=== PATIENT | male | born 1945 | race Caucasian/White ===

== ENCOUNTER 2016-10-03 06:42 | Day surgery (SDC) | payer MEDICARE ==
[~2016-10-03] VITALS: Ht 180.3 cm; Wt 118.4 kg
[2016-10-03] MEDS ORDERED: LIDOCAINE 1% INJ 20 ML (XYLOCAINE) VIAL ONE (06:49)
[2016-10-03] MEDS ORDERED: HEParin (CATH LAB) 2,000 ML IV ONE (06:49)
[2016-10-03] MEDS ORDERED: NS IV 1000 ML 1,000 ML ONE (06:49)
[2016-10-03 07:18] VITALS: BP 160/69
[2016-10-03 07:27] LABS: MEAN PLATELET VOLUME 10.4 FL (7.4-10.4); RED BLOOD COUNT 3.66 10^6/uL (4.35-5.85); RED CELL DISTRIBUTION WIDTH 14.4 % (10.0-14.5); WHITE BLOOD COUNT 7.3 10^3/uL (4.3-11.0)
[2016-10-03] MEDS ORDERED: NS IV 1000 ML 1,000 ML IV SCH ×2 (07:30→13:30)
[2016-10-03 07:35] LABS: PROTHROMBIN TIME PATIENT 12.9 SEC (12.2-14.7)
[2016-10-03 07:43] LABS: ALBUMIN 3.8 G/DL (3.2-4.5); BILIRUBIN,TOTAL 0.7 MG/DL (0.1-1.0); CALCIUM 8.8 MG/DL (8.5-10.1); CREATININE SERUM 1.33 MG/DL (0.60-1.30); POTASSIUM 4.1 MMOL/L (3.6-5.0); TOTAL PROTEIN 6.2 G/DL (6.4-8.2)
--- NOTE | 2016-10-03 08:05 | Diagnostic Imaging Report ---
Portable upright radiograph of the chest. INDICATION: Shortness of breath, hypertension. FINDINGS: There is minimal left basilar atelectasis. There is an indeterminate nodule projecting over the left lung base with less prominent but symmetric location and size appearance on the right side probably related to the nipple shadow. The heart size is at the upper limits of normal. No effusion or pneumothorax. IMPRESSION: Minimal left basilar atelectasis. Dictated by: Dictated on workstation # [id number]
[2016-10-03] MEDS ORDERED: LOVA20TA2 PO (08:40)
[2016-10-03] MEDS ORDERED: LISI-552 PO (08:40)
[2016-10-03] MEDS ORDERED: ASPI325T32 PO (08:40)
[2016-10-03] MEDS ORDERED: HYDR-3812 PO (08:42)
[2016-10-03] MEDS ORDERED: NAPR500T3 PO (08:42)
[2016-10-03] MEDS ORDERED: GABA-488 PO (08:42)
[2016-10-03] MEDS ORDERED: ALPR0.5T7 PO (08:47)
[2016-10-03] MEDS ORDERED: ZOLP12.546 PO (08:47)
[2016-10-03] MEDS ORDERED: VERAPAMIL 5 MG/2 ML (CALAN) VIAL IV ONE (11:33)
[2016-10-03] MEDS ORDERED: NITROGLYCERIN DRIP 25 MG/D5W 250 ML IV ONE (11:33)
[2016-10-03] MEDS ORDERED: HEParin 1000 UNIT/ML (10ML VIAL) FOR BOLUS ONE (11:33)
[2016-10-03] MEDS ORDERED: MIDAZOLAM 5 MG/5 ML (VERSED) VIAL ONE (11:33)
[2016-10-03] MEDS ORDERED: fentaNYL INJECTION 100 MCG/2 ML AMP ONE (11:33)
--- NOTE | 2016-10-03 13:26 | Cardiac Procedure Note-CS/ASA ---
Pre-Procedure Note Pre-Op Procedure Note H&P Reviewed The H&P was reviewed, patient examined and no changes noted. Date H&P Reviewed: Oct 03, 2016 Time H&P Reviewed: 12:00 Conscious Sedation Pre-Proced Time Reviewed: 12:00 ASA Class: 2 Airway Mallampati Classification: ([place] appropriate class) I. II. III, IV Lungs Heart ASA score ASA 1: a normal healthy patient ASA 2: a patient with a mild systemic disease (mid diabetes, controlled hypertension, obesity ASA 3: a patient with a severe systemic disease that limits activity (angina , COPD, prior Myocardial infarction) ASA 4: a patient with an incapacitating disease that is a constant threat to life (CHF, renal failure) ASA 5: a moribund patient not expected to survive 24 hrs. (ruptured aneurysm) ASA 6: a declared brain patient whose organs are being harvested. For emergent operations, add the letter E after the classification Grade 1 Sedation Plan: Analgesia, Amnesia, Plan communicated to team members, Discussed options with patient/fam, Discussed risks with patient/fam Note The patient is an appropriate candidate to undergo the planned procedure, sedation, and anesthesia. The patient immediately re-assessed prior to indication. Feliciano HAY MD Oct 03, 2016 1:26 pm
[2016-10-03] MEDS ORDERED: PATIENT MAY USE OWN MEDS, ALL PO SCH (13:30)
--- NOTE | 2016-10-03 13:30 | Progress Note-Post Operative ---
Post-Operative Progess Note Pre-Operative Diagnosis Cardiomyopathy Post-Operative Diagnosis mild to moderate CAD Post-Op Procedure Note Date of Procedure: Oct 03, 2016 Name of Procedure: coronary angiography, LHC, aortography Procedure Note/Findings mild to moderate pRCA. mild pLAD patent LCX. LVEF 45-50%. Anesthesia Type local anesthesia, conscious sedation Estimated blood loss (mL): 30 ml Packing: none Specimen(s) collected none Feliciano HAY MD Oct 03, 2016 1:30 pm
--- NOTE | 2016-10-03 13:32 | Discharge Inst-Post CATH ---
Discharge Inst-CATH Post Cardiac Cath D/C Inst Follow Up/Plan follow up with dr evans in 2 weeks CARDIAC CATH DISCHARGE INSTRUCTIONS *Hold Metformin for 48 hours post heart cath. ACTIVITY * Go Home directly and rest. * Limit activity of the leg (or wrist if it was used) for 7 days including aerobics, swimming, jogging, bicycling, etc. * Restrict stair-climbing for 7 days if possible, if not, climb up with your non -cath leg, then bring together on the same step. * Avoid lifting, pushing, pulling or excessive movement of the affected extremity for 7 days. * Customary sexual activity may be resumed after 2 days-use caution not to use a position that strains or causes pain to the affected extremity. * No driving for 24 hours. * NO SMOKING. * Avoid straining for bowel movements for 7 days. * Gentle walking on level ground is allowed. * Returning to work will depend on the type of procedure and the results. Your doctor will discuss this with you. CALL YOUR DOCTOR FOR ANY OF THE FOLLOWING: *If bleeding from the puncture site occurs- Apply gentle pressure to site with clean cloth and call your doctor or EMS. * If a knot or lump forms under the skin, increases in size, or causes pain. * If bruising appears to be worsening or moving further down your leg instead of disappearing. * Temperature above 101 F. CARE OF YOUR GROIN INCISION; * Bruising or purple discoloration of the skin near the puncture site is common. * You may shower only, no bathtub bathing for 5 days. Be careful to avoid slipping as your leg may feel stiff. * If a closure device was used on your femoral artery, please see the attached guide regarding care of the device and your leg. * REMOVE the dressing from your groin the next day after your procedure in the shower. CARE OF YOUR WRIST INCISION; * Bruising or purple discoloration of the skin near the puncture site is common. * You may shower. * DO NOT submerge wrist. * Remove dressing in 24 hours. eFliciano EVANS MD Oct 03, 2016 1:32 pm
[2016-10-03 13:58] VITALS: BP 152/70
[2016-10-03 14:45] VITALS: BP 159/82
--- NOTE | 2016-10-03 15:09 | Cardiology Discharge Summary ---
Diagnosis/Chief Complaint Date of Admission 10/03/2016 Date of Discharge 10/03/2016 Admission Diagnosis cardiomyopathy Final/Discharge Diagnosis mild to moderate coronary artery disease, mild cardiomyopathy Chief Complaint/HPI Chief Complaint/HPI 71-year-old gentleman with cardiomyopathy with moderate reduction of ejection fraction. He was started on medical therapy for cardiomyopathy and planned for coronary angiography to rule out coronary artery disease. Discharge Summary Procedures coronary angiography, left heart catheterization Discharge Physical Examination stable Hospital Course coronary angiography revealed mild to moderate coronary artery disease. Significant improvement in ejection fraction. Nonischemic cardiomyopathy Pending Labs Laboratory Tests 10/03/16 07:18: Activated Partial Thromboplast Time 26, Alanine Aminotransferase (ALT/SGPT) 18, Albumin 3.8, Alkaline Phosphatase 58, Anion Gap 10, Aspartate Amino Transf (AST/ SGOT) 20, BUN/Creatinine Ratio 11, Blood Urea Nitrogen 15, Calcium Level 8.8, Carbon Dioxide Level 20, Chloride Level 113, Cholesterol Level 123, Creatinine 1.33, Estimat Glomerular Filtration Rate 53, Glucose Level 102, HDL Cholesterol 31, Hematocrit 35, Hemoglobin 11.7, INR Comment 1.0, LDL Cholesterol Direct 44, Mean Corpuscular Hemoglobin 32, Mean Corpuscular Hemoglobin Concent 33, Mean Corpuscular Volume 96, Mean Platelet Volume 10.4, Platelet Count 265, Potassium Level 4.1, Prothrombin Time 12.9, Red Blood Count 3.66, Red Cell Distribution Width 14.4, Sodium Level 143, Total Bilirubin 0.7, Total Protein 6.2, Triglycerides Level 114, VLDL Cholesterol 23, White Blood Count 7.3 Discussion & Recommendations Discussion nonischemic cardiomyopathy, mild to moderate coronary artery disease Follow up appt.: Dr. Evans in 3-4 weeks Dicharge Diet: Cardiac Diet Activity as Tolerated: Yes Home Medications Reviewed patient Home Medication Reconciliation Form Discharge Home Medications: Reviewed and agree with Discharge Medication list on patient's Discharge Instruction sheet Condition at discharge stable Instructions to patient/family follow up with dr evans in 3-4 weeks Feliciano EVANS MD Oct 03, 2016 3:09 pm
[2016-10-03 16:00] VITALS: BP 131/82
[2016-10-03 16:52] VITALS: BP 131/68
[2016-10-04] MEDS ORDERED: ASPIRIN E.C. 81 MG (ECOTRIN) TAB PO SCH (09:00)
--- NOTE | 2016-10-04 10:15 | CARDIAC CATHETERIZATION ---
PROCEDURE PHYSICIAN: TALIB HAY DATE OF PROCEDURE: 10/03/2016 INDICATION: Cardiomyopathy. PREOPERATIVE DIAGNOSIS: Cardiomyopathy with ejection fraction 30 to 35% on echo. POSTOPERATIVE DIAGNOSES: Significant improvement in LV EF, mild to moderate coronary artery disease. HISTORY: Mr. Metz is a 71-year-old gentleman who has been diagnosed with new onset cardiomyopathy. Echocardiogram showed an EF of 30 to 35%. He was started on medical therapy for cardiomyopathy previously. Coronary angiography was performed to rule out coronary disease as an etiology for the cardiomyopathy. PROCEDURE PERFORMED: 1. Aortic arch angiography. 2. Right femoral angiography. 3. Coronary angiography. 4. Left heart catheterization. COMPLICATIONS: None. SPECIMENS: None. ESTIMATED BLOOD LOSS: 20 mL. FINAL RESULTS: Excellent. ANTICOAGULATION: Heparin. CONTRAST: 135 mL of Omnipaque FLUOROSCOPY TIME: 10.31 minutes. FLUOROSCOPY DOSE: 1364 mGy PROCEDURE DETAILS: The patient was brought to the [facility] after informed consent was taken. All the risks and complications were explained. The patient was draped and prepped in the usual sterile fashion. We gained access in the right radial artery with a 6-[place] sheath. We had a difficulty in advancing the wire in the subclavian artery. Therefore operations logistics analyst images were taken which showed significant tortuosity in the brachiocephalic artery. An aortic arch and thoracic aortic angiography was performed. However due to significant tortuosity and difficulty in engaging the ostium of the coronary arteries, we had to switch to right femoral artery with a 6-[place] sheath. Left heart catheterization was performed with Valentin catheter. RCA was engaged with a JR4 catheter. Left coronary system was engaged with a JR4 catheter. FINDINGS: 1. Aortic arch angiography: Significant tortuosity is noted in the right brachiocephalic artery with a very acute angled with the arch. There is no significant aneurysm or dissection noted in the image which includes the descending thoracic aorta. The ostium of the left carotid artery is free of significant disease. The ostium of the left subclavian artery is also free of significant disease. 2. Left heart catheterization: Aortic pressure 135/63 mmHg, LV pressure 131/11 mmHg, LVEDP 18 mmHg. LVEF 45 to 50% with no significant wall motion abnormalities. Low gradient across the aortic valve. 3. RCA: Mild to moderate disease in the proximal segment of the RCA which is 30-40% stenosis. There is mild disease in the proximal segment of the PLV branch. 4. Left main: Patent. 5. LAD is a transapical vessel. There is mild proximal disease. 6. The left circumflex artery gives a large obtuse marginal artery which has mild proximal disease. CONCLUSION: 1. Mild to moderate coronary artery disease. 2. LV EF around 50%. 3. Significant improvement in LV ejection fraction on medical therapy. 4. Nonischemic cardiomyopathy. Job ID: [id number] Dictated Date: 10/04/2016 08:35:03 Responder Date: 10/04/2016 09:57:34 / cinda RING
== END 2016-10-03 16:54 | disposition home or self-care (01) ==
LOC: CATH 06:42
PROVIDERS: ATTEND Internal Medicine Interventional Cardiology
DX: I42.9 Cardiomyopathy, unspecified (principal); I25.10 Atherosclerotic heart disease of native coronary artery without angina pectoris; I10 Essential (primary) hypertension; I49.3 Ventricular premature depolarization; Z79.899 Other long term (current) drug therapy
CPT/HCPCS: 36221; 36415; 71010; 80053; 80061; 85027; 85610; 85730; 87081; 93005; 93458

== ENCOUNTER → 2016-10-30 | Outpatient (CLI) | payer MEDICARE ==
[~2016-10-30] MED LIST: ALPR0.5T7 PO; ASPI325T32 PO; GABA-488 PO; HYDR-3812 PO; LISI-552 PO; LOVA20TA2 PO; NAPR500T3 PO; ZOLP12.546 PO
== END ==
LOC: CARD 11:17
PROVIDERS: ATTEND Internal Medicine Interventional Cardiology
DX: I49.3 Ventricular premature depolarization (principal)
CPT/HCPCS: 93225; 93226

== ENCOUNTER → 2017-01-09 | Outpatient (CLI) | payer MEDICARE ==
--- NOTE | 2017-01-10 08:17 | ECHOCARDIOGRAPHY REPORT ---
PROCEDURE PHYSICIAN: TALIB GARG DATE OF PROCEDURE: 01/09/2017 TWO DIMENSIONAL ECHOCARDIOGRAM REPORT PRIMARY PHYSICIAN: Dr. Green OTHER PHYSICIAN: REFERRING PHYSICIAN: ORDERING PHYSICIAN: ATTENDING PHYSICIAN: Dr. Gavino Garg FAMILY PHYSICIAN: READING PHYSICIAN: INDICATION FOR THE PROCEDURE: Cardiomyopathy. MEASUREMENTS DERIVED VALUES LV DIAMETER (LAX) NORMALS NORMALS Diastolic (3.6-5.2) Eject. Fract. (60%+/-6%) Systolic (2.3-3.9) Diastolic Vol. % Shortening (0.22-0.42) Systolic Vol. Aortic Root IVS THICKNESS Diastolic (0.6-1.1) LVPW THICKNESS Diastolic (0.6-1.1) LA DIAMETER Systolic (2.1-3.7) FINDINGS: 1. Sinus rhythm. 2. Left atrial dimension is normal. 3. Aortic root dimension is normal. 4. Left ventricular systolic function is preserved. Left ventricular ejection fraction is 50 to 55%. No LVH is present. 5. Wall motion is normal. 6. Right heart size and function is normal. 7. There is no pericardial effusion. 8. There is mild diastolic dysfunction. 9. IVC is normal. Diameter is 1.5 cm. VALVULAR STRUCTURE OF THE HEART: There is trace pulmonic regurgitation. There is trace tricuspid regurgitation with RVSP of 15 mmHg. There is no significant mitral valve pathology. There is mild aortic valve sclerosis with no stenosis or regurgitation. CONCLUSION: 1. LV and RV size and function is normal. 2. LV EF is 50 to 55%. 3. There is no significant valvular heart disease. 4. There is mild diastolic dysfunction present. Job ID: [id number] Dictated Date: 01/09/2017 16:09:52 Chemical Engineer Date: 01/10/2017 08:14:04 / zoran
== END ==
LOC: CARD 09:33
PROVIDERS: ATTEND Internal Medicine Interventional Cardiology
DX: I42.9 Cardiomyopathy, unspecified (principal); R53.83 Other fatigue; E78.5 Hyperlipidemia, unspecified; I10 Essential (primary) hypertension; I49.3 Ventricular premature depolarization
CPT/HCPCS: 93306

== ENCOUNTER → 2017-06-28 | Outpatient (CLI) | payer MEDICARE | LOC: CARD 12:01 | PROVIDERS: ATTEND Internal Medicine Interventional Cardiology | DX: I50.20 Unspecified systolic (congestive) heart failure (principal) | CPT/HCPCS: 93306 ==

== ENCOUNTER 2017-07-08 14:29 | Emergency (ER) | payer MEDICARE ==
[~2017-07-08] VITALS: Ht 180.3 cm; Wt 108.9 kg
--- OUTSIDE RECORDS SUMMARY | 2017-07-08 14:34 | XMS REPORT ---
Author Author ELIZABETH WITT Organization [facility] Address [address] [place] [address] Care Team Providers Care Beauty Culturist Name Role Phone ELIZABETH WITT Unavailable PROBLEMS Type Condition ICD9-CM Code QCY19-KP Code Onset Dates Condition Status SNOMED Code Problem GERD without esophagitis K21.9 Active 077844049 Problem Primary insomnia F51.01 Active 7930059 Problem Other cardiac arrhythmia I49.8 Active 83312046 Problem Anxiety F41.9 Active 62680841 Problem Chronic fatigue R53.82 Active 38214588 ALLERGIES Substance Reaction Event Type Date Status Sulfa (sulfonamide Antibiotics) Unknown Non Drug Allergy Oct, Active SOCIAL HISTORY No smoking Hx information available PLAN OF CARE Activity Details Follow Up prn Reason: VITAL SIGNS Height 71.5 in 2016-10-15 Weight 240 lbs 2016-10-15 Temperature 97.7 degrees Fahrenheit 2016-10-15 Heart Rate 78 bpm 2016-10-15 Respiratory Rate 18 2016-10-15 BMI 33.00 kg/m2 2016-10-15 Blood pressure systolic 140 mmHg 2016-10-15 Blood pressure diastolic 56 mmHg 2016-10-15 MEDICATIONS Medication Instructions Dosage Frequency Start Date End Date Duration Status Aspirin 325 MG Orally Once a day 1 tablet 24h Active Promethazine HCl 25 MG Orally 4 times a day 1 tablet as needed 6h Oct, Nov, 30 day(s) Active Xanax 0.5 MG Orally Twice a day 1 tablet 12h 24 Jul, 2016 Active Azithromycin 250 MG Orally Once a day 2 tablets on the first day, then 1 tablet daily for 4 days 24h Oct, Oct, 5 day(s) Active Cetirizine HCl 10 mg Orally Once a day 1 tablet 24h Jun, Active Fluticasone Propionate 50 MCG/ACT Nasally Once a day 1 spray in each nostril 24h Jun, 30 day(s) Active Zolpidem Tartrate ER 12.5 MG Orally Once a day 1 tablet at bedtime as needed 24h 08 Jun, 2016 Active Gabapentin 300 mg take 2 capsules (600 mg) by oral route 3 times per day Aug, Active Lipitor 10 MG Orally Once a day 1 tablet 24h Active Lisinopril-Hydrochlorothiazide 20-25 MG Orally Once a day 1 tablet 24h Active RESULTS No Results PROCEDURES Procedure Date Ordered Related Diagnosis Body Site [facility] VISIT ESTABLISHED PATIENT Oct 15, 2016 Office Visit, Est Pt., Level 3 Oct 15, 2016 IMMUNIZATIONS No Known Immunizations
--- OUTSIDE RECORDS SUMMARY | 2017-07-08 14:34 | XMS REPORT ---
Author SARTHAK Macias [facility] eClinicalWorks Address Unknown Phone Unavailable Care Team Providers Care Financial Analysis Consultant Name Role Phone SARTHAK HARRIS CP Unavailable Allergies, Adverse Reactions, Alerts Substance Reaction Event Type Sulfa (sulfonamide Antibiotics) Info Not Available Non Drug Allergy Problems Problem Type Condition Code Onset Dates Condition Status Assessment Other cardiac arrhythmia I49.8 Active Problem Acute sinusitis, unspecified 461.9 Active Problem Nausea alone 787.02 Active Problem Other cardiac arrhythmia I49.8 Active Assessment Localized edema R60.0 Active Assessment Murmur, cardiac R01.1 Active Problem Acute pharyngitis 462 Active Problem Cough 786.2 Active Medications Medication Code System Code Instructions Start Date End Date Status Dosage Gabapentin [facility] [address]-53 300 mg Sep 26, 2014 take 2 capsules ( 600 mg) by oral route 3 times per day Fluticasone Propionate [facility] [address]-19 50 MCG/ACT Nasally Once a day Jun 26, 2016 1 spray in each nostril Cetirizine HCl [facility] [address]-78 10 mg Orally Once a day Jun 26, 2016 1 tablet Xanax [facility] [address]-69 0.5 MG Orally Twice a day Jul 24, 2016 1 tablet Hydrochlorothiazide [facility] [address]-82 25 mg Sep 26, 2014 take 1 tablet (25 mg) by oral route once daily Xarelto [facility] [address]-39 20 MG Orally Once a day not defined Zolpidem Tartrate ER [facility] [address]-93 12.5 MG Orally Once a day Jun 08, 2016 1 tablet at bedtime as needed Hydrocodone-Acetaminophen [facility] [address]-64 5-325 MG Orally every 6 hrs Sep 26, 2014 Aug 20, 2016 1 tablet as needed Procedures Procedure Coding System Code Date Office Visit, Est Pt., Level 3 CPT-4 43437 Jul 24, 2016 [facility] VISIT ESTABLISHED PATIENT CPT-4 G0467 Jul 24, 2016 Vital Signs Date/Time: Jul 24, 2016 Cardiac Monitoring Heart Rate 48 bpm Weight 237 lbs Height 71.5 in BMI 32.59 Index Blood Pressure Diastolic 82 mmHg Blood Pressure Systolic 154 mmHg Results No Known Results Summary Purpose eClinicalWorks Submission
--- OUTSIDE RECORDS SUMMARY | 2017-07-08 14:34 | XMS REPORT ---
Author Author SARTHAK HARRIS Organization e[employer] Address Unknown Phone Unavailable Care Team Providers Care Trauma Director Name Role Phone SARTHAK HARRIS CP Unavailable Allergies, Adverse Reactions, Alerts Substance Reaction Event Type Sulfa (sulfonamide Antibiotics) Info Not Available Non Drug Allergy Problems Problem Type Condition Code Onset Dates Condition Status Problem Nausea alone 787.02 Active Problem Acute pharyngitis 462 Active Problem Acute sinusitis, unspecified 461.9 Active Problem Cough 786.2 Active Assessment Upper respiratory tract infection, unspecified type J06.9 Active Medications Medication Code System Code Instructions Start Date End Date Status Dosage Cefdinir [facility] [address]-81 300 MG Orally every 12 hrs May 25, 2016Jun 1 capsule Xarelto [facility] [address]-32 20 MG Orally Once a day not defined Omnicef NDC 0 300 MG Orally every 12 hrs 1 capsule Hydrochlorothiazide [facility] [address]-57 25 mg Sep 26, 2014 take 1 tablet (25 mg) by oral route once daily PredniSONE [facility] [address]-84 20 mg Orally Once a day May 31, 2016Jun 2 tablets Ambien [facility] [address]-40 10 MG Orally Once a day May 25, 2016 1 tablet at bedtime as needed Gabapentin [facility] [address]-12 300 mg Sep 26, 2014 take 2 capsules ( 600 mg) by oral route 3 times per day Procedures Procedure Coding System Code Date Office Visit, Est Pt., Level 3 CPT-4 58280 May 31, 2016 [facility] VISIT ESTABLISHED PATIENT CPT-4 G0467 May 31, 2016 Vital Signs Date/Time: May 31, 2016 Cardiac Monitoring Heart Rate 76 bpm Weight 232.2 lbs Height 71.5 in BMI 31.93 Index Blood Pressure Diastolic 62 mmHg Blood Pressure Systolic 148 mmHg Results No Known Results Summary Purpose eClinicalWorks Submission
--- OUTSIDE RECORDS SUMMARY | 2017-07-08 14:34 | XMS REPORT ---
Author Author SARTHAK HARRIS Organization [facility] Address [address] [place] [address] Care Team Providers Care Power Lineman Name Role Phone SARTHAK HARRIS Unavailable PROBLEMS Type Condition ICD9-CM Code MNU28-IC Code Onset Dates Condition Status SNOMED Code Problem Other cardiac arrhythmia I49.8 Active 00140316 Problem Acute sinusitis, unspecified 461.9 Active 44753518 Problem Cough 786.2 Active 82878171 Assessment Polyuria R35.8 Aug, Active 31231660 Problem Nausea alone 787.02 Active 539683730 Problem Acute pharyngitis 462 Active 459056820 ALLERGIES Unknown Allergies SOCIAL HISTORY No smoking Hx information available PLAN OF CARE VITAL SIGNS MEDICATIONS Medication Instructions Dosage Frequency Start Date End Date Duration Status Zolpidem Tartrate ER 12.5 MG Orally Once a day 1 tablet at bedtime as needed 24h Jun, Active RESULTS No Results PROCEDURES No Known procedures IMMUNIZATIONS No Known Immunizations
--- OUTSIDE RECORDS SUMMARY | 2017-07-08 14:34 | XMS REPORT ---
Author Author THU GRANADOS Organization e[employer] Address Unknown Phone Unavailable Care Team Providers Care Dye Range Feeder Name Role Phone THU GRANADOS CP Unavailable Allergies, Adverse Reactions, Alerts Substance Reaction Event Type Sulfa (sulfonamide Antibiotics) Info Not Available Non Drug Allergy Problems Problem Type Condition Code Onset Dates Condition Status Problem Nausea alone 787.02 Active Problem Acute pharyngitis 462 Active Problem Acute sinusitis, unspecified 461.9 Active Problem Cough 786.2 Active Assessment Acute maxillary sinusitis, recurrence not specified J01.00 Active Medications Medication Code System Code Instructions Start Date End Date Status Dosage Hydrocodone-Acetaminophen [facility] [address]-48 5-300 mg Sep 26, 2014 take 2 tablets by oral route every 4-6 hours as needed for pain Xarelto [facility] [address]-03 20 MG Orally Once a day not defined Gabapentin [facility] [address]-67 300 mg Sep 26, 2014 take 2 capsules ( 600 mg) by oral route 3 times per day Hydrochlorothiazide [facility] [address]-10 25 mg Sep 26, 2014 take 1 tablet (25 mg) by oral route once daily Imodium A-D [facility] [address]-50 2 mg Oct 24, 2014 take 2 tablets by Oral route 1 time per day after 1st loose stool and 1 tab after each subsequent bowel movement; do not exceed 16 mg in 24hrs for diarrhea Amoxicillin [facility] [address]-35 500 MG Orally every 8 hrs April 15, 2016 April 25, 2016 1 capsule Procedures Procedure Coding System Code Date Office Visit, Est Pt., Level 3 CPT-4 65931 April 15, 2016 [facility] VISIT ESTABLISHED PATIENT CPT-4 G0467 April 15, 2016 Vital Signs Date/Time: April 15, 2016 Cardiac Monitoring Heart Rate 66 bpm Weight 231.0 lbs Height 71.5 in Blood Pressure Diastolic 72 mmHg Blood Pressure Systolic 124 mmHg Results No Known Results Summary Purpose eClinicalWorks Submission
--- OUTSIDE RECORDS SUMMARY | 2017-07-08 14:34 | XMS REPORT ---
Author Author SARTHAK HARRIS Organization [facility] Address [address] [place] [address] Care Team Providers Care Casting Chipper Name Role Phone STEVEN SARTHAK Unavailable PROBLEMS Type Condition ICD9-CM Code OVL76-VU Code Onset Dates Condition Status SNOMED Code Assessment Anxiety F41.9 Jun, Active 57723887 Assessment Chronic deep vein thrombosis (DVT) of popliteal vein of both lower extremities I82.533 Jun, Active 022849931929369 Assessment Primary insomnia F51.01 Jun, Active 5391626 Problem Acute sinusitis, unspecified 461.9 Active 21599089 Problem Nausea alone 787.02 Active 572797682 Assessment Polyuria R35.8 Jun, Active 01601182 Assessment Chronic fatigue R53.82 Jun, Active 74044719 Problem Acute pharyngitis 462 Active 157417330 Problem Cough 786.2 Active 99102925 ALLERGIES Substance Reaction Event Type Date Status Sulfa (sulfonamide Antibiotics) Unknown Non Drug Allergy Jun, Active SOCIAL HISTORY No smoking Hx information available PLAN OF CARE VITAL SIGNS Height 71.5 in 2016-06-08 Weight 234 lbs 2016-06-08 Heart Rate irregular:60 bpm 2016-06-08 Respiratory Rate 18 2016-06-08 BMI 32.18 kg/m2 2016-06-08 Blood pressure systolic 142 mmHg 2016-06-08 Blood pressure diastolic 60 mmHg 2016-06-08 MEDICATIONS Medication Instructions Dosage Frequency Start Date End Date Duration Status Hydrochlorothiazide 25 mg take 1 tablet (25 mg) by oral route once daily Aug, Active Xarelto 20 MG Orally Once a day 24h Active Paroxetine HCl 20 mg Orally Once a day, voucher 1st fill 1 tablet in the morning Jun, 30 day(s) Active Gabapentin 300 mg take 2 capsules (600 mg) by oral route 3 times per day Aug, Active Hydrocodone-Acetaminophen 5-325 MG take 2 tablets by oral route every 4-6 hours as needed for pain Aug, Active Amoxicillin 500 MG Orally every 12 hrs 1 tablet 12h Jun, Jun, 07 days Active Zolpidem Tartrate ER 12.5 MG Orally Once a day 1 tablet at bedtime as needed 24h Jun, Active RESULTS No Results PROCEDURES Procedure Date Ordered Related Diagnosis Body Site [facility] VISIT ESTABLISHED PATIENT Jun 08, 2016 Office Visit, Est Pt., Level 3 Jun 08, 2016 IMMUNIZATIONS No Known Immunizations
--- OUTSIDE RECORDS SUMMARY | 2017-07-08 14:34 | XMS REPORT ---
Author Author SARTHAK HARRIS Organization [facility] Address [address] [place] [address] Care Team Providers Care Fruit Farmworker Name Role Phone SARTHAK HARRIS Unavailable PROBLEMS Type Condition ICD9-CM Code [id number] Code Onset Dates Condition Status SNOMED Code Problem GERD without esophagitis K21.9 Active 073831403 Problem Primary insomnia F51.01 Active 6627358 Problem Other cardiac arrhythmia I49.8 Active 69066808 Problem Anxiety F41.9 Active 24290580 Problem Chronic fatigue R53.82 Active 15702956 ALLERGIES No Information SOCIAL HISTORY Never Assessed PLAN OF CARE VITAL SIGNS MEDICATIONS Medication Instructions Dosage Frequency Start Date End Date Duration Status Xanax 1 MG Orally Twice a day 1 tablet 12h 24 Jul, 2016 Active RESULTS No Results PROCEDURES No Known procedures IMMUNIZATIONS No Known Immunizations MEDICAL (GENERAL) HISTORY Type Description Date Medical History Blood clot right leg Medical History irregular heartbeat Surgical History Rt Knee 2008 Surgical History heart cath 10/2016 Hospitalization History surgery Hospitalization History tonsillectomy as a child
--- OUTSIDE RECORDS SUMMARY | 2017-07-08 14:35 | XMS REPORT ---
Author Author RAJIV RINCON [facility] Address Unknown Phone Unavailable Care Team Providers Care Shark Biologist Name Role Phone RAJIV RINCON Unavailable Allergies, Adverse Reactions, Alerts Substance Reaction Event Type Sulfa (sulfonamide Antibiotics) Info Not Available Non Drug Allergy Problems Problem Type Condition Code Onset Dates Condition Status Problem Nausea alone 787.02 Active Problem Acute pharyngitis 462 Active Problem Acute sinusitis, unspecified 461.9 Active Assessment Acute diarrhea R19.7 Active Problem Cough 786.2 Active Assessment Acute vomiting R11.10 Active Medications Medication Code System Code Instructions Start Date End Date Status Dosage Hydrochlorothiazide [facility] [address]-27 25 mg Sep 26, 2014 take 1 tablet (25 mg) by oral route once daily Hydrocodone-Acetaminophen [facility] [address]-09 5-300 mg Sep 26, 2014 take 2 tablets by oral route every 4-6 hours as needed for pain Acidophilus [facility] [address]84-[address]34 100 MG Orally 2 times a day January 22, 2016 January 29, 2016 1 capsule Imodium A-D [facility] [address]-51 2 mg Oct 24, 2014 take 2 tablets by Oral route 1 time per day after 1st loose stool and 1 tab after each subsequent bowel movement; do not exceed 16 mg in 24hrs for diarrhea Gabapentin [facility] [address]-29 300 mg Sep 26, 2014 take 2 capsules ( 600 mg) by oral route 3 times per day Promethazine HCl [facility] [address]-05 25 MG Orally every 12 hrs January 22, 2016 January 27, 2016 1 tablet as needed Procedures Procedure Coding System Code Date Office Visit, Est Pt., Level 3 CPT-4 10270 January 22, 2016 [facility] VISIT ESTABLISHED PATIENT CPT-4 G0467 January 22, 2016 Vital Signs Date/Time: January 22, 2016 Temperature 99.0 F Weight 242.6 lbs Height 71.5 in BMI 33.36 Index Blood Pressure Diastolic 74 mmHg Blood Pressure Systolic 142 mmHg Cardiac Monitoring Heart Rate 100 bpm Results No Known Results Summary Purpose eClinicalWorks Submission
--- OUTSIDE RECORDS SUMMARY | 2017-07-08 14:35 | XMS REPORT ---
Author Author SARTHAK HARRIS [facility] Address [address] [place] [address] Care Team Providers Care Mushroom Cutter Name Role Phone SARTHAK HARRIS Unavailable PROBLEMS Type Condition ICD9-CM Code [id number] Code Onset Dates Condition Status SNOMED Code Problem Acute sinusitis, unspecified 461.9 Active 07200455 Problem Nausea alone 787.02 Active 050619568 Assessment Low testosterone level in male E29.1 Jun, Active 843803480 Problem Acute pharyngitis 462 Active 517054417 Problem Cough 786.2 Active 05800739 ALLERGIES Unknown Allergies SOCIAL HISTORY No smoking Hx information available PLAN OF CARE VITAL SIGNS MEDICATIONS Unknown Medications RESULTS No Results PROCEDURES No Known procedures IMMUNIZATIONS No Known Immunizations
--- OUTSIDE RECORDS SUMMARY | 2017-07-08 14:35 | XMS REPORT ---
Author Author ELIZABETH WITT Organization [employer] Address Unknown Phone Unavailable Care Team Providers Care Web Marketing Specialist Name Role Phone ELIZABETH WITT CP Unavailable Allergies, Adverse Reactions, Alerts Substance Reaction Event Type Sulfa (sulfonamide Antibiotics) Info Not Available Non Drug Allergy Problems Problem Type Condition Code Onset Dates Condition Status Problem Nausea alone 787.02 Active Problem Acute pharyngitis 462 Active Problem Acute sinusitis, unspecified 461.9 Active Problem Cough 786.2 Active Assessment Left otitis media, unspecified chronicity, unspecified otitis media type H66.92 Active Medications Medication Code System Code Instructions Start Date End Date Status Dosage Imodium A-D [facility] [address]-30 2 mg Oct 24, 2014 take 2 tablets by Oral route 1 time per day after 1st loose stool and 1 tab after each subsequent bowel movement; do not exceed 16 mg in 24hrs for diarrhea Hydrochlorothiazide [facility] [address]-46 25 mg Sep 26, 2014 take 1 tablet (25 mg) by oral route once daily Xarelto [facility] [address]-61 20 MG Orally Once a day not defined Gabapentin [facility] [address]-31 300 mg Sep 26, 2014 take 2 capsules ( 600 mg) by oral route 3 times per day Hydrocodone-Acetaminophen [facility] [address]-10 5-300 mg Sep 26, 2014 take 2 tablets by oral route every 4-6 hours as needed for pain Amoxicillin [facility] [address]-83 875 MG Orally every 12 hrs May 19, 2016 May 29, 2016 1 tablet Procedures Procedure Coding System Code Date Office Visit, Est Pt., Level 3 CPT-4 55913 May 19, 2016 [facility] VISIT ESTABLISHED PATIENT CPT-4 G0467 May 19, 2016 Vital Signs Date/Time: May 19, 2016 Cardiac Monitoring Heart Rate 78 bpm Weight 234 lbs Height 71.5 in BMI 32.18 Index Blood Pressure Diastolic 50 mmHg Blood Pressure Systolic 124 mmHg Results No Known Results Summary Purpose eClinicalWorks Submission
--- OUTSIDE RECORDS SUMMARY | 2017-07-08 14:35 | XMS REPORT ---
Author Author SARTHAK HARRIS [facility] Address [address] [place] [address] Care Team Providers Care Department Specialist Name Role Phone STEVEN SARTHAK Unavailable PROBLEMS Type Condition ICD9-CM Code [id number] Code Onset Dates Condition Status SNOMED Code Problem GERD without esophagitis K21.9 Active 626472198 Problem Primary insomnia F51.01 Active 1010549 Problem Other cardiac arrhythmia I49.8 Active 72549177 Problem Anxiety F41.9 Active 58511840 Problem Chronic fatigue R53.82 Active 65754329 ALLERGIES Substance Reaction Event Type Date Status Sulfa (sulfonamide Antibiotics) Unknown Non Drug Allergy Nov, Active SOCIAL HISTORY Never Assessed PLAN OF CARE VITAL SIGNS Height 71.5 in 2016-12-11 Weight 227.8 lbs 2016-12-11 Temperature 98.1 degrees Fahrenheit 2016-12-11 Heart Rate 78 bpm 2016-12-11 Respiratory Rate 20 2016-12-11 BMI 31.33 kg/m2 2016-12-11 Blood pressure systolic 132 mmHg 2016-12-11 Blood pressure diastolic 70 mmHg 2016-12-11 MEDICATIONS Medication Instructions Dosage Frequency Start Date End Date Duration Status Aspirin 325 MG Orally Once a day 1 tablet 24h Active Lisinopril-Hydrochlorothiazide 20-25 MG Orally Once a day 1 tablet 24h Active Gabapentin 300 mg take 2 capsules (600 mg) by oral route 3 times per day Aug, Active Fluticasone Propionate 50 MCG/ACT Nasally Once a day 1 spray in each nostril 24h Jun, 30 day(s) Active Cetirizine HCl 10 mg Orally Once a day 1 tablet 24h Jun, Active Zolpidem Tartrate ER 12.5 MG Orally Once a day 1 tablet at bedtime as needed 24h Jun, 28 days Active Xanax 1 MG Orally Twice a day 1 tablet 12h Jul, Active RESULTS No Results PROCEDURES Procedure Date Ordered Result Body Site [facility] VISIT ESTABLISHED PATIENT December 11, 2016 IMMUNIZATIONS No Known Immunizations MEDICAL (GENERAL) HISTORY Type Description Date Medical History Blood clot right leg Medical History irregular heartbeat Surgical History Rt Knee 2008 Surgical History heart cath 10/2016 Hospitalization History surgery Hospitalization History tonsillectomy as a child
--- OUTSIDE RECORDS SUMMARY | 2017-07-08 14:35 | XMS REPORT ---
Author Author SARTHAK HARRIS [facility] Address [address] [place] [address] Care Team Providers Care House Rn Name Role Phone SARTHAK HARRIS Unavailable PROBLEMS Type Condition ICD9-CM Code [id number] Code Onset Dates Condition Status SNOMED Code Problem Acute sinusitis, unspecified 461.9 Active 84732530 Problem Nausea alone 787.02 Active 213163751 Problem Acute pharyngitis 462 Active 038572692 Problem Cough 786.2 Active 09026893 ALLERGIES Unknown Allergies SOCIAL HISTORY No smoking Hx information available PLAN OF CARE VITAL SIGNS MEDICATIONS Medication Instructions Dosage Frequency Start Date End Date Duration Status Hydrocodone-Acetaminophen 5-325 MG Orally every 6 hrs 1 tablet as needed 6h Aug, Active RESULTS No Results PROCEDURES No Known procedures IMMUNIZATIONS No Known Immunizations
--- OUTSIDE RECORDS SUMMARY | 2017-07-08 14:35 | XMS REPORT ---
Author Author SARTHAK HARRIS Organization [employer] Address Unknown Phone Unavailable Care Team Providers Care Manager Of Data Name Role Phone SARTHAK HARRIS CP Unavailable Allergies No Known Allergies Problems Problem Type Condition Code Onset Dates Condition Status Problem Acute sinusitis, unspecified 461.9 Active Problem Nausea alone 787.02 Active Problem Other cardiac arrhythmia I49.8 Active Problem Acute pharyngitis 462 Active Problem Cough 786.2 Active Medications Medication Code System Code Instructions Start Date End Date Status Dosage Xanax [facility] [address]-73 0.5 MG Orally Twice a day Jul 24, 2016 1 tablet Results No Known Results Summary Purpose eClinicalWorks Submission
--- OUTSIDE RECORDS SUMMARY | 2017-07-08 14:35 | XMS REPORT ---
Author Author SARTHAK HARRIS Organization [employer] Address Unknown Phone Unavailable Care Team Providers Care Blood Typer Name Role Phone SARTHAK HARRIS CP Unavailable Allergies No Known Allergies Problems Problem Type Condition Code Onset Dates Condition Status Problem Acute sinusitis, unspecified 461.9 Active Problem Nausea alone 787.02 Active Problem Other cardiac arrhythmia I49.8 Active Problem Acute pharyngitis 462 Active Problem Cough 786.2 Active Medications Medication Code System Code Instructions Start Date End Date Status Dosage Hydrocodone-Acetaminophen [facility] [address]-33 5-325 MG Orally every 6 hrs Sep 26, 2014 Aug 20, 2016 1 tablet as needed Results No Known Results Summary Purpose eClinicalWorks Submission
--- OUTSIDE RECORDS SUMMARY | 2017-07-08 14:35 | XMS REPORT ---
Author Author ELIZABETH WITT Organization [facility] Address [address] [place] [address] Care Team Providers Care Data Entry Coordinator Name Role Phone ELIZABETH WITT Unavailable PROBLEMS Type Condition ICD9-CM Code INA89-VB Code Onset Dates Condition Status SNOMED Code Problem Acute sinusitis, unspecified 461.9 Active 16856927 Problem Nausea alone 787.02 Active 809345534 Assessment Acute non-recurrent frontal sinusitis J01.10 Jun, Active 09278263 Problem Acute pharyngitis 462 Active 642347892 Problem Cough 786.2 Active 48846507 ALLERGIES Substance Reaction Event Type Date Status Sulfa (sulfonamide Antibiotics) Unknown Non Drug Allergy Jun, Active SOCIAL HISTORY No smoking Hx information available PLAN OF CARE VITAL SIGNS Height 71.5 in 2016-06-17 Weight 230.4 lbs 2016-06-17 Heart Rate 68 bpm 2016-06-17 Respiratory Rate 16 2016-06-17 BMI 31.68 kg/m2 2016-06-17 Blood pressure systolic 132 mmHg 2016-06-17 Blood pressure diastolic 82 mmHg 2016-06-17 MEDICATIONS Medication Instructions Dosage Frequency Start Date End Date Duration Status Hydrochlorothiazide 25 mg take 1 tablet (25 mg) by oral route once daily Aug, Active Xarelto 20 MG Orally Once a day 24h Active Hydrocodone-Acetaminophen 5-325 MG Orally every 6 hrs 1 tablet as needed 6h Aug, Active Zolpidem Tartrate ER 12.5 MG Orally Once a day 1 tablet at bedtime as needed 24h Jun, Active Paroxetine HCl 20 mg Orally Once a day, voucher 1st fill 1 tablet in the morning Jun, 30 day(s) Active Omnicef 300 MG Orally every 12 hrs 1 capsule 12h Jun, 10 days Active Gabapentin 300 mg take 2 capsules (600 mg) by oral route 3 times per day Aug, Active RESULTS No Results PROCEDURES Procedure Date Ordered Related Diagnosis Body Site [facility] VISIT ESTABLISHED PATIENT Jun 17, 2016 Office Visit, Est Pt., Level 3 Jun 17, 2016 THER/PROPH/DIAG INJ, SC/IM Jun 17, 2016 SOLUMEDROL (UP TO 125 MG) Jun 17, 2016 ROCEPHIN 1 GM (IM) Jun 17, 2016 IMMUNIZATIONS Vaccine Route Administration Date Status SOLUMEDROL (UP TO 125 MG) IM Intramuscular Jun 17, 2016 Administered ROCEPHIN 1 GM (IM) IM Intramuscular Jun 17, 2016 Administered
--- OUTSIDE RECORDS SUMMARY | 2017-07-08 14:35 | XMS REPORT ---
Author Author SARTHAK HARRIS [facility] Address [address] [place] [address] Care Team Providers Care Receiving Manager Name Role Phone SARTHAK HARRIS Unavailable PROBLEMS Type Condition ICD9-CM Code WXP57-GH Code Onset Dates Condition Status SNOMED Code Problem Acute sinusitis, unspecified 461.9 Active 82931010 Problem Nausea alone 787.02 Active 630468105 Problem Acute pharyngitis 462 Active 693013849 Problem Cough 786.2 Active 02313989 ALLERGIES Unknown Allergies SOCIAL HISTORY No smoking Hx information available PLAN OF CARE VITAL SIGNS MEDICATIONS Unknown Medications RESULTS No Results PROCEDURES No Known procedures IMMUNIZATIONS No Known Immunizations
--- OUTSIDE RECORDS SUMMARY | 2017-07-08 14:35 | XMS REPORT ---
Author Author SARTHAK HARRIS Organization [facility] Address [address] [place] [address] Care Team Providers Care Network Applications Specialist Name Role Phone SARTHAK HARRIS Unavailable PROBLEMS Type Condition ICD9-CM Code [id number] Code Onset Dates Condition Status SNOMED Code Problem GERD without esophagitis K21.9 Active 154641006 Problem Primary insomnia F51.01 Active 4285961 Problem Other cardiac arrhythmia I49.8 Active 60282005 Problem Anxiety F41.9 Active 50876511 Problem Chronic fatigue R53.82 Active 77503436 ALLERGIES No Information SOCIAL HISTORY Never Assessed PLAN OF CARE VITAL SIGNS MEDICATIONS Medication Instructions Dosage Frequency Start Date End Date Duration Status Zolpidem Tartrate ER 12.5 MG Orally Once a day 1 tablet at bedtime as needed 24h Jun, 28 days Active RESULTS No Results PROCEDURES No Known procedures IMMUNIZATIONS No Known Immunizations MEDICAL (GENERAL) HISTORY Type Description Date Medical History Blood clot right leg Medical History irregular heartbeat Surgical History Rt Knee 2008 Surgical History heart cath 10/2016 Hospitalization History surgery Hospitalization History tonsillectomy as a child
--- OUTSIDE RECORDS SUMMARY | 2017-07-08 14:35 | XMS REPORT ---
Author Author SARTHAK HARRIS Organization [employer] Address Unknown Phone Unavailable Care Team Providers Care Hardwood Sawyer Name Role Phone SARTHAK HARRIS CP Unavailable Allergies No Known Allergies Problems Problem Type Condition Code Onset Dates Condition Status Problem Acute sinusitis, unspecified 461.9 Active Problem Nausea alone 787.02 Active Problem Other cardiac arrhythmia I49.8 Active Problem Acute pharyngitis 462 Active Problem Cough 786.2 Active Medications No Known Medications Results No Known Results Summary Purpose eClinicalWorks Submission
--- OUTSIDE RECORDS SUMMARY | 2017-07-08 14:35 | XMS REPORT ---
Author Author SARTHAK HARRIS [facility] Address [address] [place] [address] Care Team Providers Care Lead Refiner Name Role Phone SARTHAK HARRIS Unavailable PROBLEMS Type Condition ICD9-CM Code UJZ79-CG Code Onset Dates Condition Status SNOMED Code Problem Acute sinusitis, unspecified 461.9 Active 10253806 Problem Nausea alone 787.02 Active 611611779 Problem Acute pharyngitis 462 Active 404793382 Problem Cough 786.2 Active 84345735 ALLERGIES Unknown Allergies SOCIAL HISTORY No smoking Hx information available PLAN OF CARE VITAL SIGNS MEDICATIONS Medication Instructions Dosage Frequency Start Date End Date Duration Status Omnicef 300 MG Orally every 12 hrs 1 capsule 12h Jun, 10 days Active RESULTS No Results PROCEDURES No Known procedures IMMUNIZATIONS No Known Immunizations
--- OUTSIDE RECORDS SUMMARY | 2017-07-08 14:35 | XMS REPORT ---
Author Author SARTHAK HARRIS Organization [facility] Address [address] [place] [address] Care Team Providers Care [facility] Assistant Name Role Phone SARTHAK HARRIS Unavailable PROBLEMS Type Condition ICD9-CM Code [id number] Code Onset Dates Condition Status SNOMED Code Assessment Chronic deep vein thrombosis (DVT) of popliteal vein of both lower extremities I82.533 13 Jun, 2016 Active Problem Acute sinusitis, unspecified 461.9 Active 39161577 Problem Nausea alone 787.02 Active 932837008 Assessment Polyuria R35.8 13 Jun, 2016 Active 70477761 Assessment Chronic fatigue R53.82 Jun, Active 86462280 Problem Acute pharyngitis 462 Active 331811247 Problem Cough 786.2 Active 12410178 ALLERGIES Unknown Allergies SOCIAL HISTORY No smoking Hx information available PLAN OF CARE VITAL SIGNS MEDICATIONS Unknown Medications RESULTS Name Result Date Reference Range TESTOSTERONE, TOTAL 2016-06-13 Testosterone, Serum [id number] Comment: CBC 2016-06-13 WBC 9.8 3.4-10.8 RBC 5.02 4.14-5.80 Hemoglobin 16.1 12.6-17.7 Hematocrit 45.9 37.5-51.0 MCV 91 79-97 MCH 32.1 26.6-33.0 MCHC 35.1 31.5-35.7 RDW 14.7 12.3-15.4 Platelets 348 150-379 Neutrophils 59 Lymphs 32 Monocytes 8 Eos 1 Basos 0 Neutrophils (Absolute) 5.8 1.4-7.0 Lymphs (Absolute) 3.1 0.7-3.1 Monocytes(Absolute) 0.8 0.1-0.9 Eos (Absolute) 0.1 0.0-0.4 Baso (Absolute) 0.0 0.0-0.2 Immature Granulocytes 0 Immature Grans (Abs) 0.0 0.0-0.1 LIPID PANEL 2016-06-13 Cholesterol, Total 178 100-199 Triglycerides 169 0-149 HDL Cholesterol 39 >39 VLDL Cholesterol Pankaj 34 5-40 LDL Cholesterol Calc 105 0-99 CMP 2016-06-13 Glucose, Serum 116 65-99 BUN 25 8-27 Creatinine, Serum 1.54 0.76-1.27 eGFR If NonAfricn Am 45 >59 eGFR If Africn Am 52 >59 BUN/Creatinine Ratio 16 10-22 Sodium, Serum 140 134-144 Potassium, Serum 4.4 3.5-5.2 Chloride, Serum 100 97-108 Carbon Dioxide, Total 21 18-29 Calcium, Serum 9.5 8.6-10.2 Protein, Total, Serum 6.9 6.0-8.5 Albumin, Serum 3.9 3.5-4.8 Globulin, Total 3.0 1.5-4.5 A/G Ratio 1.3 1.1-2.5 Bilirubin, Total 0.7 0.0-1.2 Alkaline Phosphatase, S 76 39-117 AST (SGOT) 27 0-40 ALT (SGPT) 40 0-44 TSH 2016-06-13 TSH 3.060 0.450-4.500 PROCEDURES Procedure Date Ordered Related Diagnosis Body Site [facility] Jun 13, 2016 VENIPUNCT, ROUTINE* Jun 13, 2016 IMMUNIZATIONS No Known Immunizations
--- OUTSIDE RECORDS SUMMARY | 2017-07-08 14:35 | XMS REPORT ---
Author Author SARTHAK HARRIS Organization [employer] Address Unknown Phone Unavailable Care Team Providers Care Insurance Loss Adjuster Name Role Phone SARTHAK HARRIS CP Unavailable Allergies No Known Allergies Problems Problem Type Condition Code Onset Dates Condition Status Problem Nausea alone 787.02 Active Problem Acute pharyngitis 462 Active Problem Acute sinusitis, unspecified 461.9 Active Problem Cough 786.2 Active Medications Medication Code System Code Instructions Start Date End Date Status Dosage Hydrocodone-Acetaminophen [facility] [address]-25 5-325 MG Orally every 6 hrs Sep 26, 2014 Aug 20, 2016 1 tablet as needed Results No Known Results Summary Purpose eClinicalWorks Submission
--- OUTSIDE RECORDS SUMMARY | 2017-07-08 14:35 | XMS REPORT ---
Author Author TARIQ CASTELLANOS Organization [employer] Address Unknown Phone Unavailable Care Team Providers Care Food Adviser Name Role Phone TARIQ CASTELLANOS CP Unavailable Allergies, Adverse Reactions, Alerts Substance Reaction Event Type Sulfa (sulfonamide Antibiotics) Info Not Available Non Drug Allergy Problems Problem Type Condition Code Onset Dates Condition Status Problem Nausea alone 787.02 Active Problem Acute pharyngitis 462 Active Problem Acute sinusitis, unspecified 461.9 Active Assessment Irregular heart beat I49.9 Active Assessment Strep pharyngitis J02.0 Active Problem Cough 786.2 Active Assessment Sore throat J02.9 Active Medications Medication Code System Code Instructions Start Date End Date Status Dosage Hydrochlorothiazide [facility] [address]-53 25 mg Sep 26, 2014 take 1 tablet (25 mg) by oral route once daily Omnicef NDC 0 300 MG Orally every 12 hrs 1 capsule PredniSONE [facility] [address]-29 20 mg Orally Once a day May 31, 2016Jun 2 tablets Amoxicillin [facility] [address]-38 500 MG Orally every 12 hrs Jun 03, 2016 Jun 10, 2016 1 tablet Cefdinir [facility] [address]-65 300 MG Orally every 12 hrs May 25, 2016Jun 1 capsule Gabapentin [facility] [address]-48 300 mg Sep 26, 2014 take 2 capsules ( 600 mg) by oral route 3 times per day Ambien [facility] [address]-25 10 MG Orally Once a day May 25, 2016 1 tablet at bedtime as needed Xarelto [facility] [address]-69 20 MG Orally Once a day not defined Procedures Procedure Coding System Code Date ELECTROCARDIOGRAM, TRACING CPT-4 59815 Jun 03, 2016 [facility] VISIT ESTABLISHED PATIENT CPT-4 G0467 Jun 03, 2016 STREP A ASSAY W/OPTIC CPT-4 30771 Jun 03, 2016 Office Visit, Est Pt., Level 3 CPT-4 15176 Jun 03, 2016 Vital Signs Date/Time: Jun 03, 2016 Cardiac Monitoring Heart Rate 82 bpm Weight 234.8 lbs Height 71.5 in BMI 32.29 Index Blood Pressure Diastolic 64 mmHg Blood Pressure Systolic 128 mmHg Results No Known Results Summary Purpose eClinicalWorks Submission
--- OUTSIDE RECORDS SUMMARY | 2017-07-08 14:36 | XMS REPORT ---
Author Author JASMIN TARIQ Organization [facility] Address [address] [place] [address] Care Team Providers Care Sign Painter Helper Name Role Phone TARIQ CASTELLANOS Unavailable PROBLEMS Type Condition ICD9-CM Code GYV92-PP Code Onset Dates Condition Status SNOMED Code Problem Acute sinusitis, unspecified 461.9 Active 48552342 Problem Nausea alone 787.02 Active 930693414 Assessment Seasonal allergic rhinitis due to pollen J30.1 Jun, Active 69522437 Problem Acute pharyngitis 462 Active 850976500 Problem Cough 786.2 Active 80131016 ALLERGIES Substance Reaction Event Type Date Status Sulfa (sulfonamide Antibiotics) Unknown Non Drug Allergy Jun, Active SOCIAL HISTORY No smoking Hx information available PLAN OF CARE VITAL SIGNS Height 71.5 in 2016-06-26 Weight 234.2 lbs 2016-06-26 Heart Rate 72 bpm 2016-06-26 Respiratory Rate 18 2016-06-26 BMI 32.21 kg/m2 2016-06-26 Blood pressure systolic 142 mmHg 2016-06-26 Blood pressure diastolic 72 mmHg 2016-06-26 MEDICATIONS Medication Instructions Dosage Frequency Start Date End Date Duration Status Fluticasone Propionate 50 MCG/ACT Nasally Once a day 1 spray in each nostril 24h Jun, 30 day(s) Active Gabapentin 300 mg take 2 capsules (600 mg) by oral route 3 times per day Aug, Active Omnicef 300 MG Orally every 12 hrs 1 capsule 12h Jun, 10 days Active Xarelto 20 MG Orally Once a day 24h Active Hydrocodone-Acetaminophen 5-325 MG Orally every 6 hrs 1 tablet as needed 6h Aug, Active Cetirizine HCl 10 mg Orally Once a day 1 tablet 24h Jun, Active Hydrochlorothiazide 25 mg take 1 tablet (25 mg) by oral route once daily Aug, Active Zolpidem Tartrate ER 12.5 MG Orally Once a day 1 tablet at bedtime as needed 24h Jun, Active Paroxetine HCl 20 mg Orally Once a day, voucher 1st fill 1 tablet in the morning Jun, 30 day(s) Active RESULTS No Results PROCEDURES Procedure Date Ordered Related Diagnosis Body Site [facility] VISIT ESTABLISHED PATIENT Jun 26, 2016 Office Visit, Est Pt., Level 3 Jun 26, 2016 IMMUNIZATIONS No Known Immunizations
--- OUTSIDE RECORDS SUMMARY | 2017-07-08 14:36 | XMS REPORT ---
Author Author SARTHAK HARRIS [facility] Address [address] [place] [address] Care Team Providers Care Demurrage Worker Name Role Phone SARTHAK HARRIS Unavailable PROBLEMS Type Condition ICD9-CM Code SGN87-AR Code Onset Dates Condition Status SNOMED Code Problem GERD without esophagitis K21.9 Active 496021329 Problem Primary insomnia F51.01 Active 6229027 Problem Other cardiac arrhythmia I49.8 Active 99515410 Problem Anxiety F41.9 Active 86101554 Problem Chronic fatigue R53.82 Active 25034571 ALLERGIES Unknown Allergies SOCIAL HISTORY No smoking [...]
--- OUTSIDE RECORDS SUMMARY | 2017-07-08 14:36 | XMS REPORT ---
Author Author SARTHAK HARRIS Organization [facility] [place] Address [address] [place] [address] Care Team Providers Care Pit Slagman Name Role Phone STEVEN SARTHAK Unavailable PROBLEMS Type Condition ICD9-CM Code QHM06-WN Code Onset Dates Condition Status SNOMED Code Problem GERD without esophagitis K21.9 Active 121765593 Problem Primary insomnia F51.01 Active 6415926 Problem Other cardiac arrhythmia I49.8 Active 66216697 Problem Anxiety F41.9 Active 08300085 Problem Chronic fatigue R53.82 Active 90947991 ALLERGIES Substance Reaction Event Type Date Status Sulfa (sulfonamide Antibiotics) Unknown Non Drug Allergy Oct, Active SOCIAL HISTORY No smoking Hx information available PLAN OF CARE VITAL SIGNS Height 71.5 in 2016-10-07 Weight 240.69 lbs 2016-10-07 Temperature 98.6 degrees Fahrenheit 2016-10-07 Heart Rate 76 bpm 2016-10-07 Respiratory Rate 16 2016-10-07 BMI 33.10 kg/m2 2016-10-07 Blood pressure systolic 130 mmHg 2016-10-07 Blood pressure diastolic 76 mmHg 2016-10-07 MEDICATIONS Medication Instructions Dosage Frequency Start Date End Date Duration Status Zolpidem Tartrate ER 12.5 MG Orally Once a day 1 tablet at bedtime as needed 24h 08 Jun, 2016 Active Hydrochlorothiazide 25 mg take 1 tablet (25 mg) by oral route once daily Aug, Active Xanax 0.5 MG Orally Twice a day 1 tablet 12h Jul, Active Cetirizine HCl 10 mg Orally Once a day 1 tablet 24h Jun, Active Gabapentin 300 mg take 2 capsules (600 mg) by oral route 3 times per day Aug, Active Aspirin 325 MG Orally Once a day 1 tablet 24h Active Fluticasone Propionate 50 MCG/ACT Nasally Once a day 1 spray in each nostril 24h Jun, 30 day(s) Active Promethazine HCl 25 MG Orally 4 times a day 1 tablet as needed 6h Oct, Nov, 30 day(s) Active RESULTS No Results PROCEDURES Procedure Date Ordered Related Diagnosis Body Site [facility] VISIT ESTABLISHED PATIENT Oct 07, 2016 Office Visit, Est Pt., Level 3 Oct 07, 2016 IMMUNIZATIONS No Known Immunizations
--- OUTSIDE RECORDS SUMMARY | 2017-07-08 14:36 | XMS REPORT ---
Author Author ELIZABETH WITT Organization [employer] Address Unknown Phone Unavailable Care Team Providers Care Sound System Installer Name Role Phone ELIZABETH WITT CP Unavailable Allergies, Adverse Reactions, Alerts Substance Reaction Event Type Sulfa (sulfonamide Antibiotics) Info Not Available Non Drug Allergy Problems Problem Type Condition Code Onset Dates Condition Status Problem Nausea alone 787.02 Active Problem Acute pharyngitis 462 Active Problem Acute sinusitis, unspecified 461.9 Active Assessment Insomnia, unspecified type G47.00 Active Problem Cough 786.2 Active Assessment Left otitis media, unspecified chronicity, unspecified otitis media type H66.92 Active Medications Medication Code System Code Instructions Start Date End Date Status Dosage Hydrochlorothiazide [facility] [address]-49 25 mg Sep 26, 2014 take 1 tablet (25 mg) by oral route once daily Xarelto [facility] [address]-10 20 MG Orally Once a day not defined Ambien [facility] [address]-46 10 MG Orally Once a day May 25, 2016 1 tablet at bedtime as needed Cefdinir [facility] [address]-53 300 MG Orally every 12 hrs May 25, 2016Jun 1 capsule Gabapentin [facility] [address]-44 300 mg Sep 26, 2014 take 2 capsules ( 600 mg) by oral route 3 times per day Amoxicillin [facility] [address]-37 875 MG Orally every 12 hrs May 19, 2016 May 29, 2016 1 tablet Procedures Procedure Coding System Code Date Office Visit, Est Pt., Level 3 CPT-4 32491 May 25, 2016 [facility] VISIT ESTABLISHED PATIENT CPT-4 G0467 May 25, 2016 Vital Signs Date/Time: May 25, 2016 Cardiac Monitoring Heart Rate 62 bpm Weight 235 lbs Height 71.5 in BMI 32.32 Index Blood Pressure Diastolic 90 mmHg Blood Pressure Systolic 140 mmHg Results No Known Results Summary Purpose [employer] Submission
--- NOTE | 2017-07-08 16:09 | ED Lower Extremity ---
General Chief Complaint: Laceration Stated Complaint: R FOOT LAC Nursing Triage Note: PT REPORTS LAC TO BOTTOM OF R FOOT FROM NAIL. Nursing Sepsis Screen: No Definite Risk Source: patient Exam Limitations: no limitations History of Present Illness Time seen by provider: 16:03 Initial Comments The patient is a 71-year-old white male known to me for many years. 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 He reports that he stepped on a nail this afternoon and his insisted that he come here. Onset: this afternoon Pain/Injury Location: right 1st toe (MP joint plantar) Method of Injury: other (nail) Allergies and Home Medications Allergies Coded Allergies: No Known Drug Allergies (Verified Allergy, Unknown, 08/24/08) Home Medications Alprazolam 0.5 Mg Tablet, 0.5 MG PO BID PRN for ANXIETY, (Reported) Aspirin 325 Mg Tablet.dr, 325 MG PO DAILY, (Reported) Gabapentin 300 Mg Capsule, 300 MG PO TID PRN for PAIN, (Reported) Hydrocodone/Acetaminophen 1 Each Tablet, 1 TAB PO Q6H PRN for PAIN, (Reported) Lisinopril 20 Mg Tablet, 20 MG PO DAILY, (Reported) Lovastatin 20 Mg Tablet, 20 MG PO DAILY, (Reported) Naproxen 500 Mg Tablet, 500 MG PO BID PRN for SWELLING, (Reported) Zolpidem Tartrate 12.5 Mg Tab.mphase, 12.5 MG PO HS PRN for SLEEP, (Reported) Constitutional: see HPI EENTM: no symptoms reported Respiratory: no symptoms reported Cardiovascular: no symptoms reported Gastrointestinal: no symptoms reported Genitourinary: no symptoms reported Musculoskeletal: no symptoms reported Skin: see HPI Psychiatric/Neurological: No Symptoms Reported Past Zqetifn-Fvkueq-Csalcx Hx Patient Social History Alcohol Use: Past History Recreational Drug Use: No Smoking Status: Former Smoker Type Used: Cigarettes Former Smoker, Quit: Oct 03, 1985 2nd Hand Smoke Exposure: No Recent Foreign Travel: No Contact w/Someone Who Travel: No Recent Infectious Disease Expo: No Recent Hopitalizations: No Physical Abuse: No Sexual Abuse: No Immunizations Up To Date Date of Pneumonia Vaccine: Jul 04, 2016 Date of Influenza Vaccine: Jul 10, 2016 Surgeries History of Surgeries: Yes (KNEE SCOPE, HERNIA) Respiratory History of Respiratory Disorde: No Respiratory Disorders: Sleep Apnea Cardiovascular History of Cardiac Disorders: No Neurological History of Neurological Disord: No Reproductive System Hx Reproductive Disorders: No Sexually Transmitted Disease: No Gastrointestinal History of Gastrointestinal Di: No Musculoskeletal History of Musculoskeletal Dis: Yes (ARTHRITIS ) Endocrine History of Endocrine Disorders: No Psychosocial Suicide Risk Score: 0 Blood Transfusions History of Blood Disorders: No Physical Exam Vital Signs Vital Sign - Last 12Hours 07/08/17 14:45 Temp 98.3 Pulse 68 Resp 16 B/P (MAP) 133/79 Pulse Ox 98 O2 Delivery Room Air Capillary Refill : Less Than 3 Seconds General Appearance: no apparent distress Cardiovascular: normal peripheral pulses Respiratory: chest non-tender, lungs clear, normal breath sounds, no respiratory distress, no accessory muscle use Comments There was a puncture/avulsion of about 0.5 centimeters on the medial aspect of the right first plantar MP joint. This was clean. There were no streaks up the leg. There was 1+ edema of the right lower extremity consistent with venous stasis edema Progress/Results/Core Measures Results/Orders My Orders Orders - HEYDI ALMODOVAR MD Tetanus/Diphtheria Inj (Adult) (Tenivac (07/08/17 16:15) Vital Signs/I&O Vital Sign - Last 12Hours 07/08/17 14:45 Temp 98.3 Pulse 68 Resp 16 B/P (MAP) 133/79 Pulse Ox 98 O2 Delivery Room Air Blood Pressure Mean: 97 Departure Impression Impression: Primary Impression: nail puncture right foot/great toe Disposition: 01 HOME, SELF-CARE Condition: Stable/Unchanged Departure-Patient Inst. Decision time for Depature: 16:08 Referrals: DEEPA NAJERA MD (PCP/Family) Primary Care Physician Add. Discharge Instructions: All discharge instructions reviewed with patient and/or family. Voiced understanding. Keep foot clean and dry. Tomorrow you may remove the dressing and clean with peroxide and wash but not immerse. If redness and discomfort climbing the leg return to the ER HEYDI ALMODOVAR MD Jul 08, 2017 16:09
[2017-07-08] MEDS ORDERED: TETANUS & DIPHTHERIA TOX,ADULT 0.5 ML (TENIVAC) IM ONE (16:15)
[2017-07-08] MEDS ORDERED: TETANUS,DIPTH,PERTUSS P/F (BOOSTRIX) 0.5 ML VIAL IM ONE (16:15)
[2017-07-08 16:25] VITALS: BP 133/79
== END 2017-07-08 16:25 | disposition home or self-care (01) ==
LOC: EDUNIT# 14:29 → ER 14:30
DX: S91.131A Puncture wound without foreign body of right great toe without damage to nail, initial encounter (principal); Z79.82 Long term (current) use of aspirin; Z87.891 Personal history of nicotine dependence; Z23 Encounter for immunization; W22.8XXA Striking against or struck by other objects, initial encounter
CPT/HCPCS: 90715; 99284

== ENCOUNTER 2017-07-23 12:04 | Emergency (ER) | payer MEDICARE ==
[~2017-07-23] VITALS: Ht 180.3 cm; Wt 113.4 kg
--- NOTE | 2017-07-23 13:04 | ED Upper Extremity ---
General Chief Complaint: Upper Extremity Stated Complaint: LT BICEP PAIN Nursing Triage Note: Pt tripped on a cat, grabbed a doorstop and felt a "pop" with pain to left bicep. Swelling noted to affected area. Incident happened around noon. Nursing Sepsis Screen: No Definite Risk Source: patient Exam Limitations: no limitations History of Present Illness Time seen by provider: 13:00 Initial Comments To ER with left biceps pain after he attempted to catch himself from falling by grabbing hold of nearby support with left arm. In doing so he felt a popping sensation in the left arm. SInce then, has a bulge to the left biceps region larger than on the right when he does any flexion. Onset: just prior to arrival Severity: moderate Pain/Injury Location: left arm Method of Injury: fell Modifying Factors: Worse With Movement Allergies and Home Medications Allergies Coded Allergies: No Known Drug Allergies (Verified , 08/24/08) Home Medications Alprazolam 0.5 Mg Tablet, 0.5 MG PO BID PRN for ANXIETY, (Reported) Aspirin 325 Mg Tablet.dr, 325 MG PO DAILY, (Reported) Gabapentin 300 Mg Capsule, 300 MG PO TID PRN for PAIN, (Reported) Hydrocodone/Acetaminophen 1 Each Tablet, 1 TAB PO Q6H PRN for PAIN, (Reported) Lisinopril 20 Mg Tablet, 20 MG PO DAILY, (Reported) Lovastatin 20 Mg Tablet, 20 MG PO DAILY, (Reported) Naproxen 500 Mg Tablet, 500 MG PO BID PRN for SWELLING, (Reported) Zolpidem Tartrate 12.5 Mg Tab.mphase, 12.5 MG PO HS PRN for SLEEP, (Reported) Constitutional: no symptoms reported EENTM: see HPI Respiratory: no symptoms reported Cardiovascular: no symptoms reported Genitourinary: no symptoms reported Musculoskeletal: see HPI Skin: no symptoms reported Psychiatric/Neurological: No Symptoms Reported Past Zrxhcto-Idohos-Elgpaq Hx Patient Social History Type Used: Cigarettes Former Smoker, Quit: Oct 03, 1985 2nd Hand Smoke Exposure: No Recent Foreign Travel: No Contact w/Someone Who Travel: No Recent Infectious Disease Expo: No Recent Hopitalizations: No Immunizations Up To Date Date of Pneumonia Vaccine: Jul 04, 2016 Date of Influenza Vaccine: Jul 10, 2016 Surgeries History of Surgeries: Yes (KNEE SCOPE, HERNIA) Respiratory History of Respiratory Disorde: No Respiratory Disorders: Sleep Apnea Cardiovascular History of Cardiac Disorders: No Neurological History of Neurological Disord: No Reproductive System Hx Reproductive Disorders: No Sexually Transmitted Disease: No Gastrointestinal History of Gastrointestinal Di: No Musculoskeletal History of Musculoskeletal Dis: Yes (ARTHRITIS ) Endocrine History of Endocrine Disorders: No Blood Transfusions History of Blood Disorders: No Physical Exam Vital Signs Vital Sign - Last 12Hours 07/23/17 12:18 Temp 97.2 Pulse 70 Resp 16 B/P (MAP) 172/100 Pulse Ox 98 O2 Delivery Room Air Capillary Refill : Less Than 3 Seconds General Appearance: WD/WN, no apparent distress HEENT: PERRL/EOMI, normal ENT inspection Neck: non-tender, full range of motion Respiratory: no respiratory distress, no accessory muscle use Gastrointestinal: normal bowel sounds, non tender, soft Shoulder: normal inspection Elbow/Forearm: normal inspection, non-tender Hand: normal inspection, non-tender Neurologic/Psychiatric: alert, normal mood/affect, oriented x 3 Skin: normal color, warm/dry Comments he is able to fully flex and extend the arm. there is a bulge noted on the left biceps when he flexes that is not present on the right arm and is new since the fall. no bony tenderness to palpation. No bruising or swelling currently. Progress/Results/Core Measures Results/Orders Vital Signs/I&O Vital Sign - Last 12Hours 07/23/17 12:18 Temp 97.2 Pulse 70 Resp 16 B/P (MAP) 172/100 Pulse Ox 98 O2 Delivery Room Air Blood Pressure Mean: 124 Departure Impression Impression: Primary Impression: Biceps tendon tear Disposition: 01 HOME, SELF-CARE Condition: Stable Departure-Patient Inst. Decision time for Depature: 13:03 Referrals: DEEPA NAJERA MD (PCP/Family) Primary Care Physician CLEOPATRA LLAMAS DO Patient Instructions: Biceps Tendinopathy Add. Discharge Instructions: 1. Call Dr Llamas today to make an appointemt to be seen 2. Ice pack at 30 minute intervals for the next 48 hours 3. Return to ER for any concerns All discharge instructions reviewed with patient and/or family. Voiced understanding. Copy Copies To 1: CLEOPATRA LLAMAS PETER J APRN Jul 23, 2017 13:04
[2017-07-23 13:30] VITALS: BP 165/92
== END 2017-07-23 13:30 | disposition home or self-care (01) ==
LOC: EDUNIT# 12:04 → ER 12:06
DX: S46.211A Strain of muscle, fascia and tendon of other parts of biceps, right arm, initial encounter (principal); G47.30 Sleep apnea, unspecified; Z79.82 Long term (current) use of aspirin; Z87.891 Personal history of nicotine dependence; X50.0XXA Overexertion from strenuous movement or load, initial encounter
CPT/HCPCS: 99282

== ENCOUNTER 2017-11-12 13:03 | Emergency (ER) | payer MEDICARE ==
[~2017-11-12] VITALS: Ht 180.3 cm; Wt 106.6 kg
[~2017-11-12 13:03] MED LIST changes: +ACHD5005 PO; -HYDR-3812 PO; -NAPR500T3 PO; +NAPR500T4 PO
--- NOTE | 2017-11-12 14:21 | Diagnostic Imaging Report ---
INDICATION: Left foot pain. TIME OF EXAMINATION: 02:11 p.m. FINDINGS: Three views of the left foot were obtained. The metatarsals are intact. The phalanges appear intact. There are significant degenerative changes of the midfoot. There is joint space narrowing and marginal osteophyte formation. This appears greatest involving the cuboids and navicular. No fractures are identified. There is a large plantar calcaneal spur. IMPRESSION: Midfoot degenerative changes. No other significant abnormality is seen. Dictated by: Dictated on workstation # [id number]
--- NOTE | 2017-11-12 15:01 | ED Lower Extremity ---
General Chief Complaint: Lower Extremity Stated Complaint: LEFT ANKLE PAIN Nursing Triage Note: Pt c/o L foot pain since Sunday (11/09). Pt denies any injury and states pain continues to get worse. Nursing Sepsis Screen: No Definite Risk Source: patient Exam Limitations: no limitations History of Present Illness Date Seen by Provider: Nov 12, 2017 Time Seen by Provider: 15:00 Allergies and Home Medications Allergies Coded Allergies: No Known Drug Allergies (Verified , 08/24/08) Home Medications Alprazolam 0.5 Mg Tablet, 0.5 MG PO BID PRN for ANXIETY, (Reported) Aspirin 325 Mg Tablet.dr, 325 MG PO DAILY, (Reported) Clindamycin HCl 300 Mg Capsule, 300 MG PO QID, #28 Ref 0 Prescribed by: SUGAR VASQUEZ on 11/12/17 1524 Colchicine 0.6 Mg Capsule, 0.6 MG PO UD, #3 Ref 0 1.2 mg po once, then take 0.6 mg po 1 hour later. Prescribed by: SUGAR VASQUEZ on 11/12/17 1524 Gabapentin 300 Mg Capsule, 300 MG PO TID PRN for PAIN, (Reported) Hydrocodone Bit/Acetaminophen 1 Each Tablet, 1 TAB PO Q6H PRN for PAIN, ( Reported) Hydrocodone Bit/Acetaminophen 1 Tab Tab, 1 TAB PO Q4H PRN for PAIN-MODERATE TO SEVERE, #14 Ref 0 Prescribed by: SUGAR VASQUEZ on 11/12/17 1524 Lisinopril 20 Mg Tablet, 20 MG PO DAILY, (Reported) Lovastatin 20 Mg Tablet, 20 MG PO DAILY, (Reported) Naproxen 500 Mg Tablet, 500 MG PO BID PRN for SWELLING, (Reported) Zolpidem Tartrate 12.5 Mg Tab.mphase, 12.5 MG PO HS PRN for SLEEP, (Reported) Past Sfgkoqc-Hdhqsd-Gshfhm Hx Patient Social History Type Used: Cigarettes Former Smoker, Quit: Oct 03, 1985 2nd Hand Smoke Exposure: No Recent Foreign Travel: No Contact w/Someone Who Travel: No Recent Infectious Disease Expo: No Recent Hopitalizations: No Immunizations Up To Date Date of Pneumonia Vaccine: Jul 04, 2016 Date of Influenza Vaccine: Jul 10, 2016 Surgeries History of Surgeries: Yes (KNEE SCOPE, HERNIA) Respiratory History of Respiratory Disorde: No Respiratory Disorders: Sleep Apnea Cardiovascular History of Cardiac Disorders: No Neurological History of Neurological Disord: No Reproductive System Hx Reproductive Disorders: No Sexually Transmitted Disease: No Genitourinary History of Genitourinary Disor: No Gastrointestinal History of Gastrointestinal Di: No Musculoskeletal History of Musculoskeletal Dis: Yes (ARTHRITIS ) Endocrine History of Endocrine Disorders: No HEENT History of HEENT Disorders: No Cancer History of Cancer: No Psychosocial History of Psychiatric Problem: No Integumentary History of Skin or Integumenta: No Blood Transfusions History of Blood Disorders: No Physical Exam Vital Signs Vital Signs - First Documented 11/12/17 13:28 Temp 98.6 Pulse 84 Resp 18 B/P (MAP) 100/54 (69) Pulse Ox 96 O2 Delivery Room Air Capillary Refill : Less Than 3 Seconds Progress/Results/Core Measures Results/Orders My Orders Orders - SUGAR VASQUEZ Foot, Left, 3 Views (11/12/17 13:33) Hydrocodone/Apap 7.5/325 Tab (Lortab 7. (11/12/17 15:18) Vital Signs/I&O Vital Sign - Last 12Hours 11/12/17 13:28 Temp 98.6 Pulse 84 Resp 18 B/P (MAP) 100/54 (69) Pulse Ox 96 O2 Delivery Room Air Blood Pressure Mean: 69 Diagnostic Imaging Diagonstic Imaging: Xray Plain Films/CT/US/NM/MRI: other (foot) Comments FOOT, LEFT, 3 VIEWS INDICATION: Left foot pain. TIME OF EXAMINATION: 02:11 p.m. FINDINGS: Three views of the left foot were obtained. The metatarsals are intact. The phalanges appear intact. There are significant degenerative changes of the midfoot. There is joint space narrowing and marginal osteophyte formation. This appears greatest involving the cuboids and navicular. No fractures are identified. There is a large plantar calcaneal spur. IMPRESSION: Midfoot degenerative changes. No other significant abnormality is seen. Dictated on workstation # [id number] Reviewed: Reviewed by Me (radiology report reviewed by me) Departure Impression Impression: Primary Impression: Left foot pain Disposition: 01 HOME, SELF-CARE Condition: Improved Departure-Patient Inst. Decision time for Depature: 15:01 Referrals: DEEPA GREEN MD (PCP/Family) Primary Care Physician Patient Instructions: Cellulitis (Skin Infection), Adult (DC), Gout (DC) Add. Discharge Instructions: All discharge instructions reviewed with patient and/or family. Voiced understanding. Medications as instructed. Elevate the left foot on pillows above the level of the heart. Follow-up with Dr. Green's office this week for recheck, call for appointment time today. Return to the emergency department for worsened pain, redness, fever, or any other concerns. Scripts Meloxicam (Mobic) 15 Mg Tablet 15 MG PO DAILY, #30 TAB 0 Refills Prov: SUGAR VASQUEZ 11/12/17 Clindamycin HCl (Cleocin HCl) 300 Mg Capsule 300 MG PO QID, #28 CAP 0 Refills Prov: SUGAR VASQUEZ 11/12/17 Colchicine (Colchicine) 0.6 Mg Capsule 0.6 MG PO UD, #3 CAP 0 Refills 1.2 mg po once, then take 0.6 mg po 1 hour later. Prov: SUGAR VASQUEZ 11/12/17 Hydrocodone Bit/Acetaminophen (Hydrocodone/Acetaminophen 5/325mg Tablet) 1 Tab Tab 1 TAB PO Q4H Y for PAIN-MODERATE TO SEVERE, #14 TAB 0 Refills Prov: SUGAR VASQUEZ 11/12/17 SUGAR VASQUEZ Nov 12, 2017 15:01
[2017-11-12] MEDS ORDERED: HYDROcodone/APAP 7.5 MG/325 MG (LORTAB, LORCET PLUS) TABLET PO STA (15:18)
[2017-11-12] MEDS ORDERED: CLIN300C3 PO ×2 (15:24→15:35)
[2017-11-12] MEDS ORDERED: COLC0.6C3 PO ×2 (15:24→15:35)
[2017-11-12] MEDS ORDERED: ACHD5005 PO (15:24)
[2017-11-12] MEDS ORDERED: MELO15TA14 PO (15:35)
[2017-11-12 15:44] VITALS: BP 100/54
== END 2017-11-12 15:44 | disposition home or self-care (01) ==
LOC: EDUNIT# 13:03 → ER 13:05
DX: M79.672 Pain in left foot (principal); G47.30 Sleep apnea, unspecified; Z87.19 Personal history of other diseases of the digestive system; Z79.82 Long term (current) use of aspirin; Z87.891 Personal history of nicotine dependence
CPT/HCPCS: 73630; 99283

== ENCOUNTER 2018-03-03 14:53 | Emergency (ER) | payer MEDICARE ==
[~2018-03-03] VITALS: Ht 180.3 cm; Wt 108.9 kg
[~2018-03-03 14:53] MED LIST changes: +CLIN300C3 PO; +COLC0.6C3 PO; +MELO15TA14 PO; +NAPR-915 PO; -NAPR500T4 PO
--- OUTSIDE RECORDS SUMMARY | 2018-03-03 14:59 | XMS REPORT ---
Author Author SARTHAK HARRIS Organization [facility] Address [address] [place] [address] Care Team Providers Care Cleat Layer Name Role Phone SARTHAK HARRIS Unavailable PROBLEMS Type Condition ICD9-CM Code HEF41-QH Code Onset Dates Condition Status SNOMED Code Problem GERD without esophagitis K21.9 Active 469772202 Problem Primary insomnia F51.01 Active 3143640 Problem Other cardiac arrhythmia I49.8 Active 26274140 Problem Anxiety F41.9 Active 72885101 Problem Chronic fatigue R53.82 Active 95742507 ALLERGIES No Information ENCOUNTERS Encounter Location Date Diagnosis [address] [address] 20 Dec, 2017 [place] [address] [address]83[address]143 04 Dec, 2017 [facility] [address] [address] 24 Nov, 2017 Cellulitis of foot, left L03.[address] 87587- 8037 14 Nov, 2017 Medicare annual wellness visit, initial Z00.00 [facility] [address] [address] 04 Nov, 2017 Nasal congestion R09.81 and Bilateral impacted cerumen H61.23 [place] [address] 82166- 9696 28 Nov, 2017 [facility] [address] 53725- 1185 13 Nov, 2017 Medicare annual wellness visit, initial Z00.00 [place] [address] 15598- 4014 Oct, Medicare annual wellness visit, initial Z00.00 [facility] [address] [place] [id number] [place] [address] 17503- 4232 15 Aug, 2017 Pain in right knee M25.561 [place] [address] [place] [id number] [place] [address] 89793- 9319 13 Aug, 2017 Primary insomnia F51.01 and Other fatigue R53.83 [place] [address] 62626- 8582 Aug, Primary insomnia F51.01 and Other fatigue R53.[address] [facility] [place] [address] [address]98 [address]7012 Jul, Acute recurrent maxillary sinusitis J01.01 [place] [address] [place] [id number] [place] [address] 07268- 6039 Jul, Primary insomnia F51.01 and Other fatigue R53.[address] [facility] [place] [address] [place] [id number] [place] [address] 90877 -5516 Jun, Acute recurrent maxillary sinusitis J01.01 [place] [address] 07624- 1266 Jun, Primary insomnia F51.01 and Other fatigue R53.83 [place] [address] [place] [id number] [place] [address] 25913- 1613 May, Pain in right knee M25.561 [place] [address] [place] [id number] [place] [address] 74266- 6595 May, Primary insomnia F51.01 and Other fatigue R53.[address] [facility] [place] [address] 02907 [address]0166 May, Acute non-recurrent maxillary sinusitis J01.00 [facility] [place] [address] [place] [id number] [place] [address] 99531 -3087 Mar, GERD without esophagitis K21.9 [facility] [address] [place] [id number] [place] [address] 66542 -6213 Mar, Pain in right knee M25.561 [facility] [address] 58424- 7439 Mar, Other fatigue R53.83 [facility] [address] [place] [id number] [place] [address] 25955- 0442 Mar, Primary insomnia F51.01 [facility] [address] 77553- 8121 January, Other fatigue R53.83 [place] [address] 23069- 0298 January, Other fatigue R53.83 [facility] [address] [place] [id number] [place] [address] 01636- 8075 January, Other fatigue R53.[address] [facility] [address] [place] [id number] [place] [address] 92216 -2290 Dec, Acute non-recurrent pansinusitis J01.40 [facility] [address] 39996- 8148 Dec, Other fatigue R53.83 [facility] [address] [place] [id number] [place] [address] 76164- 5798 Nov, [facility] [address] [place] [id number] [place] [address] 38419- 3007 Nov, Other fatigue R53.83 [facility] [address] [place] [id number] [place] [address] 44213- 9973 Nov, Other fatigue R53.83 ; Other malaise R53.81 and Anxiety F41.9 [facility] [address] [place] [id number] [place] [address] 61319- 5754 Nov, Nausea R11.0 [place] [address] [place] [id number] [place] [address] 17071- 5666 Nov, Nausea R11.0 [facility] [address] [place] [id number] [place] [address] 26305- 6162 02 Nov, 2016 Nausea R11.0 [facility] [address] [place] [id number] [place] [address] 15360 -9872 15 Oct, 2016 Acute upper respiratory infection, unspecified J06.9 and Other viral agents as the cause of diseases classified elsewhere B97.89 [facility] [address] 64169 -4401 07 Oct, 2016 Nausea R11.0 [facility] [address] 26874- 3708 13 Aug, 2016 Polyuria R35.8 [facility] [place] [address] 83905 -9230 Aug, Acute frontal sinusitis, recurrence not specified J01.10 [facility] [address] 53752- 8390 Aug, [facility] [address] 58972- 1495 Aug, [facility] [place] [address] 87045 -6353 Aug, Acute non-recurrent frontal sinusitis J01.10 [place] [address] 02045- 4608 Aug, [facility] [address] 38612- 8334 Jul, Localized edema R60.0 ; Murmur, cardiac R01.1 and Other cardiac arrhythmia I49.8 [place] [address] 27241- 1835 Jul, [facility] [address] 70673 -7613 Jun, Seasonal allergic rhinitis due to pollen J30.1 [place] [address], [place] [address] 22 Jun, 2016 [place] [address] [place] [id number] [place] [address] 41794- 1870 19 Jun, 2016 Low testosterone level in male E29.1 [facility] [place] [address] [place] [id number] [place] [address] 91210 -3722 17 Jun, 2016 Acute non-recurrent frontal sinusitis J01.10 [place] [address] [place] [id number] [place] [address] 17689- 8458 16 Jun, 2016 [place] [address] [place] [id number] [place] [address] 42361- 7231 14 Jun, 2016 [place] [address] [place] [id number] [place] [address] 45213- 4410 13 Jun, 2016 Polyuria R35.8 ; Chronic fatigue R53.82 and Chronic deep vein thrombosis (DVT) of popliteal vein of both lower extremities I82.533 [place] [address] [place] [id number] [place] [address] 82420- 6713 08 Jun, 2016 Polyuria R35.8 ; Chronic fatigue R53.82 ; Chronic deep vein thrombosis (DVT) of popliteal vein of both lower extremities I82.533 ; Primary insomnia F51.01 and Anxiety F41.9 [facility] [place] [id number] [place] [address] 16479 -0426 03 Jun, 2016 Sore throat J02.9 ; Irregular heart beat I49.9 and Strep pharyngitis J02.0 [facility] [place] [facility] [place] [address] [place] [address] 79124 -7701 May, Upper respiratory tract infection, unspecified type J06.[address] [facility] [facility] [place] [address] [place] [id number] [place] [address] 77714 -1185 May, Left otitis media, unspecified chronicity, unspecified otitis media type H66.92 and Insomnia, unspecified type G47.[address] [facility] [place] [address] [place] [id number] [place] [address] 65760 -0368 May, Left otitis media, unspecified chronicity, unspecified otitis media type H66.92 [facility] [address] [place] [id number] [place] [address] 00062 -6604 Mar, Acute maxillary sinusitis, recurrence not specified J01.00 [facility] [address] [place] [id number] [address] Dec, Acute vomiting R11.10 and Acute diarrhea R19.7 [facility] [address] [place] [id number] [place] [address] 93268- 6543 14 Dec, 2014 [facility] [address] [place] [id number] [place] [address] 73150- 7615 Dec, [facility] [address] [place] [id number] [place] [address] 92109- 3927 Oct, [facility] [address] [place] [id number] [place] [address] 65174- 1194 Oct, [facility] [address] [place] [id number] [place] [address] 72516- 6310 Aug, [facility] [address] [place] [id number] [place] [address] 90564- 1231 Aug, [facility] [address] [place] [address] 19640- 0784 Aug, [facility] [address], [place] [address] 1180 Aug, IMMUNIZATIONS No Known Immunizations SOCIAL HISTORY Never Assessed REASON FOR VISIT Controlled Refill Request PLAN OF CARE VITAL SIGNS MEDICATIONS Medication Instructions Dosage Frequency Start Date End Date Duration Status Ambien 10 MG Orally Once a day 1 tablet at bedtime as needed 24h Mar, 28 days Active Xanax 1 MG Orally Twice a day 1 tablet 12h 24 Jul, 2016 28 days Active RESULTS No Results PROCEDURES No Known procedures INSTRUCTIONS MEDICATIONS ADMINISTERED No Known Medications MEDICAL (GENERAL) HISTORY Type Description Date Medical History Blood clot right leg Medical History irregular heartbeat Medical History Gout Surgical History Rt Knee 2009 Surgical History heart cath 10/2016 Hospitalization History surgery Hospitalization History tonsillectomy as a child
--- OUTSIDE RECORDS SUMMARY | 2018-03-03 15:00 | XMS REPORT ---
Author Author ELIZABETH WITT [facility] Address [address] [place] [address] Care Team Providers Care Preload Supervisor Name Role Phone MIRYAM ELIZABETH Unavailable PROBLEMS Type Condition ICD9-CM Code ZWS04-AX Code Onset Dates Condition Status SNOMED Code Problem GERD without esophagitis K21.9 Active 936746538 Problem Primary insomnia F51.01 Active 7997319 Problem Other cardiac arrhythmia I49.8 Active 22456236 Problem Anxiety F41.9 Active 67597187 Problem Chronic fatigue R53.82 Active 73131694 ALLERGIES Substance Reaction Event Type Date Status Sulfa (sulfonamide Antibiotics) Unknown Non Drug Allergy Mar, Active ENCOUNTERS Encounter Location Date Diagnosis [facility] [address] 26336- [address]26 Dec, [facility] IN [facility] [address] 22957 -1642 24 Nov, 2017 Cellulitis of foot, left L03.116 [place] [address] 97115- 4457 14 Nov, 2017 Medicare annual wellness visit, initial Z00.00 [facility] [address] [place] [id number] [place] [address] 59774 -7723 04 Nov, 2017 Nasal congestion R09.81 and Bilateral impacted cerumen H61.23 [facility] [address] 69533- 4618 28 Nov, 2017 [place] [address] 41724- 7330 13 Nov, 2017 Medicare annual wellness visit, initial Z00.00 [place] [address] 30026- 9746 Oct, Medicare annual wellness visit, initial Z00.00 [facility] [address] [place] [id number] [place] [address] 06134- 9395 15 Aug, 2017 Pain in right knee M25.561 [facility] [address] [place] [id number] [place] [address] 81496- 5853 13 Aug, 2017 Primary insomnia F51.01 and Other fatigue R53.83 [facility] [address] [place] [id number] [place] [address] 55739- 3104 Aug, Primary insomnia F51.01 and Other fatigue R53.83 [facility] [address] [place] [id number] [place] [address] 87294 -4727 Jul, Acute recurrent maxillary sinusitis J01.01 [place] [address] [place] [id number] [place] [address] 81566- 6096 Jul, Primary insomnia F51.01 and Other fatigue R53.83 [facility] [address] [place] [id number] [place] [address] 05434 -0073 Jun, Acute recurrent maxillary sinusitis J01.01 [place] [address] [place] [id number] [place] [address] 98133- 1680 Jun, Primary insomnia F51.01 and Other fatigue R53.83 [place] [address] [place] [id number] [place] [address] 38565- 5163 May, Pain in right knee M25.561 [facility] [address] [place] [id number] [place] [address] 81796- 7809 May, Primary insomnia F51.01 and Other fatigue R53.83 [facility] [address] [place] [id number] [place] [address] 17623 -5858 May, Acute non-recurrent maxillary sinusitis J01.00 [facility] [address] [place] [id number] [place] [address] 27144 -4578 Mar, GERD without esophagitis K21.9 [facility] [address] [place] [address] Mar, Pain in right knee M25.561 [facility] [address] [place] [id number] [place] [address] 841623- 0363 Mar, Other fatigue R53.83 [facility] [address] [place] [id number] [place] [address] 79502- 3736 Mar, Primary insomnia F51.01 [facility] [address] 621216- 8239 January, Other fatigue R53.83 [facility] [address] [place] [id number] [place] [address] 96127- 4366 January, Other fatigue R53.83 [facility] [address] [place] [id number] [place] [address] 13267- 8930 January, Other fatigue R53.83 [facility] [address] 06532 -0963 Dec, Acute non-recurrent pansinusitis J01.40 [facility] [address] [place] [id number] [place] [address] 89409- 5301 Dec, Other fatigue R53.83 [facility] [address] [place] [id number] [place] [address] 32332- 9813 Nov, [facility] [address] [place] [id number] [place] [address] 24120- 4510 Nov, Other fatigue R53.83 [facility] [address] [place] [id number] [place] [address] 39386- 3914 Nov, Other fatigue R53.83 ; Other malaise R53.81 and Anxiety F41.9 [facility] [address] [place] [id number] [place] [address] 19727- 1596 Nov, Nausea R11.0 [facility] [address] [place] [id number] [place] [address] 72270- 1426 Nov, Nausea R11.0 [facility] [address] [place] [id number] [place] [address] 54499- 4576 02 Nov, 2016 Nausea R11.0 [facility] [address] [place] [id number] [place] [address] 38654 -0966 15 Oct, 2016 Acute upper respiratory infection, unspecified J06.9 and Other viral agents as the cause of diseases classified elsewhere B97.89 [facility] [address] 57522 -9222 07 Oct, 2016 Nausea R11.0 [place] [address] 05891- 9761 13 Aug, 2016 Polyuria R35.8 [facility] [place] [address] 65053 -4377 Aug, Acute frontal sinusitis, recurrence not specified J01.10 [place] [address] 13062- 4118 Aug, [place] [address] 38669- 2938 Aug, [facility] [place] [address] 34774 -3246 Aug, Acute non-recurrent frontal sinusitis J01.10 [place] [address] 16684- 8503 Aug, [place] [address] 76069- 2577 Jul, Localized edema R60.0 ; Murmur, cardiac R01.1 and Other cardiac arrhythmia I49.8 [place] [address] 32561- 3876 Jul, [facility] [address] 64713 -7215 Jun, Seasonal allergic rhinitis due to pollen J30.1 [place] [address] [place] [address]- 5056 22 Jun, 2016 [place] [address] [place] [id number] [place] [address] 57433- 3404 19 Jun, 2016 Low testosterone level in male E29.1 [facility] [place] [address] [place] [id number] [place] [address] 25712 -0063 17 Jun, 2016 Acute non-recurrent frontal sinusitis J01.10 [place] [address] [place] [id number] [place] [address] 54191- 3697 16 Jun, 2016 [place] [address] [place] [id number] [place] [address] 08380- 0868 14 Jun, 2016 [place] [address] [place] [id number] [place] [address] 99529- 6512 13 Jun, 2016 Polyuria R35.8 ; Chronic fatigue R53.82 and Chronic deep vein thrombosis (DVT) of popliteal vein of both lower extremities I82.533 [place] [address] [place] [id number] [place] [address] 49079- 8820 08 Jun, 2016 Polyuria R35.8 ; Chronic fatigue R53.82 ; Chronic deep vein thrombosis (DVT) of popliteal vein of both lower extremities I82.533 ; Primary insomnia F51.01 and Anxiety F41.9 [facility] [place] [id number] [place] [address] 51515 -2995 03 Jun, 2016 Sore throat J02.9 ; Irregular heart beat I49.9 and Strep pharyngitis J02.0 [facility] [place] [address] [place] [id number] [place] [address] 78730 -0791 May, Upper respiratory tract infection, unspecified type J06.9 [facility] [place] [address] [place] [id number] [place] [address] 56661 -3791 May, Left otitis media, unspecified chronicity, unspecified otitis media type H66.92 and Insomnia, unspecified type G47.00 [facility] [place] [address] [place] [id number] [place] [address] 63403 -6575 May, Left otitis media, unspecified chronicity, unspecified otitis media type H66.92 [facility] [address] [place] [id number] [place] [address] 316477 -7760 Mar, Acute maxillary sinusitis, recurrence not specified J01.00 [facility] IN [facility] [address] [address] Dec, Acute vomiting R11.10 and Acute diarrhea R19.7 [facility] [address] [place] [id number] [place] [address] 09701- 1427 14 Dec, 2014 [facility] [address] [place] [id number] [place] [address] 690081- 2595 Dec, [facility] [address] [place] [id number] [place] [address] 11034- 8933 Oct, [facility] [address] [place] [id number] [place] [address] 46036- 9576 Oct, [facility] [address] [place] [id number] [place] [address] 62749- 0595 Aug, [facility] [address] [place] [id number] [place] [address] 93689- 1439 Aug, [facility] [address] [place] [id number] [place] [address] 08767- 1910 Aug, [facility] [address] [place] [id number] [place] [address] 106445- 7617 Aug, IMMUNIZATIONS No Known Immunizations SOCIAL HISTORY Never Assessed REASON FOR VISIT Knee pain, states he went to get his Hydrocodone refilled on Sunday through his PCP and their office had already closed. Wants refill on Hydrocodone to get him through the weekend. DAVID Knowles. PLAN OF CARE Activity Details Follow Up prn Reason: VITAL SIGNS Height 71.5 in 2017-03-31 Weight 248.6 lbs 2017-03-31 Temperature 98.6 degrees Fahrenheit 2017-03-31 Heart Rate 82 bpm 2017-03-31 Respiratory Rate 18 2017-03-31 BMI 34.19 kg/m2 2017-03-31 Blood pressure systolic 140 mmHg 2017-03-31 Blood pressure diastolic 86 mmHg 2017-03-31 MEDICATIONS Medication Instructions Dosage Frequency Start Date End Date Duration Status Gabapentin 300 mg take 2 capsules (600 mg) by oral route 3 times per day Aug, Active Hydrocodone-Acetaminophen 5-325 MG Orally every 6 hrs 1 tablet as needed 6h Mar, Mar, 5 days Active Cetirizine HCl 10 mg Orally Once a day 1 tablet 24h Jun, Active Xanax 1 MG Orally Twice a day 1 tablet 12h Jul, 28 days Active Aspirin 325 MG Orally Once a day 1 tablet 24h Active Fluticasone Propionate 50 MCG/ACT Nasally Once a day 1 spray in each nostril 24h Jun, 30 day(s) Active Ambien 10 MG Orally Once a day 1 tablet at bedtime as needed 24h Mar, 28 days Active Lisinopril-Hydrochlorothiazide 20-25 MG Orally Once a day 1 tablet 24h Active RESULTS No Results PROCEDURES Procedure Date Ordered Result Body Site [facility] VISIT ESTABLISHED PATIENT March 31, 2017 INSTRUCTIONS MEDICATIONS ADMINISTERED No Known Medications MEDICAL (GENERAL) HISTORY Type Description Date Medical History Blood clot right leg Medical History irregular heartbeat Medical History Gout Surgical History Rt Knee 2008 Surgical History heart cath 10/2016 Hospitalization History surgery Hospitalization History tonsillectomy as a child
--- OUTSIDE RECORDS SUMMARY | 2018-03-03 15:01 | XMS REPORT ---
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 Active 366632629 Problem Chronic fatigue R53.82 Active 38278075 Problem Anxiety F41.9 Active 51281983 Problem GERD without esophagitis K21.9 Active 502551489 Problem Primary insomnia F51.01 Active 7675058 ALLERGIES No Information ENCOUNTERS Encounter Location Date Diagnosis [place] [id number] [address] Dec, 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 and Chronic atrial fibrillation I48.[address] [address] Dec, [facility]ALK IN [facility] [address] [place] [id number] [place] [address] 21293 -4744 24 Nov, 2017 Cellulitis of foot, left L03.116 [facility] [address] [address]- [address] 14 Nov, 2017 Medicare annual wellness visit, initial Z00.00 [facility] [address] [address] 04 Nov, 2017 Nasal congestion R09.81 and Bilateral impacted cerumen H61.23 [place] [address] [address] 28 Nov, 2017 [place] [address] [place] [address] 13 Nov, 2017 Medicare annual wellness visit, initial Z00.00 [place] [address] [place] [id number] [place] [address] 19077- 3290 11 Oct, 2017 Medicare annual wellness visit, initial Z00.00 [facility] [address] [place] [id number] [place] [address] 20263- 6291 15 Aug, 2017 Pain in right knee M25.561 [place] [address] [place] [id number] [place] [address] 80751- 5099 13 Aug, 2017 Primary insomnia F51.01 and Other fatigue R53.83 [place] [address] [address]85- 7310 Aug, Primary insomnia F51.01 and Other fatigue R53.83 [facility] [place] [address] [place] [id number] [place] [address] 06573 -7418 Jul, Acute recurrent maxillary sinusitis J01.01 [place] [address] [place] [id number] [place] [address] 79379- 1212 Jul, Primary insomnia F51.01 and Other fatigue R53.83 [facility] [place] [address] [place] [id number] [place] [address] 50563 -1336 Jun, Acute recurrent maxillary sinusitis J01.01 [place] [address] [place] [id number] [place] [address] 01052- 2787 Jun, Primary insomnia F51.01 and Other fatigue R53.83 [place] [address] [place] [id number] [place] [address] 47167- 5015 May, Pain in right knee M25.561 [facility] [address] [place] [id number] [place] [address] 39877- 9957 May, Primary insomnia F51.01 and Other fatigue R53.83 [facility] [address] [place] [id number] [place] [address] 24824 -0121 May, Acute non-recurrent maxillary sinusitis J01.00 [facility] [address] [place] [id number] [place] [address] 23370 -7394 Mar, GERD without esophagitis K21.9 [facility] [address] [place] [id number] [place] [address] 90165 -0826 Mar, Pain in right knee M25.561 [facility] [address] [place] [id number] [place] [address] 687487- 1236 Mar, Other fatigue R53.83 [facility] [address] [place] [id number] [place] [address] 41165- 1731 Mar, Primary insomnia F51.01 [place] [address] [place] [id number] [place] [address] 95857- 5486 January, Other fatigue R53.83 [place] [address] [place] [id number] [place] [address] 84379- 7093 January, Other fatigue R53.83 [facility] [address] [place] [id number] [place] [address] 80964- 7732 January, Other fatigue R53.83 [facility] [address] [place] [id number] [place] [address] 60891 -5562 Dec, Acute non-recurrent pansinusitis J01.40 [facility] [address] [place] [id number] [place] [address] 17081- 1697 Dec, Other fatigue R53.83 [facility] [address] [place] [id number] [place] [address] 02224- 7888 Nov, [facility] [address] [place] [id number] [place] [address] 60806- 9168 Nov, Other fatigue R53.83 [facility] [address] [place] [id number] [place] [address] 82766- 8771 Nov, Other fatigue R53.83 ; Other malaise R53.81 and Anxiety F41.9 [place] [address] [place] [id number] [place] [address] 22192- 9327 Nov, Nausea R11.0 [facility] [address] 58118- 9215 Nov, Nausea R11.0 [facility] [address] 38530- 0042 02 Nov, 2016 Nausea R11.0 [facility] [address] 88384 -2458 15 Oct, 2016 Acute upper respiratory infection, unspecified J06.9 and Other viral agents as the cause of diseases classified elsewhere B97.89 [facility] [address] 14[address]2072 Oct, Nausea R11.0 [facility] [address] 26037- 7604 Aug, Polyuria R35.8 [facility] [place] [address] 17961 -5164 Aug, Acute frontal sinusitis, recurrence not specified J01.10 [facility] [address] 92429- 6707 Aug, [facility] [address] 09969- 2637 Aug, [facility] [address] [place] [id number] [place] [address] 36892 -2109 Aug, Acute non-recurrent frontal sinusitis J01.10 [facility] [address] 84097- 7989 Aug, [place] [address] 24804- 2069 Jul, Localized edema R60.0 ; Murmur, cardiac R01.1 and Other cardiac arrhythmia I49.8 [place] [address] 27298- 0400 Jul, [facility] [place] [address] [place] [id number] [place] [address] 28468 -9162 26 Jun, 2016 Seasonal allergic rhinitis due to pollen J30.1 [place] [address] [place] [id number] [place] [address] 86864- 2949 22 Jun, 2016 [place] [address] 54946- 2720 19 Jun, 2016 Low testosterone level in male E29.1 [facility] [place] [address] [place] [id number] [place] [address] 34547 -8384 17 Jun, 2016 Acute non-recurrent frontal sinusitis J01.10 [place] [address] 84657- 0602 16 Jun, 2016 [place] [address] 79359- 4975 14 Jun, 2016 [place] [address] 09675- 1651 13 Jun, 2016 Polyuria R35.8 ; Chronic fatigue R53.82 and Chronic deep vein thrombosis (DVT) of popliteal vein of both lower extremities I82.533 [place] [address] [place] [id number] [place] [address] 28694- 7693 08 Jun, 2016 Polyuria R35.8 ; Chronic fatigue R53.82 ; Chronic deep vein thrombosis (DVT) of popliteal vein of both lower extremities I82.533 ; Primary insomnia F51.01 and Anxiety F41.9 [facility] [place] [id number] [place] [address] 27413 -3659 03 Jun, 2016 Sore throat J02.9 ; Irregular heart beat I49.9 and Strep pharyngitis J02.0 [facility] [place] [address] [place] [id number] [place] [address] 84412 -3996 May, Upper respiratory tract infection, unspecified type J06.9 [facility] WALK [place] [address] 73430 -7819 May, Left otitis media, unspecified chronicity, unspecified otitis media type H66.92 and Insomnia, unspecified type G47.00 [facility] [address] [place] [address] 58155 -6119 May, Left otitis media, unspecified chronicity, unspecified otitis media type H66.92 [facility] [address] [place] [id number] [place] [address] 81371 -9538 Mar, Acute maxillary sinusitis, recurrence not specified J01.00 [facility] [address] [place] [id number] [place] [address] 66537 -9102 Dec, Acute vomiting R11.10 and Acute diarrhea R19.7 [place] [address] [place] [id number] [place] [address] 43704- 9129 14 Dec, 2014 [place] [address] [place] [id number] [place] [address] 38447- 6700 Dec, [place] [address] [place] [id number] [place] [address] 22731- 8604 Oct, [place] [address] [place] [id number] [place] [address] 88147- 5493 Oct, [place] [address] [place] [id number] [place] [address] 36578- 4046 Aug, [place] [address] [place] [id number] [place] [address] 17061- 4405 Aug, [place] [address] [place] [id number] [place] [address] 78553- 4049 Aug, [place] [address] [place] [id number] [place] [address] 29921- 4641 Aug, IMMUNIZATIONS No Known Immunizations SOCIAL HISTORY Never Assessed REASON FOR VISIT Controlled Med Refill PLAN OF CARE VITAL SIGNS MEDICATIONS Medication Instructions Dosage Frequency Start Date End Date Duration Status Ambien 10 MG Orally Once a day 1 tablet at bedtime as needed 24h 23 Mar, 2017 28 days Active Xanax 1 MG Orally [...]
--- OUTSIDE RECORDS SUMMARY | 2018-03-03 15:01 | XMS REPORT ---
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 Active 675442735 Problem Chronic fatigue R53.82 Active 96388616 Problem Anxiety F41.9 Active 50413393 Problem GERD without esophagitis K21.9 Active 504117523 Problem Primary insomnia F51.01 Active 9668592 ALLERGIES Substance Reaction Event Type Date Status Sulfa (sulfonamide Antibiotics) Unknown Non Drug Allergy Jun, Active ENCOUNTERS Encounter Location Date Diagnosis [facility] [address] [address]- [address]40 Dec, 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 and Chronic atrial fibrillation I48.2 [place] [id number] [place] [address] 19693- 6450 Dec, [facility] WALK IN [facility] [address] [place] [id number] [place] [address] 21063 -2052 Nov, Cellulitis of foot, left L03.116 [facility] [address] [place] [place] [id number] [place] [address] 33317- 5823 14 Nov, 2017 Medicare annual wellness visit, initial Z00.00 [facility]ALK IN [facility] [address] [place] [id number] [place] [address] 63671 -1188 04 Nov, 2017 Nasal congestion R09.81 and Bilateral impacted cerumen H61.23 [facility] [address] [place] [address] 88289- 3865 28 Nov, 2017 [facility] [address] [place] [address] 49338- 6749 13 Nov, 2017 Medicare annual wellness visit, initial Z00.00 [facility] [address] [place] [id number] [place] [address] 72681- 4067 11 Oct, 2017 Medicare annual wellness visit, initial Z00.00 [facility] [address] [place] [id number] [place] [address] 60656- 0817 15 Aug, 2017 Pain in right knee M25.561 [facility] [address] [place] [id number] [place] [address] 25465- 7981 13 Aug, 2017 Primary insomnia F51.01 and Other fatigue R53.83 [facility] [address] [place] [id number] [place] [address] 73783- 1652 Aug, Primary insomnia F51.01 and Other fatigue R53.83 [facility] [address] [place] [id number] [place] [address] 04915 -2085 Jul, Acute recurrent maxillary sinusitis J01.01 [facility] [address] [place] [id number] [place] [address] 37567- 2362 Jul, Primary insomnia F51.01 and Other fatigue R53.83 [facility] IN [facility] [address] [place] [id number] [place] [address] 80906 -7932 Jun, Acute recurrent maxillary sinusitis J01.01 [facility] [address] [place] [id number] [place] [address] 94383- 8112 Jun, Primary insomnia F51.01 and Other fatigue R53.83 [facility] [address] [place] [id number] [place] [address] 02238- 6735 May, Pain in right knee M25.561 [facility] [address] [place] [id number] [place] [address] 37652- 9531 May, Primary insomnia F51.01 and Other fatigue R53.83 [facility] [address] [place] [id number] [place] [address] 03146 -4179 May, Acute non-recurrent maxillary sinusitis J01.00 [facility] [address] [place] [id number] [place] [address] 77640 -5999 Mar, GERD without esophagitis K21.9 [facility]ALK IN [facility] [address] [place] [id number] [place] [address] 48416 -8702 Mar, Pain in right knee M25.561 [place] [address] [place] [id number] [place] [address] 52521- 9827 Mar, Other fatigue R53.83 [place] [address] [place] [id number] [place] [address] 16430- 1115 Mar, Primary insomnia F51.01 [place] [address] [place] [id number] [place] [address] 22123- 2998 January, Other fatigue R53.83 [place] [address] [place] [id number] [place] [address] 06751- 7792 January, Other fatigue R53.83 [place] [address] [place] [id number] [place] [address] 79169- 2329 January, Other fatigue R53.83 [facility] WALK IN [facility] [address] [place] [id number] [place] [address] 05820 -2908 Dec, Acute non-recurrent pansinusitis J01.40 [place] [address] [place] [id number] [place] [address] 38222- 2911 Dec, Other fatigue R53.83 [place] [address] [place] [id number] [place] [address] 02530- 2659 Nov, [place] [address] [place] [id number] [place] [address] 09252- 7102 Nov, Other fatigue R53.83 [place] [address] [place] [id number] [place] [address] 98418- 8873 Nov, Other fatigue R53.83 ; Other malaise R53.81 and Anxiety F41.9 [facility] [address] [place] [id number] [place] [address] 33463- 0074 Nov, Nausea R11.0 [facility] [address] 70432- 5161 Nov, Nausea R11.0 [facility] [address] 72646- 1479 Nov, Nausea R11.0 [facility] [address] 28996 -2585 15 Oct, 2016 Acute upper respiratory infection, unspecified J06.9 and Other viral agents as the cause of diseases classified elsewhere B97.89 [facility]ALK IN [facility] [address] 86605 -5266 Oct, Nausea R11.0 [place] [address] 18428- 5124 Aug, Polyuria R35.8 [facility] IN [facility] [address] 15354 -7785 Aug, Acute frontal sinusitis, recurrence not specified J01.10 [facility] [address] [place] [id number] [place] [address] 55069- 1748 Aug, [place] [address] 69819- 7076 Aug, [facility] [address] 98245 -3012 Aug, Acute non-recurrent frontal sinusitis J01.10 [place] [address] 78251- 8085 Aug, [facility] [address] 10950- 8364 Jul, Localized edema R60.0 ; Murmur, cardiac R01.1 and Other cardiac arrhythmia I49.8 [place] [address] [place] [address] 07426- 4158 Jul, [facility]ALK [facility] [place] [address] [place] [id number] [place] [address] 48413 -1158 26 Jun, 2016 Seasonal allergic rhinitis due to pollen J30.1 [place] [address] [place] [id number] [place] [address] 20261- 3996 22 Jun, 2016 [place] [address] [place] [id number] [place] [address] 95372- 2674 19 Jun, 2016 Low testosterone level in male E29.1 [facility]ALK [place] [address] [place] [id number] [place] [address] 76571 -9591 17 Jun, 2016 Acute non-recurrent frontal sinusitis J01.10 [place] [address] [place] [id number] [place] [address] 20520- 9502 16 Jun, 2016 [place] [address] [place] [id number] [place] [address] 90640- 8292 14 Jun, 2016 [place] [address] [place] [id number] [place] [address] 30481- 4423 13 Jun, 2016 Polyuria R35.8 ; Chronic fatigue R53.82 and Chronic deep vein thrombosis (DVT) of popliteal vein of both lower extremities I82.533 [place] [address] [place] [id number] [place] [address] 11615- 3444 08 Jun, 2016 Polyuria R35.8 ; Chronic fatigue R53.82 ; Chronic deep vein thrombosis (DVT) of popliteal vein of both lower extremities I82.533 ; Primary insomnia F51.01 and Anxiety F41.9 [facility] [place] [address] [place] [id number] [place] [address] 79062 -7583 03 Jun, 2016 Sore throat J02.9 ; Irregular heart beat I49.9 and Strep pharyngitis J02.0 [facility] [place] [address] [place] [address] 64944 -8000 May, Upper respiratory tract infection, unspecified type J06.9 [facility] [address] [address]7258 May, Left otitis media, unspecified chronicity, unspecified otitis media type H66.92 and Insomnia, unspecified type G47.00 [facility] [address] [address]1 May, Left otitis media, unspecified chronicity, unspecified otitis media type H66.92 [facility] [address] [place] [id number] [place] [address] 64389 -5664 Mar, Acute maxillary sinusitis, recurrence not specified J01.00 [facility] [place] [address] [place] [id number] [place] [address] 40397 -7459 Dec, Acute vomiting R11.10 and Acute diarrhea R19.7 [place] [address] [place] [id number] [place] [address] 77043- 5992 Dec, [place] [address] [place] [id number] [place] [address] 17628- 4959 Dec, [place] [address] [place] [id number] [place] [address] 17109- 7734 Oct, [place] [address] [place] [id number] [place] [address] 72653- 7603 Oct, [place] [address] [place] [address] 01058- 6295 Aug, [place] [address] [place] [address] 13023- 8288 Aug, [place] [address] [place] [id number] [place] [address] 47540- 0003 Aug, [place] [address] [place] [id number] [place] [address] 49359- 7247 Aug, IMMUNIZATIONS No Known Immunizations SOCIAL HISTORY Never Assessed REASON FOR VISIT sinus infection- drainage, cough, right ear dralfonso Oconnell PLAN OF CARE VITAL SIGNS Height 71.5 in 2017-06-20 Weight 242 lbs 2017-06-20 Temperature 97.9 degrees Fahrenheit 2017-06-20 Heart Rate 66 bpm 2017-06-20 Respiratory Rate 22 2017-06-20 BMI 33.28 kg/m2 2017-06-20 Blood pressure systolic 150 mmHg 2017-06-20 Blood pressure diastolic 82 mmHg 2017-06-20 MEDICATIONS Medication Instructions Dosage Frequency Start Date End Date Duration Status Amoxicillin 500 mg Orally 3 times a day 1 capsule 8h Jun, Jul, 14 days Active Ambien 10 MG Orally Once a [...] a day 1 tablet 24h Jun, Active PredniSONE 20 mg Orally Once a day 2 tablets 24h Jun, Jun, 05 days Active Pantoprazole Sodium 40 MG Orally Once a day 1 tablet 24h Mar, 30 day(s) Active Lisinopril-Hydrochlorothiazide 20-25 MG Orally Once a day 1 tablet 24h Active RESULTS No Results PROCEDURES Procedure Date Ordered Result Body Site [facility] VISIT ESTABLISHED PATIENT Jun 20, 2017 INSTRUCTIONS MEDICATIONS ADMINISTERED No Known Medications MEDICAL (GENERAL) HISTORY Type Description Date Medical History Blood clot right leg Medical History irregular heartbeat Medical History Gout Surgical History Rt Knee 2008 Surgical History heart cath 10/2016 Hospitalization History surgery Hospitalization History tonsillectomy as a child
--- OUTSIDE RECORDS SUMMARY | 2018-03-03 15:01 | XMS REPORT ---
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 Active 790137068 Problem Chronic fatigue R53.82 Active 15122406 Problem Anxiety F41.9 Active 57008048 Problem GERD without esophagitis K21.9 Active 470569350 Problem Primary insomnia F51.01 Active 8862454 ALLERGIES No Information ENCOUNTERS Encounter Location Date Diagnosis [place] [id number] [address] Dec, 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 and Chronic atrial fibrillation I48.2 [place] [address] [address]- [address]52 Dec, [facility] [address] [place] [id number] [place] [address] 08389 -7474 24 Nov, 2017 Cellulitis of foot, left L03.116 [facility] [address] 18370- 8671 14 Nov, 2017 Medicare annual wellness visit, initial Z00.00 [facility] [address] 23942 -6617 04 Nov, 2017 Nasal congestion R09.81 and Bilateral impacted cerumen H61.23 [facility] [address] 03143- 1699 28 Nov, 2017 [facility] [address] [place], [place] [address] [place] [address] 0[address] 13 Nov, 2017 Medicare annual wellness visit, initial Z00.00 [place] [address] [place] [id number] [place] [address] 49344- 1762 11 Oct, 2017 Medicare annual wellness visit, initial Z00.00 [facility] [address] [place] [id number] [place] [address] 68945- 2592 15 Aug, 2017 Pain in right knee M25.561 [place] [address] [place] [id number] [place] [address] 89588- 8622 13 Aug, 2017 Primary insomnia F51.01 and Other fatigue R53.83 [place] [address] 12812- 6303 Aug, Primary insomnia F51.01 and Other fatigue R53.83 [facility] [place] [address] [place] [id number] [place] [address] 40694 -9818 Jul, Acute recurrent maxillary sinusitis J01.01 [place] [address] [place] [id number] [place] [address] 73596- 4431 Jul, Primary insomnia F51.01 and Other fatigue R53.83 [facility] [place] [address] [place] [id number] [place] [address] 30989 -6518 Jun, Acute recurrent maxillary sinusitis J01.01 [place] [address] [place] [id number] [place] [address] 01523- 6838 Jun, Primary insomnia F51.01 and Other fatigue R53.83 [place] [address] [place] [id number] [place] [address] 48104- 8210 May, Pain in right knee M25.561 [facility] [address] [place] [id number] [place] [address] 65842- 9255 May, Primary insomnia F51.01 and Other fatigue R53.83 [facility] [address] [place] [id number] [place] [address] 53636 -4680 May, Acute non-recurrent maxillary sinusitis J01.00 [facility] [address] [place] [id number] [place] [address] 15544 -1268 Mar, GERD without esophagitis K21.9 [facility] [address] [place] [id number] [place] [address] 43631 -8836 Mar, Pain in right knee M25.561 [facility] [address] [place] [id number] [place] [address] 548509- 1376 Mar, Other fatigue R53.83 [facility] [address] [place] [id number] [place] [address] 88133- 0678 Mar, Primary insomnia F51.01 [place] [address] [place] [id number] [place] [address] 55588- 5426 January, Other fatigue R53.83 [place] [address] [place] [id number] [place] [address] 13268- 6778 January, Other fatigue R53.83 [facility] [address] [place] [id number] [place] [address] 71922- 3612 January, Other fatigue R53.83 [facility] [address] [place] [id number] [place] [address] 69354 -3291 Dec, Acute non-recurrent pansinusitis J01.40 [facility] [address] [place] [id number] [place] [address] 19822- 3375 Dec, Other fatigue R53.83 [facility] [address] [place] [id number] [place] [address] 14279- 6063 Nov, [facility] [address] [place] [id number] [place] [address] 56856- 5493 Nov, Other fatigue R53.83 [facility] [address] [place] [id number] [place] [address] 52031- 9855 Nov, Other fatigue R53.83 ; Other malaise R53.81 and Anxiety F41.9 [place] [address] [place] [id number] [place] [address] 95667- 6930 Nov, Nausea R11.0 [facility] [address] 59657- 7955 Nov, Nausea R11.0 [facility] [address] 98825- 6140 02 Nov, 2016 Nausea R11.0 [facility] [address] 62631 -1227 15 Oct, 2016 Acute upper respiratory infection, unspecified J06.9 and Other viral agents as the cause of diseases classified elsewhere B97.89 [facility] [address] 80591 -4187 Oct, Nausea R11.0 [facility] [address] 18234- 3512 Aug, Polyuria R35.8 [facility] [place] [address] 75827 -0615 Aug, Acute frontal sinusitis, recurrence not specified J01.10 [facility] [address] 10542- 0179 Aug, [facility] [address] 98446- 3395 Aug, [facility] [address] [place] [id number] [place] [address] 41811 -8812 Aug, Acute non-recurrent frontal sinusitis J01.10 [facility] [address] 15283- 0058 Aug, [place] [address] 43986- 7614 Jul, Localized edema R60.0 ; Murmur, cardiac R01.1 and Other cardiac arrhythmia I49.8 [place] [address] 88449- 9533 Jul, [facility] [place] [address] [place] [id number] [place] [address] 02003 -8904 26 Jun, 2016 Seasonal allergic rhinitis due to pollen J30.1 [place] [address] [place] [id number] [place] [address] 26475- 0038 22 Jun, 2016 [place] [address] 17275- 4639 19 Jun, 2016 Low testosterone level in male E29.1 [facility] [place] [address] [place] [id number] [place] [address] 53683 -2673 17 Jun, 2016 Acute non-recurrent frontal sinusitis J01.10 [place] [address] 30761- 3948 16 Jun, 2016 [place] [address] 74352- 8661 14 Jun, 2016 [place] [address] 45131- 5056 13 Jun, 2016 Polyuria R35.8 ; Chronic fatigue R53.82 and Chronic deep vein thrombosis (DVT) of popliteal vein of both lower extremities I82.533 [place] [address] [place] [id number] [place] [address] 23589- 9666 08 Jun, 2016 Polyuria R35.8 ; Chronic fatigue R53.82 ; Chronic deep vein thrombosis (DVT) of popliteal vein of both lower extremities I82.533 ; Primary insomnia F51.01 and Anxiety F41.9 [facility] [place] [id number] [place] [address] 31712 -3437 03 Jun, 2016 Sore throat J02.9 ; Irregular heart beat I49.9 and Strep pharyngitis J02.0 [facility] [place] [address] [place] [id number] [place] [address] 67290 -8305 May, Upper respiratory tract infection, unspecified type J06.9 [facility] [place] [address] 97753 -9642 May, Left otitis media, unspecified chronicity, unspecified otitis media type H66.92 and Insomnia, unspecified type G47.00 [facility] [address] [place] [address] 30109 -3981 May, Left otitis media, unspecified chronicity, unspecified otitis media type H66.92 [facility] [address] [place] [id number] [place] [address] 93495 -3877 Mar, Acute maxillary sinusitis, recurrence not specified J01.00 [facility] [address] [place] [id number] [place] [address] 05858 -8991 Dec, Acute vomiting R11.10 and Acute diarrhea R19.7 [place] [address] [place] [id number] [place] [address] 75425- 5797 14 Dec, 2014 [place] [address] [place] [id number] [place] [address] 80581- 9316 Dec, [place] [address] [place] [id number] [place] [address] 01007- 6675 Oct, [place] [address] [place] [id number] [place] [address] 10890- 8981 Oct, [place] [address] [place] [id number] [place] [address] 09149- 2496 Aug, [place] [address] [place] [id number] [place] [address] 14453- 4919 Aug, [place] [address] [place] [id number] [place] [address] 11011- 4858 Aug, [place] [address] [place] [id number] [place] [address] 09290- 7090 Aug, IMMUNIZATIONS No Known Immunizations SOCIAL HISTORY [...]
--- OUTSIDE RECORDS SUMMARY | 2018-03-03 15:02 | XMS REPORT ---
Author Author SARTHAK HARRIS Organization [facility] Address [address] [place] [address] Care Team Providers Care Electrician Underground Name Role Phone SARTHAK HARRIS Unavailable PROBLEMS Type Condition ICD9-CM Code ARP62-FT Code Onset Dates Condition Status SNOMED Code Problem GERD without esophagitis K21.9 Active 248398126 Problem Primary insomnia F51.01 Active 3202581 Problem Other cardiac arrhythmia I49.8 Active 43143820 Problem Anxiety F41.9 Active 70768331 Problem Chronic fatigue R53.82 Active 64521019 ALLERGIES No Information ENCOUNTERS Encounter Location Date Diagnosis [place] [id number] [address]- [address] Dec, [facility] [address] 43065- 0905 14 Nov, 2017 Medicare annual wellness visit, initial Z00.00 [facility] [address] 75824 -9655 04 Nov, 2017 Nasal congestion R09.81 and Bilateral impacted cerumen H61.23 [facility] [address] [place] [id number] [place] [address] 98900- 8091 28 Nov, 2017 [facility] [address] 00866- 3685 13 Nov, 2017 Medicare annual wellness visit, initial Z00.00 [facility] [address] 20164- 7045 11 Oct, 2017 Medicare annual wellness visit, initial Z00.00 [facility] [address] [place] [id number] [place] [address] 25565- 4432 15 Aug, 2017 Pain in right knee M25.561 [facility] [address] 56143- 7851 Aug, Primary insomnia F51.01 and Other fatigue R53.83 [place] [address] [place] [id number] [place] [address] 43538- 3326 Aug, Primary insomnia F51.01 and Other fatigue R53.83 [facility] [address] [place] [id number] [place] [address] 27434 -7518 Jul, Acute recurrent maxillary sinusitis J01.01 [facility] [address] [place] [id number] [place] [address] 43034- 4687 Jul, Primary insomnia F51.01 and Other fatigue R53.83 [facility] [address] [place] [id number] [place] [address] 67287 -6560 Jun, Acute recurrent maxillary sinusitis J01.01 [place] [address] [place] [id number] [place] [address] 74601- 3781 Jun, Primary insomnia F51.01 and Other fatigue R53.83 [place] [address] [place] [id number] [place] [address] 19010- 9571 May, Pain in right knee M25.561 [place] [address] [place] [id number] [place] [address] 50479- 7835 May, Primary insomnia F51.01 and Other fatigue R53.83 [facility] [place] [address] [place] [id number] [place] [address] 55843 -4736 May, Acute non-recurrent maxillary sinusitis J01.00 [facility] [address] [place] [id number] [place] [address] 25412 -7333 Mar, GERD without esophagitis K21.9 [facility] [address] [place] [id number] [place] [address] 98340 -6316 Mar, Pain in right knee M25.561 [facility] [address] [place] [id number] [place] [address] 65778- 8502 Mar, Other fatigue R53.83 [place] [address] [place] [id number] [place] [address] 96166- 4035 Mar, Primary insomnia F51.01 [facility] [address] 72867- 7174 January, Other fatigue R53.83 [facility] [address] 87081- 7989 January, Other fatigue R53.83 [facility] [address] 01582- 6087 January, Other fatigue R53.83 [facility] [address] 66898 -1742 Dec, Acute non-recurrent pansinusitis J01.40 [place] [address] 14075- 3690 Dec, Other fatigue R53.83 [place] [address] [place] [id number] [place] [address] 48404- 5509 Nov, [facility] [address] 66948- 0743 Nov, Other fatigue R53.83 [place] [address] [place] [id number] [place] [address] 12433- 2631 Nov, Other fatigue R53.83 ; Other malaise R53.81 and Anxiety F41.9 [place] [address] [place] [id number] [place] [address] 38069- 6257 Nov, Nausea R11.0 [place] [address] [place] [id number] [place] [address] 24098- 9972 Nov, Nausea R11.0 [place] [address] [place] [id number] [place] [address] 59060- 4965 Nov, Nausea R11.0 [facility] [address] [place] [id number] [place] [address] 47002 -8613 Oct, Acute upper respiratory infection, unspecified J06.9 and Other viral agents as the cause of diseases classified elsewhere B97.89 [facility] [address] [place] [id number] [place] [address] 71627 -5422 07 Oct, 2016 Nausea R11.0 [facility] [address] [place] [id number] [place] [address] 97889- 5579 Aug, Polyuria R35.8 [facility] [address] 51756 -1958 Aug, Acute frontal sinusitis, recurrence not specified J01.10 [place] [address] 17611- 9571 Aug, [facility] [address] [place] [id number] [place] [address] 53068- 9556 Aug, [facility] [place] [address] 97616 -8862 Aug, Acute non-recurrent frontal sinusitis J01.10 [facility] [address] [place] [id number] [place] [address] 46820- 5092 Aug, [place] [address] [place] [id number] [place] [address] 43586- 7767 Jul, Localized edema R60.0 ; Murmur, cardiac R01.1 and Other cardiac arrhythmia I49.8 [place] [address] [place] [id number] [place] [address] 43797- 1900 Jul, [facility] [address] [place] [id number] [place] [address] 05528 -7650 Jun, Seasonal allergic rhinitis due to pollen J30.1 [place] [address] [place] [id number] [place] [address] 45284- 6075 Jun, [place] [address] [place] [id number] [place] [address] 43486- 8980 Jun, Low testosterone level in male E29.1 [facility] [address] [place] [address] 83519 -2903 17 Jun, 2016 Acute non-recurrent frontal sinusitis J01.10 [place] [address] [place] [id number] [place] [address] 35295- 1292 16 Jun, 2016 [place] [address] [place] [id number] [place] [address] 72620- 5400 14 Jun, 2016 [place] [address] [place] [id number] [place] [address] 10968- 5103 13 Jun, 2016 Polyuria R35.8 ; Chronic fatigue R53.82 and Chronic deep vein thrombosis (DVT) of popliteal vein of both lower extremities I82.533 [place] [address] [place] [id number] [place] [address] 71817- 4134 08 Jun, 2016 Polyuria R35.8 ; Chronic fatigue R53.82 ; Chronic deep vein thrombosis (DVT) of popliteal vein of both lower extremities I82.533 ; Primary insomnia F51.01 and Anxiety F41.9 [facility] [place] [id number] [place] [address] 78875 -5039 03 Jun, 2016 Sore throat J02.9 ; Irregular heart beat I49.9 and Strep pharyngitis J02.0 [facility] [place] [id number] [place] [address] 66480 -6973 May, Upper respiratory tract infection, unspecified type J06.9 [facility] [place] [id number] [place] [address] 57678 -7703 May, Left otitis media, unspecified chronicity, unspecified otitis media type H66.92 and Insomnia, unspecified type G47.00 [facility] [place] [id number] [place] [address] 30530 -9976 May, Left otitis media, unspecified chronicity, unspecified otitis media type H66.92 [facility] [place] [id number] [place] [address] 36699 -2295 Mar, Acute maxillary sinusitis, recurrence not specified J01.00 [facility] [address] [place] [address] [address] -[address]995 23 Dec, 2015 Acute vomiting R11.10 and Acute diarrhea R19.7 [facility] [address] [place] [address] [address]- 5353 14 Dec, 2014 [facility] [address] [place] [address]- 1805 Dec, [facility] [address] [place] [address]- 7762 Oct, [facility] [address] [place] [address]- 3225 Oct, [facility] [address] [place] [address]- 2289 Aug, [facility] [address] [place] [address]- 3486 Aug, [facility] [address] [place] [address]- 3940 Aug, [facility] [address] [place] [address]- 3520 Aug, IMMUNIZATIONS No Known Immunizations SOCIAL HISTORY Never Assessed REASON FOR VISIT Refill request PLAN OF CARE VITAL SIGNS MEDICATIONS Medication Instructions Dosage Frequency Start Date End Date Duration Status Ambien 10 MG Orally Once a day 1 tablet at bedtime as needed 24h Mar, 28 days Active RESULTS No Results PROCEDURES No Known procedures INSTRUCTIONS MEDICATIONS ADMINISTERED No Known Medications MEDICAL (GENERAL) HISTORY Type Description Date Medical History Blood clot right leg Medical History irregular heartbeat Medical History Gout Surgical History Rt Knee 2009 Surgical History heart cath 10/2016 Hospitalization History surgery Hospitalization History tonsillectomy as a child
--- OUTSIDE RECORDS SUMMARY | 2018-03-03 15:02 | XMS REPORT ---
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 747543817 Problem Chronic fatigue R53.82 Active 31419984 Problem Anxiety F41.9 Active 26736915 Problem GERD without esophagitis K21.9 Active 348255830 Problem Primary insomnia F51.01 Active 6183707 ALLERGIES No Information ENCOUNTERS Encounter Location Date Diagnosis [address] [address] Dec, 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 and Chronic atrial fibrillation I48.[address] [address] 04 Dec, 2017 [facility] [address] [place] [id number] [place] [address] 37421 -2676 24 Nov, 2017 Cellulitis of foot, left L03.116 [facility] [address] [place] [id number] [place] [address] 41605- 4209 14 Nov, 2017 Medicare annual wellness visit, initial Z00.00 [facility] [address] [place] [address] 77082 -3728 04 Nov, 2017 Nasal congestion R09.81 and Bilateral impacted cerumen H61.[address] [address]- [address]22 28 Nov, 2017 [id number] [address] 13 Nov, 2017 Medicare annual wellness visit, initial Z00.00 [place] [address] [place] [id number] [place] [address] 95533- 2632 11 Oct, 2017 Medicare annual wellness visit, initial Z00.00 [place] [address] [place] [id number] [place] [address] 85218- 9578 15 Aug, 2017 Pain in right knee M25.561 [place] [address] [place] [id number] [place] [address] 35288- 1685 13 Aug, 2017 Primary insomnia F51.01 and Other fatigue R53.83 [place] [address] [place] [id number] [place] [address] 11733- 3879 Aug, Primary insomnia F51.01 and Other fatigue R53.83 [facility] [address] [place] [id number] [place] [address] 25364 -0535 Jul, Acute recurrent maxillary sinusitis J01.01 [place] [address] [place] [id number] [place] [address] 80601- 8374 Jul, Primary insomnia F51.01 and Other fatigue R53.83 [facility] [place] [address] [id number] [place] [address] 21700 -6334 Jun, Acute recurrent maxillary sinusitis J01.01 [place] [address] [place] [id number] [place] [address] 93876- 5682 Jun, Primary insomnia F51.01 and Other fatigue R53.83 [place] [address] [place] [id number] [place] [address] 56350- 0666 May, Pain in right knee M25.561 [place] [address] [place] [id number] [place] [address] 16191- 9382 May, Primary insomnia F51.01 and Other fatigue R53.83 [facility] [id number] [place] [address] 16586 -5765 May, Acute non-recurrent maxillary sinusitis J01.00 [facility] [address] [id number] [address] Mar, GERD without esophagitis K21.9 [facility] [address] [place] [id number] [place] [address] 27964 -9926 Mar, Pain in right knee M25.561 [facility] [address] [place] [id number] [place] [address] 67777- 5866 Mar, Other fatigue R53.83 [facility] [address] [place] [id number] [place] [address] 80166- 1411 Mar, Primary insomnia F51.01 [facility] [address] [place] [id number] [place] [address] 07993- 1742 January, Other fatigue R53.83 [place] [address] [place] [id number] [place] [address] 10003- 0505 January, Other fatigue R53.83 [facility] [address] [place] [id number] [place] [address] 95094- 7305 January, Other fatigue R53.83 [facility] [address] [place] [id number] [place] [address] 43150 -5515 Dec, Acute non-recurrent pansinusitis J01.40 [facility] [address] [place] [id number] [place] [address] 97155- 3863 Dec, Other fatigue R53.83 [facility] [id number] [place] [address] 27560- 7823 Nov, [facility] [address] [place] [address] [id number] [place] [address] 76663- 2357 Nov, Other fatigue R53.83 [facility] [address] [place] [id number] [place] [address] 20905- 5758 Nov, Other fatigue R53.83 ; Other malaise R53.81 and Anxiety F41.9 [place] [address] 84742- 8970 Nov, Nausea R11.0 [facility] [address] 40565- 2977 Nov, Nausea R11.0 [facility] [address] 21660- 1677 Nov, Nausea R11.0 [facility] [address] 0[address]2440 15 Oct, 2016 Acute upper respiratory infection, unspecified J06.9 and Other viral agents as the cause of diseases classified elsewhere B97.89 [facility] IN [facility] [address] 19[address] -2365 Oct, Nausea R11.0 [facility] [address] 68819- 6993 Aug, Polyuria R35.8 [facility] IN [facility] [address] 0[address] -3411 Aug, Acute frontal sinusitis, recurrence not specified J01.10 [facility] [address] 22314- 8917 Aug, [facility] [address] 70511- 6752 Aug, [facility] [address] 02300 -0234 Aug, Acute non-recurrent frontal sinusitis J01.10 [facility] [address] 76522- 9064 Aug, [place] [address] 22860- 2828 Jul, Localized edema R60.0 ; Murmur, cardiac R01.1 and Other cardiac arrhythmia I49.8 [facility] [address] 03884- 8581 Jul, [facility] [place] [id number] [place] [address] 19530 -6768 26 Jun, 2016 Seasonal allergic rhinitis due to pollen J30.1 [place] [address] [id number] [place] [address] 67331- 8422 22 Jun, 2016 [place] [address] [place] [id number] [place] [address] 27619- 4805 19 Jun, 2016 Low testosterone level in male E29.1 [facility] [place] [id number] [place] [address] 74404 -6248 17 Jun, 2016 Acute non-recurrent frontal sinusitis J01.10 [place] [address] [place] [id number] [place] [address] 06843- 5658 16 Jun, 2016 [place] [address] [place] [id number] [place] [address] 24745- 0571 14 Jun, 2016 [place] [address] [place] [id number] [place] [address] 93064- 8744 13 Jun, 2016 Polyuria R35.8 ; Chronic fatigue R53.82 and Chronic deep vein thrombosis (DVT) of popliteal vein of both lower extremities 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 [place] [address] [place] [address] 69350- 7659 08 Jun, 2016 Polyuria R35.8 ; Chronic fatigue R53.82 ; Chronic deep vein thrombosis (DVT) of popliteal vein of both lower extremities 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 ; Primary insomnia F51.01 and Anxiety F41.9 [facility] [place] [id number] [place] [address] 20284 -3078 03 Jun, 2016 Sore throat J02.9 ; Irregular heart beat I49.9 and Strep pharyngitis J02.0 [facility] [place] [id number] [place] [address] 61395 -5652 May, Upper respiratory tract infection, unspecified type J06.9 [facility] [place] [address] [id number] [place] [address] 28773 -1077 May, Left otitis media, unspecified chronicity, unspecified otitis media type H66.92 and Insomnia, unspecified type G47.00 [facility] IN [facility] [address] [address] May, Left otitis media, unspecified chronicity, unspecified otitis media type H66.92 [facility] IN [facility] [address] [id number] [place] [address] 70273 -9226 Mar, Acute maxillary sinusitis, recurrence not specified J01.00 [facility] IN [facility] [id number] [place] [address] 21760 -6391 Dec, Acute vomiting R11.10 and Acute diarrhea R19.7 [place] [id number] [place] [address] 40200- 3726 14 Dec, 2014 [place] [address] [place] [id number] [place] [address] 37966- 0458 Dec, [place] [address] [place] [id number] [place] [address] 52996- 6033 Oct, [place] [address] [place] [id number] [place] [address] 23012- 7795 Oct, [place] [address] [place] [id number] [place] [address] 27535- 2145 Aug, [place] [address] [place] [id number] [place] [address] 38680- 7510 Aug, [place] [id number] [place] [address] 54345- 8177 Aug, [place] [address] [place] [id number] [place] [address] 150276- 3828 Aug, IMMUNIZATIONS No Known Immunizations SOCIAL HISTORY Never Assessed REASON FOR VISIT Refill request PLAN OF CARE VITAL SIGNS MEDICATIONS Medication Instructions Dosage Frequency Start Date End Date Duration Status Xanax 1 MG Orally Twice a day 1 tablet 12h 24 Jul, 2016 28 days Active Ambien 10 MG Orally Once [...]
--- OUTSIDE RECORDS SUMMARY | 2018-03-03 15:02 | XMS REPORT ---
Author Author SARTHAK HARRIS Organization [facility] Address [address] [place] [address] Care Team Providers Care Recruitment Officer Name Role Phone SARTHAK HARRIS Unavailable PROBLEMS Type Condition ICD9-CM Code NSN25-GD Code Onset Dates Condition Status SNOMED Code Problem GERD without esophagitis K21.9 Active 457659455 Problem Primary insomnia F51.01 Active 5991285 Problem Other cardiac arrhythmia I49.8 Active 11501072 Problem Anxiety F41.9 Active 52331115 Problem Chronic fatigue R53.82 Active 88035068 ALLERGIES No Information ENCOUNTERS Encounter Location Date Diagnosis [address] [address] Dec, [facility] [address] [address] 24 Nov, 2017 Cellulitis of foot, left L03.116 [place] [address] 17822- 2175 14 Nov, 2017 Medicare annual wellness visit, initial Z00.00 [facility] [address] [address] 04 Nov, 2017 Nasal congestion R09.81 and Bilateral impacted cerumen H61.23 [facility] [address] [place] [id number] [place] [address] 36775- 9471 28 Nov, 2017 [facility] [address] 13559- 4831 13 Nov, 2017 Medicare annual wellness visit, initial Z00.00 [place] [id number] 84012- 5768 11 Oct, 2017 Medicare annual wellness visit, initial Z00.00 [place] [address] [place] [address]- 9579 15 Aug, 2017 Pain in right knee M25.561 [facility] [address] [place] [id number] [place] [address] 17065- 4811 Aug, Primary insomnia F51.01 and Other fatigue R53.83 [facility] [address] [place] [id number] [place] [address] 43891- 0159 Aug, Primary insomnia F51.01 and Other fatigue R53.83 [facility] [place] [address] [place] [id number] [place] [address] 64313 -8718 Jul, Acute recurrent maxillary sinusitis J01.01 [place] [address] 75304- 6918 Jul, Primary insomnia F51.01 and Other fatigue R53.83 [facility] [place] [address] [place] [id number] [place] [address] 09131 -4290 Jun, Acute recurrent maxillary sinusitis J01.01 [place] [address] [place] [id number] [place] [address] 64865- 6313 Jun, Primary insomnia F51.01 and Other fatigue R53.83 [place] [address] [place] [id number] [place] [address] 06674- 9139 May, Pain in right knee M25.561 [place] [address] [place] [id number] [place] [address] 02965- 2437 May, Primary insomnia F51.01 and Other fatigue R53.83 [facility] [address] [place] [id number] [place] [address] 85958 -9604 May, Acute non-recurrent maxillary sinusitis J01.00 [facility] [address] [place] [id number] [place] [address] 13686 -2079 Mar, GERD without esophagitis K21.9 [facility] [address] [place] [id number] [place] [address] 74297 -1692 Mar, Pain in right knee M25.561 [facility] [address] [place] [id number] [place] [address] 82786- 0472 Mar, Other fatigue R53.83 [facility] [address] [place] [id number] [place] [address] 05037- 6256 Mar, Primary insomnia F51.01 [facility] [address] [place] [id number] [place] [address] 05393- 5486 January, Other fatigue R53.83 [facility] [address] [place] [id number] [place] [address] 28049- 2886 January, Other fatigue R53.83 [facility] [address] [place] [id number] [place] [address] 959807- 2836 January, Other fatigue R53.83 [facility] [address] [place] [id number] [place] [address] 94118 -6223 Dec, Acute non-recurrent pansinusitis J01.40 [facility] [address] [place] [id number] [place] [address] 23209- 6353 Dec, Other fatigue R53.83 [facility] [address] [place] [id number] [place] [address] 42176- 6826 Nov, [facility] [address] [place] [id number] [place] [address] 84073- 1948 Nov, Other fatigue R53.83 [facility] [address] [place] [id number] [place] [address] 82610 2541 Nov, Other fatigue R53.83 ; Other malaise R53.81 and Anxiety F41.9 [facility] [address] [place] [id number] [place] [address] 91919- 3636 Nov, Nausea R11.0 [facility] [address] [place] [id number] [place] [address] 37497- 2576 Nov, Nausea R11.0 [facility] [address] [place] [id number] [place] [address] 03844- 3216 Nov, Nausea R11.0 [facility] [address] [place] [id number] [place] [address] 30415 -1227 15 Oct, 2016 Acute upper respiratory infection, unspecified J06.9 and Other viral agents as the cause of diseases classified elsewhere B97.89 [facility] [address] [place] [id number] [place] [address] 58742 -4422 07 Oct, 2016 Nausea R11.0 [facility] [address] 79440- 2186 13 Aug, 2016 Polyuria R35.8 [facility] [place] [address] 50192 -1624 Aug, Acute frontal sinusitis, recurrence not specified J01.10 [place] [address] 81647- 3981 Aug, [place] [address] 72061- 9636 Aug, [facility] [address] [place] [id number] [place] [address] 69216 -5697 Aug, Acute non-recurrent frontal sinusitis J01.10 [place] [address] [place] [id number] [place] [address] 26382- 8201 Aug, [place] [address] [place] [id number] [place] [address] 08914- 8946 Jul, Localized edema R60.0 ; Murmur, cardiac R01.1 and Other cardiac arrhythmia I49.8 [facility] [address] [place] [id number] [place] [address] 59730- 3217 Jul, [facility] [address] [place] [id number] [place] [address] 30283 -9940 Jun, Seasonal allergic rhinitis due to pollen J30.1 [place] [address] [place] [id number] [place] [address] 77121- 2772 Jun, [place] [address] [place] [address] 48457- 5103 19 Jun, 2016 Low testosterone level in male E29.1 [facility] [place] [address] [place] [id number] [place] [address] 57409 -2269 17 Jun, 2016 Acute non-recurrent frontal sinusitis J01.10 [place] [address] [place] [id number] [place] [address] 55701- 1049 16 Jun, 2016 [place] [address] 13333- 3646 14 Jun, 2016 [place] [address] [place] [id number] [place] [address] 14125- 7096 13 Jun, 2016 Polyuria R35.8 ; Chronic fatigue R53.82 and Chronic deep vein thrombosis (DVT) of popliteal vein of both lower extremities 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 [place] [address] [place] [id number] [place] [address] 50205- 1245 08 Jun, 2016 Polyuria R35.8 ; Chronic fatigue R53.82 ; Chronic deep vein thrombosis (DVT) of popliteal vein of both lower extremities 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 ; Primary insomnia F51.01 and Anxiety F41.9 [facility] [place] [id number] [place] [address] 43796 -2211 03 Jun, 2016 Sore throat J02.9 ; Irregular heart beat I49.9 and Strep pharyngitis J02.0 [facility] [place] [id number] [place] [address] 96153 -5665 May, Upper respiratory tract infection, unspecified type J06.9 [facility] [place] [id number] [place] [address] 03667 -0374 May, Left otitis media, unspecified chronicity, unspecified otitis media type H66.92 and Insomnia, unspecified type G47.00 [facility] [address] [place] [address] 51006 -7181 May, Left otitis media, unspecified chronicity, unspecified otitis media type H66.92 [facility] [address] [address] 16 Mar, 2016 Acute maxillary sinusitis, recurrence not specified J01.00 [facility] IN [facility] [address] [address] 23 Dec, 2015 Acute vomiting R11.10 and Acute diarrhea R19.7 [facility] [address] [place] [address] 29856- 4095 14 Dec, 2014 [facility] [id number] [place] [address] 06683- 0625 Dec, [facility] [address] [place] [id number] [place] [address] 80424- 1080 Oct, [facility] [address] [place] [id number] [place] [address] 80720- 0543 Oct, [facility] [address] [place] [id number] [place] [address] 04198- 2961 Aug, [facility] [id number] [place] [address] 91780- 5142 Aug, [facility] [id number] [place] [address] 05731- 6323 Aug, [facility] [address] [address]- 9390 Aug, IMMUNIZATIONS No Known Immunizations SOCIAL HISTORY [...]
--- OUTSIDE RECORDS SUMMARY | 2018-03-03 15:07 | XMS REPORT | CCD ---
Author Author [facility]a [facility] Organization [facility] Address [address] [place] [address] Phone Care Team Providers Care Business Administration Professor Name Role Phone PP Unavailable CCM Unavailable Summary Purpose Interface Exchange Insurance Providers Payer name Policy type / Coverage type Covered libertarian ID Effective Begin Date Effective End Date WPS Medicare Part B Medicare Part B [id number] Unknown Unknown Family history Father Diagnosis Age At Onset Hypertension Unknown Mother Diagnosis Age At Onset Depression Unknown Hypertension Unknown Social History Social History Element Codes Description Effective Dates Marital status Unknown Maryjo 06/03/2014 Number of children Unknown 1 06/03/2014 Employment Unknown Retired subs at [employer] 06/03/[address]: 2277689 Former smoker 06/03/2014 Number of years using tobacco Unknown 15 06/03/[address]: 874216935 Never drinks alcohol quit 23 years ago 06/03/2014 Allergies, Adverse Reactions, Alerts Substance Reaction Codes Entered Date Inactivated Date Status SULFA (SULFONAMIDE ANTIBIOTICS) anaphylaxis Unknown 06/03/2014 No Inactive Date Active Past Medical History Illness Codes Condition Status Onset Date Resolved Date Chronic gout due to renal impairment, left ankle and foot, without tophus (tophi) ICD-9: 274.02 ICD-10: M1A.3720 Active 11/14/2017 Unknown Encounter for follow-up examination after completed treatment for conditions other than malignant neoplasm ICD-9: V67.59 ICD-10: Z09 Active 11/14/2017 Unknown Gout, unspecified ICD- 9: 274.9 ICD-10: M10.9 Active 11/14/2017 Unknown Deficiency of other specified B group vitamins ICD-9: 266.2 ICD-10: E53.8 Active 11/01/2017 Unknown Other fatigue ICD-9: 780.79 ICD-10: R53.83 Active 12/08/2016 Unknown Encounter for general adult medical examination with abnormal findings ICD-9: V70.0 ICD-10: Z00.01 Active 09/07/2016 Unknown Pain in left knee ICD- 9: 719.46 ICD-10: M25.562 Active 09/20/2016 Unknown Pain in right knee ICD -9: 719.46 ICD-10: M25.561 Active 09/20/2016 Unknown Obstructive sleep apnea (adult) (pediatric) ICD-9: 327.23 ICD-10: G47.33 Active 07/24/2017 Unknown Other malaise ICD-9: 780.79 ICD-10: R53.81 Active 07/24/2017 Unknown Pain in left arm ICD-9 : 729.5 ICD-10: M79.602 Active 07/24/2017 Unknown Bilateral primary osteoarthritis of knee ICD-9: 715.16 ICD-10: M17.0 Active 08/10/2016 Unknown Chronic pain syndrome ICD-9: 338.4 ICD-10: G89.4 Active 07/12/2017 Unknown Encounter for immunization ICD-9: V03.9 ICD-10: Z23 Active 07/03/2017 Unknown Essential (primary) hypertension ICD-9: 401.9 ICD-10: I10 Active 07/27/2014 Unknown Frequency of micturition ICD-9: 788.41 ICD-10: R35.0 Active 06/15/2017 Unknown Encounter for screening for malignant neoplasm of prostate ICD-9: V76.44 ICD-10: Z12.5 Active 01/16/2017 Unknown Mixed hyperlipidemia ICD-9: 272.4 ICD-10: E78.2 Active 12/20/2016 Unknown Bilateral primary osteoarthritis of knee ICD-9: 715.96 ICD-10: M17.0 Active 10/23/2016 Unknown Phlebitis and thrombophlebitis of superficial vessels of right lower extremity ICD-9: 451.0 ICD-10: I80.01 Active 09/20/2016 Unknown Acute laryngopharyngitis ICD-9: 465.0 ICD-10: J06.0 Active 09/06/2016 Unknown Other allergic rhinitis ICD-9: 477.8 ICD-10: J30.89 Active 09/06/2016 Unknown Ventricular premature depolarization ICD-9: 427.69 ICD-10: I49.3 Active 06/06/2016 Unknown Other insomnia ICD-9: 327.09 ICD-10: G47.09 Active 05/24/2016 Unknown Allergic rhinitis due to pollen ICD-9: 477.0 ICD-10: J30.1 Active 05/04/2016 Unknown Cellulitis of right lower limb ICD-9: 682.6 ICD-10: L03.115 Active 03/15/2016 Unknown Nausea ICD-9: 787.02 ICD-10: R11.0 Active 03/05/2016 Unknown Acute laryngopharyngitis ICD-9: 465.9 ICD-10: J06.0 Active 02/28/2016 Unknown Cough ICD-9: 786.2 ICD-10: R05 Active 02/28/2016 Unknown Fever, unspecified ICD -9: 780.60 ICD-10: R50.9 Active 02/28/2016 Unknown Other acute sinusitis ICD-9: 461.8 ICD-10: J01.80 Active 02/28/2016 Unknown Other obesity due to excess calories ICD-9: 278.00 ICD-10: E66.09 Active 01/31/2016 Unknown Other allergic rhinitis ICD-9: 477.9 ICD-10: J30.89 Active 01/18/2016 Unknown Testicular hypofunction ICD-9: 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 ICD-10: E29.1 Active 01/06/2015 Unknown Low back pain ICD-9: 724.5 ICD-10: M54.5 Active 09/12/2015 Unknown Hypopituitarism ICD-9 : 257.2 ICD-10: E23.0 Active 01/06/2015 Unknown ACUTE URI ICD-9: 465.9 Active 04/22/2015 Unknown ALLERGIC RHINITIS ICD- 9: 477.9 Active 04/22/2015 Unknown Hypogonadism in male ICD-9: 257.2 Active 01/06/2015 Unknown ACUTE MAXILLARY SINUSITIS ICD-9: 461.0 Active 10/28/2014 Unknown Cough ICD-9: 786.2 Active 10/28/2014 Unknown BPH LOC W/O UR OBS/LUTS ICD-9: 600.20 Active 10/12/2014 Unknown Seborrheic keratoses ICD-9: 702.19 Active 10/12/2014 Unknown Hypertension Unknown Active 07/27/2014 Unknown Hypertension ICD-9: 401.9 Active 07/27/2014 Unknown Urinary urgency ICD-9 : 788.63 Active 07/27/2014 Unknown Hyperlipidemia Unknown Active 06/03/2014 Unknown Osteoarthritis Unknown Active 06/03/2014 Unknown Chronic back pain ICD- 9: 724.5 Active 06/03/2014 Unknown HYPERLIPIDEMIA ICD-9: 272.4 Active 06/03/2014 Unknown Impotence sexual ICD-9 : 607.84 Active 06/03/2014 Unknown Muscle weakness ICD-9 : 728.87 Active 06/03/2014 Unknown Osteoarthritis ICD-9: 715.90 Active 06/03/2014 Unknown Sleep apnea ICD-9: 780.57 Active 06/03/2014 Unknown Umbilical hernia ICD-9 : 553.1 Active 06/03/2014 Unknown Problems Condition Codes Effective Dates Condition Status Chronic gout due to renal impairment, left ankle and foot, without tophus (tophi) ICD-9: 274.02 ICD-10: M1A.3720 11/14/2017 Active Encounter for follow-up examination after completed treatment for conditions other than malignant neoplasm ICD-9: V67.59 ICD-10: Z09 11/14/2017 Active Gout, unspecified ICD- 9: 274.9 ICD-10: M10.9 11/14/2017 Active Deficiency of other specified B group vitamins ICD-9: 266.2 ICD-10: E53.8 11/01/2017 Active Other fatigue ICD-9: 780.79 ICD-10: R53.83 12/08/2016 Active Encounter for general adult medical examination with abnormal findings ICD-9: V70.0 ICD-10: Z00.01 09/07/2016 Active Pain in left knee ICD- 9: 719.46 ICD-10: M25.562 09/20/2016 Active Pain in right knee ICD -9: 719.46 ICD-10: M25.561 09/20/2016 Active Obstructive sleep apnea (adult) (pediatric) ICD-9: 327.23 ICD-10: G47.33 07/24/2017 Active Other malaise ICD-9: 780.79 ICD-10: R53.81 07/24/2017 Active Pain in left arm ICD-9 : 729.5 ICD-10: M79.602 07/24/2017 Active Bilateral primary osteoarthritis of knee ICD-9: 715.16 ICD-10: M17.0 08/10/2016 Active Chronic pain syndrome ICD-9: 338.4 ICD-10: G89.4 07/12/2017 Active Encounter for immunization ICD-9: V03.9 ICD-10: Z23 07/03/2017 Active Essential (primary) hypertension ICD-9: 401.9 ICD-10: I10 07/27/2014 Active Frequency of micturition ICD-9: 788.41 ICD-10: R35.0 06/15/2017 Active Encounter for screening for malignant neoplasm of prostate ICD-9: V76.44 ICD-10: Z12.5 01/16/2017 Active Mixed hyperlipidemia ICD-9: 272.4 ICD-10: E78.2 12/20/2016 Active Bilateral primary osteoarthritis of knee ICD-9: 715.96 ICD-10: M17.0 10/23/2016 Active Phlebitis and thrombophlebitis of superficial vessels of right lower extremity ICD-9: 451.0 ICD-10: I80.01 09/20/2016 Active Acute laryngopharyngitis ICD-9: 465.0 ICD-10: J06.0 09/06/2016 Active Other allergic rhinitis ICD-9: 477.8 ICD-10: J30.89 09/06/2016 Active Ventricular premature depolarization ICD-9: 427.69 ICD-10: I49.3 06/06/2016 Active Other insomnia ICD-9: 327.09 ICD-10: G47.09 05/24/2016 Active Allergic rhinitis due to pollen ICD-9: 477.0 ICD-10: J30.1 05/04/2016 Active Cellulitis of right lower limb ICD-9: 682.6 ICD-10: L03.115 03/15/2016 Active Nausea ICD-9: 787.02 ICD-10: R11.0 03/05/2016 Active Acute laryngopharyngitis ICD-9: 465.9 ICD-10: J06.0 02/28/2016 Active Cough ICD-9: 786.2 ICD-10: R05 02/28/2016 Active Fever, unspecified ICD -9: 780.60 ICD-10: R50.9 02/28/2016 Active Other acute sinusitis ICD-9: 461.8 ICD-10: J01.80 02/28/2016 Active Other obesity due to excess calories ICD-9: 278.00 ICD-10: E66.09 01/31/2016 Active Other allergic rhinitis ICD-9: 477.9 ICD-10: J30.89 01/18/2016 Active Testicular hypofunction ICD-9: 257.2 ICD-10: E29.1 01/06/2015 Active Low back pain ICD-9: 724.5 ICD-10: M54.5 09/12/2015 Active Hypopituitarism ICD-9 : 257.2 ICD-10: E23.0 01/06/2015 Active ACUTE URI ICD-9: 465.9 04/22/2015 Active ALLERGIC RHINITIS ICD- 9: 477.9 04/22/2015 Active Hypogonadism in male ICD-9: 257.2 01/06/2015 Active ACUTE MAXILLARY SINUSITIS ICD-9: 461.0 10/28/2014 Active Cough ICD-9: 786.2 10/28/2014 Active BPH LOC W/O UR OBS/LUTS ICD-9: 600.20 10/12/2014 Active Seborrheic keratoses ICD-9: 702.19 10/12/2014 Active Hypertension Unknown 07/27/2014 Active Hypertension ICD-9: 401.9 07/27/2014 Active Urinary urgency ICD-9 : 788.63 07/27/2014 Active Hyperlipidemia Unknown 06/03/2014 Active Osteoarthritis Unknown 06/03/2014 Active Chronic back pain ICD- 9: 724.5 06/03/2014 Active HYPERLIPIDEMIA ICD-9: 272.4 06/03/2014 Active Impotence sexual ICD-9 : 607.84 06/03/2014 Active Muscle weakness ICD-9 : 728.87 06/03/2014 Active Osteoarthritis ICD-9: 715.90 06/03/2014 Active Sleep apnea ICD-9: 780.57 06/03/2014 Active Umbilical hernia ICD-9 : 553.1 06/03/2014 Active Medications Medication Codes Instructions Start Date Stop Date Status Fill Instructions meloxicam 15 mg tablet RxNorm: 882160 1 Tablet(s) PO daily prescribed by ER 11/14/2017 12/13/2017 Active cyanocobalamin (vit B-12) 1,000 mcg/mL injection solution RxNorm: 954688 Milliliter(s) Inj 11/01/2017 11/01/2017 Inactive cyanocobalamin (vit B-12) 1,000 mcg/mL injection solution RxNorm: 282208 1 Milliliter(s) Inj monthly 10/31/201701/28 Active amoxicillin 500 mg capsule RxNorm: 141976 1 Capsule(s) PO TID 10/31/2017 11/06/2017 Inactive hydrocodone 10 mg-acetaminophen 325 mg tablet RxNorm: 940348 1 Tablet(s) PO Q6 PRN 10/02/2017 10/31/2017 Inactive prednisone 20 mg tablet RxNorm: 762583 2 Tablet(s) PO daily 09/16/2017 Inactive hydrocodone 10 mg-acetaminophen 325 mg tablet RxNorm: 734305 1 Tablet(s) PO Q6 PRN 08/22/2017 09/20/2017 Inactive Kenalog 40 mg/mL suspension for injection RxNorm: 2918224 2 Milliliter(s) Inj 07/12/2017 07/12/2017 Inactive hydrocodone 10 mg-acetaminophen 325 mg tablet RxNorm: 803067 1 Tablet(s) PO Q6 PRN 07/12/2017 08/10/2017 Inactive hydrocodone 10 mg-acetaminophen 325 mg tablet RxNorm: 375895 1 Tablet(s) PO TID 06/01/2017 05/31/2017 Inactive hydrocodone 10 mg-acetaminophen 325 mg tablet RxNorm: 686678 1 Tablet(s) PO TID 06/01/2017 06/30/2017 Inactive hydrocodone 5 mg-acetaminophen 325 mg tablet RxNorm: 981095 1 Tablet(s) PO TID as needed for pain 03/30/2017 05/31/2017 Inactive hydrocodone 5 mg-acetaminophen 325 mg tablet RxNorm: 761078 1 Tablet(s) PO BID 02/23/2017 02/22/2017 Inactive hydrocodone 5 mg-acetaminophen 325 mg tablet RxNorm: 020293 1 Tablet(s) PO TID as needed for pain 02/23/2017 03/24/2017 Inactive hydrocodone 5 mg-acetaminophen 325 mg tablet RxNorm: 336447 1 Tablet(s) PO BID 01/26/2017 02/22/2017 Inactive Percocet 10 mg-325 mg tablet RxNorm: 4948089 1 Tablet(s) PO Q6 PRN 01/16/2017 05/31/2017 Inactive amoxicillin 500 mg tablet RxNorm: 082442 1 Tablet(s) PO BID 12/23/2016 Inactive Percocet 10 mg-325 mg tablet RxNorm: 4655304 1 Tablet(s) PO Q6 PRN 11/21/2016 01/15/2017 Inactive Percocet 5 mg-325 mg tablet RxNorm: 4615888 1-2 Tablet(s) PO BID PRN 10/24/2016 11/20/2016 Inactive hydrocodone 5 mg-acetaminophen 325 mg tablet RxNorm: 551883 1 Tablet(s) PO BID as needed 10/05/2016 10/23/2016 Inactive Keflex 500 mg capsule RxNorm: 191330 1 Capsule(s) PO TID 201509/16/2016 Inactive promethazine 25 mg tablet RxNorm: 901629 1 Tablet(s) PO TID as needed N/V 08/25/2016 No Stop Date Active promethazine 25 mg tablet RxNorm: 459569 1 Tablet(s) PO TID as needed N/V 08/25/2016 08/24/2016 Inactive naproxen 500 mg tablet RxNorm: 865285 1 Tablet(s) PO BID as needed 08/17/2016 12/07/2016 Inactive naproxen 500 mg tablet RxNorm: 655785 1 Tablet(s) PO BID as needed 08/17/2016 08/16/2016 Inactive gentamicin 0.3 % eye drops RxNorm: 413940 1-2 Drop(s) OPH Q4H while awake 08/15/2016 08/19/2016 Inactive gentamicin 0.3 % eye drops RxNorm: 539589 1-2 Drop(s) OPH Q4H while awake 08/15/2016 08/14/2016 Inactive Kenalog 40 mg/mL suspension for injection RxNorm: 2189920 1 Milliliter(s) Inj 08/11/2016 08/11/2016 Inactive hydrocodone 5 mg-acetaminophen 325 mg tablet RxNorm: 411102 1 Tablet(s) PO BID as needed 07/28/2016 10/04/2016 Inactive [SAVINGS FOR UNINSURED PATIENTS -- BIN:387408 , PCN: ASPROD1, Group: [id number], ID# [id number], Process claim through [employer], for questions: . THIS IS NOT INSURANCE.] Xarelto 20 mg tablet RxNorm: 1862817 1 Tablet(s) PO daily 10/26 /2016 09/20/2016 Inactive Remeron 15 mg tablet RxNorm: 770329 1 Tablet(s) PO QHS as needed 05/25/2016 09/03/2017 Inactive hydrochlorothiazide 25 mg tablet RxNorm: 881835 Tablet(s) TAKE ONE TABLET BY MOUTH DAILY 05/09/2016 11/04/2016 Inactive hydrochlorothiazide 25 mg tablet RxNorm: 903109 TAKE ONE TABLET BY MOUTH DAILY 05/09/2016 05/08/2016 Inactive hydrocodone 5 mg-acetaminophen 325 mg tablet RxNorm: 364802 1 Tablet(s) PO BID as needed 05/05/2016 07/27/2016 Inactive [SAVINGS FOR UNINSURED PATIENTS -- BIN:197534 , PCN: ASPROD1, Group: [id number], ID# [id number], Process claim through [employer], for questions: . THIS IS NOT INSURANCE.] Kenalog 40 mg/mL suspension for injection RxNorm: 7000864 Milliliter(s) Inj 05/05/2016 05/05/2016 Inactive Kenalog 40 mg/mL suspension for injection RxNorm: 1775153 1 Milliliter(s) Inj 04/07/2016 04/07/2016 Inactive ceftriaxone 500 mg solution for injection RxNorm: 4667749 Inj 03/16/2016 03/16/2016 Inactive cetirizine 10 mg tablet RxNorm: 4897231 1 Tablet(s) PO daily 04/14/2016 Inactive prednisone 20 mg tablet RxNorm: 493001 2 Tablet(s) PO daily 03/04/2016 Inactive amoxicillin 500 mg tablet RxNorm: 829721 1 Tablet(s) PO TID 03/06/2016 Inactive cetirizine 10 mg chewable tablet RxNorm: 4900766 1 Tablet(s) PO daily 01/19/2016 02/17/2016 Inactive ceftriaxone 500 mg solution for injection RxNorm: 7894427 Inj 01/11/2016 01/11/2016 Inactive Kenalog 40 mg/mL suspension for injection RxNorm: 5396458 Milliliter(s) Inj 01/11/2016 01/11/2016 Inactive testosterone cypionate 200 mg/mL intramuscular oil RxNorm: 117394 Milliliter(s) IM 12/09/2015 12/09/2015 Inactive testosterone cypionate 200 mg/mL intramuscular oil RxNorm: 347586 Milliliter(s) IM 10/27/2015 10/27/2015 Inactive Flomax 0.4 mg capsule RxNorm: 309169 1 Capsule(s) PO daily 10/2711/25/2015 Inactive testosterone cypionate 200 mg/mL intramuscular oil RxNorm: 316319 1 Milliliter(s) IM 09/08/2015 09/08/2015 Inactive testosterone enanthate 200 mg/mL intramuscular oil RxNorm: 113189 Milliliter(s) IM 07/16/2015 07/16/2015 Inactive testosterone cypionate 200 mg/mL intramuscular oil RxNorm: 560038 100 Milliliter(s ) IM [id number] 07/09/2015 07/08/2015 Inactive testosterone cypionate 200 mg/mL intramuscular oil RxNorm: 320033 100 Milliliter(s ) IM [id number] 07/09/2015 07/08/2015 Inactive testosterone cypionate 200 mg/mL intramuscular oil RxNorm: 681128 100 Milliliter(s ) IM [id number] 07/09/2015 09/02/2017 Inactive promethazine 25 mg tablet RxNorm: 248162 1 Tablet(s) PO Q6 as needed N/V 04/30/2015 03/19/2016 Inactive Kenalog 40 mg/mL suspension for injection RxNorm: 1163595 Milliliter(s) Inj 04/23/2015 04/23/2015 Inactive amoxicillin 500 mg tablet RxNorm: 759284 1 Tablet(s) PO TID 05/02/2015 Inactive ceftriaxone 500 mg solution for injection RxNorm: 0672788 Inj 04/23/2015 04/23/2015 Inactive hydrocodone 5 mg-acetaminophen 325 mg tablet RxNorm: 435532 1 Tablet(s) PO BID as needed 03/01/2015 05/04/2016 Inactive [SAVINGS FOR UNINSURED PATIENTS -- BIN:611460 , PCN: ASPROD1, Group: [id number], ID# [id number], Process claim through [employer], for questions: . THIS IS NOT INSURANCE.] hydrochlorothiazide 25 mg tablet RxNorm: 132334 1 Tablet(s) PO daily 02/05/2015 09/02/2015 Inactive [SAVINGS FOR NON-COVERED DRUGS -- BIN:604336, PCN: ASPROD1, Group: XXXXX, ID# [id number], Questions: . THIS IS NOT INSURANCE.] amoxicillin 500 mg capsule RxNorm: 574167 1 Capsule(s) PO TID 01/13/2015 01/19/2015 Inactive [SAVINGS FOR NON-COVERED DRUGS -- BIN:959011, PCN: ASPROD1, Group: XXXXX, ID# [id number], Questions: . THIS IS NOT INSURANCE.] amoxicillin 500 mg capsule RxNorm: 762113 1 Capsule(s) PO TID 01/13/2015 01/12/2015 Inactive hydrocodone 5 mg-acetaminophen 325 mg tablet RxNorm: 004952 1 Tablet(s) PO BID as needed 11/10/2014 02/28/2015 Inactive [SAVINGS FOR UNINSURED PATIENTS -- BIN:817665 , PCN: ASPROD1, Group: [id number], ID# [id number], Process claim through [employer], for questions: . THIS IS NOT INSURANCE.] cefdinir 300 mg capsule RxNorm: 860509 1 Capsule(s) PO BID 11/06/2014 Inactive [SAVINGS FOR UNINSURED PATIENTS -- BIN:724147, PCN: ASPROD1, Group: [id number] , ID# [id number], Process claim through [employer], for questions: . THIS IS NOT INSURANCE.] Rocephin 1 gram solution for injection RxNorm: 600042 Inj 10/2810/28/2014 Inactive [SAVINGS FOR UNINSURED PATIENTS -- BIN:437831, PCN: ASPROD1, Group: [id number], ID# [id number], Process claim through [employer], for questions: . THIS IS NOT INSURANCE.] Kenalog 40 mg/mL suspension for injection RxNorm: 2212278 Milliliter(s) Inj 10/28/2014 10/28/2014 Inactive [SAVINGS FOR UNINSURED PATIENTS -- BIN:496406, PCN: ASPROD1, Group: [id number], ID# [id number], Process claim through [employer], for questions: . THIS IS NOT INSURANCE.] hydrocodone 5 mg-acetaminophen 325 mg tablet RxNorm: 270837 1 Tablet(s) PO BID as needed 10/12/2014 11/09/2014 Inactive [SAVINGS FOR UNINSURED PATIENTS -- BIN:021865 , PCN: ASPROD1, Group: [id number], ID# [id number], Process claim through [employer], for questions: . THIS IS NOT INSURANCE.] Phenergan 25 mg tablet RxNorm: 631311 1/2 to 1 Tablet(s) PO Q6 as needed for nausea/vomiting 09/04/2014 03/19/2016 Inactive [SAVINGS FOR UNINSURED PATIENTS -- BIN:777880, PCN: ASPROD1, Group: AME08, ID# [id number], Process claim through [employer], for questions: . THIS IS NOT INSURANCE.] hydrocodone 5 mg-acetaminophen 325 mg tablet RxNorm: 452388 1 Tablet(s) PO BID as needed 08/03/2014 10/11/2014 Inactive [SAVINGS FOR UNINSURED PATIENTS -- BIN:667647 , PCN: ASPROD1, Group: AME08, ID# [id number], Process claim through [employer], for questions: . THIS IS NOT INSURANCE.] lisinopril 10 mg tablet RxNorm: 119538 1 Tablet(s) PO daily 03/19/2016 Inactive [SAVINGS FOR UNINSURED PATIENTS -- BIN:748687, PCN: ASPROD1, Group: AME08 , ID# [id number], Process claim through [employer], for questions: . THIS IS NOT INSURANCE.] hydrocodone 5 mg-acetaminophen 325 mg tablet RxNorm: 123096 1 Tablet(s) PO BID as needed 06/23/2014 08/02/2014 Inactive [SAVINGS FOR UNINSURED PATIENTS -- BIN:202897 , PCN: ASPROD1, Group: [id number], ID# [id number], Process claim through [employer], for questions: . THIS IS NOT INSURANCE.] AndroGel 1.62 % (20.25 mg/1.25 gram) transdermal gel packet RxNorm: 2056163 4 pumps TD daily 06/16/2014 01/06/2015 Inactive [SAVINGS FOR UNINSURED PATIENTS -- BIN:996260, PCN: ASPROD1, Group: AME08, ID# [id number], Process claim through [employer], for questions: . THIS IS NOT INSURANCE.] AndroGel 1.62 % (20.25 mg/1.25 gram) transdermal gel packet RxNorm: 7792586 4 pumps TD daily 06/16/2014 06/15/2014 Inactive amoxicillin 500 mg tablet RxNorm: 488993 1 Tablet(s) PO BID 11/201306/12/2014 Inactive [SAVINGS FOR UNINSURED PATIENTS -- BIN:015739, PCN: ASPROD1, Group: [id number] , ID# [id number], Process claim through [employer], for questions: . THIS IS NOT INSURANCE.] gabapentin 300 mg capsule RxNorm: 875997 1 Capsule(s) PO TID No Start Date Active hydrocodone 5 mg-acetaminophen 325 mg tablet RxNorm: 389637 1 Tablet(s) PO Q4H prescribed by ER No Start Date Active aspirin 325 mg tablet RxNorm: 455231 1 Tablet(s) PO daily No Start Date Active lisinopril 20 mg tablet RxNorm: 360946 1 Tablet(s) PO QAM No Start Date Active lisinopril 20 mg tablet RxNorm: 340206 1 Tablet(s) PO daily No Start Date Active hydrochlorothiazide 25 mg tablet RxNorm: 217477 1 Tablet(s) PO daily No Start Date 02/04/2015 Inactive lovastatin 20 mg tablet RxNorm: 810306 1 Tablet(s) PO daily No Start Date 12/19/2016 Inactive lovastatin 20 mg tablet RxNorm: 267009 1 Tablet(s) PO QAM No Start Date 01/15/2017 Inactive ibuprofen 800 mg tablet RxNorm: 258793 1 Tablet(s) PO TID No Start Date 03/05/2016 Inactive Phenergan 25 mg tablet RxNorm: 586106 1/2 to 1 Tablet(s) PO Q6 as needed for nausea/vomiting No Start Date 09/03/2014 Inactive Xarelto 20 mg tablet RxNorm: 2964860 1 Tablet(s) PO daily No Start Date 07/25/2016 Inactive vitamin B12 200mcg [place], Suspension RxNorm: 1 [place] PO daily No Start Date 09/04/2017 Inactive hydrocodone 5 mg-acetaminophen 325 mg tablet RxNorm: 032659 1 Tablet(s) PO BID as needed No Start Date 06/22/2014 Inactive promethazine 25 mg tablet RxNorm: 397612 1 Tablet(s) PO Q6 as needed N/V No Start Date 04/29/2015 Inactive tramadol 50 mg tablet RxNorm: 844224 1 Tablet(s) PO BID as needed No Start Date 08/02/2014 Inactive Medication Administered Medication Codes Instructions Start Date Status cyanocobalamin (vit B-12) 1,000 mcg/mL injection solution RxNorm: 252876 Milliliter 11/01/2017 No longer Active Kenalog 40 mg/mL suspension for injection RxNorm: 3616020 2Milliliter 07/12/2017 No longer Active Kenalog 40 mg/mL suspension for injection RxNorm: 4064715 1Milliliter 08/11/2016 No longer Active Kenalog 40 mg/mL suspension for injection RxNorm: 5900852 Milliliter 05/05/2016 No longer Active Kenalog 40 mg/mL suspension for injection RxNorm: 5793569 1Milliliter 04/07/2016 No longer Active ceftriaxone 500 mg solution for injection RxNorm: 4053926 03/16/2016 No longer Active ceftriaxone 500 mg solution for injection RxNorm: 9616178 01/11/2016 No longer Active Kenalog 40 mg/mL suspension for injection RxNorm: 9757750 Milliliter 01/11/2016 No longer Active testosterone cypionate 200 mg/mL intramuscular oil RxNorm: 877126 Milliliter 12/09/2015 No longer Active testosterone cypionate 200 mg/mL intramuscular oil RxNorm: 241717 Milliliter 10/27/2015 No longer Active testosterone cypionate 200 mg/mL intramuscular oil RxNorm: 967316 1Milliliter 09/08/2015 No longer Active testosterone enanthate 200 mg/mL intramuscular oil RxNorm: 703054 Milliliter 07/16/2015 No longer Active Kenalog 40 mg/mL suspension for injection RxNorm: 8911981 Milliliter 04/23/2015 No longer Active ceftriaxone 500 mg solution for injection RxNorm: 4115098 04/23/2015 No longer Active Kenalog 40 mg/mL suspension for injection RxNorm: 6728526 Milliliter 10/28/2014 No longer Active Rocephin 1 gram solution for injection RxNorm: 647935 10/28/2014 No longer Active Immunizations Vaccine Codes Date Status Influenza CVX: 141 07/03/2017 completed Influenza CVX: 141 03/01/2014 completed Pneumococcal Unknown 03/31/2013 completed Tetanus, Diptheria, Pertussis CVX: 113 completed Tetanus/Diptheria CVX: 113 03/31/2009 completed Assessments Condition Codes Effective Dates Encounter for follow-up examination after completed treatment for conditions other than malignant neoplasm ICD-10: Z09 ICD-9: V67.59 11/14/2017 Chronic gout due to renal impairment, left ankle and foot, 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) ICD-10: M1A.3720 ICD-9: 274.02 11/14/2017 Deficiency of other specified B group vitamins ICD-10: E53.8 ICD-9: 266.2 11/01/2017 Pain in right knee ICD-10: M25.561 ICD-9: 719.46 09/12/2017 Pain in left knee ICD-10: M25.562 ICD-9: 719.46 09/12/2017 Encounter for general adult medical examination with abnormal findings ICD-10: Z00.01 ICD-9: V70.0 09/12/2017 Other malaise ICD-10: R53.81 ICD-9: 780.79 07/24/2017 Obstructive sleep apnea (adult) (pediatric) ICD-10: G47.33 ICD-9: 327.23 07/24/2017 Pain in left arm ICD-10: M79.602 ICD-9: 729.5 07/24/2017 Other fatigue ICD-10: R53.83 ICD-9: 780.79 07/24/2017 Bilateral primary osteoarthritis of knee ICD-10: M17.0 ICD-9: 715.16 07/12/2017 Chronic pain syndrome ICD-10: G89.4 ICD-9: 338.4 07/12/2017 Encounter for immunization ICD-10: Z23 ICD-9: V03.9 07/03/2017 Frequency of micturition ICD-10: R35.0 ICD-9: 788.41 06/15/2017 Essential (primary) hypertension ICD-10: I10 ICD-9: 401.9 06/15/2017 Encounter for screening for malignant neoplasm of prostate ICD-10: Z12.5 ICD-9: V76.44 01/16/2017 Mixed hyperlipidemia ICD-10: E78.2 ICD-9: 272.4 01/16/2017 Bilateral primary osteoarthritis of knee ICD-10: M17.0 ICD-9: 715.96 10/24/2016 Phlebitis and thrombophlebitis of superficial vessels of right lower extremity ICD-10: I80.01 ICD-9: 451.0 09/21/2016 Acute laryngopharyngitis ICD-10: J06.0 ICD-9: 465.0 09/07/2016 Other allergic rhinitis ICD-10: J30.89 ICD-9: 477.8 09/07/2016 Ventricular premature depolarization ICD-10: I49.3 ICD-9: 427.69 06/07/2016 Other insomnia ICD-10: G47.09 ICD-9: 327.09 05/25/2016 Allergic rhinitis due to pollen ICD-10: J30.1 ICD-9: 477.0 05/05/2016 Cellulitis of right lower limb ICD-10: L03.115 ICD-9: 682.6 03/16/2016 Nausea ICD-10: R11.0 ICD-9: 787.02 03/06/2016 Fever, unspecified ICD-10: R50.9 ICD-9: 780.60 02/29/2016 Cough ICD-10: R05 ICD-9: 786.2 02/29/2016 Other acute sinusitis ICD-10: J01.80 ICD-9: 461.8 02/29/2016 Acute laryngopharyngitis ICD-10: J06.0 ICD-9: 465.9 02/29/2016 Other obesity due to excess calories ICD-10: E66.09 ICD-9: 278.00 02/01/2016 Other allergic rhinitis ICD-10: J30.89 ICD-9: 477.9 01/19/2016 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 ICD-9: 257.2 12/09/2015 Low back pain ICD-10: M54.5 ICD-9: 724.5 09/13/2015 Hypopituitarism ICD-10: E23.0 ICD-9: 257.2 09/08/2015 Hypogonadism in male ICD-9: 257.2 2014 ACUTE URI ICD-9: 465.9 04/23/2015 ALLERGIC RHINITIS ICD-9: 477.9 2014 ESSENTIAL HYPERTENSION ICD-9: 401.9 01/06 Sleep apnea ICD-9: 780.57 01/06/2015 Cough ICD-9: 786.2 10/28/2014 ACUTE MAXILLARY SINUSITIS ICD-9: 461.0 Seborrheic keratoses ICD-9: 702.19 2014 BPH LOC W/O UR OBS/LUTS ICD-9: 600.20 08/2015 Osteoarthritis ICD-9: 715.90 10/12/2014 Impotence sexual ICD-9: 607.84 2014 Urinary urgency ICD-9: 788.63 07/27/2014 Chronic back pain ICD-9: 724.5 2013 Muscle weakness ICD-9: 728.87 06/03/2014 Umbilical hernia ICD-9: 553.1 06/03/2014 HYPERLIPIDEMIA ICD-9: 272.4 06/03/2014 Reason For Visit Reason For Visit Effective Dates Notes Hospital Follow Up 11/14/2017 ER follow up - gout in L ankle Annual Medicare Wellness Exam 09/12/2017 malaise 07/24/2017 knee pain 07/12/2017 vaccination against influenza 07/03/2017 urinary incontinence 06/15/2017 knee pain 01/16/2017 fatigue 12/20/2016 fatigue 12/08/2016 knee pain 11/21/2016 knee pain 10/24/2016 edema 09/21/2016 Annual Medicare Wellness Exam 09/08/2016 cough 09/07/2016 edema 08/22/2016 knee pain 08/11/2016 edema 07/18/2016 sore throat 06/07/2016 insomnia 05/25/2016 earache 05/05/2016 lower leg pain 04/07/2016 lower leg pain 03/24/2016 pre-op/surgery consult 03/20/2016 fatigue 03/16/2016 fatigue 03/06/2016 cough 02/29/2016 cough 02/01/2016 cough 01/19/2016 cough 01/11/2016 knee pain 12/09/2015 knee pain 10/27/2015 knee pain 09/13/2015 sinus congestion 04/23/2015 fatigue 01/06/2015 nasal lesion 10/28/2014 pt reports pain in nose and reports a smell noticed that he can't describe after blowing his nose. paresthesia 10/12/2014 toes/feet paresthesia 07/27/2014 toes/feet paresthesia 06/03/2014 toes/feet Results Observation Observation Code Item Item Code Result Date Uric Acid Ord77 Uric A 9.2 mg/dL 11/14/2017 B12 Fok881 B12 231.00 pg/ml 07/25/2017 Tsh Ord6 hTSH II 1.00 uIU/mL 07/25/2017 Iron Ord72 Iron 109 ug/dl 07/25/2017 Folate Ord36 Folate 16.29 ng/mL 07/25/2017 Free T4 Dao212 FREE T4 0.86 ng/dL 07/25/2017 Comp Metabolic Ysc819 NA 140 mEq/L 06/15/2017 Comp Metabolic Sap664 K 4.3 mEq/L 06/15/2017 Comp Metabolic Mew521 CL 107 mEq/L 06/15/2017 Comp Metabolic Ipe711 CO2 25.0 mEq/L 06/15/2017 Comp Metabolic Und495 ANION GAP 12 06/15/2017 Comp Metabolic Rpx067 GLUCOSE 108 mg/dL 06/15/2017 Comp Metabolic Sce295 Creat 1.5 mg/dL 06/15/2017 Comp Metabolic Ibn031 eGFR 47 ml/min/1.73m2 06/15/2017 Comp Metabolic Jdt789 BUN 21 mg/dL 06/15/2017 Comp Metabolic Iju337 B/C Ratio 13.6 Ratio 06/15/2017 Comp Metabolic Dmz714 CALCIUM 9.3 mg/dL 06/15/2017 Comp Metabolic Poh351 ALK PHOS 63 U/L 06/15/2017 Comp Metabolic Jue789 AST(SGOT) 19 U/L 06/15/2017 Comp Metabolic Fby578 ALT(SGPT) 18 U/L 06/15/2017 Comp Metabolic Gzh708 BILI T 0.6 mg/dL 06/15/2017 Comp Metabolic Ktl816 ALBUMIN 3.9 g/dL 06/15/2017 Comp Metabolic Zls947 TPRO 6.4 g/dL 06/15/2017 Comp Metabolic Hra647 GLOB 2.6 g/dL 06/15/2017 Comp Metabolic Cue888 A/G Ratio 1.5 Ratio 06/15/2017 Comp Metabolic Zgc016 Osmo 283 mOsmo 06/15/2017 Cbc With Differential Ord2 WBC 7.62 K/ul 06/15/2017 Cbc With Differential Ord2 RBC 4.32 M/ul 06/15/2017 Cbc With Differential Ord2 HGB 13.5 g/dl 06/15/2017 Cbc With Differential Ord2 Neut% 54.9 % 06/15/2017 Cbc With Differential Ord2 HCT 41.6 % 06/15/2017 Cbc With Differential Ord2 MCV 96.3 fl 06/15/2017 Cbc With Differential Ord2 Lymph% 34.4 % 06/15/2017 Cbc With Differential Ord2 MCH 31.3 pg 06/15/2017 Cbc With Differential Ord2 Kane% 9.2 % 06/15/2017 Cbc With Differential Ord2 MCHC 32.5 pg 06/15/2017 Cbc With Differential Ord2 Eos% 1.4 % 06/15/2017 Cbc With Differential Ord2 PLT 279 K/ul 06/15/2017 Cbc With Differential Ord2 Baso% 0.1 % 06/15/2017 Cbc With Differential Ord2 RDW 14.9 % 06/15/2017 Cbc With Differential Ord2 Neut ABS# 4.18 K/ul 06/15/2017 Cbc With Differential Ord2 Lymph ABS# 2.62 K/ul 06/15/2017 Cbc With Differential Ord2 Kane ABS# 0.7 K/ul 06/15/2017 Cbc With Differential Ord2 Eos ABS# 0.1 K/ul 06/15/2017 Cbc With Differential Ord2 Baso ABS# 0.0 K/ul 06/15/2017 Total Psa Ord10 PSA 0.96 ng/mL 01/18/2017 Comp Metabolic Vmq999 NA 141 mEq/L 01/18/2017 Comp Metabolic Msk468 K 4.7 mEq/L 01/18/2017 Comp Metabolic Hmc595 CL 109 mEq/L 01/18/2017 Comp Metabolic Edt300 CO2 27.0 mEq/L 01/18/2017 Comp Metabolic Axm268 ANION GAP 10 01/18/2017 Comp Metabolic Otp252 GLUCOSE 98 mg/dL 01/18/2017 Comp Metabolic Oow040 Creat 1.4 mg/dL 01/18/2017 Comp Metabolic Iwn548 eGFR 53 ml/min/1.73m2 01/18/2017 Comp Metabolic Rmc499 BUN 26 mg/dL 01/18/2017 Comp Metabolic Xsh388 B/C Ratio 18.7 Ratio 01/18/2017 Comp Metabolic Gat971 CALCIUM 8.7 mg/dL 01/18/2017 Comp Metabolic Cxg795 ALK PHOS 59 U/L 01/18/2017 Comp Metabolic Jee763 AST(SGOT) 13 U/L 01/18/2017 Comp Metabolic Rjw521 ALT(SGPT) 12 U/L 01/18/2017 Comp Metabolic Chd858 BILI T 0.5 mg/dL 01/18/2017 Comp Metabolic Zsw987 ALBUMIN 3.4 g/dL 01/18/2017 Comp Metabolic Ifj521 TPRO 6.0 g/dL 01/18/2017 Comp Metabolic Gew470 GLOB 2.6 g/dL 01/18/2017 Comp Metabolic Tpi571 A/G Ratio 1.3 Ratio 01/18/2017 Comp Metabolic Dsx645 Osmo 286 mOsmo 01/18/2017 Lipid Ord30 CHOL 129 mg/dL 01/18/2017 Lipid Ord30 HDL 30.0 mg/dl 01/18/2017 Lipid Ord30 TRIG 137 mg/dL 01/18/2017 Lipid Ord30 LDL 72 mg/dL 01/18/2017 Lipid Ord30 C/HDL 4.3 Ratio 01/18/2017 Tsh Ord6 hTSH II 1.58 uIU/mL 12/19/2016 Cbc With Differential Ord2 WBC 7.50 K/ul 12/19/2016 Cbc With Differential Ord2 RBC 3.91 M/ul 12/19/2016 Cbc With Differential Ord2 HGB 12.2 g/dl 12/19/2016 Cbc With Differential Ord2 HCT 37.6 % 12/19/2016 Cbc With Differential Ord2 Neut% 53.7 % 12/19/2016 Cbc With Differential Ord2 MCV 96.2 fl 12/19/2016 Cbc With Differential Ord2 Lymph% 34.8 % 12/19/2016 Cbc With Differential Ord2 MCH 31.2 pg 12/19/2016 Cbc With Differential Ord2 Kane% 8.1 % 12/19/2016 Cbc With Differential Ord2 MCHC 32.4 pg 12/19/2016 Cbc With Differential Ord2 Eos% 3.3 % 12/19/2016 Cbc With Differential Ord2 Baso% 0.1 % 12/19/2016 Cbc With Differential Ord2 PLT 270 K/ul 12/19/2016 Cbc With Differential Ord2 Neut ABS# 4.02 K/ul 12/19/2016 Cbc With Differential Ord2 RDW 14.5 % 12/19/2016 Cbc With Differential Ord2 Lymph ABS# 2.61 K/ul 12/19/2016 Cbc With Differential Ord2 Kane ABS# 0.6 K/ul 12/19/2016 Cbc With Differential Ord2 Eos ABS# 0.3 K/ul 12/19/2016 Cbc With Differential Ord2 Baso ABS# 0.0 K/ul 12/19/2016 Comp Metabolic Klk448 NA 140 mEq/L 12/19/2016 Comp Metabolic Cmy669 K 4.5 mEq/L 12/19/2016 Comp Metabolic Hxe688 CL 107 mEq/L 12/19/2016 Comp Metabolic Orc853 CO2 28.0 mEq/L 12/19/2016 Comp Metabolic Axr276 ANION GAP 10 12/19/2016 Comp Metabolic Iyy587 GLUCOSE 102 mg/dL 12/19/2016 Comp Metabolic Cmt655 Creat 1.5 mg/dL 12/19/2016 Comp Metabolic Olz477 eGFR 50 ml/min/1.73m2 12/19/2016 Comp Metabolic Rkj158 BUN 24 mg/dL 12/19/2016 Comp Metabolic Yfz866 B/C Ratio 16.4 Ratio 12/19/2016 Comp Metabolic Ufv563 CALCIUM 8.8 mg/dL 12/19/2016 Comp Metabolic Kfu378 ALK PHOS 57 U/L 12/19/2016 Comp Metabolic Ojc339 AST(SGOT) 14 U/L 12/19/2016 Comp Metabolic Njd118 ALT(SGPT) 14 U/L 12/19/2016 Comp Metabolic Mox256 BILI T 0.3 mg/dL 12/19/2016 Comp Metabolic Erc612 ALBUMIN 3.6 g/dL 12/19/2016 Comp Metabolic Ahs872 TPRO 5.9 g/dL 12/19/2016 Comp Metabolic Akk972 GLOB 2.3 g/dL 12/19/2016 Comp Metabolic Zag959 A/G Ratio 1.6 Ratio 12/19/2016 Comp Metabolic Qyd214 Osmo 284 mOsmo 12/19/2016 Comp Metabolic Glg389 NA 137 mEq/L 03/22/2016 Comp Metabolic Uoe347 K 4.5 mEq/L 03/22/2016 Comp Metabolic Hpp460 CL 107 mEq/L 03/22/2016 Comp Metabolic Gla865 CO2 24.0 mEq/L 03/22/2016 Comp Metabolic Fdn790 ANION GAP 11 03/22/2016 Comp Metabolic Iwi897 GLUCOSE 117 mg/dL 03/22/2016 Comp Metabolic Sbj806 Creat 1.6 mg/dL 03/22/2016 Comp Metabolic Xzy900 eGFR 44 ml/min/1.73m2 03/22/2016 Comp Metabolic Ycj043 BUN 27 mg/dL 03/22/2016 Comp Metabolic Mtv937 B/C Ratio 16.6 Ratio 03/22/2016 Comp Metabolic Dxj052 CALCIUM 9.0 mg/dL 03/22/2016 Comp Metabolic Nos540 ALK PHOS 54 U/L 03/22/2016 Comp Metabolic Jbn157 AST(SGOT) 27 U/L 03/22/2016 Comp Metabolic Pxb121 ALT(SGPT) 25 U/L 03/22/2016 Comp Metabolic Awu834 BILI T 0.8 mg/dL 03/22/2016 Comp Metabolic Wbz465 ALBUMIN 3.6 g/dL 03/22/2016 Comp Metabolic Qhs569 TPRO 6.8 g/dL 03/22/2016 Comp Metabolic Ygi434 GLOB 3.2 g/dL 03/22/2016 Comp Metabolic Qir052 A/G Ratio 1.1 Ratio 03/22/2016 Comp Metabolic Zps764 Osmo 280 mOsmo 03/22/2016 Cbc With Differential Ord2 WBC 8.10 K/ul 03/22/2016 Cbc With Differential Ord2 RBC 4.47 M/ul 03/22/2016 Cbc With Differential Ord2 HGB 13.9 g/dl 03/22/2016 Cbc With Differential Ord2 HCT 42.0 % 03/22/2016 Cbc With Differential Ord2 Neut% 43.5 % 03/22/2016 Cbc With Differential Ord2 Lymph% 46.4 % 03/22/2016 Cbc With Differential Ord2 MCV 94.0 fl 03/22/2016 Cbc With Differential Ord2 Kane% 8.8 % 03/22/2016 Cbc With Differential Ord2 MCH 31.1 pg 03/22/2016 Cbc With Differential Ord2 Eos% 1.2 % 03/22/2016 Cbc With Differential Ord2 MCHC 33.1 pg 03/22/2016 Cbc With Differential Ord2 Baso% 0.1 % 03/22/2016 Cbc With Differential Ord2 PLT 313 K/ul 03/22/2016 Cbc With Differential Ord2 RDW 15.6 % 03/22/2016 Cbc With Differential Ord2 Neut ABS# 3.52 K/ul 03/22/2016 Cbc With Differential Ord2 Lymph ABS# 3.76 K/ul 03/22/2016 Cbc With Differential Ord2 Kane ABS# 0.7 K/ul 03/22/2016 Cbc With Differential Ord2 Eos ABS# 0.1 K/ul 03/22/2016 Cbc With Differential Ord2 Baso ABS# 0.0 K/ul 03/22/2016 Cbc With Differential Ord2 WBC 13.92 K/ul 03/06/2016 Cbc With Differential Ord2 RBC 4.87 M/ul 03/06/2016 Cbc With Differential Ord2 HGB 15.0 g/dl 03/06/2016 Cbc With Differential Ord2 Neut% 29.1 % 03/06/2016 Cbc With Differential Ord2 HCT 45.7 % 03/06/2016 Cbc With Differential Ord2 Lymph% 55.7 % 03/06/2016 Cbc With Differential Ord2 MCV 93.8 fl 03/06/2016 Cbc With Differential Ord2 MCH 30.8 pg 03/06/2016 Cbc With Differential Ord2 Kane% 14.9 % 03/06/2016 Cbc With Differential Ord2 MCHC 32.8 pg 03/06/2016 Cbc With Differential Ord2 Eos% 0.1 % 03/06/2016 Cbc With Differential Ord2 PLT 238 K/ul 03/06/2016 Cbc With Differential Ord2 Baso% 0.2 % 03/06/2016 Cbc With Differential Ord2 Neut ABS# 4.04 K/ul 03/06/2016 Cbc With Differential Ord2 RDW 15.8 % 03/06/2016 Cbc With Differential Ord2 Lymph ABS# 7.76 K/ul 03/06/2016 Cbc With Differential Ord2 Kane ABS# 2.1 K/ul 03/06/2016 Cbc With Differential Ord2 Eos ABS# 0.0 K/ul 03/06/2016 Cbc With Differential Ord2 Baso ABS# 0.0 K/ul 03/06/2016 Tsh Ord6 hTSH II 2.96 uIU/mL 03/06/2016 Comp Metabolic Mtm148 NA 134 mEq/L 03/06/2016 Comp Metabolic Jhy068 K 4.1 mEq/L 03/06/2016 Comp Metabolic Mfq743 CL 102 mEq/L 03/06/2016 Comp Metabolic Nad347 CO2 25.0 mEq/L 03/06/2016 Comp Metabolic Fqq324 ANION GAP 11 03/06/2016 Comp Metabolic Qte635 GLUCOSE 96 mg/dL 03/06/2016 Comp Metabolic Auf735 Creat 1.6 mg/dL 03/06/2016 Comp Metabolic Yzs258 eGFR 45 ml/min/1.73m2 03/06/2016 Comp Metabolic Hcp162 BUN 22 mg/dL 03/06/2016 Comp Metabolic Cjn396 B/C Ratio 13.8 Ratio 03/06/2016 Comp Metabolic Juo254 CALCIUM 8.1 mg/dL 03/06/2016 Comp Metabolic Sjo981 ALK PHOS 46 U/L 03/06/2016 Comp Metabolic Sao958 AST(SGOT) 30 U/L 03/06/2016 Comp Metabolic Fbc458 ALT(SGPT) 43 U/L 03/06/2016 Comp Metabolic Vpv712 BILI T 0.8 mg/dL 03/06/2016 Comp Metabolic Uwp988 ALBUMIN 3.1 g/dL 03/06/2016 Comp Metabolic Knf917 TPRO 6.1 g/dL 03/06/2016 Comp Metabolic Tnq386 GLOB 3.0 g/dL 03/06/2016 Comp Metabolic Zzc886 A/G Ratio 1.1 Ratio 03/06/2016 Comp Metabolic Tsv572 Osmo 271 mOsmo 03/06/2016 Manual Differential Ord52 D-Neutr 35 % 03/06/2016 Manual Differential Ord52 D-Lymph 58 % 03/06/2016 Manual Differential Ord52 D-Kane 7 % 03/06/2016 Manual Differential Ord52 D-1 RBC, PLT NORMAL 03/06/2016 Manual Differential Ord52 D-2 INCREASED LYMPHOCYTE COUNT OBSERVED 03/06/2016 Manual Differential Ord52 D-3 MANY ATYPICAL LYMPHOCYTES OBSERVED 03/06/2016 Manual Differential Ord52 D-4 MANY BASKET CELLS OBSERVED 03/2016 C A/B FLU [id number] Influenza A Scr Negative 02/29/2016 C A/B FLU [id number] Influenza B Scr Negative 02/29/2016 Comp Metabolic Bjy641 NA 140 mEq/L 10/28/2015 Comp Metabolic Ufs376 K 4.2 mEq/L 10/28/2015 Comp Metabolic Sct402 CL 105 mEq/L 10/28/2015 Comp Metabolic Yys897 CO2 26.0 mEq/L 10/28/2015 Comp Metabolic Eps210 ANION GAP 13 10/28/2015 Comp Metabolic Zlk396 GLUCOSE 105 mg/dL 10/28/2015 Comp Metabolic Bbl961 Creat 1.7 mg/dL 10/28/2015 Comp Metabolic Fbi818 eGFR 43 ml/min/1.73m2 10/28/2015 Comp Metabolic Nbj412 BUN 32 mg/dL 10/28/2015 Comp Metabolic Jlq721 B/C Ratio 19.2 Ratio 10/28/2015 Comp Metabolic Vek862 CALCIUM 9.2 mg/dL 10/28/2015 Comp Metabolic Omb891 ALK PHOS 57 U/L 10/28/2015 Comp Metabolic Hdx783 AST(SGOT) 25 U/L 10/28/2015 Comp Metabolic Djb097 ALT(SGPT) 26 U/L 10/28/2015 Comp Metabolic Diu633 BILI T 0.6 mg/dL 10/28/2015 Comp Metabolic Wlf935 ALBUMIN 3.9 g/dL 10/28/2015 Comp Metabolic Rej360 TPRO 6.7 g/dL 10/28/2015 Comp Metabolic Jkl910 GLOB 2.8 g/dL 10/28/2015 Comp Metabolic Jcp623 A/G Ratio 1.4 Ratio 10/28/2015 Comp Metabolic Ysc255 Osmo 287 mOsmo 10/28/2015 Lipid Ord30 CHOL 109 mg/dL 10/28/2015 Lipid Ord30 HDL 36.0 mg/dl 10/28/2015 Lipid Ord30 TRIG 99 mg/dL 10/28/2015 Lipid Ord30 LDL 53 mg/dL 10/28/2015 Lipid Ord30 C/HDL 3.0 Ratio 10/28/2015 Cbc With Differential Ord2 WBC 7.28 K/ul 10/28/2015 Cbc With Differential Ord2 RBC 4.85 M/ul 10/28/2015 Cbc With Differential Ord2 HGB 15.3 g/dl 10/28/2015 Cbc With Differential Ord2 HCT 45.9 % 10/28/2015 Cbc With Differential Ord2 Neut% 69.2 % 10/28/2015 Cbc With Differential Ord2 MCV 94.6 fl 10/28/2015 Cbc With Differential Ord2 Lymph% 17.3 % 10/28/2015 Cbc With Differential Ord2 Kane% 11.1 % 10/28/2015 Cbc With Differential Ord2 MCH 31.5 pg 10/28/2015 Cbc With Differential Ord2 MCHC 33.3 pg 10/28/2015 Cbc With Differential Ord2 Eos% 2.3 % 10/28/2015 Cbc With Differential Ord2 PLT 242 K/ul 10/28/2015 Cbc With Differential Ord2 Baso% 0.1 % 10/28/2015 Cbc With Differential Ord2 RDW 14.8 % 10/28/2015 Cbc With Differential Ord2 Neut ABS# 5.03 K/ul 10/28/2015 Cbc With Differential Ord2 Lymph ABS# 1.26 K/ul 10/28/2015 Cbc With Differential Ord2 Kane ABS# 0.8 K/ul 10/28/2015 Cbc With Differential Ord2 Eos ABS# 0.2 K/ul 10/28/2015 Cbc With Differential Ord2 Baso ABS# 0.0 K/ul 10/28/2015 Cbc With Differential Ord2 New Analyzer Notice Please note new ref ranges starting 10-13-2015 due to implemntation of new five part differential hematolgy analyzer. 10/28/2015 Tsh Ord6 hTSH II 2.54 uIU/mL 10/28/2015 Total Psa Ord10 PSA 14.26 ng/mL 10/28/2015 Testosterone Bnu028 Testo 229.00 ng/dL 06/29/2015 Review of Systems System Result Effective Dates Constitutional No recent illness 2017 Constitutional No chills 11/14/2017 Constitutional No diaphoresis 11/14/2017 Constitutional No fever 11/14/2017 Eyes No eye erythema 11/14/2017 Ears/Nose/Throat/Neck No nasal discharge 11/14/2017 Cardiovascular No chest pain/pressure Cardiovascular No dyspnea 11/14/2017 Respiratory No cough 11/14/2017 Respiratory No dyspnea 11/14/2017 Musculoskeletal joint complaint 2017 Neurologic No alteration of consciousness 11/14/2017 Neurologic No mental status change 2017 Constitutional No recent illness 2016 Constitutional No chills 09/12/2017 Constitutional No diaphoresis 09/12/2017 Constitutional No fever 09/12/2017 Eyes No eye erythema 09/12/2017 Ears/Nose/Throat/Neck No nasal discharge 09/12/2017 Cardiovascular No chest pain/pressure Cardiovascular No dyspnea 09/12/2017 Respiratory No cough 09/12/2017 Respiratory No dyspnea 09/12/2017 Neurologic No alteration of consciousness 09/12/2017 Neurologic No mental status change 2016 Constitutional No recent illness 2016 Constitutional No chills 07/24/2017 Constitutional No diaphoresis 07/24/2017 Constitutional No fever 07/24/2017 Eyes No eye discharge 07/24/2017 Eyes No eye erythema 07/24/2017 Cardiovascular No chest pain/pressure Respiratory No cough 07/24/2017 Gastrointestinal No abdominal pain 2016 Gastrointestinal No constipation 2016 Gastrointestinal No diarrhea 07/24/2017 Genitourinary/Nephrology No dysuria 07/24 Musculoskeletal joint complaint 2016 Neurologic No alteration of consciousness 07/24/2017 Constitutional fatigue 07/24/2017 Constitutional malaise 07/24/2017 Eyes No eye erythema 07/24/2017 Ears/Nose/Throat/Neck nasal allergies Ears/Nose/Throat/Neck No nasal discharge 07/24/2017 Cardiovascular No dyspnea 07/24/2017 Respiratory No dyspnea 07/24/2017 Respiratory No chest congestion 2016 Neurologic No mental status change 2016 Constitutional No recent illness 2016 Constitutional No anorexia 07/12/2017 Constitutional No night sweats 2016 Constitutional No chills 07/12/2017 Constitutional No diaphoresis 07/12/2017 Constitutional No fever 07/12/2017 Constitutional No insomnia 07/12/2017 Constitutional No malaise 07/12/2017 Constitutional No weight loss 07/12/2017 Constitutional No weight gain 07/12/2017 Eyes No eye discharge 07/12/2017 Eyes No eye erythema 07/12/2017 Ears/Nose/Throat/Neck No dizziness 2016 Ears/Nose/Throat/Neck No headache 2016 Cardiovascular No chest pain/pressure 08/2017 Respiratory No cough 07/12/2017 Gastrointestinal No abdominal pain 2016 Gastrointestinal No constipation 2016 Gastrointestinal No diarrhea 07/12/2017 Genitourinary/Nephrology No dysuria 07/12 Musculoskeletal joint complaint 2016 Dermatologic No pigmentation change 07/12 Neurologic No alteration of consciousness 07/12/2017 Constitutional No recent illness 2016 Constitutional No anorexia 06/15/2017 Constitutional No night sweats 2016 Constitutional No chills 06/15/2017 Constitutional No diaphoresis 06/15/2017 Constitutional fatigue 06/15/2017 Constitutional No fever 06/15/2017 Constitutional No insomnia 06/15/2017 Constitutional No malaise 06/15/2017 Constitutional No weight loss 06/15/2017 Constitutional No weight gain 06/15/2017 Eyes No eye erythema 06/15/2017 Eyes No eye discharge 06/15/2017 Ears/Nose/Throat/Neck No dizziness 2016 Cardiovascular No chest pain/pressure Respiratory No cough 06/15/2017 Cardiovascular edema 06/15/2017 Gastrointestinal No abdominal pain 2016 Gastrointestinal No constipation 2016 Gastrointestinal No diarrhea 06/15/2017 Genitourinary/Nephrology No dysuria 06/15 Genitourinary/Nephrology urinary urgency 06/15/2017 Genitourinary/Nephrology urinary frequency 06/15/2017 Genitourinary/Nephrology No urinary incontinence 06/15/2017 Musculoskeletal joint complaint 2016 Dermatologic No rash 06/15/2017 Neurologic No alteration of consciousness 06/15/2017 Psychiatric depression 06/15/2017 Constitutional No recent illness 2016 Constitutional No anorexia 01/16/2017 Constitutional No night sweats 2016 Constitutional No chills 01/16/2017 Constitutional No diaphoresis 01/16/2017 Constitutional fatigue 01/16/2017 Constitutional No fever 01/16/2017 Constitutional No insomnia 01/16/2017 Constitutional No malaise 01/16/2017 Constitutional No weight loss 01/16/2017 Constitutional No weight gain 01/16/2017 Eyes No eye discharge 01/16/2017 Eyes No eye erythema 01/16/2017 Ears/Nose/Throat/Neck No dizziness 2016 Ears/Nose/Throat/Neck No headache 2016 Cardiovascular No chest pain/pressure Respiratory No cough 01/16/2017 Gastrointestinal No abdominal pain 2016 Gastrointestinal No constipation 2016 Gastrointestinal No diarrhea 01/16/2017 Genitourinary/Nephrology No dysuria 01/16 Musculoskeletal joint complaint 2016 Musculoskeletal No myalgias 01/16/2017 Dermatologic No pigmentation change 01/16 Neurologic No alteration of consciousness 01/16/2017 Constitutional No recent illness 2016 Constitutional No anorexia 12/20/2016 Constitutional No night sweats 2016 Constitutional No chills 12/20/2016 Constitutional No diaphoresis 12/20/2016 Constitutional fatigue 12/20/2016 Constitutional No fever 12/20/2016 Constitutional No insomnia 12/20/2016 Constitutional No malaise 12/20/2016 Constitutional No weight loss 12/20/2016 Constitutional No weight gain 12/20/2016 Musculoskeletal joint complaint 2016 Musculoskeletal No myalgias 12/20/2016 Eyes No eye discharge 12/20/2016 Eyes No eye erythema 12/20/2016 Ears/Nose/Throat/Neck No dizziness 2016 Ears/Nose/Throat/Neck No headache 2016 Cardiovascular No chest pain/pressure Respiratory No cough 12/20/2016 Gastrointestinal No abdominal pain 2016 Gastrointestinal No diarrhea 12/20/2016 Gastrointestinal No constipation 2016 Genitourinary/Nephrology No dysuria 12/20 Dermatologic No pigmentation change 12/20 Neurologic No alteration of consciousness 12/20/2016 Constitutional No recent illness 2016 Constitutional No anorexia 12/08/2016 Constitutional No night sweats 2016 Constitutional No chills 12/08/2016 Constitutional No diaphoresis 12/08/2016 Constitutional fatigue 12/08/2016 Constitutional No fever 12/08/2016 Constitutional insomnia 12/08/2016 Eyes No eye discharge 12/08/2016 Eyes No eye erythema 12/08/2016 Ears/Nose/Throat/Neck No dizziness 2016 Cardiovascular No chest pain/pressure 07/2017 Respiratory No cough 12/08/2016 Musculoskeletal joint complaint 2016 Dermatologic No rash 12/08/2016 Dermatologic No sores 12/08/2016 Neurologic No alteration of consciousness 12/08/2016 Psychiatric depression 12/08/2016 Ears/Nose/Throat/Neck headache 2016 Gastrointestinal No abdominal pain 2016 Gastrointestinal No diarrhea 12/08/2016 Gastrointestinal No constipation 2016 Genitourinary/Nephrology No dysuria 12/08 Constitutional No recent illness 2016 Constitutional No anorexia 11/21/2016 Constitutional No night sweats 2016 Constitutional No chills 11/21/2016 Constitutional No diaphoresis 11/21/2016 Constitutional fatigue 11/21/2016 Constitutional No fever 11/21/2016 Constitutional insomnia 11/21/2016 Eyes No eye discharge 11/21/2016 Eyes No eye erythema 11/21/2016 Ears/Nose/Throat/Neck No dizziness 2016 Cardiovascular No chest pain/pressure Respiratory No cough 11/21/2016 Musculoskeletal joint complaint 2016 Dermatologic No rash 11/21/2016 Dermatologic No sores 11/21/2016 Neurologic No alteration of consciousness 11/21/2016 Psychiatric depression 11/21/2016 Constitutional No recent illness 2016 Constitutional No anorexia 10/24/2016 Constitutional No night sweats 2016 Constitutional No chills 10/24/2016 Constitutional No diaphoresis 10/24/2016 Constitutional fatigue 10/24/2016 Constitutional No fever 10/24/2016 Constitutional insomnia 10/24/2016 Musculoskeletal joint complaint 2016 Eyes No eye erythema 10/24/2016 Eyes No eye discharge 10/24/2016 Ears/Nose/Throat/Neck No dizziness 2016 Cardiovascular No chest pain/pressure Respiratory No cough 10/24/2016 Dermatologic No rash 10/24/2016 Dermatologic No sores 10/24/2016 Neurologic No alteration of consciousness 10/24/2016 Psychiatric depression 10/24/2016 Constitutional No recent illness 2015 Constitutional No chills 09/21/2016 Constitutional fatigue 09/21/2016 Constitutional No fever 09/21/2016 Eyes No eye discharge 09/21/2016 Eyes No eye erythema 09/21/2016 Eyes No vision change 09/21/2016 Ears/Nose/Throat/Neck No nasal allergies 09/21/2016 Ears/Nose/Throat/Neck No postnasal drip 09/21/2016 Ears/Nose/Throat/Neck No sinus congestion 09/21/2016 Ears/Nose/Throat/Neck No sore throat Cardiovascular No chest pain/pressure Cardiovascular No dyspnea 09/21/2016 Respiratory No chest congestion 2015 Respiratory No cough 09/21/2016 Respiratory No dyspnea 09/21/2016 Gastrointestinal No abdominal pain 2015 Gastrointestinal No constipation 2015 Gastrointestinal No diarrhea 09/21/2016 Gastrointestinal No nausea 09/21/2016 Gastrointestinal No vomiting 09/21/2016 Musculoskeletal stiffness 09/21/2016 Musculoskeletal arthralgia(s) 09/21/2016 Musculoskeletal joint complaint 2015 Musculoskeletal muscle weakness 2015 Dermatologic No rash 09/21/2016 Neurologic No alteration of consciousness 09/21/2016 Neurologic gait abnormality 09/21/2016 Neurologic No mental status change 2015 Constitutional No recent illness 2015 Constitutional No chills 09/08/2016 Constitutional fatigue 09/08/2016 Eyes No eye discharge 09/08/2016 Eyes No eye erythema 09/08/2016 Eyes No vision change 09/08/2016 Ears/Nose/Throat/Neck No nasal allergies 09/08/2016 Ears/Nose/Throat/Neck No postnasal drip 09/08/2016 Ears/Nose/Throat/Neck No sinus congestion 09/08/2016 Ears/Nose/Throat/Neck No sore throat 06/2016 Cardiovascular No chest pain/pressure 06/2016 Cardiovascular No dyspnea 09/08/2016 Respiratory No chest congestion 2015 Respiratory No cough 09/08/2016 Respiratory No dyspnea 09/08/2016 Gastrointestinal No abdominal pain 2015 Gastrointestinal No constipation 2015 Gastrointestinal No diarrhea 09/08/2016 Gastrointestinal No nausea 09/08/2016 Gastrointestinal No vomiting 09/08/2016 Musculoskeletal stiffness 09/08/2016 Musculoskeletal arthralgia(s) 09/08/2016 Musculoskeletal joint complaint 2015 Musculoskeletal muscle weakness 2015 Dermatologic No rash 09/08/2016 Neurologic No alteration of consciousness 09/08/2016 Neurologic gait abnormality 09/08/2016 Constitutional No fever 09/08/2016 Neurologic No mental status change 2015 Constitutional recent illness 09/07/2016 Constitutional No chills 09/07/2016 Constitutional No diaphoresis 09/07/2016 Eyes No eye erythema 09/07/2016 Ears/Nose/Throat/Neck nasal allergies 05/2016 Ears/Nose/Throat/Neck nasal discharge 05/2016 Ears/Nose/Throat/Neck postnasal drip 05/2016 Ears/Nose/Throat/Neck sinus congestion Cardiovascular No chest pain/pressure 05/2016 Cardiovascular No dyspnea 09/07/2016 Respiratory No chest congestion 2015 Respiratory cough 09/07/2016 Respiratory No dyspnea 09/07/2016 Gastrointestinal No constipation 2015 Gastrointestinal No diarrhea 09/07/2016 Gastrointestinal No nausea 09/07/2016 Gastrointestinal No vomiting 09/07/2016 Dermatologic No rash 09/07/2016 Neurologic No alteration of consciousness 09/07/2016 Neurologic No mental status change 2015 Constitutional fatigue 09/07/2016 Constitutional No fever 09/07/2016 Constitutional No recent illness 2015 Constitutional No anorexia 08/22/2016 Constitutional No night sweats 2015 Constitutional No chills 08/22/2016 Constitutional No diaphoresis 08/22/2016 Constitutional No fatigue 08/22/2016 Constitutional No fever 08/22/2016 Constitutional No insomnia 08/22/2016 Constitutional No malaise 08/22/2016 Constitutional No weight loss 08/22/2016 Constitutional No weight gain 08/22/2016 Eyes No eye discharge 08/22/2016 Eyes No eye erythema 08/22/2016 Ears/Nose/Throat/Neck nasal allergies Ears/Nose/Throat/Neck No sinus congestion 08/22/2016 Ears/Nose/Throat/Neck No sore throat Cardiovascular No chest pain/pressure Cardiovascular No dyspnea 08/22/2016 Respiratory No cough 08/22/2016 Gastrointestinal No abdominal pain 2015 Gastrointestinal No constipation 2015 Gastrointestinal No diarrhea 08/22/2016 Hematologic/Lymphatic venous thrombosis 08/22/2016 Constitutional No recent illness 2015 Constitutional No chills 08/11/2016 Constitutional malaise 08/11/2016 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/11/2016 Eyes No eye discharge 08/11/2016 Eyes No eye erythema 08/11/2016 Eyes No vision change 08/11/2016 Ears/Nose/Throat/Neck No nasal allergies 08/11/2016 Cardiovascular No chest pain/pressure 08/2016 Cardiovascular No dyspnea 08/11/2016 Respiratory No chest congestion 2015 Respiratory No cough 08/11/2016 Respiratory No dyspnea 08/11/2016 Musculoskeletal stiffness 08/11/2016 Musculoskeletal arthralgia(s) 08/11/2016 Musculoskeletal joint complaint 2015 Musculoskeletal muscle weakness 2015 Dermatologic No rash 08/11/2016 Neurologic No alteration of consciousness 08/11/2016 Neurologic gait abnormality 08/11/2016 Constitutional No fever 08/11/2016 Constitutional fatigue 08/11/2016 Ears/Nose/Throat/Neck No sinus congestion 08/11/2016 Constitutional No recent illness 2015 Constitutional No anorexia 07/18/2016 Constitutional No night sweats 2015 Constitutional No chills 07/18/2016 Constitutional No diaphoresis 07/18/2016 Constitutional No fatigue 07/18/2016 Constitutional No fever 07/18/2016 Constitutional No insomnia 07/18/2016 Constitutional No malaise 07/18/2016 Eyes No eye discharge 07/18/2016 Eyes No eye erythema 07/18/2016 Ears/Nose/Throat/Neck nasal allergies Ears/Nose/Throat/Neck otalgia 07/18/2016 Ears/Nose/Throat/Neck No sinus congestion 07/18/2016 Ears/Nose/Throat/Neck No sore throat Cardiovascular No chest pain/pressure Cardiovascular No dyspnea 07/18/2016 Respiratory No cough 07/18/2016 Gastrointestinal No abdominal pain 2015 Gastrointestinal No constipation 2015 Gastrointestinal No diarrhea 07/18/2016 Musculoskeletal joint complaint 2015 Hematologic/Lymphatic venous thrombosis 07/18/2016 Constitutional recent illness 06/07/2016 Constitutional No fever 06/07/2016 Eyes No eye discharge 06/07/2016 Eyes No eye erythema 06/07/2016 Cardiovascular No chest pain/pressure 03/2016 Cardiovascular No dyspnea 06/07/2016 Respiratory No cough 06/07/2016 Neurologic No alteration of consciousness 06/07/2016 Neurologic No mental status change 2015 Ears/Nose/Throat/Neck No nasal discharge 06/07/2016 Ears/Nose/Throat/Neck No nasal allergies 06/07/2016 Respiratory No dyspnea 06/07/2016 Gastrointestinal No abdominal pain 2015 Constitutional No recent illness 2015 Constitutional insomnia 05/25/2016 Eyes No eye discharge 05/25/2016 Eyes No eye erythema 05/25/2016 Cardiovascular No chest pain/pressure Cardiovascular No dyspnea 05/25/2016 Respiratory No cough 05/25/2016 Constitutional No fever 05/25/2016 Neurologic No alteration of consciousness 05/25/2016 Neurologic No mental status change 2015 Constitutional No recent illness 2015 Constitutional No anorexia 05/05/2016 Constitutional No night sweats 2015 Constitutional No chills 05/05/2016 Constitutional No diaphoresis 05/05/2016 Constitutional No fatigue 05/05/2016 Constitutional No fever 05/05/2016 Constitutional No insomnia 05/05/2016 Constitutional No malaise 05/05/2016 Constitutional No weight loss 05/05/2016 Constitutional No weight gain 05/05/2016 Eyes No eye discharge 05/05/2016 Eyes No eye erythema 05/05/2016 Ears/Nose/Throat/Neck nasal allergies 01/2016 Ears/Nose/Throat/Neck otalgia 05/05/2016 Ears/Nose/Throat/Neck No sinus congestion 05/05/2016 Ears/Nose/Throat/Neck No sore throat 01/2016 Cardiovascular No chest pain/pressure 01/2016 Cardiovascular No dyspnea 05/05/2016 Respiratory No cough 05/05/2016 Gastrointestinal No abdominal pain 2015 Gastrointestinal No constipation 2015 Gastrointestinal No diarrhea 05/05/2016 Musculoskeletal joint complaint 2015 Hematologic/Lymphatic venous thrombosis 05/05/2016 Constitutional No recent illness 2015 Constitutional No chills 04/07/2016 Constitutional No fever 04/07/2016 Constitutional No insomnia 04/07/2016 Eyes No eye discharge 04/07/2016 Eyes No eye erythema 04/07/2016 Eyes No vision change 04/07/2016 Ears/Nose/Throat/Neck No dizziness 2015 Ears/Nose/Throat/Neck No headache 2015 Ears/Nose/Throat/Neck No hearing loss 05/2016 Ears/Nose/Throat/Neck No nasal allergies 04/07/2016 Ears/Nose/Throat/Neck No postnasal drip 04/07/2016 Ears/Nose/Throat/Neck No sinus congestion 04/07/2016 Ears/Nose/Throat/Neck No sore throat 05/2016 Cardiovascular No chest pain/pressure 05/2016 Cardiovascular No dyspnea 04/07/2016 Cardiovascular No edema 04/07/2016 Respiratory No chest congestion 2015 Respiratory No cough 04/07/2016 Respiratory No dyspnea 04/07/2016 Gastrointestinal No abdominal pain 2015 Gastrointestinal No constipation 2015 Gastrointestinal No diarrhea 04/07/2016 Gastrointestinal No gastroesophageal reflux 04/07/2016 Gastrointestinal No nausea 04/07/2016 Gastrointestinal No vomiting 04/07/2016 Musculoskeletal stiffness 04/07/2016 Musculoskeletal arthralgia(s) 04/07/2016 Musculoskeletal joint complaint 2015 Dermatologic No rash 04/07/2016 Dermatologic No scar 04/07/2016 Neurologic No alteration of consciousness 04/07/2016 Neurologic gait abnormality 04/07/2016 Psychiatric No anxiety 04/07/2016 Psychiatric No depression 04/07/2016 Constitutional No anorexia 04/07/2016 Constitutional No night sweats 2015 Constitutional No diaphoresis 04/07/2016 Constitutional No malaise 04/07/2016 Genitourinary/Nephrology No dysuria 04/07 Constitutional recent illness 03/20/2016 Eyes No eye discharge 03/20/2016 Eyes No eye erythema 03/20/2016 Ears/Nose/Throat/Neck No dizziness 2015 Cardiovascular No chest pain/pressure Respiratory No cough 03/20/2016 Gastrointestinal abdominal pain 2015 Gastrointestinal nausea 03/20/2016 Genitourinary/Nephrology No dysuria 03/20 Musculoskeletal joint complaint 2015 Dermatologic No rash 03/20/2016 Dermatologic No sores 03/20/2016 Neurologic No alteration of consciousness 03/20/2016 Psychiatric No anxiety 03/20/2016 Constitutional recent illness 03/16/2016 Eyes No eye discharge 03/16/2016 Eyes No eye erythema 03/16/2016 Cardiovascular No chest pain/pressure Respiratory No cough 03/16/2016 Neurologic No alteration of consciousness 03/16/2016 Ears/Nose/Throat/Neck nasal allergies Ears/Nose/Throat/Neck nasal discharge Cardiovascular No dyspnea 03/16/2016 Musculoskeletal joint complaint 2015 Dermatologic cellulitis 03/16/2016 Neurologic No mental status change 2015 Constitutional recent illness 03/06/2016 Gastrointestinal abdominal pain 2015 Gastrointestinal nausea 03/06/2016 Eyes No eye discharge 03/06/2016 Eyes No eye erythema 03/06/2016 Ears/Nose/Throat/Neck No dizziness 2015 Cardiovascular No chest pain/pressure 03/2016 Respiratory No cough 03/06/2016 Genitourinary/Nephrology No dysuria 03/06 Musculoskeletal joint complaint 2015 Dermatologic No rash 03/06/2016 Dermatologic No sores 03/06/2016 Neurologic No alteration of consciousness 03/06/2016 Psychiatric No anxiety 03/06/2016 Constitutional recent illness 02/29/2016 Constitutional obesity 02/29/2016 Constitutional chills 02/29/2016 Constitutional fatigue 02/29/2016 Constitutional fever 02/29/2016 Constitutional malaise 02/29/2016 Eyes No eye discharge 02/29/2016 Eyes No eye erythema 02/29/2016 Eyes No vision change 02/29/2016 Ears/Nose/Throat/Neck nasal allergies Ears/Nose/Throat/Neck nasal discharge Ears/Nose/Throat/Neck postnasal drip Ears/Nose/Throat/Neck sinus congestion Cardiovascular No chest pain/pressure Cardiovascular No dyspnea 02/29/2016 Cardiovascular No edema 02/29/2016 Respiratory productive sputum 02/29/2016 Respiratory chest congestion 02/29/2016 Respiratory cough 02/29/2016 Gastrointestinal No constipation 2015 Gastrointestinal No diarrhea 02/29/2016 Gastrointestinal No nausea 02/29/2016 Gastrointestinal No vomiting 02/29/2016 Musculoskeletal stiffness 02/29/2016 Musculoskeletal arthralgia(s) 02/29/2016 Musculoskeletal joint complaint 2015 Musculoskeletal muscle weakness 2015 Dermatologic No rash 02/29/2016 Dermatologic No scar 02/29/2016 Neurologic No alteration of consciousness 02/29/2016 Neurologic gait abnormality 02/29/2016 Neurologic No mental status change 2015 Psychiatric No anxiety 02/29/2016 Psychiatric No depression 02/29/2016 Constitutional No recent illness 2015 Constitutional No chills 02/01/2016 Constitutional fatigue 02/01/2016 Constitutional No fever 02/01/2016 Constitutional No insomnia 02/01/2016 Constitutional No malaise 02/01/2016 Eyes No eye discharge 02/01/2016 Eyes No eye erythema 02/01/2016 Eyes No vision change 02/01/2016 Ears/Nose/Throat/Neck No headache 2015 Ears/Nose/Throat/Neck No nasal allergies 02/01/2016 Ears/Nose/Throat/Neck No postnasal drip 02/01/2016 Ears/Nose/Throat/Neck No sinus congestion 02/01/2016 Ears/Nose/Throat/Neck No sore throat 11/2015 Cardiovascular No chest pain/pressure 11/2015 Cardiovascular No dyspnea 02/01/2016 Cardiovascular No edema 02/01/2016 Respiratory No chest congestion 2015 Respiratory No cough 02/01/2016 Respiratory No dyspnea 02/01/2016 Gastrointestinal No abdominal pain 2015 Gastrointestinal No constipation 2015 Gastrointestinal No diarrhea 02/01/2016 Gastrointestinal No nausea 02/01/2016 Gastrointestinal No vomiting 02/01/2016 Musculoskeletal stiffness 02/01/2016 Musculoskeletal arthralgia(s) 02/01/2016 Musculoskeletal joint complaint 2015 Musculoskeletal muscle weakness 2015 Dermatologic No rash 02/01/2016 Dermatologic No scar 02/01/2016 Neurologic No alteration of consciousness 02/01/2016 Neurologic gait abnormality 02/01/2016 Psychiatric No anxiety 02/01/2016 Psychiatric No depression 02/01/2016 Constitutional recent illness 01/19/2016 Constitutional No chills 01/19/2016 Constitutional fatigue 01/19/2016 Constitutional No fever 01/19/2016 Constitutional No insomnia 01/19/2016 Constitutional No malaise 01/19/2016 Eyes No eye discharge 01/19/2016 Eyes No eye erythema 01/19/2016 Eyes No vision change 01/19/2016 Ears/Nose/Throat/Neck nasal allergies Ears/Nose/Throat/Neck No postnasal drip 01/19/2016 Ears/Nose/Throat/Neck No sinus congestion 01/19/2016 Ears/Nose/Throat/Neck No sore throat Cardiovascular No chest pain/pressure Cardiovascular No dyspnea 01/19/2016 Cardiovascular No edema 01/19/2016 Respiratory No chest congestion 2015 Respiratory No cough 01/19/2016 Respiratory No dyspnea 01/19/2016 Gastrointestinal No constipation 2015 Gastrointestinal No diarrhea 01/19/2016 Gastrointestinal No nausea 01/19/2016 Gastrointestinal No vomiting 01/19/2016 Musculoskeletal stiffness 01/19/2016 Musculoskeletal arthralgia(s) 01/19/2016 Musculoskeletal joint complaint 2015 Musculoskeletal muscle weakness 2015 Dermatologic No rash 01/19/2016 Dermatologic No scar 01/19/2016 Neurologic No alteration of consciousness 01/19/2016 Neurologic gait abnormality 01/19/2016 Psychiatric No anxiety 01/19/2016 Psychiatric No depression 01/19/2016 Ears/Nose/Throat/Neck nasal discharge Constitutional recent illness 01/11/2016 Constitutional obesity 01/11/2016 Constitutional No chills 01/11/2016 Constitutional fatigue 01/11/2016 Constitutional No fever 01/11/2016 Constitutional No insomnia 01/11/2016 Constitutional malaise 01/11/2016 Eyes No eye discharge 01/11/2016 Eyes No eye erythema 01/11/2016 Eyes No vision change 01/11/2016 Ears/Nose/Throat/Neck postnasal drip 08/2016 Ears/Nose/Throat/Neck sinus congestion Cardiovascular No chest pain/pressure 08/2016 Cardiovascular No dyspnea 01/11/2016 Cardiovascular No edema 01/11/2016 Respiratory cough 01/11/2016 Gastrointestinal No abdominal pain 2015 Gastrointestinal No constipation 2015 Gastrointestinal No diarrhea 01/11/2016 Gastrointestinal No nausea 01/11/2016 Gastrointestinal No vomiting 01/11/2016 Musculoskeletal stiffness 01/11/2016 Musculoskeletal arthralgia(s) 01/11/2016 Musculoskeletal joint complaint 2015 Musculoskeletal muscle weakness 2015 Dermatologic No rash 01/11/2016 Dermatologic No scar 01/11/2016 Neurologic No alteration of consciousness 01/11/2016 Neurologic gait abnormality 01/11/2016 Psychiatric No anxiety 01/11/2016 Psychiatric No depression 01/11/2016 Ears/Nose/Throat/Neck nasal allergies 08/2016 Ears/Nose/Throat/Neck nasal discharge 08/2016 Respiratory chest congestion 01/11/2016 Respiratory productive sputum 01/11/2016 Neurologic No mental status change 2015 Constitutional No recent illness 2015 Constitutional No chills 12/09/2015 Constitutional fatigue 12/09/2015 Constitutional No fever 12/09/2015 Constitutional No insomnia 12/09/2015 Constitutional malaise 12/09/2015 Constitutional obesity 12/09/2015 Eyes No eye discharge 12/09/2015 Eyes No eye erythema 12/09/2015 Eyes No vision change 12/09/2015 Ears/Nose/Throat/Neck No headache 2015 Ears/Nose/Throat/Neck No nasal allergies 12/09/2015 Ears/Nose/Throat/Neck No postnasal drip 12/09/2015 Ears/Nose/Throat/Neck No sinus congestion 12/09/2015 Ears/Nose/Throat/Neck No sore throat 07/2016 Cardiovascular No chest pain/pressure 07/2016 Cardiovascular No dyspnea 12/09/2015 Cardiovascular No edema 12/09/2015 Respiratory No chest congestion 2015 Respiratory No cough 12/09/2015 Respiratory No dyspnea 12/09/2015 Gastrointestinal No abdominal pain 2015 Gastrointestinal No constipation 2015 Gastrointestinal No diarrhea 12/09/2015 Gastrointestinal No nausea 12/09/2015 Gastrointestinal No vomiting 12/09/2015 Musculoskeletal stiffness 12/09/2015 Musculoskeletal arthralgia(s) 12/09/2015 Musculoskeletal joint complaint 2015 Musculoskeletal muscle weakness 2015 Dermatologic No rash 12/09/2015 Dermatologic No scar 12/09/2015 Neurologic No alteration of consciousness 12/09/2015 Neurologic gait abnormality 12/09/2015 Psychiatric No anxiety 12/09/2015 Psychiatric No depression 12/09/2015 Constitutional No recent illness 2015 Constitutional No chills 10/27/2015 Constitutional fatigue 10/27/2015 Constitutional No fever 10/27/2015 Constitutional No insomnia 10/27/2015 Constitutional malaise 10/27/2015 Constitutional obesity 10/27/2015 Eyes No eye discharge 10/27/2015 Eyes No eye erythema 10/27/2015 Eyes No vision change 10/27/2015 Ears/Nose/Throat/Neck No dizziness 2015 Ears/Nose/Throat/Neck No headache 2015 Ears/Nose/Throat/Neck No hearing loss Ears/Nose/Throat/Neck No nasal allergies 10/27/2015 Ears/Nose/Throat/Neck No postnasal drip 10/27/2015 Ears/Nose/Throat/Neck No sinus congestion 10/27/2015 Ears/Nose/Throat/Neck No sore throat Cardiovascular No chest pain/pressure Cardiovascular No dyspnea 10/27/2015 Cardiovascular No edema 10/27/2015 Respiratory No chest congestion 2015 Respiratory No cough 10/27/2015 Respiratory No dyspnea 10/27/2015 Gastrointestinal No abdominal pain 2015 Gastrointestinal No constipation 2015 Gastrointestinal No diarrhea 10/27/2015 Gastrointestinal No gastroesophageal reflux 10/27/2015 Gastrointestinal No nausea 10/27/2015 Gastrointestinal No vomiting 10/27/2015 Musculoskeletal stiffness 10/27/2015 Musculoskeletal arthralgia(s) 10/27/2015 Musculoskeletal joint complaint 2015 Musculoskeletal muscle weakness 2015 Dermatologic No rash 10/27/2015 Dermatologic No scar 10/27/2015 Neurologic No alteration of consciousness 10/27/2015 Neurologic gait abnormality 10/27/2015 Psychiatric No anxiety 10/27/2015 Psychiatric No depression 10/27/2015 Constitutional No recent illness 2014 Constitutional No chills 09/13/2015 Constitutional fatigue 09/13/2015 Constitutional No fever 09/13/2015 Constitutional No insomnia 09/13/2015 Constitutional malaise 09/13/2015 Constitutional obesity 09/13/2015 Eyes No vision change 09/13/2015 Ears/Nose/Throat/Neck No dizziness 2014 Ears/Nose/Throat/Neck No headache 2014 Ears/Nose/Throat/Neck No hearing loss Ears/Nose/Throat/Neck No nasal allergies 09/13/2015 Ears/Nose/Throat/Neck No sore throat Ears/Nose/Throat/Neck No postnasal drip 09/13/2015 Ears/Nose/Throat/Neck No sinus congestion 09/13/2015 Cardiovascular No chest pain/pressure Cardiovascular No dyspnea 09/13/2015 Cardiovascular No edema 09/13/2015 Respiratory No cough 09/13/2015 Respiratory No dyspnea 09/13/2015 Gastrointestinal No abdominal pain 2014 Gastrointestinal No constipation 2014 Gastrointestinal No diarrhea 09/13/2015 Gastrointestinal No gastroesophageal reflux 09/13/2015 Gastrointestinal No nausea 09/13/2015 Gastrointestinal No vomiting 09/13/2015 Musculoskeletal stiffness 09/13/2015 Musculoskeletal arthralgia(s) 09/13/2015 Musculoskeletal joint complaint 2014 Musculoskeletal muscle weakness 2014 Dermatologic No rash 09/13/2015 Dermatologic No scar 09/13/2015 Neurologic gait abnormality 09/13/2015 Psychiatric No anxiety 09/13/2015 Psychiatric No depression 09/13/2015 Eyes No eye discharge 09/13/2015 Eyes No eye erythema 09/13/2015 Respiratory No chest congestion 2014 Neurologic No alteration of consciousness 09/13/2015 Constitutional recent illness 04/23/2015 Constitutional anorexia 04/23/2015 Constitutional night sweats 04/23/2015 Constitutional chills 04/23/2015 Constitutional diaphoresis 04/23/2015 Constitutional fatigue 04/23/2015 Constitutional fever 04/23/2015 Constitutional No insomnia 04/23/2015 Constitutional No malaise 04/23/2015 Constitutional No weight loss 04/23/2015 Constitutional No weight gain 04/23/2015 Eyes No eye discharge 04/23/2015 Eyes No eye erythema 04/23/2015 Ears/Nose/Throat/Neck No dizziness 2014 Ears/Nose/Throat/Neck headache 2014 Ears/Nose/Throat/Neck nasal allergies Ears/Nose/Throat/Neck nasal discharge Ears/Nose/Throat/Neck otalgia 04/23/2015 Ears/Nose/Throat/Neck sinus congestion Ears/Nose/Throat/Neck No sore throat Respiratory No productive sputum 2014 Respiratory No chest congestion 2014 Respiratory No cough 04/23/2015 Cardiovascular No chest pain/pressure Gastrointestinal No abdominal pain 2014 Gastrointestinal No constipation 2014 Gastrointestinal No diarrhea 04/23/2015 Genitourinary/Nephrology No dysuria 04/23 Musculoskeletal joint complaint 2014 Dermatologic No rash 04/23/2015 Dermatologic No sores 04/23/2015 Constitutional No recent illness 2014 Constitutional No chills 01/06/2015 Constitutional fatigue 01/06/2015 Constitutional No fever 01/06/2015 Constitutional No insomnia 01/06/2015 Constitutional malaise 01/06/2015 Constitutional weight gain 01/06/2015 Constitutional obesity 01/06/2015 Eyes No blindness 01/06/2015 Eyes No vision change 01/06/2015 Ears/Nose/Throat/Neck No dental pain 05/2015 Ears/Nose/Throat/Neck No dizziness 2014 Ears/Nose/Throat/Neck No dysphagia 2014 Ears/Nose/Throat/Neck No headache 2014 Ears/Nose/Throat/Neck No hearing loss 05/2015 Ears/Nose/Throat/Neck No nasal allergies 01/06/2015 Ears/Nose/Throat/Neck No sore throat 05/2015 Ears/Nose/Throat/Neck No postnasal drip 01/06/2015 Ears/Nose/Throat/Neck No sinus congestion 01/06/2015 Cardiovascular No chest pain/pressure 05/2015 Cardiovascular No dyspnea 01/06/2015 Cardiovascular No edema 01/06/2015 Cardiovascular No exercise intolerance Cardiovascular No fatigue 01/06/2015 Cardiovascular No near-syncope/dizziness 01/06/2015 Respiratory No chest tightness 2014 Respiratory No cigarette smoking 2014 Respiratory No cough 01/06/2015 Respiratory No dyspnea 01/06/2015 Respiratory No pedal edema 01/06/2015 Respiratory No snoring 01/06/2015 Respiratory No wheezing 01/06/2015 Gastrointestinal No hemorrhoids 2014 Gastrointestinal No abdominal pain 2014 Gastrointestinal No constipation 2014 Gastrointestinal No diarrhea 01/06/2015 Gastrointestinal No gastroesophageal reflux 01/06/2015 Gastrointestinal No melena 01/06/2015 Gastrointestinal No nausea 01/06/2015 Gastrointestinal No vomiting 01/06/2015 Genitourinary/Nephrology impotence 2014 Genitourinary/Nephrology No urinary urgency 01/06/2015 Musculoskeletal stiffness 01/06/2015 Musculoskeletal arthralgia(s) 01/06/2015 Musculoskeletal joint complaint 2014 Musculoskeletal muscle weakness 2014 Dermatologic No rash 01/06/2015 Dermatologic No scar 01/06/2015 Neurologic No ataxia 01/06/2015 Neurologic No dizziness 01/06/2015 Neurologic gait abnormality 01/06/2015 Psychiatric No anxiety 01/06/2015 Psychiatric No depression 01/06/2015 Constitutional fatigue 10/28/2014 Constitutional recent illness 10/28/2014 Ears/Nose/Throat/Neck facial pain 2014 Ears/Nose/Throat/Neck headache 2014 Ears/Nose/Throat/Neck nasal discharge Ears/Nose/Throat/Neck sinusitis 2014 Ears/Nose/Throat/Neck sore throat 2014 Cardiovascular No chest pain/pressure Cardiovascular dyspnea 10/28/2014 Cardiovascular No edema 10/28/2014 Cardiovascular fatigue 10/28/2014 Cardiovascular No syncope 10/28/2014 Respiratory chest tightness 10/28/2014 Respiratory No cigarette smoking 2014 Respiratory cough 10/28/2014 Respiratory dyspnea 10/28/2014 Respiratory No wheezing 10/28/2014 Gastrointestinal No constipation 2014 Gastrointestinal No diarrhea 10/28/2014 Gastrointestinal No dyspepsia 10/28/2014 Gastrointestinal No nausea 10/28/2014 Dermatologic No rash 10/28/2014 Neurologic No ataxia 10/28/2014 Neurologic No dizziness 10/28/2014 Neurologic No pain, facial 10/28/2014 Psychiatric No anxiety 10/28/2014 Psychiatric No depression 10/28/2014 Constitutional No recent illness 2014 Constitutional insomnia 10/12/2014 Constitutional night sweats 10/12/2014 Constitutional chills 10/12/2014 Constitutional fever 10/12/2014 Ears/Nose/Throat/Neck No facial pain 08/2015 Ears/Nose/Throat/Neck sore throat 2014 Cardiovascular No chest pain/pressure 08/2015 Cardiovascular No dyspnea 10/12/2014 Cardiovascular No edema 10/12/2014 Respiratory cough 10/12/2014 Respiratory chest congestion 10/12/2014 Gastrointestinal No abdominal pain 2014 Gastrointestinal No diarrhea 10/12/2014 Gastrointestinal No constipation 2014 Gastrointestinal No nausea 10/12/2014 Gastrointestinal No vomiting 10/12/2014 Genitourinary/Nephrology No dysuria 10/12 Genitourinary/Nephrology urinary frequency 10/12/2014 Genitourinary/Nephrology nocturia 2014 Genitourinary/Nephrology urinary urgency 10/12/2014 Dermatologic skin lesion 10/12/2014 Genitourinary/Nephrology impotence 2014 Psychiatric No anxiety 10/12/2014 Psychiatric No depression 10/12/2014 Musculoskeletal arthralgia(s) 10/12/2014 Musculoskeletal stiffness 10/12/2014 Constitutional fatigue 10/12/2014 Constitutional malaise 10/12/2014 Constitutional weight gain 10/12/2014 Constitutional obesity 10/12/2014 Eyes No blindness 10/12/2014 Eyes No vision change 10/12/2014 Ears/Nose/Throat/Neck No dental pain 08/2015 Ears/Nose/Throat/Neck No dizziness 2014 Ears/Nose/Throat/Neck No dysphagia 2014 Ears/Nose/Throat/Neck No headache 2014 Ears/Nose/Throat/Neck No hearing loss 08/2015 Ears/Nose/Throat/Neck No nasal allergies 10/12/2014 Ears/Nose/Throat/Neck No postnasal drip 10/12/2014 Ears/Nose/Throat/Neck No sinus congestion 10/12/2014 Cardiovascular No exercise intolerance Cardiovascular No fatigue 10/12/2014 Cardiovascular No near-syncope/dizziness 10/12/2014 Respiratory No chest tightness 2014 Respiratory No cigarette smoking 2014 Respiratory No pedal edema 10/12/2014 Respiratory No snoring 10/12/2014 Respiratory No wheezing 10/12/2014 Gastrointestinal No hemorrhoids 2014 Gastrointestinal No gastroesophageal reflux 10/12/2014 Gastrointestinal No melena 10/12/2014 Musculoskeletal joint complaint 2014 Musculoskeletal muscle weakness 2014 Dermatologic No rash 10/12/2014 Dermatologic No scar 10/12/2014 Neurologic No ataxia 10/12/2014 Neurologic No dizziness 10/12/2014 Neurologic gait abnormality 10/12/2014 Constitutional No recent illness 2013 Constitutional No chills 07/27/2014 Constitutional fatigue 07/27/2014 Constitutional No fever 07/27/2014 Constitutional No insomnia 07/27/2014 Constitutional malaise 07/27/2014 Constitutional weight gain 07/27/2014 Constitutional obesity 07/27/2014 Eyes No blindness 07/27/2014 Eyes No vision change 07/27/2014 Ears/Nose/Throat/Neck No dental pain Ears/Nose/Throat/Neck No dizziness 2013 Ears/Nose/Throat/Neck No dysphagia 2013 Ears/Nose/Throat/Neck No headache 2013 Ears/Nose/Throat/Neck No hearing loss Ears/Nose/Throat/Neck No nasal allergies 07/27/2014 Ears/Nose/Throat/Neck No sore throat Ears/Nose/Throat/Neck No postnasal drip 07/27/2014 Ears/Nose/Throat/Neck No sinus congestion 07/27/2014 Cardiovascular No chest pain/pressure Cardiovascular No dyspnea 07/27/2014 Cardiovascular No edema 07/27/2014 Cardiovascular No exercise intolerance Cardiovascular No fatigue 07/27/2014 Cardiovascular No near-syncope/dizziness 07/27/2014 Respiratory No chest tightness 2013 Respiratory No cigarette smoking 2013 Respiratory No cough 07/27/2014 Respiratory No dyspnea 07/27/2014 Respiratory No pedal edema 07/27/2014 Respiratory No snoring 07/27/2014 Respiratory No wheezing 07/27/2014 Gastrointestinal No hemorrhoids 2013 Gastrointestinal No abdominal pain 2013 Gastrointestinal No constipation 2013 Gastrointestinal No diarrhea 07/27/2014 Gastrointestinal No gastroesophageal reflux 07/27/2014 Gastrointestinal No melena 07/27/2014 Gastrointestinal No nausea 07/27/2014 Gastrointestinal No vomiting 07/27/2014 Genitourinary/Nephrology impotence 2013 Genitourinary/Nephrology No urinary urgency 07/27/2014 Musculoskeletal stiffness 07/27/2014 Musculoskeletal arthralgia(s) 07/27/2014 Musculoskeletal joint complaint 2013 Musculoskeletal muscle weakness 2013 Dermatologic No rash 07/27/2014 Dermatologic No scar 07/27/2014 Neurologic No ataxia 07/27/2014 Neurologic No dizziness 07/27/2014 Neurologic gait abnormality 07/27/2014 Psychiatric No anxiety 07/27/2014 Psychiatric No depression 07/27/2014 Constitutional No recent illness 2013 Constitutional No chills 06/03/2014 Constitutional fatigue 06/03/2014 Constitutional No fever 06/03/2014 Constitutional No insomnia 06/03/2014 Constitutional malaise 06/03/2014 Cardiovascular No chest pain/pressure 11/2013 Cardiovascular No dyspnea 06/03/2014 Cardiovascular No edema 06/03/2014 Cardiovascular No exercise intolerance Cardiovascular No fatigue 06/03/2014 Cardiovascular No near-syncope/dizziness 06/03/2014 Respiratory No chest tightness 2013 Respiratory No cigarette smoking 2013 Respiratory No cough 06/03/2014 Respiratory No dyspnea 06/03/2014 Respiratory No pedal edema 06/03/2014 Respiratory No snoring 06/03/2014 Respiratory No wheezing 06/03/2014 Gastrointestinal No hemorrhoids 2013 Gastrointestinal No abdominal pain 2013 Gastrointestinal No constipation 2013 Gastrointestinal No diarrhea 06/03/2014 Gastrointestinal No gastroesophageal reflux 06/03/2014 Gastrointestinal No melena 06/03/2014 Gastrointestinal No nausea 06/03/2014 Gastrointestinal No vomiting 06/03/2014 Genitourinary/Nephrology No urinary urgency 06/03/2014 Genitourinary/Nephrology impotence 2013 Psychiatric No anxiety 06/03/2014 Psychiatric No depression 06/03/2014 Dermatologic No rash 06/03/2014 Dermatologic No scar 06/03/2014 Musculoskeletal stiffness 06/03/2014 Musculoskeletal arthralgia(s) 06/03/2014 Musculoskeletal muscle weakness 2013 Endocrine obesity 06/03/2014 Musculoskeletal joint complaint 2013 Neurologic No ataxia 06/03/2014 Neurologic No dizziness 06/03/2014 Neurologic gait abnormality 06/03/2014 Eyes No blindness 06/03/2014 Eyes No vision change 06/03/2014 Ears/Nose/Throat/Neck No dental pain 11/2013 Ears/Nose/Throat/Neck No dizziness 2013 Ears/Nose/Throat/Neck No dysphagia 2013 Ears/Nose/Throat/Neck No headache 2013 Ears/Nose/Throat/Neck No hearing loss 11/2013 Ears/Nose/Throat/Neck No nasal allergies 06/03/2014 Ears/Nose/Throat/Neck No sore throat 11/2013 Ears/Nose/Throat/Neck No postnasal drip 06/03/2014 Ears/Nose/Throat/Neck No sinus congestion 06/03/2014 Constitutional weight gain 06/03/2014 Constitutional obesity 06/03/2014 Physical Exam Exam Name System Name Item Name Status Result Effective Dates Notes Full Exam - Orthopedics Constitutional general appearance Overall: well nourished 11/14/2017 None Full Exam - Orthopedics Constitutional general appearance Overall: well developed 11/14/2017 None Full Exam - Orthopedics Constitutional general appearance Overall: in no acute distress 11/14/2017 None Full Exam - Orthopedics Eyes conjunctiva/ eyelids Overall: conjunctiva clear 11/14/2017 None Full Exam - Orthopedics Eyes conjunctiva/ eyelids Overall: eyelids normal 11/14/2017 None Full Exam - Orthopedics Ears/Nose/Throat lips/teeth/gingiva Overall: benign lips 11/14/2017 None Full Exam - Orthopedics Ears/Nose/Throat oral cavity/pharynx/larynx Overall: oral mucosa clear 11/14/2017 None Full Exam - Orthopedics Respiratory respiratory effort/rhythm Overall: no retractions 11/14/2017 None Full Exam - Orthopedics Respiratory respiratory effort/rhythm Overall: normal rate 11/14/2017 None Full Exam - Orthopedics Psychiatric orientation/consciousness Overall: oriented to person, place and time 11/14/2017 None Full Exam - Orthopedics Psychiatric mood and affect Overall: normal mood and affect 11/14/2017 None Full Exam - Orthopedics Psychiatric appearance Overall: well-groomed, good eye contact 11/14/2017 None Full Exam - Orthopedics MS: head/neck insp & palp - H/N Overall: head atraumatic 11/14/2017 None Full Exam - Orthopedics MS: left lower extremity insp & palp - LLE Ankle: swelling 11/14/2017 None Full Exam - Orthopedics MS: left lower extremity insp & palp - LLE Ankle: redness 11/14/2017 mild Full Exam - Orthopedics MS: left lower extremity insp & palp - LLE Ankle: tender 11/14/2017 None Full Exam - General 1994 Constitutional general appearance Overall: well developed 09/12/2017 None Full Exam - General 1994 Constitutional general appearance Overall: in no acute distress 09/12/2017 None Full Exam - General 1994 Constitutional general appearance Overall: well nourished 09/12/2017 None Full Exam - General 1994 Eyes conjunctiva /eyelids Overall: conjunctiva clear 09/12/2017 None Full Exam - General 1994 Eyes conjunctiva /eyelids Overall: eyelids normal 09/12/2017 None Full Exam - General 1994 Ears/Nose/Throat lips/teeth/gingiva Overall: benign lips 09/12/2017 None Full Exam - General 1994 Respiratory respiratory effort/rhythm Overall: no retractions 09/12/2017 None Full Exam - General 1994 Respiratory respiratory effort/rhythm Overall: normal rate 09/12/2017 None Full Exam - General 1994 Musculoskeletal head and neck Overall: head atraumatic 09/12/2017 None Full Exam - General 1994 Neurologic cranial nerves Overall: crainial nerves 2 - 12 grossly intact 09/12/2017 None Full Exam - General 1994 Psychiatric orientation/consciousness Overall: oriented to person, place and time 09/12/2017 None Full Exam - General 1994 Psychiatric mood and affect Overall: normal mood and affect 09/12/2017 None Full Exam - General 1994 Psychiatric appearance Overall: well-groomed, good eye contact 09/12/2017 None Full Exam - General 1994 Constitutional general appearance Development: well developed 07/24/2017 None Full Exam - General 1994 Constitutional general appearance Hygiene/Attention to Grooming: good hygiene 07/24/2017 None Full Exam - General 1994 Constitutional general appearance Assistive Device: cane 07/24/2017 None Full Exam - General 1994 Eyes conjunctiva /eyelids Overall: conjunctiva clear 07/24/2017 None Full Exam - General 1994 Eyes conjunctiva /eyelids Overall: eyelids normal 07/24/2017 None Full Exam - General 1994 Ears/Nose/Throat lips/teeth/gingiva Overall: benign lips 07/24/2017 None Full Exam - General 1994 Respiratory auscultation Overall: breath sounds clear bilaterally 07/24/2017 None Full Exam - General 1994 Respiratory respiratory effort/rhythm Overall: no retractions 07/24/2017 None Full Exam - General 1994 Respiratory respiratory effort/rhythm Overall: normal rate 07/24/2017 None Full Exam - General 1994 Cardiovascular auscultation of heart Overall: regular rate 07/24/2017 None Full Exam - General 1994 Cardiovascular auscultation of heart Overall: normal heart sounds 07/24/2017 None Full Exam - General 1994 Abdomen abdominal exam Overall: no tenderness 07/24/2017 None Full Exam - General 1994 Abdomen abdominal exam Overall: normal bowel sounds 07/24/2017 None Full Exam - General 1994 Lymphatic neck nodes Overall: anterior cervical chain benign 07/24/2017 None Full Exam - General 1994 Lymphatic neck nodes Overall: posterior cervical chain benign 07/24/2017 None Full Exam - General 1994 Musculoskeletal lower extremity Palpation - knee: crepitus 07/24/2017 None Full Exam - General 1994 Neurologic gait Conventional walking: unsteady 07/24/2017 None Full Exam - General 1994 Neurologic cranial nerves Overall: crainial nerves 2 - 12 grossly intact 07/24/2017 None Full Exam - General 1994 Psychiatric orientation/consciousness Overall: oriented to person, place and time 07/24/2017 None Full Exam - General 1994 Psychiatric mood and affect Overall: normal mood and affect 07/24/2017 None Full Exam - General 1994 Constitutional general appearance Overall: well developed 07/24/2017 None Full Exam - General 1994 Constitutional general appearance Overall: in no acute distress 07/24/2017 None Full Exam - General 1994 Constitutional general appearance Overall: well nourished 07/24/2017 None Full Exam - General 1994 Eyes pupils and irises Overall: pupils equal, round, reactive to light and accomodation 07/24/2017 None Full Exam - General 1994 Ears/Nose/Throat oral cavity/pharynx/larynx Overall: oral mucosa clear 07/24/2017 None Full Exam - General 1994 Ears/Nose/Throat oral cavity/pharynx/larynx Posterior Pharynx: clear post nasal drainage 07/24/2017 None Full Exam - General 1994 Ears/Nose/Throat otoscopic exam Overall: tympanic membranes clear 07/24/2017 None Full Exam - General 1994 Ears/Nose/Throat otoscopic exam External auditory canal: partial cerumen occlusion 07/24/2017 None Full Exam - General 1994 Respiratory auscultation Diffuse: diminished 07/24/2017 None Full Exam - General 1994 Musculoskeletal upper extremity Inspection - upper arm: swelling 07/24/2017 None Full Exam - General 1994 Musculoskeletal upper extremity Palpation - upper arm: tenderness 07/24/2017 None Full Exam - General 1994 Musculoskeletal head and neck Overall: head atraumatic 07/24/2017 None Full Exam - General 1994 Psychiatric appearance Overall: well-groomed, good eye contact 07/24/2017 None Full Exam - General 1994 Constitutional general appearance Development: well developed 07/12/2017 None Full Exam - General 1994 Constitutional general appearance Development: appears stated age 1007/12/2017 None Full Exam - General 1994 Constitutional general appearance Hygiene/Attention to Grooming: good hygiene 07/12/2017 None Full Exam - General 1994 Constitutional general appearance Assistive Device: cane 07/12/2017 None Full Exam - General 1994 Eyes conjunctiva /eyelids Overall: conjunctiva clear 07/12/2017 None Full Exam - General 1994 Eyes conjunctiva /eyelids Overall: cornea clear 07/12/2017 None Full Exam - General 1994 Eyes conjunctiva /eyelids Overall: eyelids normal 07/12/2017 None Full Exam - General 1994 Eyes pupils and irises Overall: pupils equal, round, reactive to light and accomodation 07/12/2017 None Full Exam - General 1994 Ears/Nose/Throat lips/teeth/gingiva Overall: benign lips 07/12/2017 None Full Exam - General 1994 Ears/Nose/Throat lips/teeth/gingiva Overall: normal dentition 07/12/2017 None Full Exam - General 1994 Respiratory auscultation Overall: breath sounds clear bilaterally 07/12/2017 None Full Exam - General 1994 Respiratory respiratory effort/rhythm Overall: no retractions 07/12/2017 None Full Exam - General 1994 Respiratory respiratory effort/rhythm Overall: normal rate 07/12/2017 None Full Exam - General 1994 Cardiovascular auscultation of heart Overall: regular rate 07/12/2017 None Full Exam - General 1994 Cardiovascular auscultation of heart Overall: normal heart sounds 07/12/2017 None Full Exam - General 1994 Abdomen abdominal exam Overall: no tenderness 07/12/2017 None Full Exam - General 1994 Abdomen abdominal exam Overall: normal bowel sounds 07/12/2017 None Full Exam - General 1994 Lymphatic neck nodes Overall: anterior cervical chain benign 07/12/2017 None Full Exam - General 1994 Lymphatic neck nodes Overall: posterior cervical chain benign 07/12/2017 None Full Exam - General 1994 Musculoskeletal lower extremity Palpation - knee: crepitus 07/12/2017 None Full Exam - General 1994 Neurologic gait Conventional walking: unsteady 07/12/2017 None Full Exam - General 1994 Neurologic cranial nerves Overall: crainial nerves 2 - 12 grossly intact 07/12/2017 None Full Exam - General 1994 Psychiatric orientation/consciousness Overall: oriented to person, place and time 07/12/2017 None Full Exam - General 1994 Psychiatric mood and affect Overall: normal mood and affect 07/12/2017 None Full Exam - General 1994 Constitutional general appearance Development: well developed 06/15/2017 None Full Exam - General 1994 Constitutional general appearance Development: appears stated age 0906/15/2017 None Full Exam - General 1994 Constitutional general appearance Hygiene/Attention to Grooming: good hygiene 06/15/2017 None Full Exam - General 1994 Eyes conjunctiva /eyelids Overall: conjunctiva clear 06/15/2017 None Full Exam - General 1994 Eyes conjunctiva /eyelids Overall: cornea clear 06/15/2017 None Full Exam - General 1994 Eyes conjunctiva /eyelids Overall: eyelids normal 06/15/2017 None Full Exam - General 1994 Eyes pupils and irises Overall: pupils equal, round, reactive to light and accomodation 06/15/2017 None Full Exam - General 1994 Ears/Nose/Throat lips/teeth/gingiva Overall: benign lips 06/15/2017 None Full Exam - General 1994 Ears/Nose/Throat lips/teeth/gingiva Overall: normal dentition 06/15/2017 None Full Exam - General 1994 Respiratory auscultation Overall: breath sounds clear bilaterally 06/15/2017 None Full Exam - General 1994 Respiratory respiratory effort/rhythm Overall: no retractions 06/15/2017 None Full Exam - General 1994 Respiratory respiratory effort/rhythm Overall: normal rate 06/15/2017 None Full Exam - General 1994 Cardiovascular auscultation of heart Overall: regular rate 06/15/2017 None Full Exam - General 1994 Cardiovascular auscultation of heart Overall: normal heart sounds 06/15/2017 None Full Exam - General 1994 Abdomen abdominal exam Overall: no tenderness 06/15/2017 None Full Exam - General 1994 Abdomen abdominal exam Overall: normal bowel sounds 06/15/2017 None Full Exam - General 1994 Lymphatic neck nodes Overall: anterior cervical chain benign 06/15/2017 None Full Exam - General 1994 Lymphatic neck nodes Overall: posterior cervical chain benign 06/15/2017 None Full Exam - General 1994 Musculoskeletal lower extremity Palpation - knee: crepitus 06/15/2017 None Full Exam - General 1994 Neurologic gait Conventional walking: unsteady 06/15/2017 None Full Exam - General 1994 Neurologic cranial nerves Overall: crainial nerves 2 - 12 grossly intact 06/15/2017 None Full Exam - General 1994 Psychiatric orientation/consciousness Overall: oriented to person, place and time 06/15/2017 None Full Exam - General 1994 Psychiatric mood and affect Overall: normal mood and affect 06/15/2017 None Full Exam - General 1994 Constitutional general appearance Assistive Device: walker 06/15/2017 None Full Exam - General 1994 Constitutional general appearance Development: well developed 01/16/2017 None Full Exam - General 1994 Constitutional general appearance Development: appears stated age 0401/16/2017 None Full Exam - General 1994 Constitutional general appearance Hygiene/Attention to Grooming: good hygiene 01/16/2017 None Full Exam - General 1994 Constitutional general appearance Assistive Device: cane 01/16/2017 None Full Exam - General 1994 Eyes conjunctiva /eyelids Overall: conjunctiva clear 01/16/2017 None Full Exam - General 1994 Eyes conjunctiva /eyelids Overall: cornea clear 01/16/2017 None Full Exam - General 1994 Eyes conjunctiva /eyelids Overall: eyelids normal 01/16/2017 None Full Exam - General 1994 Eyes pupils and irises Overall: pupils equal, round, reactive to light and accomodation 01/16/2017 None Full Exam - General 1994 Ears/Nose/Throat lips/teeth/gingiva Overall: benign lips 01/16/2017 None Full Exam - General 1994 Ears/Nose/Throat lips/teeth/gingiva Overall: normal dentition 01/16/2017 None Full Exam - General 1994 Respiratory auscultation Overall: breath sounds clear bilaterally 01/16/2017 None Full Exam - General 1994 Respiratory respiratory effort/rhythm Overall: no retractions 01/16/2017 None Full Exam - General 1994 Respiratory respiratory effort/rhythm Overall: normal rate 01/16/2017 None Full Exam - General 1994 Cardiovascular auscultation of heart Overall: regular rate 01/16/2017 None Full Exam - General 1994 Cardiovascular auscultation of heart Overall: normal heart sounds 01/16/2017 None Full Exam - General 1994 Abdomen abdominal exam Overall: no tenderness 01/16/2017 None Full Exam - General 1994 Abdomen abdominal exam Overall: normal bowel sounds 01/16/2017 None Full Exam - General 1994 Lymphatic neck nodes Overall: anterior cervical chain benign 01/16/2017 None Full Exam - General 1994 Lymphatic neck nodes Overall: posterior cervical chain benign 01/16/2017 None Full Exam - General 1994 Musculoskeletal lower extremity Palpation - knee: crepitus 01/16/2017 None Full Exam - General 1994 Neurologic gait Conventional walking: unsteady 01/16/2017 None Full Exam - General 1994 Neurologic cranial nerves Overall: crainial nerves 2 - 12 grossly intact 01/16/2017 None Full Exam - General 1994 Psychiatric orientation/consciousness Overall: oriented to person, place and time 01/16/2017 None Full Exam - General 1994 Psychiatric mood and affect Overall: normal mood and affect 01/16/2017 None Full Exam - General 1994 Constitutional general appearance Development: well developed 12/20/2016 None Full Exam - General 1994 Constitutional general appearance Development: appears stated age 0312/20/2016 None Full Exam - General 1994 Constitutional general appearance Hygiene/Attention to Grooming: good hygiene 12/20/2016 None Full Exam - General 1994 Constitutional general appearance Assistive Device: cane 12/20/2016 None Full Exam - General 1994 Eyes conjunctiva /eyelids Overall: conjunctiva clear 12/20/2016 None Full Exam - General 1994 Eyes conjunctiva /eyelids Overall: cornea clear 12/20/2016 None Full Exam - General 1994 Eyes conjunctiva /eyelids Overall: eyelids normal 12/20/2016 None Full Exam - General 1994 Eyes pupils and irises Overall: pupils equal, round, reactive to light and accomodation 12/20/2016 None Full Exam - General 1994 Ears/Nose/Throat lips/teeth/gingiva Overall: benign lips 12/20/2016 None Full Exam - General 1994 Ears/Nose/Throat lips/teeth/gingiva Overall: normal dentition 12/20/2016 None Full Exam - General 1994 Respiratory auscultation Overall: breath sounds clear bilaterally 12/20/2016 None Full Exam - General 1994 Respiratory respiratory effort/rhythm Overall: no retractions 12/20/2016 None Full Exam - General 1994 Respiratory respiratory effort/rhythm Overall: normal rate 12/20/2016 None Full Exam - General 1994 Cardiovascular auscultation of heart Overall: regular rate 12/20/2016 None Full Exam - General 1994 Cardiovascular auscultation of heart Overall: normal heart sounds 12/20/2016 None Full Exam - General 1994 Abdomen abdominal exam Overall: no tenderness 12/20/2016 None Full Exam - General 1994 Abdomen abdominal exam Overall: normal bowel sounds 12/20/2016 None Full Exam - General 1994 Lymphatic neck nodes Overall: anterior cervical chain benign 12/20/2016 None Full Exam - General 1994 Lymphatic neck nodes Overall: posterior cervical chain benign 12/20/2016 None Full Exam - General 1994 Musculoskeletal lower extremity Palpation - knee: crepitus 12/20/2016 None Full Exam - General 1994 Neurologic gait Conventional walking: unsteady 12/20/2016 None Full Exam - General 1994 Neurologic cranial nerves Overall: crainial nerves 2 - 12 grossly intact 12/20/2016 None Full Exam - General 1994 Psychiatric orientation/consciousness Overall: oriented to person, place and time 12/20/2016 None Full Exam - General 1994 Psychiatric mood and affect Overall: normal mood and affect 12/20/2016 None Full Exam - General 1994 Constitutional general appearance Development: well developed 12/08/2016 None Full Exam - General 1994 Constitutional general appearance Development: appears stated age 0312/08/2016 None Full Exam - General 1994 Constitutional general appearance Hygiene/Attention to Grooming: good hygiene 12/08/2016 None Full Exam - General 1994 Constitutional general appearance Assistive Device: cane 12/08/2016 None Full Exam - General 1994 Eyes conjunctiva /eyelids Overall: conjunctiva clear 12/08/2016 None Full Exam - General 1994 Eyes conjunctiva /eyelids Overall: cornea clear 12/08/2016 None Full Exam - General 1994 Eyes conjunctiva /eyelids Overall: eyelids normal 12/08/2016 None Full Exam - General 1994 Eyes pupils and irises Overall: pupils equal, round, reactive to light and accomodation 12/08/2016 None Full Exam - General 1994 Ears/Nose/Throat lips/teeth/gingiva Overall: benign lips 12/08/2016 None Full Exam - General 1994 Ears/Nose/Throat lips/teeth/gingiva Overall: normal dentition 12/08/2016 None Full Exam - General 1994 Respiratory auscultation Overall: breath sounds clear bilaterally 12/08/2016 None Full Exam - General 1994 Respiratory respiratory effort/rhythm Overall: no retractions 12/08/2016 None Full Exam - General 1994 Respiratory respiratory effort/rhythm Overall: normal rate 12/08/2016 None Full Exam - General 1994 Cardiovascular auscultation of heart Overall: regular rate 12/08/2016 None Full Exam - General 1994 Cardiovascular auscultation of heart Overall: normal heart sounds 12/08/2016 None Full Exam - General 1994 Abdomen abdominal exam Overall: no tenderness 12/08/2016 None Full Exam - General 1994 Abdomen abdominal exam Overall: normal bowel sounds 12/08/2016 None Full Exam - General 1994 Lymphatic neck nodes Overall: anterior cervical chain benign 12/08/2016 None Full Exam - General 1994 Lymphatic neck nodes Overall: posterior cervical chain benign 12/08/2016 None Full Exam - General 1994 Musculoskeletal lower extremity Palpation - knee: warm 12/08/2016 None Full Exam - General 1994 Musculoskeletal lower extremity Palpation - knee: crepitus 12/08/2016 None Full Exam - General 1994 Neurologic gait Conventional walking: unsteady 12/08/2016 None Full Exam - General 1994 Neurologic cranial nerves Overall: crainial nerves 2 - 12 grossly intact 12/08/2016 None Full Exam - General 1994 Psychiatric orientation/consciousness Overall: oriented to person, place and time 12/08/2016 None Full Exam - General 1994 Psychiatric mood and affect Overall: normal mood and affect 12/08/2016 None Full Exam - General 1994 Constitutional general appearance Development: well developed 11/21/2016 None Full Exam - General 1994 Constitutional general appearance Development: appears stated age 0211/21/2016 None Full Exam - General 1994 Constitutional general appearance Hygiene/Attention to Grooming: good hygiene 11/21/2016 None Full Exam - General 1994 Eyes conjunctiva /eyelids Overall: conjunctiva clear 11/21/2016 None Full Exam - General 1994 Eyes conjunctiva /eyelids Overall: cornea clear 11/21/2016 None Full Exam - General 1994 Eyes conjunctiva /eyelids Overall: eyelids normal 11/21/2016 None Full Exam - General 1994 Eyes pupils and irises Overall: pupils equal, round, reactive to light and accomodation 11/21/2016 None Full Exam - General 1994 Ears/Nose/Throat lips/teeth/gingiva Overall: benign lips 11/21/2016 None Full Exam - General 1994 Ears/Nose/Throat lips/teeth/gingiva Overall: normal dentition 11/21/2016 None Full Exam - General 1994 Respiratory auscultation Overall: breath sounds clear bilaterally 11/21/2016 None Full Exam - General 1994 Respiratory respiratory effort/rhythm Overall: no retractions 11/21/2016 None Full Exam - General 1994 Respiratory respiratory effort/rhythm Overall: normal rate 11/21/2016 None Full Exam - General 1994 Cardiovascular auscultation of heart Overall: regular rate 11/21/2016 None Full Exam - General 1994 Cardiovascular auscultation of heart Overall: normal heart sounds 11/21/2016 None Full Exam - General 1994 Abdomen abdominal exam Overall: no tenderness 11/21/2016 None Full Exam - General 1994 Abdomen abdominal exam Overall: normal bowel sounds 11/21/2016 None Full Exam - General 1994 Lymphatic neck nodes Overall: anterior cervical chain benign 11/21/2016 None Full Exam - General 1994 Lymphatic neck nodes Overall: posterior cervical chain benign 11/21/2016 None Full Exam - General 1994 Musculoskeletal lower extremity Palpation - knee: crepitus 11/21/2016 None Full Exam - General 1994 Neurologic gait Conventional walking: unsteady 11/21/2016 None Full Exam - General 1994 Neurologic cranial nerves Overall: crainial nerves 2 - 12 grossly intact 11/21/2016 None Full Exam - General 1994 Psychiatric orientation/consciousness Overall: oriented to person, place and time 11/21/2016 None Full Exam - General 1994 Psychiatric mood and affect Overall: normal mood and affect 11/21/2016 None Full Exam - General 1994 Constitutional general appearance Assistive Device: cane 11/21/2016 None Full Exam - General 1994 Musculoskeletal lower extremity Palpation - knee: warm 11/21/2016 None Full Exam - General 1994 Constitutional general appearance Development: well developed 10/24/2016 None Full Exam - General 1994 Constitutional general appearance Development: appears stated age 0110/24/2016 None Full Exam - General 1994 Constitutional general appearance Hygiene/Attention to Grooming: good hygiene 10/24/2016 None Full Exam - General 1994 Eyes conjunctiva /eyelids Overall: conjunctiva clear 10/24/2016 None Full Exam - General 1994 Eyes conjunctiva /eyelids Overall: cornea clear 10/24/2016 None Full Exam - General 1994 Eyes conjunctiva /eyelids Overall: eyelids normal 10/24/2016 None Full Exam - General 1994 Eyes pupils and irises Overall: pupils equal, round, reactive to light and accomodation 10/24/2016 None Full Exam - General 1994 Ears/Nose/Throat lips/teeth/gingiva Overall: benign lips 10/24/2016 None Full Exam - General 1994 Ears/Nose/Throat lips/teeth/gingiva Overall: normal dentition 10/24/2016 None Full Exam - General 1994 Respiratory auscultation Overall: breath sounds clear bilaterally 10/24/2016 None Full Exam - General 1994 Respiratory respiratory effort/rhythm Overall: no retractions 10/24/2016 None Full Exam - General 1994 Respiratory respiratory effort/rhythm Overall: normal rate 10/24/2016 None Full Exam - General 1994 Cardiovascular auscultation of heart Overall: regular rate 10/24/2016 None Full Exam - General 1994 Cardiovascular auscultation of heart Overall: normal heart sounds 10/24/2016 None Full Exam - General 1994 Abdomen abdominal exam Overall: no tenderness 10/24/2016 None Full Exam - General 1994 Abdomen abdominal exam Overall: normal bowel sounds 10/24/2016 None Full Exam - General 1994 Lymphatic neck nodes Overall: anterior cervical chain benign 10/24/2016 None Full Exam - General 1994 Lymphatic neck nodes Overall: posterior cervical chain benign 10/24/2016 None Full Exam - General 1994 Musculoskeletal lower extremity Palpation - knee: crepitus 10/24/2016 None Full Exam - General 1994 Neurologic gait Conventional walking: unsteady 10/24/2016 None Full Exam - General 1994 Neurologic cranial nerves Overall: crainial nerves 2 - 12 grossly intact 10/24/2016 None Full Exam - General 1994 Psychiatric orientation/consciousness Overall: oriented to person, place and time 10/24/2016 None Full Exam - General 1994 Psychiatric mood and affect Overall: normal mood and affect 10/24/2016 None Full Exam - General 1994 Constitutional general appearance Assistive Device: walker 10/24/2016 None Full Exam - General 1994 Constitutional general appearance Development: well developed 09/21/2016 None Full Exam - General 1994 Constitutional general appearance Development: appears stated age 1209/21/2016 None Full Exam - General 1994 Constitutional general appearance Hygiene/Attention to Grooming: good hygiene 09/21/2016 None Full Exam - General 1994 Eyes conjunctiva /eyelids Overall: conjunctiva clear 09/21/2016 None Full Exam - General 1994 Eyes conjunctiva /eyelids Overall: cornea clear 09/21/2016 None Full Exam - General 1994 Eyes conjunctiva /eyelids Overall: eyelids normal 09/21/2016 None Full Exam - General 1994 Eyes pupils and irises Overall: pupils equal, round, reactive to light and accomodation 09/21/2016 None Full Exam - General 1994 Ears/Nose/Throat lips/teeth/gingiva Overall: benign lips 09/21/2016 None Full Exam - General 1994 Ears/Nose/Throat lips/teeth/gingiva Overall: normal dentition 09/21/2016 None Full Exam - General 1994 Respiratory auscultation Overall: breath sounds clear bilaterally 09/21/2016 None Full Exam - General 1994 Respiratory respiratory effort/rhythm Overall: no retractions 09/21/2016 None Full Exam - General 1994 Respiratory respiratory effort/rhythm Overall: normal rate 09/21/2016 None Full Exam - General 1994 Cardiovascular extremities Overall: no clubbing 09/21/2016 cording noted right calf -improved Full Exam - General 1994 Cardiovascular auscultation of heart Overall: regular rate 09/21/2016 None Full Exam - General 1994 Cardiovascular auscultation of heart Overall: normal heart sounds 09/21/2016 None Full Exam - General 1994 Abdomen abdominal exam Overall: no tenderness 09/21/2016 None Full Exam - General 1994 Abdomen abdominal exam Overall: normal bowel sounds 09/21/2016 None Full Exam - General 1994 Lymphatic neck nodes Overall: anterior cervical chain benign 09/21/2016 None Full Exam - General 1994 Lymphatic neck nodes Overall: posterior cervical chain benign 09/21/2016 None Full Exam - General 1994 Musculoskeletal lower extremity Palpation - knee: crepitus 09/21/2016 None Full Exam - General 1994 Neurologic cranial nerves Overall: crainial nerves 2 - 12 grossly intact 09/21/2016 None Full Exam - General 1994 Psychiatric orientation/consciousness Overall: oriented to person, place and time 09/21/2016 None Full Exam - General 1994 Psychiatric mood and affect Overall: normal mood and affect 09/21/2016 None Full Exam - General 1994 Constitutional general appearance Assistive Device: cane 09/21/2016 None Full Exam - General 1994 Neurologic gait Conventional walking: unsteady 09/21/2016 None Full Exam - General 1994 Constitutional general appearance Hygiene/Attention to Grooming: good hygiene 09/08/2016 None Full Exam - General 1994 Eyes conjunctiva /eyelids Overall: conjunctiva clear 09/08/2016 None Full Exam - General 1994 Eyes conjunctiva /eyelids Overall: eyelids normal 09/08/2016 None Full Exam - General 1994 Eyes pupils and irises Overall: pupils equal, round, reactive to light and accomodation 09/08/2016 None Full Exam - General 1994 Ears/Nose/Throat lips/teeth/gingiva Overall: benign lips 09/08/2016 None Full Exam - General 1994 Ears/Nose/Throat lips/teeth/gingiva Overall: normal dentition 09/08/2016 None Full Exam - General 1994 Respiratory auscultation Overall: breath sounds clear bilaterally 09/08/2016 None Full Exam - General 1994 Respiratory respiratory effort/rhythm Overall: no retractions 09/08/2016 None Full Exam - General 1994 Respiratory respiratory effort/rhythm Overall: normal rate 09/08/2016 None Full Exam - General 1994 Cardiovascular extremities Overall: no clubbing 09/08/2016 None Full Exam - General 1994 Cardiovascular auscultation of heart Overall: regular rate 09/08/2016 None Full Exam - General 1994 Neurologic cranial nerves Overall: crainial nerves 2 - 12 grossly intact 09/08/2016 None Full Exam - General 1994 Psychiatric orientation/consciousness Overall: oriented to person, place and time 09/08/2016 None Full Exam - General 1994 Psychiatric mood and affect Overall: normal mood and affect 09/08/2016 None Full Exam - General 1994 Constitutional general appearance Overall: well developed 09/08/2016 None Full Exam - General 1994 Constitutional general appearance Overall: well nourished 09/08/2016 None Full Exam - General 1994 Constitutional general appearance Overall: in no acute distress 09/08/2016 None Full Exam - General 1994 Ears/Nose/Throat oral cavity/pharynx/larynx Overall: oral mucosa clear 09/08/2016 None Full Exam - General 1994 Ears/Nose/Throat oral cavity/pharynx/larynx Overall: oropharyngeal mucosa clear 09/08/2016 None Full Exam - General 1994 Cardiovascular auscultation of heart Rhythm: regular rhythm 09/08/2016 None Full Exam - General 1994 Abdomen abdominal exam Overall: no tenderness 09/08/2016 None Full Exam - General 1994 Abdomen abdominal exam Overall: normal bowel sounds 09/08/2016 None Full Exam - ENT Constitutional general appearance Overall: well nourished 09/07/2016 None Full Exam - ENT Constitutional general appearance Overall: well developed 09/07/2016 None Full Exam - ENT Constitutional general appearance Overall: in no acute distress 09/07/2016 None Full Exam - ENT Ears/Nose/Throat otoscopic exam Overall: external auditory canals normal 09/07/2016 None Full Exam - ENT Ears/Nose/Throat otoscopic exam Left tympanic membrane: air -fluid level 09/07/2016 None Full Exam - ENT Ears/Nose/Throat otoscopic exam Right tympanic membrane: air-fluid level 09/07/2016 None Full Exam - ENT Ears/Nose/Throat lips/ teeth/gingiva Overall: benign lips 09/07/2016 None Full Exam - ENT Ears/Nose/Throat oropharynx Overall: oral mucosa clear 09/07/2016 None Full Exam - ENT Ears/Nose/Throat oropharynx Posterior Pharynx: clear post nasal drainage 09/07/2016 None Full Exam - ENT Ears/Nose/Throat oropharynx Posterior Pharynx: erythema 09/07/2016 None Full Exam - ENT Respiratory inspection Overall: no retractions 09/07/2016 None Full Exam - ENT Respiratory inspection Overall: normal rate 05/2016 None Full Exam - ENT Respiratory auscultation Overall: breath sounds clear bilaterally 09/07/2016 None Full Exam - ENT Cardiovascular auscultation of heart Rate: normal rate 09/07/2016 None Full Exam - ENT Cardiovascular auscultation of heart Rhythm: regular rhythm 09/07/2016 None Full Exam - ENT Lymphatic palpation of lymph nodes Overall: anterior cervical chain benign 09/07/2016 None Full Exam - ENT Lymphatic palpation of lymph nodes Overall: posterior cervical chain benign 09/07/2016 None Full Exam - ENT Neurologic mood and affect Overall: normal mood 09/07/2016 None Full Exam - ENT Neurologic mood and affect Overall: normal affect 09/07/2016 None Full Exam - ENT Neurologic orientation Overall: oriented to person, place and time 09/07/2016 None Full Exam - ENT Respiratory auscultation Right lower lung field: rhonchi 09/07/2016 None Full Exam - General 1994 Constitutional general appearance Development: well developed 08/22/2016 None Full Exam - General 1994 Constitutional general appearance Development: appears stated age 1108/22/2016 None Full Exam - General 1994 Constitutional general appearance Hygiene/Attention to Grooming: good hygiene 08/22/2016 None Full Exam - General 1994 Eyes conjunctiva /eyelids Overall: conjunctiva clear 08/22/2016 None Full Exam - General 1994 Eyes conjunctiva /eyelids Overall: cornea clear 08/22/2016 None Full Exam - General 1994 Eyes conjunctiva /eyelids Overall: eyelids normal 08/22/2016 None Full Exam - General 1994 Eyes pupils and irises Overall: pupils equal, round, reactive to light and accomodation 08/22/2016 None Full Exam - General 1994 Ears/Nose/Throat lips/teeth/gingiva Overall: benign lips 08/22/2016 None Full Exam - General 1994 Ears/Nose/Throat lips/teeth/gingiva Overall: normal dentition 08/22/2016 None Full Exam - General 1994 Respiratory auscultation Overall: breath sounds clear bilaterally 08/22/2016 None Full Exam - General 1994 Respiratory respiratory effort/rhythm Overall: no retractions 08/22/2016 None Full Exam - General 1994 Respiratory respiratory effort/rhythm Overall: normal rate 08/22/2016 None Full Exam - General 1994 Cardiovascular extremities Overall: no clubbing 08/22/2016 cording noted right calf Full Exam - General 1994 Cardiovascular auscultation of heart Overall: regular rate 08/22/2016 None Full Exam - General 1994 Cardiovascular auscultation of heart Overall: normal heart sounds 08/22/2016 None Full Exam - General 1994 Abdomen abdominal exam Overall: no tenderness 08/22/2016 None Full Exam - General 1994 Abdomen abdominal exam Overall: normal bowel sounds 08/22/2016 None Full Exam - General 1994 Lymphatic neck nodes Overall: anterior cervical chain benign 08/22/2016 None Full Exam - General 1994 Lymphatic neck nodes Overall: posterior cervical chain benign 08/22/2016 None Full Exam - General 1994 Musculoskeletal lower extremity Palpation - knee: crepitus 08/22/2016 None Full Exam - General 1994 Neurologic cranial nerves Overall: crainial nerves 2 - 12 grossly intact 08/22/2016 None Full Exam - General 1994 Psychiatric orientation/consciousness Overall: oriented to person, place and time 08/22/2016 None Full Exam - General 1994 Psychiatric mood and affect Overall: normal mood and affect 08/22/2016 None Full Exam - General 1994 Integument inspection of skin Location: left leg 08/22/2016 bruise left inner thigh Full Exam - General 1994 Constitutional general appearance Hygiene/Attention to Grooming: good hygiene 08/11/2016 None Full Exam - General 1994 Eyes conjunctiva /eyelids Overall: conjunctiva clear 08/11/2016 None Full Exam - General 1994 Eyes conjunctiva /eyelids Overall: eyelids normal 08/11/2016 None Full Exam - General 1994 Ears/Nose/Throat lips/teeth/gingiva Overall: benign lips 08/11/2016 None Full Exam - General 1994 Respiratory respiratory effort/rhythm Overall: no retractions 08/11/2016 None Full Exam - General 1994 Respiratory respiratory effort/rhythm Overall: normal rate 08/11/2016 None Full Exam - General 1994 Musculoskeletal lower extremity Palpation - knee: crepitus 08/11/2016 None Full Exam - General 1994 Neurologic cranial nerves Overall: crainial nerves 2 - 12 grossly intact 08/11/2016 None Full Exam - General 1994 Psychiatric orientation/consciousness Overall: oriented to person, place and time 08/11/2016 None Full Exam - General 1994 Psychiatric mood and affect Overall: normal mood and affect 08/11/2016 None Full Exam - General 1994 Constitutional general appearance Overall: well developed 08/11/2016 None Full Exam - General 1994 Constitutional general appearance Overall: in no acute distress 08/11/2016 None Full Exam - General 1994 Constitutional general appearance Overall: well nourished 08/11/2016 None Full Exam - General 1994 Ears/Nose/Throat oral cavity/pharynx/larynx Overall: oral mucosa clear 08/11/2016 None Full Exam - General 1994 Musculoskeletal lower extremity ROM - knee: pain with flexion 08/11/2016 None Full Exam - General 1994 Musculoskeletal lower extremity ROM - knee: crepitus 08/11/2016 None Full Exam - General 1994 Psychiatric appearance Overall: well-groomed, good eye contact 08/11/2016 None Full Exam - General 1994 Constitutional general appearance Development: well developed 07/18/2016 None Full Exam - General 1994 Constitutional general appearance Development: appears stated age 1007/18/2016 None Full Exam - General 1994 Constitutional general appearance Hygiene/Attention to Grooming: good hygiene 07/18/2016 None Full Exam - General 1994 Eyes conjunctiva /eyelids Overall: conjunctiva clear 07/18/2016 None Full Exam - General 1994 Eyes conjunctiva /eyelids Overall: cornea clear 07/18/2016 None Full Exam - General 1994 Eyes conjunctiva /eyelids Overall: eyelids normal 07/18/2016 None Full Exam - General 1994 Eyes pupils and irises Overall: pupils equal, round, reactive to light and accomodation 07/18/2016 None Full Exam - General 1994 Ears/Nose/Throat lips/teeth/gingiva Overall: benign lips 07/18/2016 None Full Exam - General 1994 Ears/Nose/Throat lips/teeth/gingiva Overall: normal dentition 07/18/2016 None Full Exam - General 1994 Respiratory auscultation Overall: breath sounds clear bilaterally 07/18/2016 None Full Exam - General 1994 Respiratory respiratory effort/rhythm Overall: no retractions 07/18/2016 None Full Exam - General 1994 Respiratory respiratory effort/rhythm Overall: normal rate 07/18/2016 None Full Exam - General 1994 Cardiovascular extremities Overall: no clubbing 07/18/2016 cording noted right calf up to right inner thigh Full Exam - General 1994 Cardiovascular auscultation of heart Overall: regular rate 07/18/2016 None Full Exam - General 1994 Cardiovascular auscultation of heart Overall: normal heart sounds 07/18/2016 None Full Exam - General 1994 Musculoskeletal lower extremity Palpation - knee: crepitus 07/18/2016 None Full Exam - General 1994 Psychiatric orientation/consciousness Overall: oriented to person, place and time 07/18/2016 None Full Exam - General 1994 Psychiatric mood and affect Overall: normal mood and affect 07/18/2016 None Full Exam - General 1994 Constitutional general appearance Overall: well developed 06/07/2016 None Full Exam - General 1994 Constitutional general appearance Overall: in no acute distress 06/07/2016 None Full Exam - General 1994 Constitutional general appearance Overall: well nourished 06/07/2016 None Full Exam - General 1994 Eyes conjunctiva /eyelids Overall: conjunctiva clear 06/07/2016 None Full Exam - General 1994 Eyes conjunctiva /eyelids Overall: cornea clear 06/07/2016 None Full Exam - General 1994 Eyes conjunctiva /eyelids Overall: eyelids normal 06/07/2016 None Full Exam - General 1994 Ears/Nose/Throat lips/teeth/gingiva Overall: benign lips 06/07/2016 None Full Exam - General 1994 Ears/Nose/Throat lips/teeth/gingiva Overall: normal dentition 06/07/2016 None Full Exam - General 1994 Respiratory respiratory effort/rhythm Overall: no retractions 06/07/2016 None Full Exam - General 1994 Respiratory respiratory effort/rhythm Overall: normal rate 06/07/2016 None Full Exam - General 1994 Integument inspection of skin Overall: no rash, lesions 06/07/2016 None Full Exam - General 1994 Neurologic cranial nerves Overall: crainial nerves 2 - 12 grossly intact 06/07/2016 None Full Exam - General 1994 Psychiatric orientation/consciousness Overall: oriented to person, place and time 06/07/2016 None Full Exam - General 1994 Psychiatric mood and affect Overall: normal mood and affect 06/07/2016 None Full Exam - General 1994 Psychiatric appearance Overall: well-groomed, good eye contact 06/07/2016 None Full Exam - General 1994 Psychiatric speech Overall: normal quality, no aphasia 06/07/2016 None Full Exam - General 1994 Psychiatric speech Overall: normal quality, quantity, rate 06/07/2016 None Full Exam - General 1994 Ears/Nose/Throat oral cavity/pharynx/larynx Overall: oral mucosa clear 06/07/2016 None Full Exam - General 1994 Respiratory auscultation Overall: breath sounds clear bilaterally 06/07/2016 None Full Exam - General 1994 Cardiovascular auscultation of heart Rhythm: irregularly irregular rhythm 06/07/2016 occasional skipped beats Full Exam - General 1994 Lymphatic neck nodes Overall: anterior cervical chain benign 06/07/2016 None Full Exam - General 1994 Lymphatic neck nodes Overall: posterior cervical chain benign 06/07/2016 None Full Exam - General 1994 Eyes conjunctiva /eyelids Overall: conjunctiva clear 05/25/2016 None Full Exam - General 1994 Eyes conjunctiva /eyelids Overall: cornea clear 05/25/2016 None Full Exam - General 1994 Eyes conjunctiva /eyelids Overall: eyelids normal 05/25/2016 None Full Exam - General 1994 Ears/Nose/Throat lips/teeth/gingiva Overall: benign lips 05/25/2016 None Full Exam - General 1994 Ears/Nose/Throat lips/teeth/gingiva Overall: normal dentition 05/25/2016 None Full Exam - General 1994 Respiratory respiratory effort/rhythm Overall: no retractions 05/25/2016 None Full Exam - General 1994 Respiratory respiratory effort/rhythm Overall: normal rate 05/25/2016 None Full Exam - General 1994 Cardiovascular extremities Overall: no clubbing 05/25/2016 cording noted right calf up to right inner thigh Full Exam - General 1994 Neurologic cranial nerves Overall: crainial nerves 2 - 12 grossly intact 05/25/2016 None Full Exam - General 1994 Psychiatric orientation/consciousness Overall: oriented to person, place and time 05/25/2016 None Full Exam - General 1994 Psychiatric mood and affect Overall: normal mood and affect 05/25/2016 None Full Exam - General 1994 Constitutional general appearance Overall: well developed 05/25/2016 None Full Exam - General 1994 Constitutional general appearance Overall: in no acute distress 05/25/2016 None Full Exam - General 1994 Constitutional general appearance Overall: well nourished 05/25/2016 None Full Exam - General 1994 Integument inspection of skin Overall: no rash, lesions 05/25/2016 None Full Exam - General 1994 Psychiatric appearance Overall: well-groomed, good eye contact 05/25/2016 None Full Exam - General 1994 Psychiatric speech Overall: normal quality, no aphasia 05/25/2016 None Full Exam - General 1994 Psychiatric speech Overall: normal quality, quantity, rate 05/25/2016 None Full Exam - General 1994 Constitutional general appearance Development: well developed 05/05/2016 None Full Exam - General 1994 Constitutional general appearance Development: appears stated age 0805/05/2016 None Full Exam - General 1994 Constitutional general appearance Hygiene/Attention to Grooming: good hygiene 05/05/2016 None Full Exam - General 1994 Eyes conjunctiva /eyelids Overall: conjunctiva clear 05/05/2016 None Full Exam - General 1994 Eyes conjunctiva /eyelids Overall: cornea clear 05/05/2016 None Full Exam - General 1994 Eyes conjunctiva /eyelids Overall: eyelids normal 05/05/2016 None Full Exam - General 1994 Eyes pupils and irises Overall: pupils equal, round, reactive to light and accomodation 05/05/2016 None Full Exam - General 1994 Ears/Nose/Throat lips/teeth/gingiva Overall: benign lips 05/05/2016 None Full Exam - General 1994 Ears/Nose/Throat lips/teeth/gingiva Overall: normal dentition 05/05/2016 None Full Exam - General 1994 Respiratory auscultation Overall: breath sounds clear bilaterally 05/05/2016 None Full Exam - General 1994 Respiratory respiratory effort/rhythm Overall: no retractions 05/05/2016 None Full Exam - General 1994 Respiratory respiratory effort/rhythm Overall: normal rate 05/05/2016 None Full Exam - General 1994 Cardiovascular auscultation of heart Overall: regular rate 05/05/2016 None Full Exam - General 1994 Cardiovascular auscultation of heart Overall: normal heart sounds 05/05/2016 None Full Exam - General 1994 Abdomen abdominal exam Overall: no tenderness 05/05/2016 None Full Exam - General 1994 Abdomen abdominal exam Overall: normal bowel sounds 05/05/2016 None Full Exam - General 1994 Lymphatic neck nodes Overall: anterior cervical chain benign 05/05/2016 None Full Exam - General 1994 Lymphatic neck nodes Overall: posterior cervical chain benign 05/05/2016 None Full Exam - General 1994 Musculoskeletal lower extremity Palpation - knee: crepitus 05/05/2016 None Full Exam - General 1994 Integument inspection of skin Overall: few scattered moles, no gross abnormalities 05/05/2016 None Full Exam - General 1994 Neurologic cranial nerves Overall: crainial nerves 2 - 12 grossly intact 05/05/2016 None Full Exam - General 1994 Psychiatric orientation/consciousness Overall: oriented to person, place and time 05/05/2016 None Full Exam - General 1994 Psychiatric mood and affect Overall: normal mood and affect 05/05/2016 None Full Exam - General 1994 Cardiovascular extremities Overall: no clubbing 05/05/2016 cording noted right calf up to right inner thigh Full Exam - Dermatology Constitutional general appearance Overall: well nourished 04/07/2016 None Full Exam - Dermatology Constitutional general appearance Overall: well developed 04/07/2016 None Full Exam - Dermatology Constitutional general appearance Overall: in no acute distress 04/07/2016 None Full Exam - Dermatology Integument insp & palp - right lower extremity Location: on the thigh 04/07/2016 None Full Exam - Dermatology Integument insp & palp - right lower extremity Location: on the calf 04/07/2016 cording noted right calf up to right inner thigh-redness resolved Full Exam - Dermatology Integument insp & palp - right lower extremity Color: erythematous 04/07/2016 None Full Exam - Dermatology Psychiatric orientation Overall: oriented to person, place and time 04/07/2016 None Full Exam - Dermatology Respiratory auscultation Overall: breath sounds clear bilaterally 04/07/2016 None Full Exam - Dermatology Respiratory respiratory effort/rhythm Overall: no retractions 04/07/2016 None Full Exam - Dermatology Respiratory respiratory effort/rhythm Overall: normal rate 04/07/2016 None Full Exam - Dermatology Cardiovascular peripheral vascular system Varicosities the right calf 04/07/2016 None Full Exam - Dermatology Musculoskeletal left lower extremity Palpation - left knee: crepitus 04/07/2016 None Full Exam - Dermatology Constitutional general appearance Overall: well nourished 03/24/2016 None Full Exam - Dermatology Constitutional general appearance Overall: well developed 03/24/2016 None Full Exam - Dermatology Constitutional general appearance Overall: in no acute distress 03/24/2016 None Full Exam - Dermatology Integument insp & palp - right lower extremity Location: on the calf 03/24/2016 cording noted right calf up to right inner thigh-redness improved, tenderness improved Full Exam - Dermatology Integument insp & palp - right lower extremity Location: on the thigh 03/24/2016 None Full Exam - Dermatology Integument insp & palp - right lower extremity Color: erythematous 03/24/2016 None Full Exam - General 1994 Constitutional general appearance Development: well developed 03/20/2016 None Full Exam - General 1994 Constitutional general appearance Development: appears stated age 0603/20/2016 None Full Exam - General 1994 Constitutional general appearance Hygiene/Attention to Grooming: good hygiene 03/20/2016 None Full Exam - General 1994 Eyes conjunctiva /eyelids Overall: conjunctiva clear 03/20/2016 None Full Exam - General 1994 Eyes conjunctiva /eyelids Overall: cornea clear 03/20/2016 None Full Exam - General 1994 Eyes conjunctiva /eyelids Overall: eyelids normal 03/20/2016 None Full Exam - General 1994 Eyes pupils and irises Overall: pupils equal, round, reactive to light and accomodation 03/20/2016 None Full Exam - General 1994 Ears/Nose/Throat lips/teeth/gingiva Overall: benign lips 03/20/2016 None Full Exam - General 1994 Ears/Nose/Throat lips/teeth/gingiva Overall: normal dentition 03/20/2016 None Full Exam - General 1994 Respiratory auscultation Overall: breath sounds clear bilaterally 03/20/2016 None Full Exam - General 1994 Respiratory respiratory effort/rhythm Overall: no retractions 03/20/2016 None Full Exam - General 1994 Respiratory respiratory effort/rhythm Overall: normal rate 03/20/2016 None Full Exam - General 1994 Cardiovascular extremities Overall: no clubbing 03/20/2016 None Full Exam - General 1994 Cardiovascular auscultation of heart Overall: regular rate 03/20/2016 None Full Exam - General 1994 Cardiovascular auscultation of heart Overall: normal heart sounds 03/20/2016 None Full Exam - General 1994 Abdomen abdominal exam Overall: no tenderness 03/20/2016 None Full Exam - General 1994 Abdomen abdominal exam Overall: normal bowel sounds 03/20/2016 None Full Exam - General 1994 Lymphatic neck nodes Overall: anterior cervical chain benign 03/20/2016 None Full Exam - General 1994 Lymphatic neck nodes Overall: posterior cervical chain benign 03/20/2016 None Full Exam - General 1994 Integument inspection of skin Overall: few scattered moles, no gross abnormalities 03/20/2016 None Full Exam - General 1994 Neurologic cranial nerves Overall: crainial nerves 2 - 12 grossly intact 03/20/2016 None Full Exam - General 1994 Psychiatric orientation/consciousness Overall: oriented to person, place and time 03/20/2016 None Full Exam - General 1994 Psychiatric mood and affect Overall: normal mood and affect 03/20/2016 None Full Exam - General 1994 Musculoskeletal lower extremity Palpation - knee: crepitus 03/20/2016 None Full Exam - General 1994 Integument inspection of skin Pigmentation: erythematous 03/20/2016 right left erythematous at abrasion site, and also at varicose vein streaking up the vein. Full Exam - General 1994 Constitutional general appearance Development: well developed 03/16/2016 None Full Exam - General 1994 Constitutional general appearance Development: appears stated age 0603/16/2016 None Full Exam - General 1994 Constitutional general appearance Hygiene/Attention to Grooming: good hygiene 03/16/2016 None Full Exam - General 1994 Eyes conjunctiva /eyelids Overall: conjunctiva clear 03/16/2016 None Full Exam - General 1994 Eyes conjunctiva /eyelids Overall: cornea clear 03/16/2016 None Full Exam - General 1994 Eyes conjunctiva /eyelids Overall: eyelids normal 03/16/2016 None Full Exam - General 1994 Ears/Nose/Throat lips/teeth/gingiva Overall: benign lips 03/16/2016 None Full Exam - General 1994 Ears/Nose/Throat lips/teeth/gingiva Overall: normal dentition 03/16/2016 None Full Exam - General 1994 Respiratory auscultation Overall: breath sounds clear bilaterally 03/16/2016 None Full Exam - General 1994 Respiratory respiratory effort/rhythm Overall: no retractions 03/16/2016 None Full Exam - General 1994 Respiratory respiratory effort/rhythm Overall: normal rate 03/16/2016 None Full Exam - General 1994 Neurologic cranial nerves Overall: crainial nerves 2 - 12 grossly intact 03/16/2016 None Full Exam - General 1994 Psychiatric orientation/consciousness Overall: oriented to person, place and time 03/16/2016 None Full Exam - General 1994 Psychiatric mood and affect Overall: normal mood and affect 03/16/2016 None Full Exam - General 1994 Integument inspection of skin Location: right leg 03/16/2016 None Full Exam - General 1994 Integument inspection of skin Pigmentation: erythematous 03/16/2016 scrape, warmth, but no edema noted Full Exam - General 1994 Constitutional general appearance Development: well developed 03/06/2016 None Full Exam - General 1994 Constitutional general appearance Development: appears stated age 0603/06/2016 None Full Exam - General 1994 Constitutional general appearance Hygiene/Attention to Grooming: good hygiene 03/06/2016 None Full Exam - General 1994 Eyes conjunctiva /eyelids Overall: conjunctiva clear 03/06/2016 None Full Exam - General 1994 Eyes conjunctiva /eyelids Overall: cornea clear 03/06/2016 None Full Exam - General 1994 Eyes conjunctiva /eyelids Overall: eyelids normal 03/06/2016 None Full Exam - General 1994 Eyes pupils and irises Overall: pupils equal, round, reactive to light and accomodation 03/06/2016 None Full Exam - General 1994 Ears/Nose/Throat lips/teeth/gingiva Overall: benign lips 03/06/2016 None Full Exam - General 1994 Ears/Nose/Throat lips/teeth/gingiva Overall: normal dentition 03/06/2016 None Full Exam - General 1994 Respiratory auscultation Overall: breath sounds clear bilaterally 03/06/2016 None Full Exam - General 1994 Respiratory respiratory effort/rhythm Overall: no retractions 03/06/2016 None Full Exam - General 1994 Respiratory respiratory effort/rhythm Overall: normal rate 03/06/2016 None Full Exam - General 1994 Cardiovascular extremities Overall: no clubbing 03/06/2016 None Full Exam - General 1994 Cardiovascular auscultation of heart Overall: regular rate 03/06/2016 None Full Exam - General 1994 Cardiovascular auscultation of heart Overall: normal heart sounds 03/06/2016 None Full Exam - General 1994 Neurologic cranial nerves Overall: crainial nerves 2 - 12 grossly intact 03/06/2016 None Full Exam - General 1994 Psychiatric orientation/consciousness Overall: oriented to person, place and time 03/06/2016 None Full Exam - General 1994 Psychiatric mood and affect Overall: normal mood and affect 03/06/2016 None Full Exam - General 1994 Abdomen abdominal exam Overall: no tenderness 03/06/2016 None Full Exam - General 1994 Abdomen abdominal exam Overall: normal bowel sounds 03/06/2016 None Full Exam - General 1994 Lymphatic neck nodes Overall: anterior cervical chain benign 03/06/2016 None Full Exam - General 1994 Lymphatic neck nodes Overall: posterior cervical chain benign 03/06/2016 None Full Exam - General 1994 Integument inspection of skin Overall: few scattered moles, no gross abnormalities 03/06/2016 None Full Exam - General 1994 Constitutional general appearance Development: well developed 02/29/2016 None Full Exam - General 1994 Constitutional general appearance Development: appears stated age 0502/29/2016 None Full Exam - General 1994 Constitutional general appearance Hygiene/Attention to Grooming: good hygiene 02/29/2016 None Full Exam - General 1994 Eyes conjunctiva /eyelids Overall: conjunctiva clear 02/29/2016 None Full Exam - General 1994 Eyes conjunctiva /eyelids Overall: cornea clear 02/29/2016 None Full Exam - General 1994 Eyes conjunctiva /eyelids Overall: eyelids normal 02/29/2016 None Full Exam - General 1994 Eyes pupils and irises Overall: pupils equal, round, reactive to light and accomodation 02/29/2016 None Full Exam - General 1994 Ears/Nose/Throat otoscopic exam Overall: external auditory canals clear 02/29/2016 None Full Exam - General 1994 Ears/Nose/Throat otoscopic exam Tympanic membrane: air- fluid level 02/29/2016 None Full Exam - General 1994 Ears/Nose/Throat internal nose Sinus tenderness: left maxillary 02/29/2016 None Full Exam - General 1994 Ears/Nose/Throat internal nose Sinus tenderness: right maxillary 02/29/2016 None Full Exam - General 1994 Ears/Nose/Throat lips/teeth/gingiva Overall: benign lips 02/29/2016 None Full Exam - General 1994 Ears/Nose/Throat lips/teeth/gingiva Overall: normal dentition 02/29/2016 None Full Exam - General 1994 Ears/Nose/Throat oral cavity/pharynx/larynx Overall: oral mucosa clear 02/29/2016 None Full Exam - General 1994 Ears/Nose/Throat oral cavity/pharynx/larynx Posterior Pharynx: clear post nasal drainage 02/29/2016 None Full Exam - General 1994 Respiratory respiratory effort/rhythm Overall: no retractions 02/29/2016 None Full Exam - General 1994 Respiratory respiratory effort/rhythm Overall: normal rate 02/29/2016 None Full Exam - General 1994 Cardiovascular extremities Overall: no clubbing 02/29/2016 None Full Exam - General 1994 Cardiovascular auscultation of heart Overall: regular rate 02/29/2016 None Full Exam - General 1994 Cardiovascular auscultation of heart Overall: normal heart sounds 02/29/2016 None Full Exam - General 1994 Abdomen abdominal exam Overall: no tenderness 02/29/2016 None Full Exam - General 1994 Abdomen abdominal exam Overall: normal bowel sounds 02/29/2016 None Full Exam - General 1994 Neurologic cranial nerves Overall: crainial nerves 2 - 12 grossly intact 02/29/2016 None Full Exam - General 1994 Psychiatric orientation/consciousness Overall: oriented to person, place and time 02/29/2016 None Full Exam - General 1994 Psychiatric mood and affect Overall: normal mood and affect 02/29/2016 None Full Exam - General 1994 Ears/Nose/Throat otoscopic exam Tympanic membrane: erythematous 02/29/2016 None Full Exam - General 1994 Ears/Nose/Throat internal nose Sinus tenderness: right frontal 02/29/2016 None Full Exam - General 1994 Respiratory auscultation Diffuse: diminished 02/29/2016 None Full Exam - General 1994 Constitutional general appearance Development: well developed 02/01/2016 None Full Exam - General 1994 Constitutional general appearance Development: appears stated age 0502/01/2016 None Full Exam - General 1994 Constitutional general appearance Hygiene/Attention to Grooming: good hygiene 02/01/2016 None Full Exam - General 1994 Eyes conjunctiva /eyelids Overall: conjunctiva clear 02/01/2016 None Full Exam - General 1994 Eyes conjunctiva /eyelids Overall: cornea clear 02/01/2016 None Full Exam - General 1994 Eyes conjunctiva /eyelids Overall: eyelids normal 02/01/2016 None Full Exam - General 1994 Eyes pupils and irises Overall: pupils equal, round, reactive to light and accomodation 02/01/2016 None Full Exam - General 1994 Ears/Nose/Throat lips/teeth/gingiva Overall: benign lips 02/01/2016 None Full Exam - General 1994 Ears/Nose/Throat lips/teeth/gingiva Overall: normal dentition 02/01/2016 None Full Exam - General 1994 Respiratory auscultation Overall: breath sounds clear bilaterally 02/01/2016 None Full Exam - General 1994 Respiratory respiratory effort/rhythm Overall: no retractions 02/01/2016 None Full Exam - General 1994 Respiratory respiratory effort/rhythm Overall: normal rate 02/01/2016 None Full Exam - General 1994 Cardiovascular extremities Overall: no clubbing 02/01/2016 None Full Exam - General 1994 Cardiovascular auscultation of heart Overall: regular rate 02/01/2016 None Full Exam - General 1994 Cardiovascular auscultation of heart Overall: normal heart sounds 02/01/2016 None Full Exam - General 1994 Neurologic cranial nerves Overall: crainial nerves 2 - 12 grossly intact 02/01/2016 None Full Exam - General 1994 Psychiatric orientation/consciousness Overall: oriented to person, place and time 02/01/2016 None Full Exam - General 1994 Psychiatric mood and affect Overall: normal mood and affect 02/01/2016 None Full Exam - General 1994 Constitutional general appearance Development: well developed 01/19/2016 None Full Exam - General 1994 Constitutional general appearance Development: appears stated age 0401/19/2016 None Full Exam - General 1994 Constitutional general appearance Hygiene/Attention to Grooming: good hygiene 01/19/2016 None Full Exam - General 1994 Eyes conjunctiva /eyelids Overall: conjunctiva clear 01/19/2016 None Full Exam - General 1994 Eyes conjunctiva /eyelids Overall: cornea clear 01/19/2016 None Full Exam - General 1994 Eyes conjunctiva /eyelids Overall: eyelids normal 01/19/2016 None Full Exam - General 1994 Eyes pupils and irises Overall: pupils equal, round, reactive to light and accomodation 01/19/2016 None Full Exam - General 1994 Ears/Nose/Throat lips/teeth/gingiva Overall: benign lips 01/19/2016 None Full Exam - General 1994 Ears/Nose/Throat lips/teeth/gingiva Overall: normal dentition 01/19/2016 None Full Exam - General 1994 Respiratory auscultation Overall: breath sounds clear bilaterally 01/19/2016 None Full Exam - General 1994 Respiratory respiratory effort/rhythm Overall: no retractions 01/19/2016 None Full Exam - General 1994 Respiratory respiratory effort/rhythm Overall: normal rate 01/19/2016 None Full Exam - General 1994 Cardiovascular extremities Overall: no clubbing 01/19/2016 None Full Exam - General 1994 Cardiovascular auscultation of heart Overall: regular rate 01/19/2016 None Full Exam - General 1994 Cardiovascular auscultation of heart Overall: normal heart sounds 01/19/2016 None Full Exam - General 1994 Neurologic cranial nerves Overall: crainial nerves 2 - 12 grossly intact 01/19/2016 None Full Exam - General 1994 Psychiatric orientation/consciousness Overall: oriented to person, place and time 01/19/2016 None Full Exam - General 1994 Psychiatric mood and affect Overall: normal mood and affect 01/19/2016 None Full Exam - General 1994 Ears/Nose/Throat internal nose Drainage: clear 01/19/2016 None Full Exam - General 1994 Ears/Nose/Throat oral cavity/pharynx/larynx Posterior Pharynx: clear post nasal drainage 01/19/2016 None Full Exam - General 1994 Constitutional general appearance Development: well developed 01/11/2016 None Full Exam - General 1994 Constitutional general appearance Development: appears stated age 0401/11/2016 None Full Exam - General 1994 Constitutional general appearance Hygiene/Attention to Grooming: good hygiene 01/11/2016 None Full Exam - General 1994 Eyes conjunctiva /eyelids Overall: conjunctiva clear 01/11/2016 None Full Exam - General 1994 Eyes conjunctiva /eyelids Overall: cornea clear 01/11/2016 None Full Exam - General 1994 Eyes conjunctiva /eyelids Overall: eyelids normal 01/11/2016 None Full Exam - General 1994 Eyes pupils and irises Overall: pupils equal, round, reactive to light and accomodation 01/11/2016 None Full Exam - General 1994 Ears/Nose/Throat lips/teeth/gingiva Overall: benign lips 01/11/2016 None Full Exam - General 1994 Ears/Nose/Throat lips/teeth/gingiva Overall: normal dentition 01/11/2016 None Full Exam - General 1994 Respiratory respiratory effort/rhythm Overall: no retractions 01/11/2016 None Full Exam - General 1994 Respiratory respiratory effort/rhythm Overall: normal rate 01/11/2016 None Full Exam - General 1994 Cardiovascular extremities Overall: no clubbing 01/11/2016 None Full Exam - General 1994 Cardiovascular auscultation of heart Overall: regular rate 01/11/2016 None Full Exam - General 1994 Cardiovascular auscultation of heart Overall: normal heart sounds 01/11/2016 None Full Exam - General 1994 Abdomen abdominal exam Overall: no tenderness 01/11/2016 None Full Exam - General 1994 Abdomen abdominal exam Overall: normal bowel sounds 01/11/2016 None Full Exam - General 1994 Musculoskeletal lower extremity Palpation - knee: crepitus 01/11/2016 None Full Exam - General 1994 Neurologic cranial nerves Overall: crainial nerves 2 - 12 grossly intact 01/11/2016 None Full Exam - General 1994 Psychiatric orientation/consciousness Overall: oriented to person, place and time 01/11/2016 None Full Exam - General 1994 Psychiatric mood and affect Overall: normal mood and affect 01/11/2016 None Full Exam - General 1994 Ears/Nose/Throat otoscopic exam Overall: external auditory canals clear 01/11/2016 None Full Exam - General 1994 Ears/Nose/Throat otoscopic exam Tympanic membrane: air- fluid level 01/11/2016 None Full Exam - General 1994 Ears/Nose/Throat oral cavity/pharynx/larynx Overall: oral mucosa clear 01/11/2016 None Full Exam - General 1994 Ears/Nose/Throat oral cavity/pharynx/larynx Posterior Pharynx: clear post nasal drainage 01/11/2016 None Full Exam - General 1994 Ears/Nose/Throat oral cavity/pharynx/larynx Oropharynx: erythema 01/11/2016 mild Full Exam - General 1994 Respiratory auscultation Lower lung field: expiratory wheezes 01/11/2016 None Full Exam - General 1994 Respiratory auscultation Lower lung field: rhonchi 01/11/2016 None Full Exam - General 1994 Ears/Nose/Throat internal nose Sinus tenderness: right maxillary 01/11/2016 None Full Exam - General 1994 Ears/Nose/Throat internal nose Sinus tenderness: left maxillary 01/11/2016 None Full Exam - General 1994 Constitutional general appearance Development: well developed 12/09/2015 None Full Exam - General 1994 Constitutional general appearance Development: appears stated age 0312/09/2015 None Full Exam - General 1994 Constitutional general appearance Hygiene/Attention to Grooming: good hygiene 12/09/2015 None Full Exam - General 1994 Eyes conjunctiva /eyelids Overall: conjunctiva clear 12/09/2015 None Full Exam - General 1994 Eyes conjunctiva /eyelids Overall: cornea clear 12/09/2015 None Full Exam - General 1994 Eyes conjunctiva /eyelids Overall: eyelids normal 12/09/2015 None Full Exam - General 1994 Eyes pupils and irises Overall: pupils equal, round, reactive to light and accomodation 12/09/2015 None Full Exam - General 1994 Ears/Nose/Throat lips/teeth/gingiva Overall: benign lips 12/09/2015 None Full Exam - General 1994 Ears/Nose/Throat lips/teeth/gingiva Overall: normal dentition 12/09/2015 None Full Exam - General 1994 Respiratory auscultation Overall: breath sounds clear bilaterally 12/09/2015 None Full Exam - General 1994 Respiratory respiratory effort/rhythm Overall: no retractions 12/09/2015 None Full Exam - General 1994 Respiratory respiratory effort/rhythm Overall: normal rate 12/09/2015 None Full Exam - General 1994 Cardiovascular extremities Overall: no clubbing 12/09/2015 None Full Exam - General 1994 Cardiovascular auscultation of heart Overall: regular rate 12/09/2015 None Full Exam - General 1994 Cardiovascular auscultation of heart Overall: normal heart sounds 12/09/2015 None Full Exam - General 1994 Abdomen abdominal exam Overall: no tenderness 12/09/2015 None Full Exam - General 1994 Abdomen abdominal exam Overall: normal bowel sounds 12/09/2015 None Full Exam - General 1994 Musculoskeletal lower extremity Palpation - knee: crepitus 12/09/2015 None Full Exam - General 1994 Neurologic cranial nerves Overall: crainial nerves 2 - 12 grossly intact 12/09/2015 None Full Exam - General 1994 Psychiatric orientation/consciousness Overall: oriented to person, place and time 12/09/2015 None Full Exam - General 1994 Psychiatric mood and affect Overall: normal mood and affect 12/09/2015 None Full Exam - General 1994 Constitutional general appearance Development: well developed 10/27/2015 None Full Exam - General 1994 Constitutional general appearance Development: appears stated age 0110/27/2015 None Full Exam - General 1994 Constitutional general appearance Hygiene/Attention to Grooming: good hygiene 10/27/2015 None Full Exam - General 1994 Eyes conjunctiva /eyelids Overall: conjunctiva clear 10/27/2015 None Full Exam - General 1994 Eyes conjunctiva /eyelids Overall: cornea clear 10/27/2015 None Full Exam - General 1994 Eyes conjunctiva /eyelids Overall: eyelids normal 10/27/2015 None Full Exam - General 1994 Eyes pupils and irises Overall: pupils equal, round, reactive to light and accomodation 10/27/2015 None Full Exam - General 1994 Ears/Nose/Throat lips/teeth/gingiva Overall: benign lips 10/27/2015 None Full Exam - General 1994 Ears/Nose/Throat lips/teeth/gingiva Overall: normal dentition 10/27/2015 None Full Exam - General 1994 Respiratory auscultation Overall: breath sounds clear bilaterally 10/27/2015 None Full Exam - General 1994 Respiratory respiratory effort/rhythm Overall: no retractions 10/27/2015 None Full Exam - General 1994 Respiratory respiratory effort/rhythm Overall: normal rate 10/27/2015 None Full Exam - General 1994 Cardiovascular extremities Overall: no clubbing 10/27/2015 None Full Exam - General 1994 Cardiovascular auscultation of heart Overall: regular rate 10/27/2015 None Full Exam - General 1994 Cardiovascular auscultation of heart Overall: normal heart sounds 10/27/2015 None Full Exam - General 1994 Abdomen abdominal exam Overall: no tenderness 10/27/2015 None Full Exam - General 1994 Abdomen abdominal exam Overall: normal bowel sounds 10/27/2015 None Full Exam - General 1994 Abdomen hernia exam Abdominal hernia present: non-tender 10/27/2015 None Full Exam - General 1994 Abdomen hernia exam Abdominal hernia present: reducible 10/27/2015 umbulical hernia Full Exam - General 1994 Musculoskeletal lower extremity Palpation - knee: crepitus 10/27/2015 None Full Exam - General 1994 Neurologic cranial nerves Overall: crainial nerves 2 - 12 grossly intact 10/27/2015 None Full Exam - General 1994 Psychiatric orientation/consciousness Overall: oriented to person, place and time 10/27/2015 None Full Exam - General 1994 Psychiatric mood and affect Overall: normal mood and affect 10/27/2015 None Full Exam - General 1994 Constitutional general appearance Development: well developed 09/13/2015 None Full Exam - General 1994 Constitutional general appearance Development: appears stated age 1209/13/2015 None Full Exam - General 1994 Constitutional general appearance Hygiene/Attention to Grooming: good hygiene 09/13/2015 None Full Exam - General 1994 Eyes conjunctiva /eyelids Overall: conjunctiva clear 09/13/2015 None Full Exam - General 1994 Eyes conjunctiva /eyelids Overall: cornea clear 09/13/2015 None Full Exam - General 1994 Eyes conjunctiva /eyelids Overall: eyelids normal 09/13/2015 None Full Exam - General 1994 Eyes pupils and irises Overall: pupils equal, round, reactive to light and accomodation 09/13/2015 None Full Exam - General 1994 Ears/Nose/Throat otoscopic exam Overall: external auditory canals clear 09/13/2015 None Full Exam - General 1994 Ears/Nose/Throat otoscopic exam Overall: tympanic membranes clear 09/13/2015 None Full Exam - General 1994 Ears/Nose/Throat lips/teeth/gingiva Overall: benign lips 09/13/2015 None Full Exam - General 1994 Ears/Nose/Throat lips/teeth/gingiva Overall: normal dentition 09/13/2015 None Full Exam - General 1994 Ears/Nose/Throat oral cavity/pharynx/larynx Overall: oral mucosa clear 09/13/2015 None Full Exam - General 1994 Ears/Nose/Throat oral cavity/pharynx/larynx Overall: oropharyngeal mucosa clear 09/13/2015 None Full Exam - General 1994 Ears/Nose/Throat oral cavity/pharynx/larynx Overall: no masses 09/13/2015 None Full Exam - General 1994 Respiratory auscultation Overall: breath sounds clear bilaterally 09/13/2015 None Full Exam - General 1994 Respiratory respiratory effort/rhythm Overall: no retractions 09/13/2015 None Full Exam - General 1994 Respiratory respiratory effort/rhythm Overall: normal rate 09/13/2015 None Full Exam - General 1994 Cardiovascular extremities Overall: no clubbing 09/13/2015 None Full Exam - General 1994 Cardiovascular auscultation of heart Overall: regular rate 09/13/2015 None Full Exam - General 1994 Cardiovascular auscultation of heart Overall: normal heart sounds 09/13/2015 None Full Exam - General 1994 Abdomen abdominal exam Overall: no tenderness 09/13/2015 None Full Exam - General 1994 Abdomen abdominal exam Overall: normal bowel sounds 09/13/2015 None Full Exam - General 1994 Abdomen hernia exam Abdominal hernia present: non-tender 09/13/2015 None Full Exam - General 1994 Abdomen hernia exam Abdominal hernia present: reducible 09/13/2015 umbulical hernia Full Exam - General 1994 Musculoskeletal lower extremity Palpation - knee: crepitus 09/13/2015 None Full Exam - General 1994 Neurologic cranial nerves Overall: crainial nerves 2 - 12 grossly intact 09/13/2015 None Full Exam - General 1994 Psychiatric orientation/consciousness Overall: oriented to person, place and time 09/13/2015 None Full Exam - General 1994 Psychiatric mood and affect Overall: normal mood and affect 09/13/2015 None Full Exam - General 1994 Constitutional general appearance Development: well developed 04/23/2015 None Full Exam - General 1994 Constitutional general appearance Development: appears stated age 0704/23/2015 None Full Exam - General 1994 Constitutional general appearance Hygiene/Attention to Grooming: good hygiene 04/23/2015 None Full Exam - General 1994 Eyes conjunctiva /eyelids Overall: conjunctiva clear 04/23/2015 None Full Exam - General 1994 Eyes conjunctiva /eyelids Overall: cornea clear 04/23/2015 None Full Exam - General 1994 Eyes conjunctiva /eyelids Overall: eyelids normal 04/23/2015 None Full Exam - General 1994 Eyes pupils and irises Overall: pupils equal, round, reactive to light and accomodation 04/23/2015 None Full Exam - General 1994 Ears/Nose/Throat otoscopic exam Overall: external auditory canals clear 04/23/2015 None Full Exam - General 1994 Ears/Nose/Throat otoscopic exam Tympanic membrane: effusion 04/23/2015 None Full Exam - General 1994 Ears/Nose/Throat otoscopic exam Tympanic membrane: air- fluid level 04/23/2015 None Full Exam - General 1994 Ears/Nose/Throat lips/teeth/gingiva Overall: benign lips 04/23/2015 None Full Exam - General 1994 Ears/Nose/Throat lips/teeth/gingiva Overall: normal dentition 04/23/2015 None Full Exam - General 1994 Ears/Nose/Throat oral cavity/pharynx/larynx Overall: oral mucosa clear 04/23/2015 None Full Exam - General 1994 Ears/Nose/Throat oral cavity/pharynx/larynx Overall: oropharyngeal mucosa clear 04/23/2015 None Full Exam - General 1994 Ears/Nose/Throat oral cavity/pharynx/larynx Overall: hypopharynx benign 04/23/2015 None Full Exam - General 1994 Ears/Nose/Throat oral cavity/pharynx/larynx Overall: no masses 04/23/2015 None Full Exam - General 1994 Respiratory auscultation Overall: breath sounds clear bilaterally 04/23/2015 None Full Exam - General 1994 Respiratory respiratory effort/rhythm Overall: no retractions 04/23/2015 None Full Exam - General 1994 Respiratory respiratory effort/rhythm Overall: normal rate 04/23/2015 None Full Exam - General 1994 Cardiovascular extremities Overall: no clubbing 04/23/2015 None Full Exam - General 1994 Cardiovascular auscultation of heart Overall: regular rate 04/23/2015 None Full Exam - General 1994 Cardiovascular auscultation of heart Overall: normal heart sounds 04/23/2015 None Full Exam - General 1994 Psychiatric orientation/consciousness Overall: oriented to person, place and time 04/23/2015 None Full Exam - General 1994 Psychiatric mood and affect Overall: normal mood and affect 04/23/2015 None Full Exam - General 1994 Lymphatic neck nodes Overall: anterior cervical chain benign 04/23/2015 None Full Exam - General 1994 Lymphatic neck nodes Overall: posterior cervical chain benign 04/23/2015 None Full Exam - General 1994 Constitutional general appearance Development: well developed 01/06/2015 None Full Exam - General 1994 Constitutional general appearance Development: appears stated age 0401/06/2015 None Full Exam - General 1994 Constitutional general appearance Hygiene/Attention to Grooming: good hygiene 01/06/2015 None Full Exam - General 1994 Eyes conjunctiva /eyelids Overall: conjunctiva clear 01/06/2015 None Full Exam - General 1994 Eyes conjunctiva /eyelids Overall: cornea clear 01/06/2015 None Full Exam - General 1994 Eyes conjunctiva /eyelids Overall: eyelids normal 01/06/2015 None Full Exam - General 1994 Eyes pupils and irises Overall: pupils equal, round, reactive to light and accomodation 01/06/2015 None Full Exam - General 1994 Ears/Nose/Throat otoscopic exam Overall: external auditory canals clear 01/06/2015 None Full Exam - General 1994 Ears/Nose/Throat otoscopic exam Overall: tympanic membranes clear 01/06/2015 None Full Exam - General 1994 Ears/Nose/Throat lips/teeth/gingiva Overall: benign lips 01/06/2015 None Full Exam - General 1994 Ears/Nose/Throat lips/teeth/gingiva Overall: normal dentition 01/06/2015 None Full Exam - General 1994 Ears/Nose/Throat oral cavity/pharynx/larynx Overall: oral mucosa clear 01/06/2015 None Full Exam - General 1994 Ears/Nose/Throat oral cavity/pharynx/larynx Overall: oropharyngeal mucosa clear 01/06/2015 None Full Exam - General 1994 Ears/Nose/Throat oral cavity/pharynx/larynx Overall: hypopharynx benign 01/06/2015 None Full Exam - General 1994 Ears/Nose/Throat oral cavity/pharynx/larynx Overall: no masses 01/06/2015 None Full Exam - General 1994 Respiratory auscultation Overall: breath sounds clear bilaterally 01/06/2015 None Full Exam - General 1994 Respiratory respiratory effort/rhythm Overall: no retractions 01/06/2015 None Full Exam - General 1994 Respiratory respiratory effort/rhythm Overall: normal rate 01/06/2015 None Full Exam - General 1994 Cardiovascular extremities Overall: no clubbing 01/06/2015 None Full Exam - General 1994 Cardiovascular auscultation of heart Overall: regular rate 01/06/2015 None Full Exam - General 1994 Cardiovascular auscultation of heart Overall: normal heart sounds 01/06/2015 None Full Exam - General 1994 Abdomen abdominal exam Overall: no tenderness 01/06/2015 None Full Exam - General 1994 Abdomen abdominal exam Overall: normal bowel sounds 01/06/2015 None Full Exam - General 1994 Abdomen hernia exam Abdominal hernia present: non-tender 01/06/2015 None Full Exam - General 1994 Abdomen hernia exam Abdominal hernia present: reducible 01/06/2015 umbulical hernia Full Exam - General 1994 Musculoskeletal lower extremity Palpation - knee: crepitus 01/06/2015 None Full Exam - General 1994 Neurologic deep tendon reflexes Overall: deep tendon reflexes intact 01/06/2015 None Full Exam - General 1994 Neurologic cranial nerves Overall: crainial nerves 2 - 12 grossly intact 01/06/2015 None Full Exam - General 1994 Psychiatric orientation/consciousness Overall: oriented to person, place and time 01/06/2015 None Full Exam - General 1994 Psychiatric mood and affect Overall: normal mood and affect 01/06/2015 None Full Exam - General 1994 Constitutional general appearance Development: well developed 10/28/2014 None Full Exam - General 1994 Constitutional general appearance Development: appears stated age 0110/28/2014 None Full Exam - General 1994 Constitutional general appearance Hygiene/Attention to Grooming: good hygiene 10/28/2014 None Full Exam - General 1994 Eyes conjunctiva /eyelids Overall: cornea clear 10/28/2014 None Full Exam - General 1994 Eyes conjunctiva /eyelids Overall: eyelids normal 10/28/2014 None Full Exam - General 1994 Eyes conjunctiva /eyelids Overall: conjunctiva clear 10/28/2014 None Full Exam - General 1994 Eyes pupils and irises Overall: pupils equal, round, reactive to light and accomodation 10/28/2014 None Full Exam - General 1994 Ears/Nose/Throat otoscopic exam Overall: external auditory canals clear 10/28/2014 None Full Exam - General 1994 Ears/Nose/Throat lips/teeth/gingiva Overall: benign lips 10/28/2014 None Full Exam - General 1994 Ears/Nose/Throat lips/teeth/gingiva Overall: normal dentition 10/28/2014 None Full Exam - General 1994 Ears/Nose/Throat oral cavity/pharynx/larynx Overall: oral mucosa clear 10/28/2014 None Full Exam - General 1994 Ears/Nose/Throat oral cavity/pharynx/larynx Overall: oropharyngeal mucosa clear 10/28/2014 None Full Exam - General 1994 Ears/Nose/Throat oral cavity/pharynx/larynx Overall: hypopharynx benign 10/28/2014 None Full Exam - General 1994 Ears/Nose/Throat oral cavity/pharynx/larynx Overall: no masses 10/28/2014 None Full Exam - General 1994 Respiratory auscultation Overall: breath sounds clear bilaterally 10/28/2014 None Full Exam - General 1994 Respiratory respiratory effort/rhythm Overall: no retractions 10/28/2014 None Full Exam - General 1994 Respiratory respiratory effort/rhythm Overall: normal rate 10/28/2014 None Full Exam - General 1994 Cardiovascular extremities Overall: no clubbing 10/28/2014 None Full Exam - General 1994 Cardiovascular auscultation of heart Overall: regular rate 10/28/2014 None Full Exam - General 1994 Cardiovascular auscultation of heart Overall: normal heart sounds 10/28/2014 None Full Exam - General 1994 Psychiatric orientation/consciousness Overall: oriented to person, place and time 10/28/2014 None Full Exam - General 1994 Psychiatric mood and affect Overall: normal mood and affect 10/28/2014 None Full Exam - General 1994 Ears/Nose/Throat otoscopic exam Tympanic membrane: effusion 10/28/2014 None Full Exam - General 1994 Ears/Nose/Throat otoscopic exam Tympanic membrane: air- fluid level 10/28/2014 None Full Exam - General 1994 Constitutional general appearance Development: well developed 10/12/2014 None Full Exam - General 1994 Constitutional general appearance Development: appears stated age 0110/12/2014 None Full Exam - General 1994 Constitutional general appearance Hygiene/Attention to Grooming: good hygiene 10/12/2014 None Full Exam - General 1994 Eyes conjunctiva /eyelids Overall: conjunctiva clear 10/12/2014 None Full Exam - General 1994 Eyes conjunctiva /eyelids Overall: cornea clear 10/12/2014 None Full Exam - General 1994 Eyes conjunctiva /eyelids Overall: eyelids normal 10/12/2014 None Full Exam - General 1994 Eyes pupils and irises Overall: pupils equal, round, reactive to light and accomodation 10/12/2014 None Full Exam - General 1994 Ears/Nose/Throat otoscopic exam Overall: external auditory canals clear 10/12/2014 None Full Exam - General 1994 Ears/Nose/Throat otoscopic exam Overall: tympanic membranes clear 10/12/2014 None Full Exam - General 1994 Ears/Nose/Throat lips/teeth/gingiva Overall: benign lips 10/12/2014 None Full Exam - General 1994 Ears/Nose/Throat lips/teeth/gingiva Overall: normal dentition 10/12/2014 None Full Exam - General 1994 Ears/Nose/Throat oral cavity/pharynx/larynx Overall: oral mucosa clear 10/12/2014 None Full Exam - General 1994 Ears/Nose/Throat oral cavity/pharynx/larynx Overall: oropharyngeal mucosa clear 10/12/2014 None Full Exam - General 1994 Ears/Nose/Throat oral cavity/pharynx/larynx Overall: hypopharynx benign 10/12/2014 None Full Exam - General 1994 Ears/Nose/Throat oral cavity/pharynx/larynx Overall: no masses 10/12/2014 None Full Exam - General 1994 Respiratory auscultation Overall: breath sounds clear bilaterally 10/12/2014 None Full Exam - General 1994 Respiratory respiratory effort/rhythm Overall: no retractions 10/12/2014 None Full Exam - General 1994 Respiratory respiratory effort/rhythm Overall: normal rate 10/12/2014 None Full Exam - General 1994 Cardiovascular extremities Overall: no clubbing 10/12/2014 None Full Exam - General 1994 Cardiovascular auscultation of heart Overall: regular rate 10/12/2014 None Full Exam - General 1994 Cardiovascular auscultation of heart Overall: normal heart sounds 10/12/2014 None Full Exam - General 1994 Abdomen abdominal exam Overall: no tenderness 10/12/2014 None Full Exam - General 1994 Abdomen abdominal exam Overall: normal bowel sounds 10/12/2014 None Full Exam - General 1994 Abdomen hernia exam Abdominal hernia present: non-tender 10/12/2014 None Full Exam - General 1994 Abdomen hernia exam Abdominal hernia present: reducible 10/12/2014 umbulical hernia Full Exam - General 1994 Musculoskeletal lower extremity Palpation - knee: crepitus 10/12/2014 None Full Exam - General 1994 Neurologic deep tendon reflexes Overall: deep tendon reflexes intact 10/12/2014 None Full Exam - General 1994 Neurologic cranial nerves Overall: crainial nerves 2 - 12 grossly intact 10/12/2014 None Full Exam - General 1994 Psychiatric orientation/consciousness Overall: oriented to person, place and time 10/12/2014 None Full Exam - General 1994 Psychiatric mood and affect Overall: normal mood and affect 10/12/2014 None Full Exam - General 1994 Integument inspection of skin Location: chest 10/12/2014 on left upper Full Exam - General 1994 Constitutional general appearance Development: well developed 07/27/2014 None Full Exam - General 1994 Constitutional general appearance Development: appears stated age 1007/27/2014 None Full Exam - General 1994 Constitutional general appearance Hygiene/Attention to Grooming: good hygiene 07/27/2014 None Full Exam - General 1994 Eyes conjunctiva /eyelids Overall: conjunctiva clear 07/27/2014 None Full Exam - General 1994 Eyes conjunctiva /eyelids Overall: cornea clear 07/27/2014 None Full Exam - General 1994 Eyes conjunctiva /eyelids Overall: eyelids normal 07/27/2014 None Full Exam - General 1994 Eyes pupils and irises Overall: pupils equal, round, reactive to light and accomodation 07/27/2014 None Full Exam - General 1994 Ears/Nose/Throat otoscopic exam Overall: external auditory canals clear 07/27/2014 None Full Exam - General 1994 Ears/Nose/Throat otoscopic exam Overall: tympanic membranes clear 07/27/2014 None Full Exam - General 1994 Ears/Nose/Throat lips/teeth/gingiva Overall: benign lips 07/27/2014 None Full Exam - General 1994 Ears/Nose/Throat lips/teeth/gingiva Overall: normal dentition 07/27/2014 None Full Exam - General 1994 Ears/Nose/Throat oral cavity/pharynx/larynx Overall: oral mucosa clear 07/27/2014 None Full Exam - General 1994 Ears/Nose/Throat oral cavity/pharynx/larynx Overall: oropharyngeal mucosa clear 07/27/2014 None Full Exam - General 1994 Ears/Nose/Throat oral cavity/pharynx/larynx Overall: hypopharynx benign 07/27/2014 None Full Exam - General 1994 Ears/Nose/Throat oral cavity/pharynx/larynx Overall: no masses 07/27/2014 None Full Exam - General 1994 Respiratory auscultation Overall: breath sounds clear bilaterally 07/27/2014 None Full Exam - General 1994 Respiratory respiratory effort/rhythm Overall: no retractions 07/27/2014 None Full Exam - General 1994 Respiratory respiratory effort/rhythm Overall: normal rate 07/27/2014 None Full Exam - General 1994 Cardiovascular extremities Overall: no clubbing 07/27/2014 None Full Exam - General 1994 Cardiovascular auscultation of heart Overall: regular rate 07/27/2014 None Full Exam - General 1994 Cardiovascular auscultation of heart Overall: normal heart sounds 07/27/2014 None Full Exam - General 1994 Abdomen abdominal exam Overall: no tenderness 07/27/2014 None Full Exam - General 1994 Abdomen abdominal exam Overall: normal bowel sounds 07/27/2014 None Full Exam - General 1994 Abdomen hernia exam Abdominal hernia present: non-tender 07/27/2014 None Full Exam - General 1994 Abdomen hernia exam Abdominal hernia present: reducible 07/27/2014 umbulical hernia Full Exam - General 1994 Musculoskeletal lower extremity Palpation - knee: crepitus 07/27/2014 None Full Exam - General 1994 Neurologic deep tendon reflexes Overall: deep tendon reflexes intact 07/27/2014 None Full Exam - General 1994 Neurologic cranial nerves Overall: crainial nerves 2 - 12 grossly intact 07/27/2014 None Full Exam - General 1994 Psychiatric orientation/consciousness Overall: oriented to person, place and time 07/27/2014 None Full Exam - General 1994 Psychiatric mood and affect Overall: normal mood and affect 07/27/2014 None Full Exam - General 1994 Constitutional general appearance Development: appears stated age 0906/03/2014 None Full Exam - General 1994 Constitutional general appearance Development: well developed 06/03/2014 None Full Exam - General 1994 Constitutional general appearance Hygiene/Attention to Grooming: good hygiene 06/03/2014 None Full Exam - General 1994 Eyes conjunctiva /eyelids Overall: conjunctiva clear 06/03/2014 None Full Exam - General 1994 Eyes conjunctiva /eyelids Overall: cornea clear 06/03/2014 None Full Exam - General 1994 Eyes conjunctiva /eyelids Overall: eyelids normal 06/03/2014 None Full Exam - General 1994 Eyes pupils and irises Overall: pupils equal, round, reactive to light and accomodation 06/03/2014 None Full Exam - General 1994 Ears/Nose/Throat otoscopic exam Overall: external auditory canals clear 06/03/2014 None Full Exam - General 1994 Ears/Nose/Throat otoscopic exam Overall: tympanic membranes clear 06/03/2014 None Full Exam - General 1994 Ears/Nose/Throat lips/teeth/gingiva Overall: benign lips 06/03/2014 None Full Exam - General 1995 Ears/Nose/Throat lips/teeth/gingiva Overall: normal dentition 06/03/2014 None Full Exam - General 1995 Ears/Nose/Throat oral cavity/pharynx/larynx Overall: hypopharynx benign 06/03/2014 None Full Exam - General 1994 Ears/Nose/Throat oral cavity/pharynx/larynx Overall: no masses 06/03/2014 None Full Exam - General 1995 Ears/Nose/Throat oral cavity/pharynx/larynx Overall: oral mucosa clear 06/03/2014 None Full Exam - General 1995 Ears/Nose/Throat oral cavity/pharynx/larynx Overall: oropharyngeal mucosa clear 06/03/2014 None Full Exam - General 1994 Respiratory auscultation Overall: breath sounds clear bilaterally 06/03/2014 None Full Exam - General 1994 Respiratory respiratory effort/rhythm Overall: no retractions 06/03/2014 None Full Exam - General 1994 Respiratory respiratory effort/rhythm Overall: normal rate 06/03/2014 None Full Exam - General 1994 Cardiovascular extremities Overall: no clubbing 06/03/2014 None Full Exam - General 1994 Cardiovascular auscultation of heart Overall: normal heart sounds 06/03/2014 None Full Exam - General 1994 Cardiovascular auscultation of heart Overall: regular rate 06/03/2014 None Full Exam - General 1994 Abdomen abdominal exam Overall: no tenderness 06/03/2014 None Full Exam - General 1994 Abdomen abdominal exam Overall: normal bowel sounds 06/03/2014 None Full Exam - General 1994 Integument inspection of skin Overall: few scattered moles, no gross abnormalities 06/03/2014 None Full Exam - General 1994 Neurologic deep tendon reflexes Overall: deep tendon reflexes intact 06/03/2014 None Full Exam - General 1994 Neurologic cranial nerves Overall: crainial nerves 2 - 12 grossly intact 06/03/2014 None Full Exam - General 1994 Psychiatric orientation/consciousness Overall: oriented to person, place and time 06/03/2014 None Full Exam - General 1994 Psychiatric mood and affect Overall: normal mood and affect 06/03/2014 None Full Exam - General 1994 Lymphatic neck nodes Overall: anterior cervical chain benign 06/03/2014 None Full Exam - General 1994 Lymphatic neck nodes Overall: posterior cervical chain benign 06/03/2014 None Full Exam - General 1994 Musculoskeletal lower extremity Palpation - knee: crepitus 06/03/2014 None Full Exam - General 1994 Abdomen hernia exam Abdominal hernia present: non-tender 06/03/2014 None Full Exam - General 1994 Abdomen hernia exam Abdominal hernia present: reducible 06/03/2014 umbulical hernia Procedures Procedure Codes Date THER/PROPH/DIAG INJ SC/IM CPT-4: 76415 11/01/2017 PPPS, SUBSEQ VISIT CPT -4: G0439 09/12/2017 DRAIN/INJECT JOINT/BURSA CPT-4: 10128 07/12/2017 TRIAMCINOLONE ACET INJ NOS CPT-4: J3301 07/12/2017 ADMIN INFLUENZA VIRUS VAC CPT-4: G0008 07/03/2017 FLU VACC PRSV FREE INC ANTIG CPT-4: 59514 07/03/2017 URINALYSIS NONAUTO W/O SCOPE CPT-4: 05693 06/15/2017 PPPS, SUBSEQ VISIT CPT -4: G0439 09/08/2016 DRAIN/INJECT JOINT/BURSA CPT-4: 88006 08/11/2016 TRIAMCINOLONE ACET INJ NOS CPT-4: J3301 08/11/2016 TRIAMCINOLONE ACET INJ NOS CPT-4: J3301 05/05/2016 DRAIN/INJECT JOINT/BURSA CPT-4: 19820 04/07/2016 TRIAMCINOLONE ACET INJ NOS CPT-4: J3301 04/07/2016 ROCEPHIN, PER 250 MG CPT-4: J0696 03/16/2016 C A/B FLU CPT-4: 3697155 02/29/2016 TRIAMCINOLONE ACET INJ NOS CPT-4: J3301 01/11/2016 ROCEPHIN, PER 250 MG CPT-4: J0696 01/11/2016 THER/PROPH/DIAG INJ SC/IM CPT-4: 20041 12/09/2015 THER/PROPH/DIAG INJ SC/IM CPT-4: 47544 10/27/2015 DRAIN/INJECT JOINT/BURSA CPT-4: 04729 10/27/2015 THER/PROPH/DIAG INJ SC/IM CPT-4: 82227 09/08/2015 THER/PROPH/DIAG INJ SC/IM CPT-4: 40972 07/16/2015 TRIAMCINOLONE ACET INJ NOS CPT-4: J3301 04/23/2015 ROCEPHIN, PER 250 MG CPT-4: J0696 04/23/2015 THER/PROPH/DIAG INJ SC/IM CPT-4: 47111 10/28/2014 TRIAMCINOLONE ACET INJ NOS CPT-4: J3301 10/28/2014 ROCEPHIN, PER 250 MG CPT-4: J0696 10/28/2014 Vital Signs Date Vital 11/14/2017 Blood Pressure 1: 120/64 Code : 8480-6 BMI: 33.6 Code : 51075-6 Heart Rate 1 : 81 bpm Height: 5'11" SpO2: 94% Weight: 241 lbs 07/24/2017 Blood Pressure 1: 158/84 Code : 8480-6 Heart Rate 1: 84 bpm Height: 5'11" SpO2: 97% Weight: 07/12/2017 Blood Pressure 1: 146/78 Code : 8480-6 BMI: 33.3 Code : 59548-5 Heart Rate 1 : 81 bpm Height: 5'11" SpO2: 93% Weight: 239 lbs 07/03/2017 Height: 5'11" 06/15/2017 Blood Pressure 1: 132/60 Code : 8480-6 BMI: 33.5 Code : 63546-2 Heart Rate 1 : 89 bpm Height: 5'11" SpO2: 96% Weight: 240 lbs 01/16/2017 Blood Pressure 1: 152/72 Code : 8480-6 BMI: 31.8 Code : 14605-4 Heart Rate 1 : 67 bpm Height: 5'11" SpO2: 97% Weight: 228 lbs 12/20/2016 Blood Pressure 1: 146/70 Code : 8480-6 BMI: 31.8 Code : 91460-1 Heart Rate 1 : 87 bpm Height: 5'11" SpO2: 98% Weight: 228 lbs 12/08/2016 Blood Pressure 1: 146/68 Code : 8480-6 BMI: 31.2 Code : 25689-3 Heart Rate 1 : 78 bpm Height: 5'11" SpO2: 97% Weight: 224 lbs 11/21/2016 Blood Pressure 1: 126/58 Code : 8480-6 BMI: 31.9 Code : 42397-6 Heart Rate 1 : 78 bpm Height: 5'11" SpO2: 95% Weight: 229 lbs 10/24/2016 Blood Pressure 1: 136/66 Code : 8480-6 BMI: 32.4 Code : 08667-4 Heart Rate 1 : 98 bpm Height: 5'11" SpO2: 99% Weight: 232 lbs 09/21/2016 Blood Pressure 1: 140/80 Code : 8480-6 BMI: 32.8 Code : 71347-6 Heart Rate 1 : 100 bpm Height: 5'11 " SpO2: 96% Weight: 235 lbs 09/08/2016 Blood Pressure 1: 144/72 Code : 8480-6 BMI: 32.8 Code : 12805-0 Heart Rate 1 : 76 bpm Height: 5'11" SpO2: 97% Waist Measure (cm): 102 cm Weight: 235 lbs 09/07/2016 Blood Pressure 1: 144/72 Code : 8480-6 BMI: 32.8 Code : 23776-1 Heart Rate 1 : 76 bpm Height: 5'11" SpO2: 97% Weight: 235 lbs 08/22/2016 Blood Pressure 1: 148/60 Code : 8480-6 BMI: 33.2 Code : 89593-7 Heart Rate 1 : 42 bpm Height: 5'11" SpO2: 97% Weight: 238 lbs 08/11/2016 Blood Pressure 1: 142/76 Code : 8480-6 BMI: 33.3 Code : 01433-9 Heart Rate 1 : 42 bpm Height: 5'11" SpO2: 99% Weight: 239 lbs 07/18/2016 Blood Pressure 1: 142/74 Code : 8480-6 BMI: 32.4 Code : 61126-5 Heart Rate 1 : 72 bpm Height: 5'11" SpO2: 98% Weight: 232 lbs 06/07/2016 Blood Pressure 1: 132/74 Code : 8480-6 BMI: 32.4 Code : 42023-8 Heart Rate 1 : 56 bpm Height: 5'11" SpO2: 96% Weight: 232 lbs 05/25/2016 Blood Pressure 1: 150/80 Code : 8480-6 BMI: 32.8 Code : 19680-7 Heart Rate 1 : 70 bpm Height: 5'11" SpO2: 96% Weight: 235 lbs 05/05/2016 Blood Pressure 1: 140/64 Code : 8480-6 BMI: 32.6 Code : 22351-1 Heart Rate 1 : 65 bpm Height: 5'11" SpO2: 98% Weight: 234 lbs 04/07/2016 Blood Pressure 1: 132/80 Code : 8480-6 Heart Rate 1: 70 bpm Height: SpO2: 96% Weight: 03/24/2016 Blood Pressure 1: 146/80 Code : 8480-6 BMI: 32.1 Code : 38954-4 Heart Rate 1 : 84 bpm Height: 5'11" SpO2: 94% Weight: 230 lbs 03/20/2016 Blood Pressure 1: 132/74 Code : 8480-6 BMI: 32.1 Code : 51328-2 Heart Rate 1 : 84 bpm Height: 5'11" SpO2: 97% Weight: 230 lbs 03/16/2016 Blood Pressure 1: 168/76 Code : 8480-6 BMI: 32.9 Code : 53168-8 Heart Rate 1 : 81 bpm Height: 5'11" SpO2: 97% Weight: 236 lbs 03/06/2016 Blood Pressure 1: 130/70 Code : 8480-6 BMI: 34.3 Code : 64205-4 Heart Rate 1 : 78 bpm Height: 5'11" SpO2: 96% Weight: 246 lbs 02/29/2016 Blood Pressure 1: 145/70 Code : 8480-6 BMI: 34.3 Code : 29394-1 Heart Rate 1 : 74 bpm Height: 5'11" SpO2: 96% Weight: 246 lbs 02/01/2016 Blood Pressure 1: 156/62 Code : 8480-6 BMI: 34.0 Code : 14859-6 Heart Rate 1 : 61 bpm Height: 5'11" SpO2: 97% Weight: 244 lbs 01/19/2016 Blood Pressure 1: 138/76 Code : 8480-6 BMI: 33.4 Code : 14992-2 Heart Rate 1 : 77 bpm Height: 5'12" SpO2: 97% Weight: 243 lbs 01/11/2016 Blood Pressure 1: 162/82 Code : 8480-6 BMI: 33.4 Code : 24561-6 Heart Rate 1 : 60 bpm Height: 5'12" SpO2: 97% Weight: 243 lbs 12/09/2015 Blood Pressure 1: 142/60 Code : 8480-6 BMI: 33.3 Code : 65238-5 Heart Rate 1 : 40 bpm Height: 5'12" SpO2: 96% Weight: 242 lbs 10/27/2015 Blood Pressure 1: 148/68 Code : 8480-6 BMI: 32.9 Code : 21988-1 Heart Rate 1 : 40 bpm Height: 5'12" SpO2: 97% Weight: 239 lbs 09/13/2015 Blood Pressure 1: 160/64 Code : 8480-6 BMI: 34.0 Code : 32120-0 Heart Rate 1 : 69 bpm Height: 5'12" SpO2: 97% Weight: 247 lbs 04/23/2015 Blood Pressure 1: 128/62 Code : 8480-6 BMI: 34.2 Code : 72411-0 Heart Rate 1 : 79 bpm Height: 5'12" SpO2: 97% Weight: 249 lbs 01/06/2015 Blood Pressure 1: 118/68 Code : 8480-6 BMI: 34.0 Code : 27496-9 Heart Rate 1 : 75 bpm Height: 5'12" SpO2: 96% Weight: 247 lbs 10/28/2014 Blood Pressure 1: 142/70 Code : 8480-6 BMI: 33.7 Code : 45477-8 Heart Rate 1 : 60 bpm Height: 5'12" Temperature: 36.6 (C) / 97.8 (F) Weight: 245 lbs 10/12/2014 Blood Pressure 1: 140/70 Code : 8480-6 BMI: 34.1 Code : 10661-5 Heart Rate 1 : 96 bpm Height: 5'12" Weight: 248 lbs 07/27/2014 Blood Pressure 1: 162/90 Code : 8480-6 BMI: 33.7 Code : 68342-1 Heart Rate 1 : 90 bpm Height: 5'12" Respiratory Rate: 22 bpm Weight: 245 lbs 06/03/2014 Blood Pressure 1: 150/88 Code : 8480-6 BMI: 32.7 Code : 79037-4 Heart Rate 1 : 94 bpm Height: 5'12" SpO2: 93% Weight: 238 lbs Functional Status No Functional Status data History of Present Illness Symptom Name Status Result Effective Date Notes Hospital Follow Up _ infection 11/14/2017 None Hospital Follow Up _ pain 11/14/2017 None Hospital Follow Up _ Other: gout 11/14/2017 None Hospital Follow Up Quality acute illness 11/14/2017 None Hospital Follow Up Quality improving 11/14/2017 None Hospital Follow Up Location left foot and ankle 11/14/2017 None Hospital Follow Up Onset of Symptom 4 days ago 11/14/2017 None Hospital Follow Up Pertinent Findings pain 11/14/2017 None Hospital Follow Up Mechanism of injury unknown 11/14/2017 None Hospital Follow Up Exacerbating Factors activity 11/14/2017 None Hospital Follow Up Exacerbating Factors exertion 11/14/2017 None Hospital Follow Up Alleviating Factors rest 11/14/2017 None Hospital Follow Up Alleviating Factors medication 11/14/2017 None Annual Medicare Wellness Exam Alcohol Use does not drink any alcohol 09/12/2017 None Annual Medicare Wellness Exam Aspirin Use yes 09/12/2017 occasional Annual Medicare Wellness Exam Blood Glucose (self reported) don't know 09/12/2017 None Annual Medicare Wellness Exam Blood Pressure (self reported ) high (140/90 or higher) 09/12/2017 None Annual Medicare Wellness Exam Cholesterol (self reported) don't know 09/12/2017 None Annual Medicare Wellness Exam Depression (last 6 months) almost never 09/12/2017 None Annual Medicare Wellness Exam Depression or Hopelessness some of the time 09/12/2017 None Annual Medicare Wellness Exam Describe Your Health good 09/12/2017 None Annual Medicare Wellness Exam Exercise Habits does not exercise 09/12/2017 None Annual Medicare Wellness Exam Handling Stress usually kehinde effectively 09/12/2017 None Annual Medicare Wellness Exam Hemaglobin A-1C (self reported ) don't know 09/12/2017 None Annual Medicare Wellness Exam Hours of Sleep 5-6 09/12/2017 None Annual Medicare Wellness Exam Interaction with Friends yes 09/12/2017 None Annual Medicare Wellness Exam Interests & Pleasure some of the time 09/12/2017 None Annual Medicare Wellness Exam Life Satisfaction very satisfied 09/12/2017 None Annual Medicare Wellness Exam Motor Vehicle Safety always fastens seat belt: y 09/12/2017 None Annual Medicare Wellness Exam Nutrition servings of vegetables / fruit per day: 1 09/12/2017 None Annual Medicare Wellness Exam Smoking and Tobacco Use non smoker 09/12/2017 None Annual Medicare Wellness Exam Social & Emotional Support usually 09/12/2017 None Annual Medicare Wellness Exam Stress most of the time 09/12/2017 None Annual Medicare Wellness Exam Sun Exposure protects skin when outdoors: n 09/12/2017 None malaise Quality constant 07/24/2017 None malaise Onset and Resolution ongoing 07/24/2017 None malaise Limitation on Activities moderately limits activities 07/24/2017 None malaise Frequency of Episodes daily 07/24/2017 None malaise Pertinent Findings depressed mood 07/24/2017 None malaise Pertinent Findings insomnia 07/24/2017 None fatigue Limitation on Activities moderately limits activities 07/24/2017 None fatigue Pertinent Findings Denies dyspnea 07/24/2017 None fatigue Pertinent Findings Denies fever 07/24/2017 None fatigue Quality chronic 07/24/2017 None fatigue Quality worsening 07/24/2017 None fatigue Onset and Resolution ongoing 07/24/2017 None knee pain Location on the left 07/12/2017 None knee pain Location on the right 07/12/2017 None knee pain Quality giving way 07/12/2017 None knee pain Quality popping 07/12/2017 None knee pain Quality sharp pain 07/12/2017 None knee pain Quality tenderness 07/12/2017 None knee pain Quality constant 07/12/2017 None knee pain Frequency of Episodes increasing 07/12/2017 None knee pain Severity severe 07/12/2017 None knee pain Significant Medical Conditions degenerative joint disease 07/12/2017 None knee pain Pertinent Findings stiffness 07/12/2017 None knee pain Pertinent Findings weakness 07/12/2017 None knee pain Pertinent Findings decreased range of motion 07/12/2017 None knee pain Pertinent Findings limping 07/12/2017 None knee pain Pertinent Findings pain with movement 07/12/2017 None knee pain Onset of Symptom _ years ago 07/12/2017 None knee pain Limitation on Activities allows weight bearing activity 07/12/2017 None knee pain Sports Participation not significant 07/12/2017 None vaccination against influenza Location [id number]-Lt 07/03/2017 None urinary incontinence Quality constant 06/15/2017 None urinary incontinence Quality urge incontinence 06/15/2017 None urinary incontinence Onset and Resolution sudden in onset 06/15/2017 None urinary incontinence Onset of Symptom 6 months ago 06/15/2017 None urinary incontinence Frequency of Episodes hourly 06/15/2017 None urinary incontinence Pertinent Findings urinary urgency 06/15/2017 None urinary frequency Quality constant 06/15/2017 None urinary frequency Onset and Resolution gradual in onset 06/15/2017 None urinary frequency Onset of Symptom 6 months ago 06/15/2017 None knee pain Location on the left 01/16/2017 None knee pain Location on the right 01/16/2017 None knee pain Quality giving way 01/16/2017 None knee pain Quality popping 01/16/2017 None knee pain Quality sharp pain 01/16/2017 None knee pain Quality tenderness 01/16/2017 None knee pain Quality constant 01/16/2017 None knee pain Frequency of Episodes increasing 01/16/2017 None knee pain Severity severe 01/16/2017 None knee pain Significant Medical Conditions degenerative joint disease 01/16/2017 None knee pain Pertinent Findings stiffness 01/16/2017 None fatigue Limitation on Activities moderately limits activities 12/20/2016 None fatigue Onset of Symptom 4 months ago 12/20/2016 None fatigue Frequency of Episodes daily 12/20/2016 None fatigue Timing of Episodes no specific time 12/20/2016 None fatigue Pertinent Findings Denies confusion 12/20/2016 None fatigue Pertinent Findings Denies cough 12/20/2016 None fatigue Quality constant 12/20/2016 None fatigue Onset and Resolution ongoing 12/20/2016 None fatigue Limitation on Activities moderately limits activities 12/08/2016 None fatigue Onset of Symptom 4 months ago 12/08/2016 None fatigue Frequency of Episodes daily 12/08/2016 None fatigue Quality constant 12/08/2016 None fatigue Timing of Episodes no specific time 12/08/2016 None fatigue Onset and Resolution ongoing 12/08/2016 None fatigue Pertinent Findings Denies confusion 12/08/2016 None fatigue Pertinent Findings Denies cough 12/08/2016 None knee pain Location on the left 11/21/2016 None knee pain Location on the right 11/21/2016 None knee pain Quality giving way 11/21/2016 None knee pain Quality sharp pain 11/21/2016 None knee pain Quality constant 11/21/2016 None knee pain Frequency of Episodes increasing 11/21/2016 None knee pain Limitation on Activities restricts weight bearing activity 11/21/2016 now using walker due to pain knee pain Severity severe 11/21/2016 None knee pain Significant Medical Conditions degenerative joint disease 11/21/2016 None knee pain Pertinent Findings instability 11/21/2016 None knee pain Pertinent Findings limping 11/21/2016 None knee pain Pertinent Findings pain with movement 11/21/2016 None knee pain Pertinent Findings sensation of buckling 11/21/2016 None knee pain Pertinent Findings stiffness 11/21/2016 None knee pain Pertinent Findings swelling 11/21/2016 None knee pain Pertinent Findings weakness 11/21/2016 None knee pain Quality popping 11/21/2016 None knee pain Quality tenderness 11/21/2016 None knee pain Alleviating Factors elevation 11/21/2016 None knee pain Pertinent Findings Denies locking 11/21/2016 None knee pain Pertinent Findings clicking 11/21/2016 None knee pain Location on the left 10/24/2016 None knee pain Location on the right 10/24/2016 None knee pain Quality giving way 10/24/2016 None knee pain Quality sharp pain 10/24/2016 None knee pain Quality constant 10/24/2016 None knee pain Pertinent Findings limping 10/24/2016 None knee pain Pertinent Findings instability 10/24/2016 None knee pain Pertinent Findings pain with movement 10/24/2016 None knee pain Pertinent Findings stiffness 10/24/2016 None knee pain Pertinent Findings sensation of buckling 10/24/2016 None knee pain Pertinent Findings swelling 10/24/2016 None knee pain Pertinent Findings weakness 10/24/2016 None knee pain Frequency of Episodes increasing 10/24/2016 None knee pain Limitation on Activities restricts weight bearing activity 10/24/2016 now using walker due to pain knee pain Severity severe 10/24/2016 None knee pain Significant Medical Conditions degenerative joint disease 10/24/2016 None knee pain Sports Participation not significant 10/24/2016 None edema Quality acute None edema Quality improving 09/21/2016 None edema Onset and Resolution sudden in onset 09/21/2016 None edema Limitation on Activities does not limit activities 09/21/2016 None edema Significant Past Medical History cardiac disease 09/21/2016 None edema Triggers no known associated factors 09/21/2016 None edema Alleviating Factors medication 09/21/2016 None edema Location on the right leg 09/21/2016 None edema Pertinent Findings Denies dark urine 09/21/2016 None edema Pertinent Findings Denies nausea 09/21/2016 None edema Pertinent Findings Denies tachycardia 09/21/2016 None Annual Medicare Wellness Exam Alcohol Use does not drink any alcohol 09/08/2016 None Annual Medicare Wellness Exam Aspirin Use yes 09/08/2016 None Annual Medicare Wellness Exam Blood Glucose (self reported) don't know 09/08/2016 None Annual Medicare Wellness Exam Blood Pressure (self reported ) borderline (120/80 - 139/89) 09/08/2016 None Annual Medicare Wellness Exam Cholesterol (self reported) desireable (below 200) 09/08/2016 None Annual Medicare Wellness Exam Depression (last 6 months) some of the time 09/08/2016 None Annual Medicare Wellness Exam Depression or Hopelessness almost never 09/08/2016 None Annual Medicare Wellness Exam Describe Your Health fair 09/08/2016 None Annual Medicare Wellness Exam Exercise Habits does not exercise 09/08/2016 None Annual Medicare Wellness Exam Handling Stress usually kehinde effectively 09/08/2016 None Annual Medicare Wellness Exam Hemaglobin A-1C (self reported ) don't know 09/08/2016 None Annual Medicare Wellness Exam Hours of Sleep 7 09/08/2016 None Annual Medicare Wellness Exam Interaction with Friends yes 09/08/2016 None Annual Medicare Wellness Exam Interests & Pleasure most of the time 09/08/2016 None Annual Medicare Wellness Exam Life Satisfaction satisfied 09/08/2016 None Annual Medicare Wellness Exam Motor Vehicle Safety always fastens seat belt: y 09/08/2016 None Annual Medicare Wellness Exam Motor Vehicle Safety drives after drinking: n 09/08/2016 None Annual Medicare Wellness Exam Motor Vehicle Safety rides with someone who has been drinking: n 2015 None Annual Medicare Wellness Exam Nutrition servings of fried food / high fat foods per day: 1 2015 None Annual Medicare Wellness Exam Nutrition servings of high fiber / whole grain per day: 2 09/08/2016 None Annual Medicare Wellness Exam Nutrition servings of vegetables / fruit per day: 2 09/08/2016 None Annual Medicare Wellness Exam Smoking and Tobacco Use non smoker 09/08/2016 None Annual Medicare Wellness Exam Social & Emotional Support always 09/08/2016 None Annual Medicare Wellness Exam Stress some of the time 09/08/2016 None Annual Medicare Wellness Exam Sun Exposure protects skin when outdoors: n 09/08/2016 None cough Location in the throat 09/07/2016 None cough Quality constant 09/07/2016 None cough Onset and Resolution sudden in onset 09/07/2016 None cough Onset of Symptom weeks ago 09/07/2016 None cough Frequency of Episodes daily 09/07/2016 None sinus congestion Location on both sides 09/07/2016 None sinus congestion Quality fullness 09/07/2016 None sinus congestion Quality pressure 09/07/2016 None sinus congestion Onset and Resolution sudden in onset 09/07/2016 None sinus congestion Onset of Symptom 3 weeks ago 09/07/2016 None sinus congestion Frequency of Episodes daily 09/07/2016 None edema Quality acute None edema Onset and Resolution sudden in onset 08/22/2016 None edema Location on the right leg 08/22/2016 None edema Quality improving 08/22/2016 None abnormal bleeding and bruising Location on the left leg 08/22/2016 None abnormal bleeding and bruising Quality acute 08/22/2016 None abnormal bleeding and bruising Onset and Resolution sudden in onset 08/22/2016 None abnormal bleeding and bruising Triggers no known associated factors 08/22/2016 None edema Limitation on Activities does not limit activities 08/22/2016 None edema Significant Past Medical History cardiac disease 08/22/2016 None edema Triggers no known associated factors 08/22/2016 None edema Alleviating Factors medication 08/22/2016 None knee pain Location on the right 08/11/2016 None knee pain Quality giving way 08/11/2016 None knee pain Quality constant 08/11/2016 None knee pain Quality tenderness 08/11/2016 None knee pain Quality chronic 08/11/2016 None knee pain Frequency of Episodes daily 08/11/2016 None edema Location on the right leg 07/18/2016 None edema Quality acute None edema Quality constant 07/18/2016 None edema Onset and Resolution sudden in onset 07/18/2016 None edema Onset of Symptom 3-4 days ago 07/18/2016 None sore throat Onset and Resolution resolved 06/07/2016 None sinus congestion Onset and Resolution resolved 06/07/2016 None insomnia Quality acute 05/25/2016 None insomnia Severity moderate 05/25/2016 None insomnia Pertinent Findings Denies fever 05/25/2016 None lower leg pain Location on the right 05/05/2016 None lower leg pain Quality dull pain 05/05/2016 None lower leg pain Frequency of Episodes daily 05/05/2016 None lower leg pain Pertinent Findings Denies pain with movement 05/05/2016 None knee pain Location on the left 05/05/2016 None knee pain Frequency of Episodes daily 05/05/2016 None knee pain Pertinent Findings pain with movement 05/05/2016 None earache Location both ears 05/05/2016 None earache Onset and Resolution gradual in onset 05/05/2016 None earache Frequency of Episodes daily 05/05/2016 None lower leg pain Onset and Resolution ongoing 05/05/2016 None knee pain Quality catching 05/05/2016 None lower leg pain Limitation on Activities allows weight bearing activity 05/05/2016 None lower leg pain Location on the right 04/07/2016 None lower leg pain Quality dull pain 04/07/2016 None lower leg pain Frequency of Episodes daily 04/07/2016 None lower leg pain Pertinent Findings Denies pain with movement 04/07/2016 None knee pain Location on the left 04/07/2016 None knee pain Frequency of Episodes daily 04/07/2016 None knee pain Pertinent Findings pain with movement 04/07/2016 None lower leg pain Location on the right 03/24/2016 None lower leg pain Quality dull pain 03/24/2016 None pre-op/surgery consult Procedure to be performed left knee replacement 03/20/2016 None pre-op/surgery consult Prior Treatments pain medication, anti-inflammatories 03/20/2016 None pre-op/surgery consult Pertinent Findings pain 03/20/2016 None fatigue Limitation on Activities moderately limits activities 03/16/2016 None fatigue Onset of Symptom 2 months ago 03/16/2016 None fatigue Frequency of Episodes daily 03/16/2016 None rash Location-Extremities on the right leg 03/16/2016 None rash Quality new 03/16 None rash Color red 2015 None rash Onset and Resolution sudden in onset 03/16/2016 None rash Onset of Symptom 5 days ago 03/16/2016 None earache Location both ears 03/16/2016 None earache Onset and Resolution ongoing 03/16/2016 None earache Onset of Symptom _ months ago 03/16/2016 None earache Frequency of Episodes daily 03/16/2016 None fatigue Limitation on Activities moderately limits activities 03/06/2016 None fatigue Onset of Symptom 2 days ago 03/06/2016 None fatigue Frequency of Episodes daily 03/06/2016 None fatigue Pertinent Findings Denies back pain 03/06/2016 None fatigue Pertinent Findings Denies cough 03/06/2016 None fatigue Pertinent Findings Denies dizziness 03/06/2016 None fatigue Pertinent Findings Denies fever 03/06/2016 None fatigue Triggers no known associated factors 03/06/2016 None fatigue Quality acute 03/06/2016 None fatigue Onset and Resolution ongoing 03/06/2016 None cough Location in the throat 02/29/2016 None cough Quality constant 02/29/2016 None cough Quality hacking 02/29/2016 None cough Quality productive 02/29/2016 None cough Onset and Resolution sudden in onset 02/29/2016 None cough Frequency of Episodes daily 02/29/2016 None cough Pertinent Findings chest discomfort 02/29/2016 None cough Pertinent Findings hoarseness 02/29/2016 None cough Pertinent Findings nasal congestion 02/29/2016 None sinus congestion Onset and Resolution sudden in onset 02/29/2016 None sore throat Location on both sides 02/29/2016 None sore throat Quality constant 02/29/2016 None sore throat Quality dull 02/29/2016 None sore throat Quality scratchy 02/29/2016 None sore throat Onset and Resolution sudden in onset 02/29/2016 None sore throat Frequency of Episodes daily 02/29/2016 None earache Location both ears 02/29/2016 None earache Onset and Resolution sudden in onset 02/29/2016 None earache Frequency of Episodes daily 02/29/2016 None cough Location in the throat 02/01/2016 None cough Quality constant 02/01/2016 None cough Quality hacking 02/01/2016 None cough Quality productive 02/01/2016 None sore throat Location on both sides 02/01/2016 None sore throat Quality constant 02/01/2016 None sore throat Quality dull 02/01/2016 None sore throat Quality scratchy 02/01/2016 None sore throat Onset and Resolution resolved 02/01/2016 None earache Location both ears 02/01/2016 None earache Onset and Resolution resolved 02/01/2016 None cough Onset and Resolution resolved 02/01/2016 None sinus congestion Onset and Resolution resolved 02/01/2016 None cough Location in the throat 01/19/2016 None cough Frequency of Episodes daily 01/19/2016 None cough Pertinent Findings nasal congestion 01/19/2016 None cough Onset and Resolution ongoing 01/19/2016 None cough Quality intermittent 01/19/2016 None cough Quality improving 01/19/2016 None sinus congestion Onset and Resolution resolved 01/19/2016 None cough Location in the throat 01/11/2016 None cough Quality constant 01/11/2016 None cough Quality hacking 01/11/2016 None cough Quality productive 01/11/2016 None cough Onset and Resolution sudden in onset 01/11/2016 None cough Onset of Symptom 4 days ago 01/11/2016 None cough Frequency of Episodes daily 01/11/2016 None cough Pertinent Findings chest discomfort 01/11/2016 None cough Pertinent Findings hoarseness 01/11/2016 None cough Pertinent Findings nasal congestion 01/11/2016 None sinus congestion Onset and Resolution sudden in onset 01/11/2016 None sinus congestion Onset of Symptom 4 days ago 01/11/2016 None sore throat Location on both sides 01/11/2016 None sore throat Quality constant 01/11/2016 None sore throat Quality dull 01/11/2016 None sore throat Quality scratchy 01/11/2016 None sore throat Onset and Resolution sudden in onset 01/11/2016 None sore throat Onset of Symptom 4 days ago 01/11/2016 None sore throat Frequency of Episodes daily 01/11/2016 None earache Location both ears 01/11/2016 None earache Onset and Resolution sudden in onset 01/11/2016 None earache Onset of Symptom 4 days ago 01/11/2016 None earache Frequency of Episodes daily 01/11/2016 None knee pain Location on the right 12/09/2015 None knee pain Quality popping 12/09/2015 None knee pain Quality locking 12/09/2015 None knee pain Quality grinding 12/09/2015 None knee pain Quality giving way 12/09/2015 None knee pain Quality dull pain 12/09/2015 None knee pain Quality constant 12/09/2015 None knee pain Frequency of Episodes daily 12/09/2015 None knee pain Pertinent Findings clicking 12/09/2015 None knee pain Pertinent Findings limping 12/09/2015 None knee pain Pertinent Findings locking 12/09/2015 None knee pain Pertinent Findings pain with movement 12/09/2015 None knee pain Location on the left 10/27/2015 None knee pain Quality catching 10/27/2015 None knee pain Quality grinding 10/27/2015 None knee pain Quality locking 10/27/2015 None knee pain Quality popping 10/27/2015 None knee pain Quality constant 10/27/2015 None knee pain Quality dull pain 10/27/2015 None knee pain Onset and Resolution gradual in onset 10/27/2015 None knee pain Frequency of Episodes daily 10/27/2015 None knee pain Pertinent Findings clicking 10/27/2015 None knee pain Pertinent Findings limping 10/27/2015 None knee pain Pertinent Findings locking 10/27/2015 None knee pain Pertinent Findings pain with movement 10/27/2015 None knee pain Pertinent Findings stiffness 10/27/2015 None knee pain Location on the left 09/13/2015 None knee pain Location on the right 09/13/2015 None knee pain Quality catching 09/13/2015 None knee pain Quality giving way 09/13/2015 None knee pain Quality locking 09/13/2015 None knee pain Quality grinding 09/13/2015 None knee pain Quality popping 09/13/2015 None knee pain Quality sharp pain 09/13/2015 None knee pain Quality constant 09/13/2015 None knee pain Onset and Resolution gradual in onset 09/13/2015 None knee pain Onset of Symptom 5 years ago 09/13/2015 None knee pain Frequency of Episodes daily 09/13/2015 None knee pain Pertinent Findings limping 09/13/2015 None knee pain Pertinent Findings locking 09/13/2015 None knee pain Pertinent Findings pain with movement 09/13/2015 None knee pain Pertinent Findings clicking 09/13/2015 None knee pain Pertinent Findings instability 09/13/2015 None sinus congestion Onset of Symptom _ weeks ago 04/23/2015 None sinus congestion Severity mild 04/23/2015 None sinus congestion Frequency of Episodes daily 04/23/2015 None sinus congestion Timing of Episodes during sleep 04/23/2015 None sinus congestion Timing of Episodes all day long 04/23/2015 None sinus congestion Quality pressure 04/23/2015 None sinus congestion Location on both sides 04/23/2015 None sinus congestion Pertinent Findings Denies hoarseness 04/23/2015 None sinus congestion Pertinent Findings Denies cough 04/23/2015 None sinus congestion Pertinent Findings Denies facial pain 04/23/2015 None sinus congestion Significant Medications decongestants 04/23/2015 nose spray earache Location both ears 04/23/2015 None earache Onset of Symptom _ weeks ago 04/23/2015 None earache Triggers no known triggers 04/23/2015 None fatigue Onset of Symptom _ months ago 01/06/2015 has had machine since November- sleep study overnight 5-15 fatigue Pertinent Findings dizziness 01/06/2015 in the morning after using cpap sinus congestion Onset of Symptom 2 months ago 01/06/2015 intermittently since starting cpap machine in februray sinus congestion Pertinent Findings facial pain 01/06/2015 forehead sinus congestion Pertinent Findings Denies cough 01/06/2015 None sinus congestion Pertinent Findings decreased energy level 01/06/2015 None fatigue Pertinent Findings easy bruising 01/06/2015 arms fatigue Onset and Resolution ongoing 01/06/2015 None fatigue Triggers no known associated factors 01/06/2015 None fatigue Quality chronic 01/06/2015 None nasal lesion Location on the internal nose 10/28/2014 None nasal lesion Onset of Symptom 4 days ago 10/28/2014 None nasal lesion Pertinent Findings Denies fever 10/28/2014 None earache Location right ear 10/28/2014 None earache Onset of Symptom 1 weeks ago 10/28/2014 None finger pain Limitation on Activities moderately limits activities 10/28/2014 only able to bend at 1st knuckle finger pain Location in the left index finger 10/28/2014 None finger pain Mechanism of injury unknown 10/28/2014 Pt reports he fell last week finger pain Onset of Symptom 1 weeks ago 10/28/2014 None finger pain Pertinent Findings pain with movement 10/28/2014 None finger pain Pertinent Findings swelling 10/28/2014 None paresthesia Location on both feet 10/12/2014 started in toes - not an every day event - paresthesia Quality burning 10/12/2014 None paresthesia Quality intermittent 10/12/2014 None paresthesia Quality numbness 10/12/2014 None paresthesia Onset of Symptom 7-8 months ago 10/12/2014 None paresthesia Limitation on Activities does not limit activities 10/12/2014 None paresthesia Timing of Episodes during sleep 10/12/2014 None paresthesia Pertinent Findings Denies fever 10/12/2014 None paresthesia Pertinent Findings Denies lightheadedness 10/12/2014 None paresthesia Pertinent Findings Denies nausea 10/12/2014 None paresthesia Pertinent Findings Denies syncope 10/12/2014 None sexual dysfunction Onset and Resolution ongoing 10/12/2014 None sexual dysfunction Severity moderate 10/12/2014 with a decrease in ability to maintain an erection, - he states that the cialis and viagra helped a little, but the girth of his erection has decreased in size. - knee pain Location on the left 10/12/2014 - Dr. Taylor wants to do a knee replacement - knee pain Location on the right 10/12/2014 - has had arthroscopy by Dr. 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 [place] - paresthesia Location on both feet 07/27/2014 started in toes - not an every day event - paresthesia Quality burning 07/27/2014 None paresthesia Quality intermittent 07/27/2014 None paresthesia Quality numbness 07/27/2014 None paresthesia Onset of Symptom 7-8 months ago 07/27/2014 None paresthesia Limitation on Activities does not limit activities 07/27/2014 None paresthesia Timing of Episodes during sleep 07/27/2014 None paresthesia Pertinent Findings Denies fever 07/27/2014 None paresthesia Pertinent Findings Denies lightheadedness 07/27/2014 None paresthesia Pertinent Findings Denies nausea 07/27/2014 None paresthesia Pertinent Findings Denies syncope 07/27/2014 None sexual dysfunction Onset and Resolution ongoing 07/27/2014 None sexual dysfunction Severity moderate 07/27/2014 with a decrease in ability to maintain an erection, - he states that the cialis and viagra helped a little, but the girth of his erection has decreased in size. - knee pain Location on the left 07/27/2014 - Dr. Taylor wants to do a knee replacement - knee pain Location on the right 07/27/2014 - has had arthroscopy by Dr. Lopez about 6 years ago - weight gain/obesity Location on the abdomen 07/27/2014 - usual weight per patient is in the 190's, but has been gaining weight over the past several years - fatigue Onset and Resolution ongoing 07/27/2014 None fatigue Limitation on Activities moderately limits activities 07/27/2014 None urinary frequency Quality intermittent 07/27/2014 None urinary frequency Quality worsening 07/27/2014 None urinary frequency Triggers no known associated factors 07/27/2014 None paresthesia Location on both feet 06/03/2014 started in toes - not an every day event - paresthesia Quality burning 06/03/2014 None paresthesia Quality numbness 06/03/2014 None paresthesia Quality intermittent 06/03/2014 None paresthesia Onset of Symptom 7-8 months ago 06/03/2014 None paresthesia Limitation on Activities does not limit activities 06/03/2014 None paresthesia Timing of Episodes during sleep 06/03/2014 None paresthesia Pertinent Findings Denies fever 06/03/2014 None paresthesia Pertinent Findings Denies lightheadedness 06/03/2014 None paresthesia Pertinent Findings Denies nausea 06/03/2014 None paresthesia Pertinent Findings Denies syncope 06/03/2014 None knee pain Location on the right 06/03/2014 - has had arthroscopy by Dr. Lopez about 6 years ago - knee pain Location on the left 06/03/2014 - Dr. Taylor wants to do a knee replacement - weight gain/obesity Location on the abdomen 06/03/2014 - usual weight per patient is in the 190's, but has been gaining weight over the past several years - sexual dysfunction Onset and Resolution ongoing 06/03/2014 None sexual dysfunction Severity moderate 06/03/2014 with a decrease in ability to maintain an erection, - he states that the cialis and viagra helped a little, but the girth of his erection has decreased in size. - Advance Directives No Advance Directive data Encounters Encounter Performer Location Codes Date EST. PATIENT, LEVEL III Diagnosis: Chronic gout due to renal impairment, left ankle and foot, without tophus (tophi)[ICD10: M1A.3720] Diagnosis: Encounter for follow-up examination after completed treatment for conditions other than malignant neoplasm[ICD10: Z09] Aminata Green MD, [facility] CPT-4: 53999 11/14/2017 22575 EST. PATIENT, LEVEL IV Diagnosis: Other fatigue[ICD10: R53.83] Diagnosis: Other malaise[ICD10: R53.81] Diagnosis: Obstructive sleep apnea (adult) (pediatric)[ICD10: G47.33] Diagnosis: Pain in left arm[ICD10: M79.602] Aminata Green MD, [facility] CPT- 4: 98452 07/24/2017 ([id number]) 90460 EST. PATIENT, LEVEL III Diagnosis: Chronic pain syndrome[ICD10: G89.4] Zita Green MD, [facility] CPT-4: 29342 07/12/2017 ([id number]) 23305 EST. PATIENT, LEVEL III Diagnosis: Essential (primary) hypertension[ICD10: I10] Diagnosis: Frequency of micturition[ICD10: R35.0] Zita Green MD, [facility] CPT-4: 79516 06/15/2017 ([id number]) 40975 EST. PATIENT, LEVEL IV Diagnosis: Essential (primary) hypertension[ICD10: I10] Diagnosis: Bilateral primary osteoarthritis of knee[ICD10: M17.0] Diagnosis: Mixed hyperlipidemia[ICD10: E78.2] Diagnosis: Encounter for screening for malignant neoplasm of prostate[ICD10: Z12.5] Zita Green MD, [facility] CPT-4: 51751 2016 ([id number]) 66581 EST. PATIENT, LEVEL III Diagnosis: Essential (primary) hypertension[ICD10: I10] Diagnosis: Mixed hyperlipidemia[ICD10: E78.2] Zita Green MD, [facility] CPT-4: 46272 12/20/2016 ([id number]) 64116 EST. PATIENT, LEVEL III Diagnosis: Essential (primary) hypertension[ICD10: I10] Diagnosis: Other fatigue[ICD10: R53.83] Zita Green MD, [facility] CPT-4: 78555 12/08/2016 ([id number]) 19489 EST. PATIENT, LEVEL III Diagnosis: Bilateral primary osteoarthritis of knee[ICD10: M17.0] Diagnosis: Essential (primary) hypertension[ICD10: I10] Zita Green MD, [facility] CPT-4: 47855 11/21/2016 ([id number]) 57409 EST. PATIENT, LEVEL III Diagnosis: Bilateral primary osteoarthritis of knee[ICD10: M17.0] Zita Green MD, [facility] CPT-4: 77229 10/24/2016 ([id number]) 41435 EST. PATIENT, LEVEL III Diagnosis: Essential (primary) hypertension[ICD10: I10] Diagnosis: Phlebitis and thrombophlebitis of superficial vessels of right lower extremity[ICD10: I80.01] Diagnosis: Bilateral primary osteoarthritis of knee[ICD10: M17.0] Diagnosis: Pain in left knee[ICD10: M25.562] Diagnosis: Pain in right knee[ICD10: M25.561] Zita Green MD, [facility] CPT-4: 29399 09/21/2016 53649 EST. PATIENT, LEVEL III Diagnosis: Acute laryngopharyngitis[ICD10: J06.0] Diagnosis: Other allergic rhinitis[ICD10: J30.89] Aminata Green MD, [facility] CPT-4: 47688 09/07/2016 ([id number]) 04470 EST. PATIENT, LEVEL III Diagnosis: Phlebitis and thrombophlebitis of superficial vessels of right lower extremity[ICD10: I80.01] Zita Green MD, [facility] CPT-4: 10864 08/22/2016 22502 EST. PATIENT, LEVEL III Diagnosis: Bilateral primary osteoarthritis of knee[ICD10: M17.0] Aminata Green MD, [facility] CPT-4: 16633 08/11/2016 ([id number]) 23265 EST. PATIENT, LEVEL III Diagnosis: Essential (primary) hypertension[ICD10: I10] Diagnosis: Phlebitis and thrombophlebitis of superficial vessels of right lower extremity[ICD10: I80.01] Roya Green MD, [facility] CPT-4: 61743 07/18/2016 92226 EST. PATIENT, LEVEL III Diagnosis: Ventricular premature depolarization[ICD10: I49.3] Aminata Green MD, [facility] CPT-4: 42014 06/07/2016 11878 EST. PATIENT, LEVEL III Diagnosis: Other insomnia[ICD10: G47.09] Aminata Green MD, [facility] CPT-4 : 98706 05/25/2016 ([id number]) 02214 EST. PATIENT, LEVEL IV Diagnosis: Essential (primary) hypertension[ICD10: I10] Diagnosis: Phlebitis and thrombophlebitis of superficial vessels of right lower extremity[ICD10: I80.01] Diagnosis: Bilateral primary osteoarthritis of knee[ICD10: M17.0] Diagnosis: Allergic rhinitis due to pollen[ICD10: J30.1] Zita Green MD, [facility] CPT-4: 31287 05/05/2016 ([id number]) 16565 EST. PATIENT, LEVEL III Diagnosis: Phlebitis and thrombophlebitis of superficial vessels of right lower extremity[ICD10: I80.01] Zita Green MD, [facility] CPT-4: 67531 04/07/2016 ([id number]) Miscellaneous no charge Diagnosis: Phlebitis and thrombophlebitis of superficial vessels of right lower extremity[ICD10: I80.01] Zita Green MD, [facility] CPT-4: 96433 03/24/2016 ([id number]) 17222 EST. PATIENT, LEVEL III Diagnosis: Bilateral primary osteoarthritis of knee[ICD10: M17.0] Diagnosis: Pain in right knee[ICD10: M25.561] Diagnosis: Pain in left knee[ICD10: M25.562] Diagnosis: Phlebitis and thrombophlebitis of superficial vessels of right lower extremity[ICD10: I80.01] Roya Green MD, [facility] CPT-4: 04906 03/20/2016 60879 EST. PATIENT, LEVEL IV Diagnosis: Cellulitis of right lower limb[ICD10: L03.115] Aminata Green MD, [facility] CPT-4: 23254 03/16/2016 41159 EST. PATIENT, LEVEL IV Diagnosis: Essential (primary) hypertension[ICD10: I10] Diagnosis: Bilateral primary osteoarthritis of knee[ICD10: M17.0] Diagnosis: Nausea[ICD10: R11.0] Zita Green MD, [facility] CPT-4: 01178 03/06/2016 34519 EST. PATIENT, LEVEL IV Diagnosis: Acute laryngopharyngitis[ICD10: J06.0] Diagnosis: Other acute sinusitis[ICD10: J01.80] Diagnosis: Fever, unspecified[ICD10: R50.9] Diagnosis: Cough[ICD10: R05] Aminata Green MD, [facility] CPT-4: 86828 02/29/2016 86682 EST. PATIENT, LEVEL III Diagnosis: Essential (primary) hypertension[ICD10: I10] Diagnosis: Other obesity due to excess calories[ICD10: E66.09] Aminata Green MD, [facility] CPT-4: 00182 02/01/2016 68208 EST. PATIENT, LEVEL IV Diagnosis: Other allergic rhinitis[ICD10: J30.89] Diagnosis: Essential (primary) hypertension[ICD10: I10] Aminata Green MD, [facility] CPT-4: 98574 01/19/2016 18577 EST. PATIENT, LEVEL IV Diagnosis: Other acute sinusitis[ICD10: J01.80] Diagnosis: Other allergic rhinitis[ICD10: J30.89] Diagnosis: Essential (primary) hypertension[ICD10: I10] Aminata Green MD, [facility] CPT-4: 69153 01/11/2016 72024 EST. 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 PATIENT, LEVEL III Diagnosis: Low back pain[ICD10: M54.5] Diagnosis: Bilateral primary osteoarthritis of knee[ICD10: M17.0] Diagnosis: Essential (primary) hypertension[ICD10: I10] Aminata Green MD, [facility] CPT-4: 20265 09/13/2015 ([id number] 12375 EST. PATIENT, LEVEL III Diagnosis: ACUTE URI[ICD9: 465.9] Diagnosis: ALLERGIC RHINITIS[ICD9: 477.9] Zita Green MD, [facility] CPT-4: 86478 04/23/2015 ([id number]) 41863 EST. PATIENT, LEVEL IV Diagnosis: ESSENTIAL HYPERTENSION[ICD9: 401.9] Diagnosis: Hypogonadism in male[ICD9: 257.2] Diagnosis: Sleep apnea[ICD9: 780.57] Roya Green MD, [facility] CPT-4: 33390 01/06/2015 ([id number]) 56916 EST. PATIENT, LEVEL III Diagnosis: ACUTE MAXILLARY SINUSITIS[ICD9: 461.0] Diagnosis: Cough[ICD9: 786.2] Roya Green MD, [facility] CPT-4: 45733 10/28/2014 ([id number]) 20305 EST. 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 Pt to call if symptoms do not improve, and pt to be given results of labs when available. 11/14/2017 Appointment: Aminata Pederson WPtel: [facility] [place] (30 min) Complex 11/14/2017 Patient Education: Patient Medication Summary Completed 11/14/2017 Appointment: Injection 11/01/2017 Patient Education: Patient Medication Summary Completed 11/01/2017 Appointment: Aminata Pederson WPtel: [facility] [place] (30 min) Complex 10/30/2017 [phone] [facility]66[facility] Referral Initiated 10/03/2017 Care Plan: Referral Order SNOMED-CT : [id number] Pending 09/13/2017 Visit Plan: Medicare Exam - today we discussed the patients past history, immunizations, preventative exams/evaluations - colonoscopy, fecal occult blood testing, routine labs for renal function, glucose, cholesterol, osteoporosis evaluations, cardiovascular testing and cancer screenings. We have also discussed mental health and the signs/symptoms of depression. The patient was advised of home safety evaluations and the need to make sure that as the aging process continues, we need to be aware of different ways to make the home a safer place to reside. The patient has also been counseled that exercise is necessary - and of utmost importance as we age to help decrease fall risk and to maintain independece in the home. Today we discussed the need for the patient to create paperwork for Advanced directives as well as for the patient to provide this office with a copy of her DOPA paperwork for health care surrogate. 09/12/2017 Appointment: Aminata Pederson WPtel: [phone] [facility] MCR - Annual Wellness Visit 09/12/2017 Patient Education: Patient Medication Summary Completed 09/12/2017 Visit Plan: Fatigue, malaise - will check labs and treat as indicated Sleep apnea - will order repeat sleep study to see about adjusting settings on CPAP and getting a new mask/fit left arm pain - defer to Dr. Lopez. 07/24/2017 Appointment: Aminata Pederson WPtel: [facility] [place] ([facility] min) [facility] 07/24/2017 Patient Education: Patient Medication Summary Completed 07/24/2017 Visit Plan: Chronic Pain Syndrome - pt has chronic pain - has been maintained on current medications, has not sought out other medications , only uses PRN pain medications as directed, and understands the consequences of over-medication. Joint Injection-bilateral knees - Pt was given post - injection instructions. The pt has been advised to use anti-inflammatories post injection today, ice to the injected site, call if redness, warmth, or increased pain occurs at the site of injection. 07/12/2017 Visit Plan: Joint Injection-bilateral knees - Pt was given post - injection instructions. The pt has been advised to use anti- inflammatories post injection today, ice to the injected site, call if redness, warmth, or increased pain occurs at the site of injection. 07/12/2017 Appointment: Zita Forte WPtel: [facility] [phone] [place] (30 min) Complex 07/12/2017 Patient Education: Patient Medication Summary Completed 07/12/2017 Appointment: Injection 07/03/2017 Patient Education: Patient Medication Summary Completed 07/03/2017 Visit Plan: Urinary frequency-UA negative-check labs HTN- controlled-no changes 06/15/2017 Appointment: Zita Forte WPtel: [facility] [phone] [place] (30 min) Complex 06/15/2017 Patient Education: Patient Medication Summary Completed 06/15/2017 Patient Education: Obesity Completed 06/15/2017 Appointment: Zita Forte WPtel: [facility] [phone] [place] (15 min) Moderate 04/13/2017 Visit Plan: Hypertension - well controlled - continue with current medications, continue with no added salt diet. Pt has been encouraged to exercise daily. The pt has been advised to call the office if there are any acute concerns about change in blood pressure readings at home. OA knees-refer to Dr Lopez-nathen Perczaria Mixed hyperlipidemia-off statin due to myalgias- recheck lipids-consider livalo due to decreased side effect profile 01/16/2017 Visit Plan: Hypertension - well controlled - continue with current medications, continue with no added salt diet. Pt has been encouraged to exercise daily. The pt has been advised to call the office if there are any acute concerns about change in blood pressure readings at home. OA knees-refer to Dr Kathia Romeroocbrayan Mixed hyperlipidemia-off statin due to myalgias- recheck lipids-consider livalo due to decreased side effect profile 01/16/2017 Appointment: Zita Forte WPtel: [phone] [facility] [place] [address] (30 min) Complex 01/16/2017 Patient Education: Patient Medication Summary Completed 01/16/2017 Care Plan: Referral Order SNOMED-CT : [id number] Pending 01/16/2017 Appointment: Zita Forte WPtel: [facility] [place] [place] [address] (15 min) Moderate 12/22/2016 Visit Plan: Hypertension - well controlled - continue with current medications, continue with no added salt diet. Pt has been encouraged to exercise daily. The pt has been advised to call the office if there are any acute concerns about change in blood pressure readings at home. Hyperlipidemia- myalgias improved off statin-stay off medication-repeat lipid panel in 3 months 12/20/2016 Appointment: (15 min) Moderate 12/20/2016 Patient Education: Patient Medication Summary Completed 12/20/2016 Patient Education: Obesity Completed 12/20/2016 Visit Plan: Hypertension - well controlled - continue with current medications, continue with no added salt diet. Pt has been encouraged to exercise daily. The pt has been advised to call the office if there are any acute concerns about change in blood pressure readings at home. Fatigue-check labs-hold lovastatin x 2 weeks-f/u in 2 weeks 12/08/2016 Appointment: Zita Forte WPtel: [facility] [phone] (15 min) Moderate 12/08/2016 Patient Education: Patient Medication Summary Completed 12/08/2016 Patient Education: Obesity Completed 12/08/2016 Appointment: Roya Green WPtel: [facility] [place] (15 min) Moderate 12/07/2016 Visit Plan: Hypertension - well controlled - continue with current medications, continue with no added salt diet. Pt has been encouraged to exercise daily. The pt has been advised to call the office if there are any acute concerns about change in blood pressure readings at home. OA knees- patient going to have knee replacement-considering Dr Leong vs Dr Lopez-he will let us know what he decides. Refill percocet for pr use-call with any questions/concerns. Patient verbalized understanding of plan. 11/21/2016 Appointment: Zita Forte WPtel: [facility] [phone] (30 min) Complex 11/21/2016 Patient Education: Patient Medication Summary Completed 11/21/2016 Patient Education: Obesity Completed 11/21/2016 Patient Education: Hypertension Completed 11/21/2016 Visit Plan: OA knees- refer to Ortho for evaluation- patient to discuss with his and let us know who he wants to see-change prn medication to percocet, stop hydrocodone-samples of voltaren gel provided and instructed on use. Patient verbalized understanding of plan. 10/24/2016 Appointment: Zita Forte WPtel: [facility] [phone] (30 min) Complex 10/24/2016 Patient Education: Patient Medication Summary Completed 10/24/2016 Patient Education: Obesity Completed 10/24/2016 Visit Plan: Hypertension - well controlled - continue with current medications, continue with no added salt diet. Pt has been encouraged to exercise daily. The pt has been advised to call the office if there are any acute concerns about change in blood pressure readings at home. Thrombophlebitis -right ydg-xblzxjhk-cdvzwgkr daily aspirin 09/21/2016 Visit Plan: Hypertension - well controlled - continue with current medications, continue with no added salt diet. Pt has been encouraged to exercise daily. The pt has been advised to call the office if there are any acute concerns about change in blood pressure readings at home. Thrombophlebitis -right zsq-ixteuorl-pjleyyvs daily aspirin ADDENDUM: BILATERAL OA KNEE-PAIN IN LEFT/RIGHT KNEE-GAIT INSTABILITY-RX FOR WALKER PROVIDED-DUE TO BILATERAL OA OF KNEES, POOR BALANCE, WEAKNESS AND ABNORMAL GAIT, HE IS NOT STABLE WITH A CANE ALONE-REQUIRES THE ASSISTANCE OF A WALKER FOR FURTHER STABILITY TO DECREASE RISK FOR FALLS. 09/21/2016 Visit Plan: Hypertension - well controlled - continue with current medications, continue with no added salt diet. Pt has been encouraged to exercise daily. The pt has been advised to call the office if there are any acute concerns about change in blood pressure readings at home. Thrombophlebitis -right ajv-ljdjqdzr-dapuuiew daily aspirin ADDENDUM: BILATERAL OA KNEE-PAIN IN LEFT/RIGHT KNEE-GAIT INSTABILITY-RX FOR WALKER PROVIDED 09/21/2016 Appointment: Zita Forte WPtel: [address] [place], [place] [id number] (30 min) [facility] 09/21/2016 Patient Education: Patient Medication Summary Completed 09/21/2016 Visit Plan: Medicare Exam - today we discussed the patients past history, immunizations, preventative exams/evaluations - colonoscopy, fecal occult blood testing, routine labs for renal function, glucose, cholesterol, osteoporosis evaluations, cardiovascular testing and cancer screenings. We have also discussed mental health and the signs/symptoms of depression. The patient was advised of home safety evaluations and the need to make sure that as the aging process continues, we need to be aware of different ways to make the home a safer place to reside. The patient has also been counseled that exercise is necessary - and of utmost importance as we age to help decrease fall risk and to maintain independece in the home. Today we discussed the need for the patient to create paperwork for Advanced directives as well as for the patient to provide this office with a copy of her DOPA paperwork for health care surrogate. 09/08/2016 Appointment: Zita Forte WPtel: [facility] [id number] [place] [address] - Annual Wellness Visit 09/08/2016 Patient Education: Patient Medication Summary Completed 09/08/2016 Patient Education: Obesity Completed 09/08/2016 Visit Plan: URI - Pt advised to increase fluids, vitamin C. Discussed natural and expected course of this diagnosis and need to alert me if symptoms do not follow expected course, or if any worse. RX sent to patient' s pharmacy. Allergies - chronic - recommended pt to use allergy medication as prescribed. Pt has been counseled as to the appropriate use of the medication. Pt to call if allergy symptoms are not controlled with the medication. If using nasal spray, instructions as follows: Nasal spray- use twice daily, one spray per nostril twice daily, after 30 minutes, rinse out nose with saline spray.. Use opposite hand per nostril to spray in the nasal steroid allergy spray. 09/07/2016 Patient Education: Patient Medication Summary Completed 09/07/2016 Patient Education: Obesity Completed 09/07/2016 Appointment: Zita Forte WPtel: [address] [place], [place] [id number] [place] [address] - Annual Wellness Visit 08/30/2016 Visit Plan: Thrombophlebitis-right wvm-vcbxaliv-ixibxzky xarelto as directed-follow up in 1 month 08/22/2016 Appointment: Zita Forte WPtel: [address] [place], [place] [id number] [place] [address] (15 min) Moderate 08/22/2016 Appointment: Roya Green WPtel: [address] [place], [place] [id number] (15 min) Moderate 08/22/2016 Patient Education: Patient Medication Summary Completed 08/22/2016 Patient Education: Obesity Completed 08/22/2016 Visit Plan: Joint Injection - Bilateral knees - Pt was given post - injection instructions. The pt has been advised to use anti- inflammatories post injection today, ice to the injected site, call if redness, warmth, or increased pain occurs at the site of injection. 08/11/2016 Appointment: Zita Forte WPtel: [address] [place], [place] [phone] [place] [address] (15 min) Moderate 08/11/2016 Patient Education: Patient Medication Summary Completed 08/11/2016 Visit Plan: Hypertension - well controlled - continue with current medications, continue with no added salt diet. Pt has been encouraged to exercise daily. The pt has been advised to call the office if there are any acute concerns about change in blood pressure readings at home. Varicose veins - with phlebitis - continue with xarelto and call if symptoms do not improve. 07/18/2016 Appointment: Roya Green WPtel: [address] [facility] (15 min) Moderate 07/18/2016 Patient Education: Patient Medication Summary Completed 07/18/2016 Patient Education: Obesity Completed 07/18/2016 Patient Education: Hypertension Completed 07/18/2016 Appointment: Roya Green WPtel: [address] [facility] (15 min) Moderate 06/12/2016 Visit Plan: Arrhythmia follow up - pt was recently treated for strep throat and [facility] noted an arrhythmia - they did an EKG - will call for EKG report - pt is to continue his xarelto at this time - will treat pending results of EKG. 06/07/2016 Appointment: Zita Forte WPtel: [address] [phone] [place] (30 min) Complex 06/07/2016 Patient Education: Patient Medication Summary Completed 06/07/2016 Patient Education: Obesity Completed 06/07/2016 Visit Plan: Insomnia - Pt has been advised to increase the light in the house during the day, and start dimming the lights during the evening hours. Pt has been advised to cut out caffeine after 5pm. Daytime napping worsens night time insomnia. 05/25/2016 Patient Education: Patient Medication Summary Completed 05/25/2016 Patient Education: Obesity Completed 05/25/2016 Visit Plan: Hypertension - well controlled - continue with current medications, continue with no added salt diet. Pt has been encouraged to exercise daily. The pt has been advised to call the office if there are any acute concerns about change in blood pressure readings at home. Thrombophlebitis -right xkt-urfstzvw-qvgnschf xarelto as directed-follow up in 1 month Allergies - chronic - recommended pt to use allergy medication as prescribed. Pt has been counseled as to the appropriate use of the medication. Pt to call if allergy symptoms are not controlled with the medication. If using nasal spray, instructions as follows: Nasal spray- use twice daily, one spray per nostril twice daily, after 30 minutes, rinse out nose with saline spray.. Use opposite hand per nostril to spray in the nasal steroid allergy spray. Kenalog injection today in the office. Bilateral knee pain-refill hydrocodone for prn use 05/05/2016 Appointment: Zita Forte WPtel: [address] [place], [place] [phone] [place] [address] (15 min) Moderate 05/05/2016 Patient Education: Patient Medication Summary Completed 05/05/2016 Patient Education: Obesity Completed 05/05/2016 Visit Plan: Thrombophlebitis-right gzf-ordslbow-thitcujh xarelto as directed-follow up in 1 month Left knee pain-OA left knee-Joint Injection - Pt was given post - injection instructions. The pt has been advised to use anti-inflammatories post injection today, ice to the injected site, call if redness, warmth, or increased pain occurs at the site of injection. 04/07/2016 Appointment: Zita Forte WPtel: [address] [place] [address] (30 min) Complex 04/07/2016 Patient Education: Patient Medication Summary Completed 04/07/2016 Appointment: Zita Forte WPtel: [address] [place] [address] (30 min) Complex 04/04/2016 Visit Plan: Symptoms improved-continue xarelto and follow up in 10-14 days 03/24/2016 Appointment: Zita Forte WPtel: [address] [place] [address] (30 min) Complex 03/24/2016 Patient Education: Patient Medication Summary Completed 03/24/2016 Patient Education: Obesity Completed 03/24/2016 Visit Plan: OA - - planning on surgery for knee replacement - Cellulitis - with erythema, thrombophlebitis - antibiotic and anticoagulant. started 03/20/2016 Patient Education: Patient Medication Summary Completed 03/20/2016 Patient Education: Obesity Completed 03/20/2016 Visit Plan: Cellulitis - continue with oral antibiotics as previously directed, return to clinic as previously directed, call for acute change in symptoms, worsening redness, warmth, edema, or discharge. 03/16/2016 Patient Education: Patient Medication Summary Completed 03/16/2016 Patient Education: Obesity Completed 03/16/2016 Visit Plan: Hypertension - well controlled - continue with current medications, continue with no added salt diet. Pt has been encouraged to exercise daily. The pt has been advised to call the office if there are any acute concerns about change in blood pressure readings at home. Nausea-upset stomach-suspect due to taking celebrax, ibuprofen and amoxicillin. Stop ibuprofen, hold celebrex x5 days and resume if symptoms resolved in 5 days. Take probiotics twice daily if diarrhea persists. Check labs today OA of knees- stop ibuprofen-use prn hydrocodone as needed 03/06/2016 Patient Education: Patient Medication Summary Completed 03/06/2016 Visit Plan: URI - Pt advised to increase fluids, vitamin C. Discussed natural and expected course of this diagnosis and need to alert me if symptoms do not follow expected course, or if any worse. RX sent to patient' s pharmacy. Sinusitis - Pt has acute infection - pain in face, maxillary region , Pt informed to use decongestant, RX given to patient, sinus rinses also recommended. Call if symptoms do not show improvement. Allergies - chronic - recommended pt to use allergy medication as prescribed. Pt has been counseled as to the appropriate use of the medication. Pt to call if allergy symptoms are not controlled with the medication. If using nasal spray, instructions as follows: Nasal spray- use twice daily, one spray per nostril twice daily, after 30 minutes, rinse out nose with saline spray.. Use opposite hand per nostril to spray in the nasal steroid allergy spray. 02/29/2016 Appointment: Zita Forte WPtel: [address] [place], [place] [id number] (30 min) [facility] 02/29/2016 Patient Education: Patient Medication Summary Completed 02/29/2016 Patient Education: Obesity Completed 02/29/2016 Care Plan: BMI Above normal followup SELF-MGMT EDUC & TRAIN 1 PT Pending 2015 Visit Plan: Hypertension - continue with current medications, continue with no added salt diet. Pt has been encouraged to exercise daily. The pt has been advised to call the office if there are any acute concerns about change in blood pressure readings at home. BMI 34 - The pt has been counseled about diet changes, calorie restriction, and need to exercise. Pt will RTC in one month for weight check. 02/01/2016 Appointment: Zita Forte WPtel: [facility] [phone] [place] (15 min) Moderate 02/01/2016 Patient Education: Patient Medication Summary Completed 02/01/2016 Patient Education: Obesity Completed 02/01/2016 Care Plan: BMI Above normal followup SELF-MGMT EDUC & TRAIN 1 PT Pending 2015 Visit Plan: Allergies - chronic - recommended pt to use allergy medication as prescribed. Pt has been counseled as to the appropriate use of the medication. Pt to call if allergy symptoms are not controlled with the medication. If using nasal spray, instructions as follows: Nasal spray- use twice daily, one spray per nostril twice daily, after 30 minutes, rinse out nose with saline spray.. Use opposite hand per nostril to spray in the nasal steroid allergy spray. Hypertension - well controlled - continue with current medications, continue with no added salt diet. Pt has been encouraged to exercise daily. The pt has been advised to call the office if there are any acute concerns about change in blood pressure readings at home. 01/19/2016 Patient Education: Patient Medication Summary Completed 01/19/2016 Patient Education: Hypertension Completed 01/19/2016 Patient Education: Obesity Completed 01/19/2016 Visit Plan: Sinusitis - Pt has acute infection - pain in face, maxillary region, Pt informed to use decongestant, RX given to patient, sinus rinses also recommended. Pt advised to increase fluids, vitamin C. Discussed natural and expected course of this diagnosis and need to alert me if symptoms do not follow expected course, or if any worse. Call if symptoms do not show improvement. Allergies - chronic - recommended pt to use allergy medication as prescribed. Pt has been counseled as to the appropriate use of the medication. Pt to call if allergy symptoms are not controlled with the medication. If using nasal spray, instructions as follows: Nasal spray- use twice daily, one spray per nostril twice daily, after 30 minutes, rinse out nose with saline spray.. Use opposite hand per nostril to spray in the nasal steroid allergy spray. Hypertension - uncontrolled - the patient's medications have been modified as documented in the visit note. The patient has been counseled to cut back on salt in diet for a no added salt diet, low fat diet, start an exercise program with low weight bearing exercises and higher aerobic activity for heart health. The patient is to check blood pressure readings as an outpatient and either fax, call, or email the readings to the office next week for practitioner to review. The pt is to call for acute concerns. BMI 33 - The pt has been counseled about diet changes, calorie restriction, and need to exercise. Pt will RTC in one month for weight check. 01/11/2016 Patient Education: Patient Medication Summary Completed 01/11/2016 Patient Education: Obesity Completed 01/11/2016 Patient Education: Hypertension Completed 01/11/2016 Care Plan: BMI Above normal followup SELF-MGMT EDUC & TRAIN 1 PT Pending 2015 Visit Plan: Hypertension - well controlled - continue with current medications, continue with no added salt diet. Pt has been encouraged to exercise daily. The pt has been advised to call the office if there are any acute concerns about change in blood pressure readings at home. Chronic Pain Syndrome - pt has chronic pain - has been maintained on current medications, has not sought out other medications, only uses PRN pain medications as directed , and understands the consequences of over-medication. The patient was counseled to always first attempt to use modalities other than pain medication for alleviation of the muscle spasms and pain. The patient was also encouraged to continue with exercises as previously directed. Pt is to use pain medication as directed. If pain medications are used inappropriately or early refills are requested, the patient understands that is a breech of trust/contract and could result in the patient's termination from this medical practice. 12/09/2015 Visit Plan: Hypertension - well controlled - continue with current medications, continue with no added salt diet. Pt has been encouraged to exercise daily. The pt has been advised to call the office if there are any acute concerns about change in blood pressure readings at home. Chronic Pain Syndrome - pt has chronic pain - has been maintained on current medications, has not sought out other medications, only uses PRN pain medications as directed , and understands the consequences of over-medication. The patient was counseled to always first attempt to use modalities other than pain medication for alleviation of the muscle spasms and pain. The patient was also encouraged to continue with exercises as previously directed. Pt is to use pain medication as directed. If pain medications are used inappropriately or early refills are requested, the patient understands that is a breech of trust/contract and could result in the patient's termination from this medical practice. 12/09/2015 Visit Plan: Hypertension - well controlled - continue with current medications, continue with no added salt diet. Pt has been encouraged to exercise daily. The pt has been advised to call the office if there are any acute concerns about change in blood pressure readings at home. Chronic Pain Syndrome - pt has chronic pain - has been maintained on current medications, has not sought out other medications, only uses PRN pain medications as directed , and understands the consequences of over-medication. The patient was counseled to always first attempt to use modalities other than pain medication for alleviation of the muscle spasms and pain. The patient was also encouraged to continue with exercises as previously directed. Pt is to use pain medication as directed. If pain medications are used inappropriately or early refills are requested, the patient understands that is a breech of trust/contract and could result in the patient's termination from this medical practice. 12/09/2015 Appointment: (15 min) Moderate 12/09/2015 Patient Education: Patient Medication Summary Completed 12/09/2015 Visit Plan: Hypertension - well controlled - continue with current medications, continue with no added salt diet. Pt has been encouraged to exercise daily. The pt has been advised to call the office if there are any acute concerns about change in blood pressure readings at home. Joint Injection - left knee - Pt was given post - injection instructions. The pt has been advised to use anti-inflammatories post injection today, ice to the injected site, call if redness, warmth, or increased pain occurs at the site of injection. 10/27/2015 Appointment: (30 min) Complex 10/27/2015 Patient Education: Patient Medication Summary Completed 10/27/2015 Patient Education: Hypertension Completed 10/27/2015 Visit Plan: Dr. Taylor - pain mostly in the left knee, had previously done pain shots which were ineffective. states he needs knee surgery but cannot afford it. Pt states he used to take hydrocodone but that it is too expensive, will give script for tylenol 3 because pharmacy verified that it is cheaper. Pt to notify clinic if symptoms do not improve or with other concerns. Arthritis- occasionally uncontrolled symptoms- recommend pt to take antiinflammatory as directed for pain control. Chronic Pain Syndrome - pt has chronic pain - has been maintained on current medications, has not sought out other medications, only uses PRN pain medications as directed, and understands the consequences of over-medication. The patient was counseled to always first attempt to use modalities other than pain medication for alleviation of the muscle spasms and pain. The patient was also encouraged to continue with exercises as previously directed. Pt is to use pain medication as directed. If pain medications are used inappropriately or early refills are requested, the patient understands that is a breech of trust/contract and could result in the patient's termination from this medical practice. 09/13/2015 Appointment: (15 min) Moderate 09/13/2015 Patient Education: Patient Medication Summary Completed 09/13/2015 Patient Education: Hypertension Completed 09/13/2015 Patient Education: Patient Medication Summary Completed 09/08/2015 Appointment: Injection 07/29/2015 Patient Education: Patient Medication Summary Completed 07/16/2015 Patient Education: Patient Medication Summary Completed 06/29/2015 Appointment: Zita Forte WPtel: [address] [place], [place] [id number] (15 min) Moderate 06/22/2015 Appointment: Zita Forte WPtel: [address] [place], [place] [id number] (15 min) Moderate 06/22/2015 Visit Plan: URI - Pt advised to increase fluids, vitamin C. Discussed natural and expected course of this diagnosis and need to alert me if symptoms do not follow expected course, or if any worse. RX sent to patient' s pharmacy. 04/23/2015 Patient Education: Patient Medication Summary Completed 04/23/2015 Visit Plan: Hypertension - well controlled - continue with current medications, continue with no added salt diet. Pt has been encouraged to exercise daily. The pt has been advised to call the office if there are any acute concerns about change in blood pressure readings at home. Hypogonadism - pt has AGAIN been given a script for testosterone. He never filled the androgel due to cost. Pt given rx for compounded testosterone cream. Sleep apnea - continue with use of machine - pt to have evaluation for new mask. 01/06/2015 Appointment: Roya Green WPtel: [facility] [place] Follow up 01/06/2015 Patient Education: Patient Medication Summary Completed 01/06/2015 Patient Education: Hypertension Completed 01/06/2015 Appointment: Roya Green WPtel: [address] [place], [place] [id number] Sick 12/09/2014 Visit Plan: Sinusitis - Pt has acute infection - pain in face, maxillary region, Pt informed to use decongestant, RX given to patient, sinus rinses also recommended. Call if symptoms do not show improvement. 10/28/2014 Patient Education: Patient Medication Summary Completed 10/28/2014 Visit Plan: Hypertension - well controlled - continue with current medications, continue with no added salt diet. Pt has been encouraged to exercise daily. The pt has been advised to call the office if there are any acute concerns about change in blood pressure readings at home. BPH - samples of cialis for daily use - 5mg daily - pt to call if symptoms not improved. Arthritis- occasionally uncontrolled symptoms- recommend pt to take antiinflammatory as directed for pain control. Use tylenol for break through pain symptoms. Knee pain - recommended pt to have cane for use when unable to ambulate safely. 10/12/2014 Visit Plan: Hypertension - well controlled - continue with current medications, continue with no added salt diet. Pt has been encouraged to exercise daily. The pt has been advised to call the office if there are any acute concerns about change in blood pressure readings at home. BPH - samples of cialis for daily use - 5mg daily - pt to call if symptoms not improved. Arthritis- occasionally uncontrolled symptoms- recommend pt to take antiinflammatory as directed for pain control. Use tylenol for break through pain symptoms. 10/12/2014 Appointment: Roya Green WPtel: [facility] [place] [id number] Follow up 10/12/2014 Patient Education: Patient Medication Summary Completed 10/12/2014 Patient Education: Hypertension Completed 10/12/2014 Visit Plan: Hypertension - uncontrolled - the patient's medications have been modified as documented in the visit note. The patient has been counseled to cut back on salt in diet for a no added salt diet, low fat diet, start an exercise program with low weight bearing exercises and higher aerobic activity for heart health. The patient is to check blood pressure readings as an outpatient and either fax, call, or email the readings to the office next week for practitioner to review. The pt is to call for acute concerns. Started on lisinopril today. Urinary urgency and Testicular hypofunction - recommended pt to start on the androgel. Parasthesia of feet - pt to continue with gabapentin. 07/27/2014 Appointment: NormaRonaldy WPtel: [address] [place], [place] [id number] Follow up 07/27/2014 Patient Education: Patient Medication Summary Completed 07/27/2014 Patient Education: Hypertension Completed 07/27/2014 Visit Plan: Hypertension - uncontrolled - the patient's medications have been modified as documented in the visit note. The patient has been counseled to cut back on salt in diet for a no added salt diet, low fat diet, start an exercise program with low weight bearing exercises and higher aerobic activity for heart health. The patient is to check blood pressure readings as an outpatient and either fax, call, or email the readings to the office next week for practitioner to review. The pt is to call for acute concerns. Chronic Back pain - the patient was counseled to always first attempt to use modalities other than pain medication for alleviation of the muscle spasms and pain. The patient was also encouraged to continue with back exercises as previously directed. Pt is to use pain medication as directed. If pain medications are used inappropriately or early refills are requested, the patient understands that is a breech of trust/contract and could result in the patient's termination from this medical practice. Sleep disordered breathing - recommended pt to have an appt with Dr. Ochoa with plans for a sleep study with dr. ochoa. need to check labs - thyroid, b12, chem panel, cbc, testosterone, lipids Umbilical hernia - referral to dr. johns for umbilical hernia. Impotence symptoms - recommended testing of pt's testosterone, this may need supplemented. Chronic Obesity - multifactorial - need to test labs, and treat contributing symptoms/problems and hopefully the patient's contributing factors , when treated will help improve his weight. Time based documentation -I spent over 65 minutes with the patient in discussion of the disease process, expected course, and overall prognosis for the patient's disease state. The patient/ family expressed understanding. 06/03/2014 Appointment: Roya Green WPtel: [address] [facility]66[facility] New Patient 06/03/2014 Patient Education: Patient Medication Summary Completed 06/03/2014 Appointment: Ronald Greeny WPtel: [facility] [place]66[facility] New Patient 05/21/2014 Referral: Ifeanyi Johns HPtel:[phone] [phone] [place] Referral Initiated Referral: Ferny Lopez Referral Completed Instructions Comment PT AT [facility]-STARTS NEXT WEEK CONTINUE WALKER REFER TO ORTHO-RECOMMEND DR LOPEZ OR DR TAYLOR . OA knees- refer to Ortho for evaluation-patient to discuss with his and let us know who he wants to see-change prn medication to percocet, stop hydrocodone-samples of voltaren gel provided and instructed on use. Patient verbalized understanding of plan. Follow up with Dr. Lopez tomorrow Will check thyroid, B12, and iron levels today - start B12 over the counter . Fatigue, malaise - will check labs and treat as indicated Sleep apnea - will order repeat sleep study to see about adjusting settings on CPAP and getting a new mask/fit left arm pain - defer to Dr. Lopez. . Hypertension - uncontrolled - the patient's medications have been modified as documented in the visit note. The patient has been counseled to cut back on salt in diet for a no added salt diet, low fat diet, start an exercise program with low weight bearing exercises and higher aerobic activity for heart health. The patient is to check blood pressure readings as an outpatient and either fax , call, or email the readings to the office next week for practitioner to review. The pt is to call for acute concerns. Started on lisinopril today. Urinary urgency and Testicular hypofunction - recommended pt to start on the androgel. Parasthesia of feet - pt to continue with gabapentin. . URI - Pt advised to increase fluids, vitamin C. Discussed natural and expected course of this diagnosis and need to alert me if symptoms do not follow expected course, or if any worse. RX sent to patient's pharmacy. Allergies - chronic - recommended pt to use allergy medication as prescribed. Pt has been counseled as to the appropriate use of the medication. Pt to call if allergy symptoms are not controlled with the medication. If using nasal spray, instructions as follows: Nasal spray- use twice daily, one spray per nostril twice daily, after 30 minutes, rinse out nose with saline spray.. Use opposite hand per nostril to spray in the nasal steroid allergy spray. . Hypertension - well controlled - continue with current medications, continue with no added salt diet. Pt has been encouraged to exercise daily. The pt has been advised to call the office if there are any acute concerns about change in blood pressure readings at home. BPH - samples of cialis for daily use - 5mg daily - pt to call if symptoms not improved. Arthritis- occasionally uncontrolled symptoms- recommend pt to take antiinflammatory as directed for pain control. Use tylenol for break through pain symptoms. Knee pain - recommended pt to have cane for use when unable to ambulate safely. . Hypertension - well controlled - continue with current medications, continue with no added salt diet. Pt has been encouraged to exercise daily. The pt has been advised to call the office if there are any acute concerns about change in blood pressure readings at home. BPH - samples of cialis for daily use - 5mg daily - pt to call if symptoms not improved. Arthritis- occasionally uncontrolled symptoms- recommend pt to take antiinflammatory as directed for pain control. Use tylenol for break through pain symptoms. . Hypertension - well controlled - continue with current medications, continue with no added salt diet. Pt has been encouraged to exercise daily. The pt has been advised to call the office if there are any acute concerns about change in blood pressure readings at home. Chronic Pain Syndrome - pt has chronic pain - has been maintained on current medications, has not sought out other medications, only uses PRN pain medications as directed, and understands the consequences of over-medication. The patient was counseled to always first attempt to use modalities other than pain medication for alleviation of the muscle spasms and pain. The patient was also encouraged to continue with exercises as previously directed. Pt is to use pain medication as directed. If pain medications are used inappropriately or early refills are requested, the patient understands that is a breech of trust/contract and could result in the patient's termination from this medical practice. . Hypertension - well controlled - continue with current medications, continue with no added salt diet. Pt has been encouraged to exercise daily. The pt has been advised to call the office if there are any acute concerns about change in blood pressure readings at home. Chronic Pain Syndrome - pt has chronic pain - has been maintained on current medications, has not sought out other medications, only uses PRN pain medications as directed, and understands the consequences of over-medication. The patient was counseled to always first attempt to use modalities other than pain medication for alleviation of the muscle spasms and pain. The patient was also encouraged to continue with exercises as previously directed. Pt is to use pain medication as directed. If pain medications are used inappropriately or early refills are requested, the patient understands that is a breech of trust/contract and could result in the patient's termination from this medical practice. . Hypertension - well controlled - continue with current medications, continue with no added salt diet. Pt has been encouraged to exercise daily. The pt has been advised to call the office if there are any acute concerns about change in blood pressure readings at home. Chronic Pain Syndrome - pt has chronic pain - has been maintained on current medications, has not sought out other medications, only uses PRN pain medications as directed, and understands the consequences of over-medication. The patient was counseled to always first attempt to use modalities other than pain medication for alleviation of the muscle spasms and pain. The patient was also encouraged to continue with exercises as previously directed. Pt is to use pain medication as directed. If pain medications are used inappropriately or early refills are requested, the patient understands that is a breech of trust/contract and could result in the patient's termination from this medical practice. stop lovastatin-recheck cholesterol in 3 months . Hypertension - well controlled - continue with current medications, continue with no added salt diet. Pt has been encouraged to exercise daily. The pt has been advised to call the office if there are any acute concerns about change in blood pressure readings at home. Hyperlipidemia-myalgias improved off statin-stay off medication-repeat lipid panel in 3 months . Thrombophlebitis-right rbv-ijglwusp-ezfxucii xarelto as directed-follow up in 1 month . URI - Pt advised to increase fluids, vitamin C. Discussed natural and expected course of this diagnosis and need to alert me if symptoms do not follow expected course, or if any worse. RX sent to patient's pharmacy. salt water rinses with netti-pot . Sinusitis - Pt has acute infection - pain in face, maxillary region, Pt informed to use decongestant, RX given to patient, sinus rinses also recommended. Call if symptoms do not show improvement. . Hypertension - well controlled - continue with current medications, continue with no added salt diet. Pt has been encouraged to exercise daily. The pt has been advised to call the office if there are any acute concerns about change in blood pressure readings at home. Hypogonadism - pt has AGAIN been given a script for testosterone. He never filled the androgel due to cost. Pt given rx for compounded testosterone cream. Sleep apnea - continue with use of machine - pt to have evaluation for new mask. . URI - Pt advised to increase fluids, vitamin C. Discussed natural and expected course of this diagnosis and need to alert me if symptoms do not follow expected course, or if any worse. RX sent to patient's pharmacy. Sinusitis - Pt has acute infection - pain in face, maxillary region, Pt informed to use decongestant, RX given to patient, sinus rinses also recommended. Call if symptoms do not show improvement. Allergies - chronic - recommended pt to use allergy medication as prescribed. Pt has been counseled as to the appropriate use of the medication. Pt to call if allergy symptoms are not controlled with the medication. If using nasal spray, instructions as follows: Nasal spray- use twice daily, one spray per nostril twice daily, after 30 minutes, rinse out nose with saline spray.. Use opposite hand per nostril to spray in the nasal steroid allergy spray. . Thrombophlebitis-right wkv-zluqapto-qadfzbpa xarelto as directed-follow up in 1 month Left knee pain-OA left knee-Joint Injection - Pt was given post - injection instructions. The pt has been advised to use anti-inflammatories post injection today, ice to the injected site, call if redness, warmth, or increased pain occurs at the site of injection. . Medicare Exam - today we discussed the patients past history, immunizations, preventative exams/evaluations - colonoscopy, fecal occult blood testing, routine labs for renal function, glucose, cholesterol, osteoporosis evaluations, cardiovascular testing and cancer screenings. We have also discussed mental health and the signs/symptoms of depression. The patient was advised of home safety evaluations and the need to make sure that as the aging process continues, we need to be aware of different ways to make the home a safer place to reside. The patient has also been counseled that exercise is necessary - and of utmost importance as we age to help decrease fall risk and to maintain independece in the home. Today we discussed the need for the patient to create paperwork for Advanced directives as well as for the patient to provide this office with a copy of her DOPA paperwork for health care surrogate. . Hypertension - well controlled - continue with current medications, continue with no added salt diet. Pt has been encouraged to exercise daily. The pt has been advised to call the office if there are any acute concerns about change in blood pressure readings at home. OA knees-patient going to have knee replacement-considering Dr Leong vs Dr Lopez-he will let us know what he decides. Refill percocet for pr use-call with any questions/concerns. Patient verbalized understanding of plan. CHECK LABS -CBC, CMP, UA . Urinary frequency-UA negative-check labs GAX-lxyczewwxg-my changes . Dr. Taylor - pain mostly in the left knee, had previously done pain shots which were ineffective. states he needs knee surgery but cannot afford it. Pt states he used to take hydrocodone but that it is too expensive, will give script for tylenol 3 because pharmacy verified that it is cheaper. Pt to notify clinic if symptoms do not improve or with other concerns. Arthritis- occasionally uncontrolled symptoms- recommend pt to take antiinflammatory as directed for pain control. Chronic Pain Syndrome - pt has chronic pain - has been maintained on current medications, has not sought out other medications, only uses PRN pain medications as directed, and understands the consequences of over-medication. The patient was counseled to always first attempt to use modalities other than pain medication for alleviation of the muscle spasms and pain. The patient was also encouraged to continue with exercises as previously directed. Pt is to use pain medication as directed. If pain medications are used inappropriately or early refills are requested, the patient understands that is a breech of trust/contract and could result in the patient's termination from this medical practice. . Joint Injection - Bilateral knees - Pt was given post - injection instructions. The pt has been advised to use anti-inflammatories post injection today, ice to the injected site, call if redness, warmth, or increased pain occurs at the site of injection. . Hypertension - well controlled - continue with current medications, continue with no added salt diet. Pt has been encouraged to exercise daily. The pt has been advised to call the office if there are any acute concerns about change in blood pressure readings at home. Thrombophlebitis-right sno-yacxzaeu-vhjvflja daily aspirin . Hypertension - well controlled - continue with current medications, continue with no added salt diet. Pt has been encouraged to exercise daily. The pt has been advised to call the office if there are any acute concerns about change in blood pressure readings at home. Thrombophlebitis-right mjt-qtmzddsj-pmtsucbm daily aspirin ADDENDUM: BILATERAL OA KNEE-PAIN IN LEFT/RIGHT KNEE-GAIT INSTABILITY-RX FOR WALKER PROVIDED-DUE TO BILATERAL OA OF KNEES, POOR BALANCE, WEAKNESS AND ABNORMAL GAIT, HE IS NOT STABLE WITH A CANE ALONE-REQUIRES THE ASSISTANCE OF A WALKER FOR FURTHER STABILITY TO DECREASE RISK FOR FALLS. . Hypertension - well controlled - continue with current medications, continue with no added salt diet. Pt has been encouraged to exercise daily. The pt has been advised to call the office if there are any acute concerns about change in blood pressure readings at home. Thrombophlebitis-right fvi-ektzkjvd-wuntcydv daily aspirin ADDENDUM: BILATERAL OA KNEE-PAIN IN LEFT/RIGHT KNEE-GAIT INSTABILITY-RX FOR WALKER PROVIDED . Hypertension - well controlled - continue with current medications, continue with no added salt diet. Pt has been encouraged to exercise daily. The pt has been advised to call the office if there are any acute concerns about change in blood pressure readings at home. Thrombophlebitis-right kfu-nczrhcqh-gllqbnbz xarelto as directed-follow up in 1 month Allergies - chronic - recommended pt to use allergy medication as prescribed. Pt has been counseled as to the appropriate use of the medication. Pt to call if allergy symptoms are not controlled with the medication. If using nasal spray, instructions as follows: Nasal spray- use twice daily, one spray per nostril twice daily, after 30 minutes, rinse out nose with saline spray.. Use opposite hand per nostril to spray in the nasal steroid allergy spray. Kenalog injection today in the office. Bilateral knee pain-refill hydrocodone for prn use CHECK LABS-CBC, CMP, TSH HOLD LOVASTATIN X 2 WEEKS . Hypertension - well controlled - continue with current medications, continue with no added salt diet. Pt has been encouraged to exercise daily. The pt has been advised to call the office if there are any acute concerns about change in blood pressure readings at home. Fatigue-check labs-hold lovastatin x 2 weeks-f/u in 2 weeks . Arrhythmia follow up - pt was recently treated for strep throat and [facility] noted an arrhythmia - they did an EKG - will call for EKG report - pt is to continue his xarelto at this time - will treat pending results of EKG. . Hypertension - well controlled - continue with current medications, continue with no added salt diet. Pt has been encouraged to exercise daily. The pt has been advised to call the office if there are any acute concerns about change in blood pressure readings at home. Joint Injection - left knee - Pt was given post - injection instructions. The pt has been advised to use anti-inflammatories post injection today, ice to the injected site, call if redness, warmth, or increased pain occurs at the site of injection. . Hypertension - uncontrolled - the patient's medications have been modified as documented in the visit note. The patient has been counseled to cut back on salt in diet for a no added salt diet, low fat diet, start an exercise program with low weight bearing exercises and higher aerobic activity for heart health. The patient is to check blood pressure readings as an outpatient and either fax , call, or email the readings to the office next week for practitioner to review. The pt is to call for acute concerns. Chronic Back pain - the patient was counseled to always first attempt to use modalities other than pain medication for alleviation of the muscle spasms and pain. The patient was also encouraged to continue with back exercises as previously directed. Pt is to use pain medication as directed. If pain medications are used inappropriately or early refills are requested, the patient understands that is a breech of trust/contract and could result in the patient's termination from this medical practice. Sleep disordered breathing - recommended pt to have an appt with Dr. Ochoa with plans for a sleep study with dr. ochoa. need to check labs - thyroid, b12, chem panel, cbc, testosterone, lipids Umbilical hernia - referral to dr. johns for umbilical hernia. Impotence symptoms - recommended testing of pt's testosterone, this may need supplemented. Chronic Obesity - multifactorial - need to test labs, and treat contributing symptoms/problems and hopefully the patient's contributing factors, when treated will help improve his weight. Time based documentation -I spent over 65 minutes with the patient in discussion of the disease process, expected course, and overall prognosis for the patient's disease state. The patient/family expressed understanding. . Medicare Exam - today we discussed the patients past history, immunizations, preventative exams/evaluations - colonoscopy, fecal occult blood testing, routine labs for renal function, glucose, cholesterol, osteoporosis evaluations, cardiovascular testing and cancer screenings. We have also discussed mental health and the signs/symptoms of depression. The patient was advised of home safety evaluations and the need to make sure that as the aging process continues, we need to be aware of different ways to make the home a safer place to reside. The patient has also been counseled that exercise is necessary - and of utmost importance as we age to help decrease fall risk and to maintain independece in the home. Today we discussed the need for the patient to create paperwork for Advanced directives as well as for the patient to provide this office with a copy of her DOPA paperwork for health care surrogate. Take your blood pressure and heart rate twice a day, or as often as you can, and write them down and bring them by the office for me to look at. Take half of the hydrochlorothiazide in the morning and a full edarbi pill in the morning. Today you will get a steroid shot, and a rocephin antibiotic shot. I will give you prescriptions for amoxicillin, prednisone to fill if you are still feeling short of breath, and tessalon perles for cough. Call me if your symptoms do not improve, or with any questions. . Sinusitis - Pt has acute infection - pain in face, maxillary region, Pt informed to use decongestant, RX given to patient, sinus rinses also recommended. Pt advised to increase fluids, vitamin C. Discussed natural and expected course of this diagnosis and need to alert me if symptoms do not follow expected course, or if any worse. Call if symptoms do not show improvement. Allergies - chronic - recommended pt to use allergy medication as prescribed. Pt has been counseled as to the appropriate use of the medication. Pt to call if allergy symptoms are not controlled with the medication. If using nasal spray, instructions as follows: Nasal spray- use twice daily, one spray per nostril twice daily, after 30 minutes, rinse out nose with saline spray.. Use opposite hand per nostril to spray in the nasal steroid allergy spray. Hypertension - uncontrolled - the patient's medications have been modified as documented in the visit note. The patient has been counseled to cut back on salt in diet for a no added salt diet, low fat diet, start an exercise program with low weight bearing exercises and higher aerobic activity for heart health. The patient is to check blood pressure readings as an outpatient and either fax , call, or email the readings to the office next week for practitioner to review. The pt is to call for acute concerns. BMI 33 - The pt has been counseled about diet changes, calorie restriction, and need to exercise. Pt will RTC in one month for weight check. xarelto - take 15mg TWICE daily x 3 weeks - then take the 20mg daily xarelto . OA - - planning on surgery for knee replacement - Cellulitis - with erythema, thrombophlebitis - antibiotic and anticoagulant. started . Hypertension - well controlled - continue with current medications, continue with no added salt diet. Pt has been encouraged to exercise daily. The pt has been advised to call the office if there are any acute concerns about change in blood pressure readings at home. OA knees-refer to Dr Bae Percocet Mixed hyperlipidemia-off statin due to myalgias-recheck lipids-consider livalo due to decreased side effect profile . Hypertension - well controlled - continue with current medications, continue with no added salt diet. Pt has been encouraged to exercise daily. The pt has been advised to call the office if there are any acute concerns about change in blood pressure readings at home. OA knees-refer to Dr Bae Percocet Mixed hyperlipidemia-off statin due to myalgias-recheck lipids-consider livalo due to decreased side effect profile . Insomnia - Pt has been advised to increase the light in the house during the day, and start dimming the lights during the evening hours. Pt has been advised to cut out caffeine after 5pm. Daytime napping worsens night time insomnia. STOP IBUPROFEN HOLD CELEBREX X 5 DAYS USE HYDROCODONE NEEDED FOR PAIN IF DIARRHEA CONTINUES, START A PROBIOTIC TWICE DAILY . Hypertension - well controlled - continue with current medications, continue with no added salt diet. Pt has been encouraged to exercise daily. The pt has been advised to call the office if there are any acute concerns about change in blood pressure readings at home. Nausea-upset stomach-suspect due to taking celebrax, ibuprofen and amoxicillin. Stop ibuprofen, hold celebrex x5 days and resume if symptoms resolved in 5 days. Take probiotics twice daily if diarrhea persists. Check labs today OA of knees-stop ibuprofen-use prn hydrocodone as needed . Symptoms improved-continue xarelto and follow up in 10- 14 days . Allergies - chronic - recommended pt to use allergy medication as prescribed. Pt has been counseled as to the appropriate use of the medication. Pt to call if allergy symptoms are not controlled with the medication. If using nasal spray, instructions as follows: Nasal spray- use twice daily, one spray per nostril twice daily, after 30 minutes, rinse out nose with saline spray.. Use opposite hand per nostril to spray in the nasal steroid allergy spray. Hypertension - well controlled - continue with current medications, continue with no added salt diet. Pt has been encouraged to exercise daily. The pt has been advised to call the office if there are any acute concerns about change in blood pressure readings at home. . Chronic Pain Syndrome - pt has chronic pain - has been maintained on current medications, has not sought out other medications, only uses PRN pain medications as directed, and understands the consequences of over- medication. Joint Injection-bilateral knees - Pt was given post - injection instructions. The pt has been advised to use anti-inflammatories post injection today, ice to the injected site, call if redness, warmth, or increased pain occurs at the site of injection. . Joint Injection-bilateral knees - Pt was given post - injection instructions. The pt has been advised to use anti-inflammatories post injection today, ice to the injected site, call if redness, warmth, or increased pain occurs at the site of injection. . Hypertension - continue with current medications, continue with no added salt diet. Pt has been encouraged to exercise daily. The pt has been advised to call the office if there are any acute concerns about change in blood pressure readings at home. BMI 34 - The pt has been counseled about diet changes, calorie restriction, and need to exercise. Pt will RTC in one month for weight check. . Hypertension - well controlled - continue with current medications, continue with no added salt diet. Pt has been encouraged to exercise daily. The pt has been advised to call the office if there are any acute concerns about change in blood pressure readings at home. Varicose veins - with phlebitis - continue with xarelto and call if symptoms do not improve. . Gout Attack - pt given RX for uric Acid Level, and rx for medication for treatment of symptoms. Pt to call if symptoms do not improve , and pt to be given results of labs when available. . Cellulitis - continue with oral antibiotics as previously directed, return to clinic as previously directed, call for acute change in symptoms, worsening redness, warmth, edema, or discharge.
--- OUTSIDE RECORDS SUMMARY | 2018-03-03 15:13 | XMS REPORT | CCD ---
Author Author [facility] Organization [facility] Address [address] [place] [address] Phone Care Team Providers Care Conduit Mechanic Name Role Phone PP Unavailable CCM Unavailable Summary Purpose Interface Exchange Insurance Providers Payer name Policy type / Coverage type Covered democrat ID Effective Begin Date Effective End Date WPS Medicare Part B Medicare Part B [id number] Unknown Unknown Family history Father Diagnosis Age At Onset Hypertension Unknown Mother Diagnosis Age At Onset Depression Unknown Hypertension Unknown Social History Social History Element Codes Description Effective Dates Marital status Unknown Maryjo 06/03/2014 Number of children Unknown 1 06/03/2014 Employment Unknown Retired subs at [employer] 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/[address]: 2832247 Former smoker 06/03/2014 Number of years using tobacco Unknown 15 06/03/[address]: 826521758 Never drinks alcohol quit 23 years ago [...] Fill Instructions meloxicam 15 mg tablet RxNorm: 448060 1 Tablet(s) PO daily prescribed by ER 11/14/2017 12/13/2017 Active cyanocobalamin (vit B-12) 1,000 mcg/mL injection solution RxNorm: 593065 Milliliter(s) Inj 11/01/2017 11/01/2017 Inactive cyanocobalamin (vit B-12) 1,000 mcg/mL injection solution RxNorm: 388982 1 Milliliter(s) Inj monthly 10/31/201701/28 Active amoxicillin 500 mg capsule RxNorm: 575956 1 Capsule(s) PO TID 10/31/2017 11/06/2017 Inactive hydrocodone 10 mg-acetaminophen 325 mg tablet RxNorm: 118769 1 Tablet(s) PO Q6 PRN 10/02/2017 10/31/2017 Inactive prednisone 20 mg tablet RxNorm: 779327 2 Tablet(s) PO daily 09/16/2017 Inactive hydrocodone 10 mg-acetaminophen 325 mg tablet RxNorm: 980643 1 Tablet(s) PO Q6 PRN 08/22/2017 09/20/2017 Inactive Kenalog 40 mg/mL suspension for injection RxNorm: 8418506 2 Milliliter(s) Inj 07/12/2017 07/12/2017 Inactive hydrocodone 10 mg-acetaminophen 325 mg tablet RxNorm: 354827 1 Tablet(s) PO Q6 PRN 07/12/2017 08/10/2017 Inactive hydrocodone 10 mg-acetaminophen 325 mg tablet RxNorm: 086499 1 Tablet(s) PO TID 06/01/2017 05/31/2017 Inactive hydrocodone 10 mg-acetaminophen 325 mg tablet RxNorm: 519955 1 Tablet(s) PO TID 06/01/2017 06/30/2017 Inactive hydrocodone 5 mg-acetaminophen 325 mg tablet RxNorm: 286261 1 Tablet(s) PO TID as needed for pain 03/30/2017 05/31/2017 Inactive hydrocodone 5 mg-acetaminophen 325 mg tablet RxNorm: 949987 1 Tablet(s) PO BID 02/23/2017 02/22/2017 Inactive hydrocodone 5 mg-acetaminophen 325 mg tablet RxNorm: 078249 1 Tablet(s) PO TID as needed for pain 02/23/2017 03/24/2017 Inactive hydrocodone 5 mg-acetaminophen 325 mg tablet RxNorm: 781118 1 Tablet(s) PO BID 01/26/2017 02/22/2017 Inactive Percocet 10 mg-325 mg tablet RxNorm: 2516340 1 Tablet(s) PO Q6 PRN 01/16/2017 05/31/2017 Inactive amoxicillin 500 mg tablet RxNorm: 760058 1 Tablet(s) PO BID 12/23/2016 Inactive Percocet 10 mg-325 mg tablet RxNorm: 4406288 1 Tablet(s) PO Q6 PRN 11/21/2016 01/15/2017 Inactive Percocet 5 mg-325 mg tablet RxNorm: 5905380 1-2 Tablet(s) PO BID PRN 10/24/2016 11/20/2016 Inactive hydrocodone 5 mg-acetaminophen 325 mg tablet RxNorm: 944182 1 Tablet(s) PO BID as needed 10/05/2016 10/23/2016 Inactive Keflex 500 mg capsule RxNorm: 896121 1 Capsule(s) PO TID 201509/16/2016 Inactive promethazine 25 mg tablet RxNorm: 891747 1 Tablet(s) PO TID as needed N/V 08/25/2016 No Stop Date Active promethazine 25 mg tablet RxNorm: 966402 1 Tablet(s) PO TID as needed N/V 08/25/2016 08/24/2016 Inactive naproxen 500 mg tablet RxNorm: 011705 1 Tablet(s) PO BID as needed 08/17/2016 12/07/2016 Inactive naproxen 500 mg tablet RxNorm: 789250 1 Tablet(s) PO BID as needed 08/17/2016 08/16/2016 Inactive gentamicin 0.3 % eye drops RxNorm: 346128 1-2 Drop(s) OPH Q4H while awake 08/15/2016 08/19/2016 Inactive gentamicin 0.3 % eye drops RxNorm: 711021 1-2 Drop(s) OPH Q4H while awake 08/15/2016 08/14/2016 Inactive Kenalog 40 mg/mL suspension for injection RxNorm: 0046605 1 Milliliter(s) Inj 08/11/2016 08/11/2016 Inactive hydrocodone 5 mg-acetaminophen 325 mg tablet RxNorm: 125292 1 Tablet(s) PO BID as needed 07/28/2016 10/04/2016 Inactive [SAVINGS FOR UNINSURED PATIENTS -- BIN:182679 , PCN: ASPROD1, Group: [id number], ID# [id number], Process claim through [employer], for questions: . THIS IS NOT INSURANCE.] Xarelto 20 mg tablet RxNorm: 9197537 1 Tablet(s) PO daily 10/26 /2016 09/20/2016 Inactive Remeron 15 mg tablet RxNorm: 587077 1 Tablet(s) PO QHS as needed 05/25/2016 09/03/2017 Inactive hydrochlorothiazide 25 mg tablet RxNorm: 350741 Tablet(s) TAKE ONE TABLET BY MOUTH DAILY 05/09/2016 11/04/2016 Inactive hydrochlorothiazide 25 mg tablet RxNorm: 625318 TAKE ONE TABLET BY MOUTH DAILY 05/09/2016 05/08/2016 Inactive hydrocodone 5 mg-acetaminophen 325 mg tablet RxNorm: 508326 1 Tablet(s) PO BID as needed 05/05/2016 07/27/2016 Inactive [SAVINGS FOR UNINSURED PATIENTS -- BIN:245734 , PCN: ASPROD1, Group: [id number], ID# [id number], Process claim through [employer], for questions: . THIS IS NOT INSURANCE.] Kenalog 40 mg/mL suspension for injection RxNorm: 3195500 Milliliter(s) Inj 05/05/2016 05/05/2016 Inactive Kenalog 40 mg/mL suspension for injection RxNorm: 1331508 1 Milliliter(s) Inj 04/07/2016 04/07/2016 Inactive ceftriaxone 500 mg solution for injection RxNorm: 5293057 Inj 03/16/2016 03/16/2016 Inactive cetirizine 10 mg tablet RxNorm: 2681917 1 Tablet(s) PO daily 04/14/2016 Inactive prednisone 20 mg tablet RxNorm: 586884 2 Tablet(s) PO daily 03/04/2016 Inactive amoxicillin 500 mg tablet RxNorm: 605997 1 Tablet(s) PO TID 03/06/2016 Inactive cetirizine 10 mg chewable tablet RxNorm: 4476509 1 Tablet(s) PO daily 01/19/2016 02/17/2016 Inactive ceftriaxone 500 mg solution for injection RxNorm: 8377050 Inj 01/11/2016 01/11/2016 Inactive Kenalog 40 mg/mL suspension for injection RxNorm: 8749633 Milliliter(s) Inj 01/11/2016 01/11/2016 Inactive testosterone cypionate 200 mg/mL intramuscular oil RxNorm: 095115 Milliliter(s) IM 12/09/2015 12/09/2015 Inactive testosterone cypionate 200 mg/mL intramuscular oil RxNorm: 608460 Milliliter(s) IM 10/27/2015 10/27/2015 Inactive Flomax 0.4 mg capsule RxNorm: 030894 1 Capsule(s) PO daily 10/2711/25/2015 Inactive testosterone cypionate 200 mg/mL intramuscular oil RxNorm: 989940 1 Milliliter(s) IM 09/08/2015 09/08/2015 Inactive testosterone enanthate 200 mg/mL intramuscular oil RxNorm: 416292 Milliliter(s) IM 07/16/2015 07/16/2015 Inactive testosterone cypionate 200 mg/mL intramuscular oil RxNorm: 727006 100 Milliliter(s ) IM [id number] 07/09/2015 07/08/2015 Inactive testosterone cypionate 200 mg/mL intramuscular oil RxNorm: 466797 100 Milliliter(s ) IM [id number] 07/09/2015 07/08/2015 Inactive testosterone cypionate 200 mg/mL intramuscular oil RxNorm: 717079 100 Milliliter(s ) IM [id number] 07/09/2015 09/02/2017 Inactive promethazine 25 mg tablet RxNorm: 860129 1 Tablet(s) PO Q6 as needed N/V 04/30/2015 03/19/2016 Inactive Kenalog 40 mg/mL suspension for injection RxNorm: 2782354 Milliliter(s) Inj 04/23/2015 04/23/2015 Inactive amoxicillin 500 mg tablet RxNorm: 455578 1 Tablet(s) PO TID 05/02/2015 Inactive ceftriaxone 500 mg solution for injection RxNorm: 8991573 Inj 04/23/2015 04/23/2015 Inactive hydrocodone 5 mg-acetaminophen 325 mg tablet RxNorm: 089110 1 Tablet(s) PO BID as needed 03/01/2015 05/04/2016 Inactive [SAVINGS FOR UNINSURED PATIENTS -- BIN:552678 , PCN: ASPROD1, Group: [id number], ID# [id number], Process claim through Mon[employer], for questions: . THIS IS NOT INSURANCE.] hydrochlorothiazide 25 mg tablet RxNorm: 547182 1 Tablet(s) PO daily 02/05/2015 09/02/2015 Inactive [SAVINGS FOR NON-COVERED DRUGS -- BIN:381916, PCN: ASPROD1, Group: XXXXX, ID# [id number], Questions: . THIS IS NOT INSURANCE.] amoxicillin 500 mg capsule RxNorm: 846520 1 Capsule(s) PO TID 01/13/2015 01/19/2015 Inactive [SAVINGS FOR NON-COVERED DRUGS -- BIN:951838, PCN: ASPROD1, Group: XXXXX, ID# [id number], Questions: . THIS IS NOT INSURANCE.] amoxicillin 500 mg capsule RxNorm: 286960 1 Capsule(s) PO TID 01/13/2015 01/12/2015 Inactive hydrocodone 5 mg-acetaminophen 325 mg tablet RxNorm: 074853 1 Tablet(s) PO BID as needed 11/10/2014 02/28/2015 Inactive [SAVINGS FOR UNINSURED PATIENTS -- BIN:025357 , PCN: ASPROD1, Group: AME08, ID# [id number], Process claim through MedImpact, for questions: . THIS IS NOT INSURANCE.] cefdinir 300 mg capsule RxNorm: 901097 1 Capsule(s) PO BID 11/06/2014 Inactive [SAVINGS FOR UNINSURED PATIENTS -- BIN:230721, PCN: ASPROD1, Group: [id number] , ID# [id number], Process claim through [employer]Imp[employer], for questions: . THIS IS NOT INSURANCE.] Rocephin 1 gram solution for injection RxNorm: 104498 Inj 10/2810/28/2014 Inactive [SAVINGS FOR UNINSURED PATIENTS -- BIN:317864, PCN: ASPROD1, Group: [id number], ID# [id number], Process claim through [employer], for questions: . THIS IS NOT INSURANCE.] Kenalog 40 mg/mL suspension for injection RxNorm: 2797428 Milliliter(s) Inj 10/28/2014 10/28/2014 Inactive [SAVINGS FOR UNINSURED PATIENTS -- BIN:275242, PCN: ASPROD1, Group: AME08, ID# [id number], Process claim through MedImp[employer], for questions: . THIS IS NOT INSURANCE.] hydrocodone 5 mg-acetaminophen 325 mg tablet RxNorm: 641413 1 Tablet(s) PO BID as needed 10/12/2014 11/09/2014 Inactive [SAVINGS FOR UNINSURED PATIENTS -- BIN:728438 , PCN: ASPROD1, Group: AME08, ID# [id number], Process claim through [employer]Imp[employer], for questions: . THIS IS NOT INSURANCE.] Phenergan 25 mg tablet RxNorm: 974626 1/2 to 1 Tablet(s) PO Q6 as needed for nausea/vomiting 09/04/2014 03/19/2016 Inactive [SAVINGS FOR UNINSURED PATIENTS -- BIN:259722, PCN: ASPROD1, Group: AME08, ID# [id number], Process claim through MedImpact, for questions: . THIS IS NOT INSURANCE.] hydrocodone 5 mg-acetaminophen 325 mg tablet RxNorm: 899862 1 Tablet(s) PO BID as needed 08/03/2014 10/11/2014 Inactive [SAVINGS FOR UNINSURED PATIENTS -- BIN:793702 , PCN: ASPROD1, Group: AME08, ID# [id number], Process claim through MedImpact, for questions: . THIS IS NOT INSURANCE.] lisinopril 10 mg tablet RxNorm: 561558 1 Tablet(s) PO daily 03/19/2016 Inactive [SAVINGS FOR UNINSURED PATIENTS -- BIN:090390, PCN: ASPROD1, Group: AME08 , ID# [id number], Process claim through MedImp[employer], for questions: . THIS IS NOT INSURANCE.] hydrocodone 5 mg-acetaminophen 325 mg tablet RxNorm: 374732 1 Tablet(s) PO BID as needed 06/23/2014 08/02/2014 Inactive [SAVINGS FOR UNINSURED PATIENTS -- BIN:512996 , PCN: ASPROD1, Group: AME08, ID# [id number], Process claim through [employer]it[employer], for questions: . THIS IS NOT INSURANCE.] AndroGel 1.62 % (20.25 mg/1.25 gram) transdermal gel packet RxNorm: 9714579 4 pumps TD daily 06/16/2014 01/06/2015 Inactive [SAVINGS FOR UNINSURED PATIENTS -- BIN:544312, PCN: ASPROD1, Group: AME08, ID# [id number], Process claim through [employer], for questions: . THIS IS NOT INSURANCE.] AndroGel 1.62 % (20.25 mg/1.25 gram) transdermal gel packet RxNorm: 7371126 4 pumps TD daily 06/16/2014 06/15/2014 Inactive amoxicillin 500 mg tablet RxNorm: 455563 1 Tablet(s) PO BID 11/201306/12/2014 Inactive [SAVINGS FOR UNINSURED PATIENTS -- BIN:324580, PCN: ASPROD1, Group: AME08 , ID# [id number], Process claim through Mailcloud[employer], for questions: . THIS IS NOT INSURANCE.] gabapentin 300 mg capsule RxNorm: 925187 1 Capsule(s) PO TID No Start Date Active hydrocodone 5 mg-acetaminophen 325 mg tablet RxNorm: 503590 1 Tablet(s) PO Q4H prescribed by ER No Start Date Active aspirin 325 mg tablet RxNorm: 204885 1 Tablet(s) PO daily No Start Date Active lisinopril 20 mg tablet RxNorm: 952153 1 Tablet(s) PO QAM No Start Date Active lisinopril 20 mg tablet RxNorm: 019901 1 Tablet(s) PO daily No Start Date Active hydrochlorothiazide 25 mg tablet RxNorm: 893696 1 Tablet(s) PO daily No Start Date 02/04/2015 Inactive lovastatin 20 mg tablet RxNorm: 620936 1 Tablet(s) PO daily No Start Date 12/19/2016 Inactive lovastatin 20 mg tablet RxNorm: 447582 1 Tablet(s) PO QAM No Start Date 01/15/2017 Inactive ibuprofen 800 mg tablet RxNorm: 347883 1 Tablet(s) PO TID No Start Date 03/05/2016 Inactive Phenergan 25 mg tablet RxNorm: 553965 1/2 to 1 Tablet(s) PO Q6 as needed for nausea/vomiting No Start Date 09/03/2014 Inactive Xarelto 20 mg tablet RxNorm: 6475322 1 Tablet(s) PO daily No Start Date 07/25/2016 Inactive vitamin B12 200mcg Eldred, Suspension RxNorm: 1 Eldred PO daily No Start Date 09/04/2017 Inactive hydrocodone 5 mg-acetaminophen 325 mg tablet RxNorm: 019055 1 Tablet(s) PO BID as needed No Start Date 06/22/2014 Inactive promethazine 25 mg tablet RxNorm: 529487 1 Tablet(s) PO Q6 as needed N/V No Start Date 04/29/2015 Inactive tramadol 50 mg tablet RxNorm: 348636 1 Tablet(s) PO BID as needed No Start Date 08/02/2014 Inactive Medication Administered Medication Codes Instructions Start Date Status cyanocobalamin (vit B-12) 1,000 mcg/mL injection solution RxNorm: 663709 Milliliter 11/01/2017 No longer Active Kenalog 40 mg/mL suspension for injection RxNorm: 9004154 2Milliliter 07/12/2017 No longer Active Kenalog 40 mg/mL suspension for injection RxNorm: 5680424 1Milliliter 08/11/2016 No longer Active Kenalog 40 mg/mL suspension for injection RxNorm: 4865658 Milliliter 05/05/2016 No longer Active Kenalog 40 mg/mL suspension for injection RxNorm: 6727695 1Milliliter 04/07/2016 No longer Active ceftriaxone 500 mg solution for injection RxNorm: 5375058 03/16/2016 No longer Active ceftriaxone 500 mg solution for injection RxNorm: 1721223 01/11/2016 No longer Active Kenalog 40 mg/mL suspension for injection RxNorm: 3884410 Milliliter 01/11/2016 No longer Active testosterone cypionate 200 mg/mL intramuscular oil RxNorm: 148266 Milliliter 12/09/2015 No longer Active testosterone cypionate 200 mg/mL intramuscular oil RxNorm: 211832 Milliliter 10/27/2015 No longer Active testosterone cypionate 200 mg/mL intramuscular oil RxNorm: 791779 1Milliliter 09/08/2015 No longer Active testosterone enanthate 200 mg/mL intramuscular oil RxNorm: 026931 Milliliter 07/16/2015 No longer Active Kenalog 40 mg/mL suspension for injection RxNorm: 1068662 Milliliter 04/23/2015 No longer Active ceftriaxone 500 mg solution for injection RxNorm: 3764621 04/23/2015 No longer Active Kenalog 40 mg/mL suspension for injection RxNorm: 7833739 Milliliter 10/28/2014 No longer Active Rocephin 1 gram solution for injection RxNorm: 440667 10/28/2014 No longer Active Immunizations Vaccine Codes [...] Ord77 Uric A 9.2 mg/dL 11/14/2017 B12 Zna839 B12 231.00 pg/ml 07/25/2017 Tsh Ord6 hTSH II 1.00 uIU/mL 07/25/2017 Iron Ord72 Iron 109 ug/dl 07/25/2017 Folate Ord36 Folate 16.29 ng/mL 07/25/2017 Free T4 Wpo142 FREE T4 0.86 ng/dL 07/25/2017 Comp Metabolic Sus654 NA 140 mEq/L 06/15/2017 Comp Metabolic Gcq551 K 4.3 mEq/L 06/15/2017 Comp Metabolic Zls529 CL 107 mEq/L 06/15/2017 Comp Metabolic Olp867 CO2 25.0 mEq/L 06/15/2017 Comp Metabolic Pud847 ANION GAP 12 06/15/2017 Comp Metabolic Oeo635 GLUCOSE 108 mg/dL 06/15/2017 Comp Metabolic Vco943 Creat 1.5 mg/dL 06/15/2017 Comp Metabolic Nbu605 eGFR 47 ml/min/1.73m2 06/15/2017 Comp Metabolic Fvq325 BUN 21 mg/dL 06/15/2017 Comp Metabolic Tkw021 B/C Ratio 13.6 Ratio 06/15/2017 Comp Metabolic Rxb098 CALCIUM 9.3 mg/dL 06/15/2017 Comp Metabolic Wam960 ALK PHOS 63 U/L 06/15/2017 Comp Metabolic Jpu682 AST(SGOT) 19 U/L 06/15/2017 Comp Metabolic Ntx277 ALT(SGPT) 18 U/L 06/15/2017 Comp Metabolic Qon016 BILI T 0.6 mg/dL 06/15/2017 Comp Metabolic Dxf709 ALBUMIN 3.9 g/dL 06/15/2017 Comp Metabolic Vgh079 TPRO 6.4 g/dL 06/15/2017 Comp Metabolic Ymu508 GLOB 2.6 g/dL 06/15/2017 Comp Metabolic Ztm037 A/G Ratio 1.5 Ratio 06/15/2017 Comp Metabolic Rql078 Osmo 283 mOsmo 06/15/2017 Cbc With Differential Ord2 WBC 7.62 K/ul 06/15/2017 Cbc With Differential Ord2 RBC 4.32 M/ul 06/15/2017 Cbc With Differential Ord2 HGB 13.5 g/dl 06/15/2017 Cbc With Differential Ord2 HCT 41.6 % 06/15/2017 Cbc With Differential Ord2 Neut% 54.9 % 06/15/2017 Cbc With Differential Ord2 Lymph% 34.4 % 06/15/2017 Cbc With Differential Ord2 MCV 96.3 fl 06/15/2017 Cbc With Differential Ord2 [place]% 9.2 % 06/15/2017 Cbc With Differential Ord2 MCH 31.3 pg 06/15/2017 Cbc With Differential Ord2 MCHC 32.5 pg 06/15/2017 Cbc With Differential Ord2 Eos% 1.4 % 06/15/2017 Cbc With Differential Ord2 PLT 279 K/ul 06/15/2017 Cbc With Differential Ord2 Baso% 0.1 % 06/15/2017 Cbc With Differential Ord2 Neut ABS# 4.18 K/ul 06/15/2017 Cbc With Differential Ord2 RDW 14.9 % 06/15/2017 Cbc With Differential Ord2 Lymph ABS# 2.62 K/ul 06/15/2017 Cbc With Differential Ord2 [place] ABS# 0.7 K/ul 06/15/2017 Cbc With Differential Ord2 Eos ABS# 0.1 K/ul 06/15/2017 Cbc With Differential Ord2 Baso ABS# 0.0 K/ul 06/15/2017 Total Psa Ord10 PSA 0.96 ng/mL 01/18/2017 Comp Metabolic Ime082 NA 141 mEq/L 01/18/2017 Comp Metabolic Qpm655 K 4.7 mEq/L 01/18/2017 Comp Metabolic Uzx357 CL 109 mEq/L 01/18/2017 Comp Metabolic Nqp987 CO2 27.0 mEq/L 01/18/2017 Comp Metabolic Ocg260 ANION GAP 10 01/18/2017 Comp Metabolic Skg397 GLUCOSE 98 mg/dL 01/18/2017 Comp Metabolic Gju900 Creat 1.4 mg/dL 01/18/2017 Comp Metabolic Gvu883 eGFR 53 ml/min/1.73m2 01/18/2017 Comp Metabolic Zuh642 BUN 26 mg/dL 01/18/2017 Comp Metabolic Xxu245 B/C Ratio 18.7 Ratio 01/18/2017 Comp Metabolic Cig088 CALCIUM 8.7 mg/dL 01/18/2017 Comp Metabolic Ncl102 ALK PHOS 59 U/L 01/18/2017 Comp Metabolic Zzp616 AST(SGOT) 13 U/L 01/18/2017 Comp Metabolic Rqo043 ALT(SGPT) 12 U/L 01/18/2017 Comp Metabolic Phz315 BILI T 0.5 mg/dL 01/18/2017 Comp Metabolic Hxs764 ALBUMIN 3.4 g/dL 01/18/2017 Comp Metabolic Xyl129 TPRO 6.0 g/dL 01/18/2017 Comp Metabolic Uck828 GLOB 2.6 g/dL 01/18/2017 Comp Metabolic Fcs220 A/G Ratio 1.3 Ratio 01/18/2017 Comp Metabolic Qlk304 Osmo 286 mOsmo 01/18/2017 Lipid Ord30 CHOL [...] 53.7 % 12/19/2016 Cbc With Differential Ord2 Lymph% 34.8 % 12/19/2016 Cbc With Differential Ord2 MCV 96.2 fl 12/19/2016 Cbc With Differential Ord2 [place]% 8.1 % 12/19/2016 Cbc With Differential Ord2 MCH 31.2 pg 12/19/2016 Cbc With Differential Ord2 Eos% 3.3 % 12/19/2016 Cbc With Differential Ord2 MCHC 32.4 pg 12/19/2016 Cbc With Differential Ord2 PLT 270 K/ul 12/19/2016 Cbc With Differential Ord2 Baso% 0.1 % 12/19/2016 Cbc With Differential Ord2 Neut ABS# 4.02 K/ul 12/19/2016 Cbc With Differential Ord2 RDW 14.5 % 12/19/2016 Cbc With Differential Ord2 Lymph ABS# 2.61 K/ul 12/19/2016 Cbc With Differential Ord2 [place] ABS# 0.6 K/ul 12/19/2016 Cbc With Differential Ord2 Eos ABS# 0.3 K/ul 12/19/2016 Cbc With Differential Ord2 Baso ABS# 0.0 K/ul 12/19/2016 Comp Metabolic Fyc336 NA 140 mEq/L 12/19/2016 Comp Metabolic Gtj365 K 4.5 mEq/L 12/19/2016 Comp Metabolic Gbo459 CL 107 mEq/L 12/19/2016 Comp Metabolic Wjq932 CO2 28.0 mEq/L 12/19/2016 Comp Metabolic Ecx105 ANION GAP 10 12/19/2016 Comp Metabolic Goh136 GLUCOSE 102 mg/dL 12/19/2016 Comp Metabolic Rrm984 Creat 1.5 mg/dL 12/19/2016 Comp Metabolic Bcc355 eGFR 50 ml/min/1.73m2 12/19/2016 Comp Metabolic Yto045 BUN 24 mg/dL 12/19/2016 Comp Metabolic Hzs641 B/C Ratio 16.4 Ratio 12/19/2016 Comp Metabolic Vtd339 CALCIUM 8.8 mg/dL 12/19/2016 Comp Metabolic Lnt391 ALK PHOS 57 U/L 12/19/2016 Comp Metabolic Eit031 AST(SGOT) 14 U/L 12/19/2016 Comp Metabolic Gcu042 ALT(SGPT) 14 U/L 12/19/2016 Comp Metabolic Tct350 BILI T 0.3 mg/dL 12/19/2016 Comp Metabolic Mxp567 ALBUMIN 3.6 g/dL 12/19/2016 Comp Metabolic Qsu262 TPRO 5.9 g/dL 12/19/2016 Comp Metabolic Btt671 GLOB 2.3 g/dL 12/19/2016 Comp Metabolic Aev262 A/G Ratio 1.6 Ratio 12/19/2016 Comp Metabolic Atj475 Osmo 284 mOsmo 12/19/2016 Comp Metabolic Ngq838 NA 137 mEq/L 03/22/2016 Comp Metabolic Idi818 K 4.5 mEq/L 03/22/2016 Comp Metabolic Mnq925 CL 107 mEq/L 03/22/2016 Comp Metabolic Cjv047 CO2 24.0 mEq/L 03/22/2016 Comp Metabolic Glz989 ANION GAP 11 03/22/2016 Comp Metabolic Ryw418 GLUCOSE 117 mg/dL 03/22/2016 Comp Metabolic Cqz324 Creat 1.6 mg/dL 03/22/2016 Comp Metabolic Pcu190 eGFR 44 ml/min/1.73m2 03/22/2016 Comp Metabolic Elj328 BUN 27 mg/dL 03/22/2016 Comp Metabolic Wkx572 B/C Ratio 16.6 Ratio 03/22/2016 Comp Metabolic Qhh126 CALCIUM 9.0 mg/dL 03/22/2016 Comp Metabolic Tah092 ALK PHOS 54 U/L 03/22/2016 Comp Metabolic Jhf933 AST(SGOT) 27 U/L 03/22/2016 Comp Metabolic Qiq667 ALT(SGPT) 25 U/L 03/22/2016 Comp Metabolic Dqw626 BILI T 0.8 mg/dL 03/22/2016 Comp Metabolic Fbn336 ALBUMIN 3.6 g/dL 03/22/2016 Comp Metabolic Syq964 TPRO 6.8 g/dL 03/22/2016 Comp Metabolic Yrr977 GLOB 3.2 g/dL 03/22/2016 Comp Metabolic Acl212 A/G Ratio 1.1 Ratio 03/22/2016 Comp Metabolic Itq382 Osmo 280 mOsmo 03/22/2016 Cbc With Differential Ord2 WBC 8.10 K/ul 03/22/2016 Cbc With Differential Ord2 RBC 4.47 M/ul 03/22/2016 Cbc With Differential Ord2 HGB 13.9 g/dl 03/22/2016 Cbc With Differential Ord2 HCT 42.0 % 03/22/2016 Cbc With Differential Ord2 Neut% 43.5 % 03/22/2016 Cbc With Differential Ord2 MCV 94.0 fl 03/22/2016 Cbc With Differential Ord2 Lymph% 46.4 % 03/22/2016 Cbc With Differential Ord2 [place]% 8.8 % 03/22/2016 Cbc With Differential Ord2 [...] 3.76 K/ul 03/22/2016 Cbc With Differential Ord2 [place] ABS# 0.7 K/ul 03/22/2016 Cbc With Differential Ord2 Eos ABS# 0.1 K/ul 03/22/2016 Cbc With Differential Ord2 Baso ABS# 0.0 K/ul 03/22/2016 Cbc With Differential Ord2 WBC 13.92 K/ul 03/06/2016 Cbc With Differential Ord2 RBC 4.87 M/ul 03/06/2016 Cbc With Differential Ord2 HGB 15.0 g/dl 03/06/2016 Cbc With Differential Ord2 HCT 45.7 % 03/06/2016 Cbc With Differential Ord2 Neut% 29.1 % 03/06/2016 Cbc With Differential Ord2 MCV 93.8 fl 03/06/2016 Cbc With Differential Ord2 Lymph% 55.7 % 03/06/2016 Cbc With Differential Ord2 [place]% 14.9 % 03/06/2016 Cbc With Differential Ord2 MCH 30.8 pg 03/06/2016 Cbc With Differential Ord2 MCHC 32.8 pg 03/06/2016 Cbc With Differential Ord2 Eos% 0.1 % 03/06/2016 Cbc With Differential Ord2 PLT 238 K/ul 03/06/2016 Cbc With Differential Ord2 Baso% 0.2 % 03/06/2016 Cbc With Differential Ord2 Neut ABS# 4.04 K/ul 03/06/2016 Cbc With Differential Ord2 RDW 15.8 % 03/06/2016 Cbc With Differential Ord2 Lymph ABS# 7.76 K/ul 03/06/2016 Cbc With Differential Ord2 [place] ABS# 2.1 K/ul 03/06/2016 Cbc With Differential Ord2 Eos ABS# 0.0 K/ul 03/06/2016 Cbc With Differential Ord2 Baso ABS# 0.0 K/ul 03/06/2016 Tsh Ord6 hTSH II 2.96 uIU/mL 03/06/2016 Comp Metabolic Jog549 NA 134 mEq/L 03/06/2016 Comp Metabolic Vbx484 K 4.1 mEq/L 03/06/2016 Comp Metabolic Pwg326 CL 102 mEq/L 03/06/2016 Comp Metabolic Ref972 CO2 25.0 mEq/L 03/06/2016 Comp Metabolic Fpv966 ANION GAP 11 03/06/2016 Comp Metabolic Epj791 GLUCOSE 96 mg/dL 03/06/2016 Comp Metabolic Pur695 Creat 1.6 mg/dL 03/06/2016 Comp Metabolic Uul725 eGFR 45 ml/min/1.73m2 03/06/2016 Comp Metabolic Ehp118 BUN 22 mg/dL 03/06/2016 Comp Metabolic Dgk804 B/C Ratio 13.8 Ratio 03/06/2016 Comp Metabolic Muo020 CALCIUM 8.1 mg/dL 03/06/2016 Comp Metabolic Qnp543 ALK PHOS 46 U/L 03/06/2016 Comp Metabolic Rfv713 AST(SGOT) 30 U/L 03/06/2016 Comp Metabolic Sxi238 ALT(SGPT) 43 U/L 03/06/2016 Comp Metabolic Efc234 BILI T 0.8 mg/dL 03/06/2016 Comp Metabolic Tnn571 ALBUMIN 3.1 g/dL 03/06/2016 Comp Metabolic Boy672 TPRO 6.1 g/dL 03/06/2016 Comp Metabolic Ntj007 GLOB 3.0 g/dL 03/06/2016 Comp Metabolic Mro490 A/G Ratio 1.1 Ratio 03/06/2016 Comp Metabolic Zcn746 Osmo 271 mOsmo 03/06/2016 Manual Differential Ord52 D-Neutr 35 % 03/06/2016 Manual Differential Ord52 D-Lymph 58 % 03/06/2016 Manual Differential Ord52 D-[place] 7 % 03/06/2016 Manual Differential Ord52 D-1 RBC, PLT NORMAL 03/06/2016 Manual Differential Ord52 D-2 INCREASED LYMPHOCYTE COUNT OBSERVED 03/06/2016 Manual Differential Ord52 D-3 MANY ATYPICAL LYMPHOCYTES OBSERVED 03/06/2016 Manual Differential Ord52 D-4 MANY BASKET CELLS OBSERVED 03/2016 C A/B FLU [id number] Influenza A Scr Negative 02/29/2016 C A/B FLU [id number] Influenza B Scr Negative 02/29/2016 Comp Metabolic Dit337 NA 140 mEq/L 10/28/2015 Comp Metabolic Lvp505 K 4.2 mEq/L 10/28/2015 Comp Metabolic Ary619 CL 105 mEq/L 10/28/2015 Comp Metabolic Mvp170 CO2 26.0 mEq/L 10/28/2015 Comp Metabolic Clf590 ANION GAP 13 10/28/2015 Comp Metabolic Mky461 GLUCOSE 105 mg/dL 10/28/2015 Comp Metabolic Bvk727 Creat 1.7 mg/dL 10/28/2015 Comp Metabolic Omt575 eGFR 43 ml/min/1.73m2 10/28/2015 Comp Metabolic Nsv275 BUN 32 mg/dL 10/28/2015 Comp Metabolic Kzu277 B/C Ratio 19.2 Ratio 10/28/2015 Comp Metabolic Nnn123 CALCIUM 9.2 mg/dL 10/28/2015 Comp Metabolic Ldz483 ALK PHOS 57 U/L 10/28/2015 Comp Metabolic Kfu913 AST(SGOT) 25 U/L 10/28/2015 Comp Metabolic Eof270 ALT(SGPT) 26 U/L 10/28/2015 Comp Metabolic Hko952 BILI T 0.6 mg/dL 10/28/2015 Comp Metabolic Crh511 ALBUMIN 3.9 g/dL 10/28/2015 Comp Metabolic Qek361 TPRO 6.7 g/dL 10/28/2015 Comp Metabolic Wyl070 GLOB 2.8 g/dL 10/28/2015 Comp Metabolic Lam393 A/G Ratio 1.4 Ratio 10/28/2015 Comp Metabolic Sxf983 Osmo 287 mOsmo 10/28/2015 Lipid Ord30 CHOL [...] 69.2 % 10/28/2015 Cbc With Differential Ord2 Lymph% 17.3 % 10/28/2015 Cbc With Differential Ord2 MCV 94.6 fl 10/28/2015 Cbc With Differential Ord2 MCH 31.5 pg 10/28/2015 Cbc With Differential Ord2 [place]% 11.1 % 10/28/2015 Cbc With Differential Ord2 Eos% 2.3 % 10/28/2015 Cbc With Differential Ord2 MCHC 33.3 pg 10/28/2015 Cbc With Differential Ord2 PLT 242 K/ul 10/28/2015 Cbc With Differential Ord2 Baso% 0.1 % 10/28/2015 Cbc With Differential Ord2 Neut ABS# 5.03 K/ul 10/28/2015 Cbc With Differential Ord2 RDW 14.8 % 10/28/2015 Cbc With Differential Ord2 Lymph ABS# 1.26 K/ul 10/28/2015 Cbc With Differential Ord2 [place] ABS# 0.8 K/ul 10/28/2015 Cbc With Differential Ord2 Eos ABS# 0.2 K/ul 10/28/2015 Cbc With Differential Ord2 Baso ABS# 0.0 K/ul 10/28/2015 Cbc With Differential Ord2 New Analyzer Notice Please note new ref ranges starting 10-13-2015 due to implemntation of new five part differential hematolgy analyzer. 10/28/2015 Tsh Ord6 hTSH II 2.54 uIU/mL 10/28/2015 Total Psa Ord10 PSA 14.26 ng/mL 10/28/2015 Testosterone Gnp831 Testo 229.00 ng/dL 06/29/2015 Review of Systems [...] Procedure Codes Date THER/PROPH/DIAG INJ SC/IM CPT-4: 69053 11/01/2017 PPPS, SUBSEQ VISIT CPT -4: G0439 09/12/2017 DRAIN/INJECT JOINT/BURSA CPT-4: 18215 07/12/2017 TRIAMCINOLONE ACET INJ NOS CPT-4: J3301 07/12/2017 ADMIN INFLUENZA VIRUS VAC CPT-4: G0008 07/03/2017 FLU VACC PRSV FREE INC ANTIG CPT-4: 70172 07/03/2017 URINALYSIS NONAUTO W/O SCOPE CPT-4: 43590 06/15/2017 PPPS, SUBSEQ VISIT CPT -4: G0439 09/08/2016 DRAIN/INJECT JOINT/BURSA CPT-4: 76918 08/11/2016 TRIAMCINOLONE ACET INJ NOS CPT-4: J3301 08/11/2016 TRIAMCINOLONE ACET INJ NOS CPT-4: J3301 05/05/2016 DRAIN/INJECT JOINT/BURSA CPT-4: 99875 04/07/2016 TRIAMCINOLONE ACET INJ NOS CPT-4: J3301 04/07/2016 ROCEPHIN, PER 250 MG CPT-4: J0696 03/16/2016 C A/B FLU CPT-4: 7120508 02/29/2016 TRIAMCINOLONE ACET INJ NOS CPT-4: J3301 01/11/2016 ROCEPHIN, PER 250 MG CPT-4: J0696 01/11/2016 THER/PROPH/DIAG INJ SC/IM CPT-4: 90206 12/09/2015 THER/PROPH/DIAG INJ SC/IM CPT-4: 39657 10/27/2015 DRAIN/INJECT JOINT/BURSA CPT-4: 84989 10/27/2015 THER/PROPH/DIAG INJ SC/IM CPT-4: 49633 09/08/2015 THER/PROPH/DIAG INJ SC/IM CPT-4: 82202 07/16/2015 TRIAMCINOLONE ACET INJ NOS CPT-4: J3301 04/23/2015 ROCEPHIN, PER 250 MG CPT-4: J0696 04/23/2015 THER/PROPH/DIAG INJ SC/IM CPT-4: 71279 10/28/2014 TRIAMCINOLONE ACET INJ NOS CPT-4: J3301 10/28/2014 ROCEPHIN, PER 250 MG CPT-4: J0696 10/28/2014 Vital Signs Date Vital 11/14/2017 Blood Pressure 1: 120/64 Code : 8480-6 BMI: 33.6 Code : 89678-4 Heart Rate 1 : 81 bpm Height: 5'11" SpO2: 94% Weight: 241 lbs 07/24/2017 Blood Pressure 1: 158/84 Code : 8480-6 Heart Rate 1: 84 bpm Height: 5'11" SpO2: 97% Weight: 07/12/2017 Blood Pressure 1: 146/78 Code : 8480-6 BMI: 33.3 Code : 17357-0 Heart Rate 1 : 81 bpm Height: 5'11" SpO2: 93% Weight: 239 lbs 07/03/2017 Height: 5'11" 06/15/2017 Blood Pressure 1: 132/60 Code : 8480-6 BMI: 33.5 Code : 89967-3 Heart Rate 1 : 89 bpm Height: 5'11" SpO2: 96% Weight: 240 lbs 01/16/2017 Blood Pressure 1: 152/72 Code : 8480-6 BMI: 31.8 Code : 96269-3 Heart Rate 1 : 67 bpm Height: 5'11" SpO2: 97% Weight: 228 lbs 12/20/2016 Blood Pressure 1: 146/70 Code : 8480-6 BMI: 31.8 Code : 85631-7 Heart Rate 1 : 87 bpm Height: 5'11" SpO2: 98% Weight: 228 lbs 12/08/2016 Blood Pressure 1: 146/68 Code : 8480-6 BMI: 31.2 Code : 84107-7 Heart Rate 1 : 78 bpm Height: 5'11" SpO2: 97% Weight: 224 lbs 11/21/2016 Blood Pressure 1: 126/58 Code : 8480-6 BMI: 31.9 Code : 92435-9 Heart Rate 1 : 78 bpm Height: 5'11" SpO2: 95% Weight: 229 lbs 10/24/2016 Blood Pressure 1: 136/66 Code : 8480-6 BMI: 32.4 Code : 27202-1 Heart Rate 1 : 98 bpm Height: 5'11" SpO2: 99% Weight: 232 lbs 09/21/2016 Blood Pressure 1: 140/80 Code : 8480-6 BMI: 32.8 Code : 47259-3 Heart Rate 1 : 100 bpm Height: 5'11 " SpO2: 96% Weight: 235 lbs 09/08/2016 Blood Pressure 1: 144/72 Code : 8480-6 BMI: 32.8 Code : 20902-9 Heart Rate 1 : 76 bpm Height: 5'11" SpO2: 97% Waist Measure (cm): 102 cm Weight: 235 lbs 09/07/2016 Blood Pressure 1: 144/72 Code : 8480-6 BMI: 32.8 Code : 89848-4 Heart Rate 1 : 76 bpm Height: 5'11" SpO2: 97% Weight: 235 lbs 08/22/2016 Blood Pressure 1: 148/60 Code : 8480-6 BMI: 33.2 Code : 61461-4 Heart Rate 1 : 42 bpm Height: 5'11" SpO2: 97% Weight: 238 lbs 08/11/2016 Blood Pressure 1: 142/76 Code : 8480-6 BMI: 33.3 Code : 51131-0 Heart Rate 1 : 42 bpm Height: 5'11" SpO2: 99% Weight: 239 lbs 07/18/2016 Blood Pressure 1: 142/74 Code : 8480-6 BMI: 32.4 Code : 96112-9 Heart Rate 1 : 72 bpm Height: 5'11" SpO2: 98% Weight: 232 lbs 06/07/2016 Blood Pressure 1: 132/74 Code : 8480-6 BMI: 32.4 Code : 85089-5 Heart Rate 1 : 56 bpm Height: 5'11" SpO2: 96% Weight: 232 lbs 05/25/2016 Blood Pressure 1: 150/80 Code : 8480-6 BMI: 32.8 Code : 03210-1 Heart Rate 1 : 70 bpm Height: 5'11" SpO2: 96% Weight: 235 lbs 05/05/2016 Blood Pressure 1: 140/64 Code : 8480-6 BMI: 32.6 Code : 75429-1 Heart Rate 1 : 65 bpm Height: 5'11" SpO2: 98% Weight: 234 lbs 04/07/2016 Blood Pressure 1: 132/80 Code : 8480-6 Heart Rate 1: 70 bpm Height: SpO2: 96% Weight: 03/24/2016 Blood Pressure 1: 146/80 Code : 8480-6 BMI: 32.1 Code : 25946-6 Heart Rate 1 : 84 bpm Height: 5'11" SpO2: 94% Weight: 230 lbs 03/20/2016 Blood Pressure 1: 132/74 Code : 8480-6 BMI: 32.1 Code : 43605-4 Heart Rate 1 : 84 bpm Height: 5'11" SpO2: 97% Weight: 230 lbs 03/16/2016 Blood Pressure 1: 168/76 Code : 8480-6 BMI: 32.9 Code : 23861-7 Heart Rate 1 : 81 bpm Height: 5'11" SpO2: 97% Weight: 236 lbs 03/06/2016 Blood Pressure 1: 130/70 Code : 8480-6 BMI: 34.3 Code : 25549-5 Heart Rate 1 : 78 bpm Height: 5'11" SpO2: 96% Weight: 246 lbs 02/29/2016 Blood Pressure 1: 145/70 Code : 8480-6 BMI: 34.3 Code : 84107-5 Heart Rate 1 : 74 bpm Height: 5'11" SpO2: 96% Weight: 246 lbs 02/01/2016 Blood Pressure 1: 156/62 Code : 8480-6 BMI: 34.0 Code : 10061-7 Heart Rate 1 : 61 bpm Height: 5'11" SpO2: 97% Weight: 244 lbs 01/19/2016 Blood Pressure 1: 138/76 Code : 8480-6 BMI: 33.4 Code : 96636-7 Heart Rate 1 : 77 bpm Height: 5'12" SpO2: 97% Weight: 243 lbs 01/11/2016 Blood Pressure 1: 162/82 Code : 8480-6 BMI: 33.4 Code : 08527-3 Heart Rate 1 : 60 bpm Height: 5'12" SpO2: 97% Weight: 243 lbs 12/09/2015 Blood Pressure 1: 142/60 Code : 8480-6 BMI: 33.3 Code : 28097-3 Heart Rate 1 : 40 bpm Height: 5'12" SpO2: 96% Weight: 242 lbs 10/27/2015 Blood Pressure 1: 148/68 Code : 8480-6 BMI: 32.9 Code : 24967-3 Heart Rate 1 : 40 bpm Height: 5'12" SpO2: 97% Weight: 239 lbs 09/13/2015 Blood Pressure 1: 160/64 Code : 8480-6 BMI: 34.0 Code : 46258-7 Heart Rate 1 : 69 bpm Height: 5'12" SpO2: 97% Weight: 247 lbs 04/23/2015 Blood Pressure 1: 128/62 Code : 8480-6 BMI: 34.2 Code : 28826-2 Heart Rate 1 : 79 bpm Height: 5'12" SpO2: 97% Weight: 249 lbs 01/06/2015 Blood Pressure 1: 118/68 Code : 8480-6 BMI: 34.0 Code : 76894-2 Heart Rate 1 : 75 bpm Height: 5'12" SpO2: 96% Weight: 247 lbs 10/28/2014 Blood Pressure 1: 142/70 Code : 8480-6 BMI: 33.7 Code : 27279-2 Heart Rate 1 : 60 bpm Height: 5'12" Temperature: 36.6 (C) / 97.8 (F) Weight: 245 lbs 10/12/2014 Blood Pressure 1: 140/70 Code : 8480-6 BMI: 34.1 Code : 48139-5 Heart Rate 1 : 96 bpm Height: 5'12" Weight: 248 lbs 07/27/2014 Blood Pressure 1: 162/90 Code : 8480-6 BMI: 33.7 Code : 01759-1 Heart Rate 1 : 90 bpm Height: 5'12" Respiratory Rate: 22 bpm Weight: 245 lbs 06/03/2014 Blood Pressure 1: 150/88 Code : 8480-6 BMI: 32.7 Code : 38384-7 Heart Rate 1 : 94 bpm Height: [...] 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 PATIENT, LEVEL IV Diagnosis: Other fatigue[ICD10: R53.83] Diagnosis: Other malaise[ICD10: R53.81] Diagnosis: Obstructive sleep apnea (adult) (pediatric)[ICD10: G47.33] Diagnosis: Pain in left arm[ICD10: M79.602] Aminata Green MD, [facility] CPT- 4: 16223 07/24/2017 ([id number]) 29174 EST. PATIENT, LEVEL III Diagnosis: Chronic pain syndrome[ICD10: G89.4] Zita Green MD, [facility] CPT-4: 12691 07/12/2017 ([id number]) 73778 EST. PATIENT, LEVEL III Diagnosis: Essential (primary) hypertension[ICD10: I10] Diagnosis: Frequency of micturition[ICD10: R35.0] Zita Green MD, [facility] CPT-4: 10498 06/15/2017 ([id number]) 65995 EST. PATIENT, LEVEL IV Diagnosis: Essential (primary) hypertension[ICD10: I10] Diagnosis: Bilateral primary osteoarthritis of knee[ICD10: M17.0] Diagnosis: Mixed hyperlipidemia[ICD10: E78.2] Diagnosis: Encounter for screening for malignant neoplasm of prostate[ICD10: Z12.5] Zita Green MD, [facility] CPT-4: 02754 2016 ([id number]) 53251 EST. PATIENT, LEVEL III Diagnosis: Essential (primary) hypertension[ICD10: I10] Diagnosis: Mixed hyperlipidemia[ICD10: E78.2] Zita Green MD, [facility] CPT-4: 21221 12/20/2016 ([id number]) 68099 EST. PATIENT, LEVEL III Diagnosis: Essential (primary) hypertension[ICD10: I10] Diagnosis: Other fatigue[ICD10: R53.83] Zita Green MD, [facility] CPT-4: 97738 12/08/2016 ([id number]) 38317 EST. PATIENT, LEVEL III Diagnosis: Bilateral primary osteoarthritis of knee[ICD10: M17.0] Diagnosis: Essential (primary) hypertension[ICD10: I10] Zita Green MD, [facility] CPT-4: 76763 11/21/2016 ([id number]) 21190 EST. PATIENT, LEVEL III Diagnosis: Bilateral primary osteoarthritis of knee[ICD10: M17.0] Zita Green MD, [facility] CPT-4: 16750 10/24/2016 ([id number]) 03057 EST. PATIENT, LEVEL III Diagnosis: Essential (primary) hypertension[ICD10: I10] Diagnosis: Phlebitis and thrombophlebitis of superficial vessels of right lower extremity[ICD10: I80.01] Diagnosis: Bilateral primary osteoarthritis of knee[ICD10: M17.0] Diagnosis: Pain in left knee[ICD10: M25.562] Diagnosis: Pain in right knee[ICD10: M25.561] Zita Green MD, [facility] CPT-4: 75799 09/21/2016 94309 EST. PATIENT, LEVEL III Diagnosis: Acute laryngopharyngitis[ICD10: J06.0] Diagnosis: Other allergic rhinitis[ICD10: J30.89] Aminata Green MD, [facility] CPT-4: 84443 09/07/2016 ([id number]) 45605 EST. PATIENT, LEVEL III Diagnosis: Phlebitis and thrombophlebitis of superficial vessels of right lower extremity[ICD10: I80.01] Zita Green MD, [facility] CPT-4: 01618 08/22/2016 11407 EST. PATIENT, LEVEL III Diagnosis: Bilateral primary osteoarthritis of knee[ICD10: M17.0] Aminata Green MD, [facility] CPT-4: 20533 08/11/2016 ([id number]) 39451 EST. PATIENT, LEVEL III Diagnosis: Essential (primary) hypertension[ICD10: I10] Diagnosis: Phlebitis and thrombophlebitis of superficial vessels of right lower extremity[ICD10: I80.01] Roya Green MD, [facility] CPT-4: 69737 07/18/2016 84192 EST. PATIENT, LEVEL III Diagnosis: Ventricular premature depolarization[ICD10: I49.3] Aminata Green MD, [facility] CPT-4: 36847 06/07/2016 03524 EST. PATIENT, LEVEL III Diagnosis: Other insomnia[ICD10: G47.09] Aminata Green MD, [facility] CPT-4 : 86785 05/25/2016 ([id number]) 73856 EST. PATIENT, LEVEL IV Diagnosis: Essential (primary) hypertension[ICD10: I10] Diagnosis: Phlebitis and thrombophlebitis of superficial vessels of right lower extremity[ICD10: I80.01] Diagnosis: Bilateral primary osteoarthritis of knee[ICD10: M17.0] Diagnosis: Allergic rhinitis due to pollen[ICD10: J30.1] Zita Green MD, [facility] CPT-4: 90370 05/05/2016 ([id number]) 35422 EST. PATIENT, LEVEL III Diagnosis: Phlebitis and thrombophlebitis of superficial vessels of right lower extremity[ICD10: I80.01] Zita Green MD, [facility] CPT-4: 11171 04/07/2016 ([id number]) Miscellaneous no charge Diagnosis: Phlebitis and thrombophlebitis of superficial vessels of right lower extremity[ICD10: I80.01] Zita Green MD, [facility] CPT-4: 03764 03/24/2016 ([id number]) 00762 EST. PATIENT, LEVEL III Diagnosis: Bilateral primary osteoarthritis of knee[ICD10: M17.0] Diagnosis: Pain in right knee[ICD10: M25.561] Diagnosis: Pain in left knee[ICD10: M25.562] Diagnosis: Phlebitis and thrombophlebitis of superficial vessels of right lower extremity[ICD10: I80.01] Roya Green MD, [facility] CPT-4: 79667 03/20/2016 15918 EST. PATIENT, LEVEL IV Diagnosis: Cellulitis of right lower limb[ICD10: L03.115] Aminata Green MD, [facility] CPT-4: 98674 03/16/2016 43122 EST. PATIENT, LEVEL IV Diagnosis: Essential (primary) hypertension[ICD10: I10] Diagnosis: Bilateral primary osteoarthritis of knee[ICD10: M17.0] Diagnosis: Nausea[ICD10: R11.0] Zita Green MD, [facility] CPT-4: 65524 03/06/2016 31127 EST. PATIENT, LEVEL IV Diagnosis: Acute laryngopharyngitis[ICD10: J06.0] Diagnosis: Other acute sinusitis[ICD10: J01.80] Diagnosis: Fever, unspecified[ICD10: R50.9] Diagnosis: Cough[ICD10: R05] Aminata Green MD, [facility] CPT-4: 39727 02/29/2016 95584 EST. PATIENT, LEVEL III Diagnosis: Essential (primary) hypertension[ICD10: I10] Diagnosis: Other obesity due to excess calories[ICD10: E66.09] Aminata Green MD, [facility] CPT-4: 19260 02/01/2016 79880 EST. PATIENT, LEVEL IV Diagnosis: Other allergic rhinitis[ICD10: J30.89] Diagnosis: Essential (primary) hypertension[ICD10: I10] Aminata Green MD, [facility] CPT-4: 33885 01/19/2016 95782 EST. PATIENT, LEVEL IV Diagnosis: Other acute sinusitis[ICD10: J01.80] Diagnosis: Other allergic rhinitis[ICD10: J30.89] Diagnosis: Essential (primary) hypertension[ICD10: I10] Aminata Green MD, [facility] CPT-4: 68091 01/11/2016 51831 EST. 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 PATIENT, LEVEL III Diagnosis: Low back pain[ICD10: M54.5] Diagnosis: Bilateral primary osteoarthritis of knee[ICD10: M17.0] Diagnosis: Essential (primary) hypertension[ICD10: I10] Aminata Green MD, [facility] CPT-4: 06279 09/13/2015 ([id number] 44264 EST. PATIENT, LEVEL III Diagnosis: ACUTE URI[ICD9: 465.9] Diagnosis: ALLERGIC RHINITIS[ICD9: 477.9] Zita Green MD, [facility] CPT-4: 18009 04/23/2015 ([id number]) 77442 EST. PATIENT, LEVEL IV Diagnosis: ESSENTIAL HYPERTENSION[ICD9: 401.9] Diagnosis: Hypogonadism in male[ICD9: 257.2] Diagnosis: Sleep apnea[ICD9: 780.57] Roya Green MD, [facility] CPT-4: 51053 01/06/2015 ([id number]) 82399 EST. PATIENT, LEVEL III Diagnosis: ACUTE MAXILLARY SINUSITIS[ICD9: 461.0] Diagnosis: Cough[ICD9: 786.2] Roya Green MD, [facility] CPT-4: 73722 10/28/2014 ([id number]) 52383 EST. 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 Pt to call if symptoms do not improve, and pt to be given results of labs when available. 11/14/2017 Appointment: Aminata Pederson WPtel: [facility] (30 min) Complex 11/14/2017 Patient Education: Patient Medication Summary Completed 11/14/2017 Appointment: Injection 11/01/2017 Patient Education: Patient Medication Summary Completed 11/01/2017 Appointment: Aminata Pederson WPtel: [facility] (30 min) Complex 10/30/2017 [phone] [facility]66[facility] Referral Initiated 10/03/2017 Care Plan: Referral Order SNOMED-CT : [id number] Pending 09/13/2017 Visit Plan: Medicare Exam - [...] surrogate. 09/12/2017 Appointment: Aminata Pederson WPtel: [phone] [facility] MCR - Annual Wellness Visit 09/12/2017 Patient Education: Patient Medication Summary Completed 09/12/2017 Visit Plan: Fatigue, malaise - will check labs and treat as indicated Sleep apnea - will order repeat sleep study to see about adjusting settings on CPAP and getting a new mask/fit left arm pain - defer to Dr. Lopez. 07/24/2017 Appointment: Aminata Pederson [facility]Ptel: [facility] ([facility] min) Complex 07/24/2017 Patient Education: [...] of injection. 07/12/2017 Appointment: Zita Forte WPtel: [facility]5 [phone] [place] (30 min) Complex 07/12/2017 Patient Education: Patient Medication Summary Completed 07/12/2017 Appointment: Injection 07/03/2017 Patient Education: Patient Medication Summary Completed 07/03/2017 Visit Plan: Urinary frequency-UA negative-check labs HTN- controlled-no changes 06/15/2017 Appointment: Zita Forte WPtel: [facility]0 [phone] [place] (30 min) Complex 06/15/2017 Patient Education: Patient Medication Summary Completed 06/15/2017 Patient Education: Obesity Completed 06/15/2017 Appointment: Zita Forte WPtel: [phone] [place] (15 min) Moderate 04/13/2017 Visit [...] profile 01/16/2017 Appointment: Zita Forte WPtel: [phone] [facility] [place] [address] (30 min) Complex 01/16/2017 Patient Education: Patient Medication Summary Completed 01/16/2017 Care Plan: Referral Order SNOMED-CT : [id number] Pending 01/16/2017 Appointment: Zita Forte WPtel: [facility]5 [facility] [place] [address] (15 min) Moderate 12/22/2016 Visit Plan: Hypertension [...] 2 weeks 12/08/2016 Appointment: Zita Forte WPtel: [facility]5 [phone] (15 min) Moderate 12/08/2016 Patient Education: Patient Medication Summary Completed 12/08/2016 Patient Education: Obesity Completed 12/08/2016 Appointment: Roya Green WPtel: [facility]5 [facility] (15 min) Moderate 12/07/2016 Visit Plan: Hypertension [...] of plan. 11/21/2016 Appointment: Zita Forte WPtel: [facility]5 [phone] (30 min) Complex 11/21/2016 Patient Education: [...] of plan. 10/24/2016 Appointment: Zita Forte WPtel: [phone] (30 min) Complex 10/24/2016 Patient Education: [...] blood pressure readings at home. Thrombophlebitis -right nks-yrtemryh-cdydqfiw daily aspirin ADDENDUM: BILATERAL OA KNEE-PAIN IN LEFT/RIGHT KNEE-GAIT INSTABILITY-RX FOR WALKER PROVIDED 09/21/2016 Visit Plan: Hypertension - well controlled - continue with current medications, continue with no added salt diet. Pt has been encouraged to exercise daily. The pt has been advised to call the office if there are any acute concerns about change in blood pressure readings at home. Thrombophlebitis -right bwk-kyvercom-tfdhmkgt daily aspirin ADDENDUM: BILATERAL OA KNEE-PAIN IN [...] blood pressure readings at home. Thrombophlebitis -right xeb-qqdrprkb-rnopvjsg daily aspirin 09/21/2016 Appointment: Zita Forte WPtel: [address] [place] [address] (30 min) [facility] 09/21/2016 Patient Education: Patient Medication Summary Completed [...] care surrogate. 09/08/2016 Appointment: Zita Forte WPtel: [address] [place], [place] [phone] [place] [address] - Annual Wellness Visit 09/08/2016 Patient Education: [...] Obesity Completed 09/07/2016 Appointment: Zita Forte WPtel: [address] [place], [place] [phone] [place] [address] - Annual Wellness Visit 08/30/2016 Visit Plan: Thrombophlebitis-right dkz-trbxdvjz-drqzezom xarelto as directed-follow up in 1 month 08/22/2016 Appointment: Zita Forte WPtel: [address] [place], [place] [phone] [place] [address] (15 min) Moderate 08/22/2016 Appointment: Roya Green WPtel: [address] [place], [place] [address] (15 min) Moderate 08/22/2016 Patient Education: Patient [...] of injection. 08/11/2016 Appointment: Zita Forte WPtel: [address] [place], [place] [phone] [place] [address] (15 min) Moderate 08/11/2016 Patient Education: Patient [...] improve. 07/18/2016 Appointment: Roya Green WPtel: [phone] [facility] (15 min) Moderate 07/18/2016 Patient Education: Patient Medication Summary Completed 07/18/2016 Patient Education: Obesity Completed 07/18/2016 Patient Education: Hypertension Completed 07/18/2016 Appointment: Roya Green WPtel: [phone] [facility] (15 min) Moderate 06/12/2016 Visit Plan: Arrhythmia follow up - pt was recently treated for strep throat and [facility] noted an arrhythmia - they did an EKG - will call for EKG report - pt is to continue his xarelto at this time - will treat pending results of EKG. 06/07/2016 Appointment: Zita Forte WPtel: [phone] [place] (30 min) Complex 06/07/2016 Patient [...] blood pressure readings at home. Thrombophlebitis -right fvs-tvqektcg-svjazevi xarelto as directed-follow up in 1 month [...] prn use 05/05/2016 Appointment: Zita Forte WPtel: [address] [place], [place] [phone] [place] [address] (15 min) Moderate 05/05/2016 Patient Education: Patient Medication Summary Completed 05/05/2016 Patient Education: Obesity Completed 05/05/2016 Visit Plan: Thrombophlebitis-right nkm-xuxwrhsr-zjxyrsaj xarelto as directed-follow up in 1 month Left knee pain-OA left knee-Joint Injection - Pt was given post - injection instructions. The pt has been advised to use anti-inflammatories post injection today, ice to the injected site, call if redness, warmth, or increased pain occurs at the site of injection. 04/07/2016 Appointment: Zita Forte WPtel: [address] [place] [address] (30 min) Complex 04/07/2016 Patient Education: Patient Medication Summary Completed 04/07/2016 Appointment: Zita Forte WPtel: [address] [place] [address] (30 min) Complex 04/04/2016 Visit Plan: Symptoms improved-continue xarelto and follow up in 10-14 days 03/24/2016 Appointment: Zita Forte WPtel: [address] [place] [address] (30 min) Complex 03/24/2016 Patient Education: Patient [...] allergy spray. 02/29/2016 Appointment: Zita Forte WPtel: [address] [place] [phone] (30 min) [facility] 02/29/2016 Patient Education: Patient Medication Summary Completed [...] weight check. 02/01/2016 Appointment: Zita Forte [facility]el[phone] [place] (15 min) Moderate 02/01/2016 Patient [...] Summary Completed 06/29/2015 Appointment: Zita Forte WPtel: [address] [place], [place] [phone] (15 min) Moderate 06/22/2015 Appointment: Zita Forte WPtel: [address] [place], [place] [phone] (15 min) Moderate 06/22/2015 Visit Plan: URI [...] new mask. 01/06/2015 Appointment: Roya Green WPtel: [facility]5 [facility] Follow up 01/06/2015 Patient Education: Patient Medication Summary Completed 01/06/2015 Patient Education: Hypertension Completed 01/06/2015 Appointment: Roya Green WPtel: [address] [place], [place] [phone] Sick 12/09/2014 Visit Plan: Sinusitis - Pt [...] pain symptoms. 10/12/2014 Appointment: Roya Green WPtel: [facility]1 [facility] Follow up 10/12/2014 Patient Education: Patient Medication [...] continue with gabapentin. 07/27/2014 Appointment: NormaRonaldy WPtel: [address] [place], [place] [phone] Follow up 07/27/2014 Patient Education: Patient Medication [...] expressed understanding. 06/03/2014 Appointment: Roya Green WPtel: [phone] [facility]66[facility] New Patient 06/03/2014 Patient Education: Patient Medication Summary Completed 06/03/2014 Appointment: Ronald Greeny WPtel: [facility] New Patient 05/21/2014 Referral: Ifeanyi Johns HPtel:[phone] [address] [place] Referral Initiated Referral: Ferny Lopez Referral [...] lipid panel in 3 months . Thrombophlebitis-right jhf-vjlpumpj-hxooxckq xarelto as directed-follow up in 1 month [...] Call if symptoms do not show improvement. xarelto - take 15mg TWICE daily x [...] any questions/concerns. Patient verbalized understanding of plan. . Thrombophlebitis-right kse-vtpsxhex-rcgqackc xarelto as directed-follow up in 1 month [...] readings at home. OA knees-refer to Dr Lopez-refill Percocet Mixed hyperlipidemia-off statin due to myalgias-recheck lipids-consider livalo due to decreased side effect profile Take your blood pressure and heart rate [...] in one month for weight check. . Medicare Exam - today we discussed [...] DOPA paperwork for health care surrogate. . Gout Attack - pt given RX for uric Acid Level, and rx for medication for treatment of symptoms. Pt to call if symptoms do not improve , and pt to be given results of labs when available. . Hypertension - uncontrolled - the patient's [...] disease state. The patient/family expressed understanding. . Arrhythmia follow up - pt was recently treated for strep throat and [facility] noted an arrhythmia - they did an EKG - will call for EKG report - pt is to continue his xarelto at this time - will treat pending results of EKG. CHECK LABS-CBC, CMP, TSH HOLD LOVASTATIN X [...] x 2 weeks-f/u in 2 weeks . Hypertension - well controlled - continue with current medications, continue with no added salt diet. Pt has been encouraged to exercise daily. The pt has been advised to call the office if there are any acute concerns about change in blood pressure readings at home. Thrombophlebitis-right tlt-wzrtwlut-jsudmsqn xarelto as directed-follow up in 1 month [...] Bilateral knee pain-refill hydrocodone for prn use . Hypertension - well controlled - continue with current medications, continue with no added salt diet. Pt has been encouraged to exercise daily. The pt has been advised to call the office if there are any acute concerns about change in blood pressure readings at home. Thrombophlebitis-right pei-hjfqdbva-ufmphmhy daily aspirin ADDENDUM: BILATERAL OA KNEE-PAIN IN LEFT/RIGHT KNEE-GAIT INSTABILITY-RX FOR WALKER PROVIDED . Hypertension - well controlled - continue with current medications, continue with no added salt diet. Pt has been encouraged to exercise daily. The pt has been advised to call the office if there are any acute concerns about change in blood pressure readings at home. Thrombophlebitis-right pow-gkmhylsw-hladblnl daily aspirin ADDENDUM: BILATERAL OA KNEE-PAIN IN [...] in blood pressure readings at home. Thrombophlebitis-right ied-sxbjxejg-jaiuadvc daily aspirin . Joint Injection - Bilateral knees - Pt was given post - injection instructions. The pt has been advised to use anti-inflammatories post injection today, ice to the injected site, call if redness, warmth, or increased pain occurs at the site of injection. . Symptoms improved-continue xarelto and follow up in 10- [address] Taylor - pain mostly in [...] the patient's termination from this medical practice. CHECK LABS -CBC, CMP, UA . Urinary frequency-UA negative-check labs AFP-jhlxtywfhd-dw changes . Medicare Exam - today we discussed [...] DOPA paperwork for health care surrogate. . URI - Pt advised to increase [...] to have evaluation for new mask. . Hypertension - well controlled - continue with current medications, continue with no added salt diet. Pt has been encouraged to exercise daily. The pt has been advised to call the office if there are any acute concerns about change in blood pressure readings at home. OA knees-refer to Dr Lopez-refill Percocet Mixed hyperlipidemia-off statin due to myalgias-recheck lipids-consider livalo due to decreased side effect profile . Hypertension - continue with current medications, [...] call if symptoms do not improve. . Cellulitis - continue with oral antibiotics as previously directed, return to clinic as previously directed, call for acute change in symptoms, worsening redness, warmth, edema, or discharge. . Insomnia - Pt has been advised [...] knees-stop ibuprofen-use prn hydrocodone as needed . Allergies - chronic - recommended pt [...]
--- OUTSIDE RECORDS SUMMARY | 2018-03-03 15:14 | XMS REPORT ---
Author Author SARTHAK HARRIS Organization [facility] Address [address] [place] [address] Care Team Providers Care Rn Charge Name Role Phone SARTHAK HARRIS Unavailable PROBLEMS Type Condition ICD9-CM Code NKP07-RE Code Onset Dates Condition Status SNOMED Code Problem GERD without esophagitis K21.9 Active 925115153 Problem Primary insomnia F51.01 Active 5804880 Problem Other cardiac arrhythmia I49.8 Active 61743757 Problem Anxiety F41.9 Active 61994465 Problem Chronic fatigue R53.82 Active 70727525 ALLERGIES Substance Reaction Event Type Date Status Sulfa (sulfonamide Antibiotics) Unknown Non Drug Allergy May, Active ENCOUNTERS Encounter Location Date Diagnosis [facility] [address] [address] Dec, [facility] [address] [place] [address] 04 Dec, 2017 [facility] WALK IN [facility] [address] [address] 24 Nov, 2017 Cellulitis of foot, left L03.116 [place] [id number] [place] [address] 14 Nov, 2017 Medicare annual wellness visit, initial Z00.00 [facility]ARE [address] [address] 04 Nov, 2017 Nasal congestion R09.81 and Bilateral impacted cerumen H61.[address] [address] 28 Nov, 2017 [facility] [address] [place] [address] 13 Nov, 2017 Medicare annual wellness visit, initial Z00.00 [place] [address], [place] [address] 11 Oct, 2017 Medicare annual wellness visit, initial Z00.00 [facility] [address] [place] [id number] [place] [address] 15 Aug, 2017 Pain in right knee M25.561 [facility] [id number] [place] [address] 13 Aug, 2017 Primary insomnia F51.01 and Other fatigue R53.83 [place] [address] [place] [id number] [place] [address] Aug, Primary insomnia F51.01 and Other fatigue R53.83 [facility] [id number] [place] [address] Jul, Acute recurrent maxillary sinusitis J01.01 [place] [id number] [place] [address] Jul, Primary insomnia F51.01 and Other fatigue R53.83 [facility] [id number] [place] [address] Jun, Acute recurrent maxillary sinusitis J01.01 [facility] [id number] [place] [address]58[address] 5783 Jun, Primary insomnia F51.01 and Other fatigue R53.83 [facility] [id number] [place] [address]26[address] 5[address] May, Pain in right knee M25.561 [facility] [id number] [place] [address] May, Primary insomnia F51.01 and Other fatigue R53.83 [facility] [id number] [place] [address] May, Acute non-recurrent maxillary sinusitis J01.00 [facility] [id number] [place] [address] Mar, GERD without esophagitis K21.9 [facility] [id number] [place] [address] Mar, Pain in right knee M25.561 [facility] [id number] [place] [address]174[address] Mar, Other fatigue R53.83 [facility] [id number] [place] [address] 33281[address] 5[address] Mar, Primary insomnia F51.01 [facility] [id number] [place] [address] January, Other fatigue R53.83 [facility] [id number] [place] [address] January, Other fatigue R53.83 [facility] [id number] [place] [address]32[address] 30[address] January, Other fatigue R53.83 [facility] [id number] [place] [address] Dec, Acute non-recurrent pansinusitis J01.40 [facility] [id number] [place] [address] 7[address]01- 5032 Dec, Other fatigue R53.83 [facility] [id number] [place] [address] 7[address]39[address] 23[address] Nov, [facility] [id number] [place] [address] 19999- 4774 Nov, Other fatigue R53.83 [facility] [id number] [place] [address] 17157- 7819 Nov, Other fatigue R53.83 ; Other malaise R53.81 and Anxiety F41.9 [facility] [id number] [place] [address] 27346- 3035 Nov, Nausea R11.0 [place] [address] [place] [address] 21 Nov, 2016 Nausea R11.0 [facility] [address] [address] 02 Nov, 2016 Nausea R11.0 [facility] WALK IN [facility] [id number] [place] [address] 92545 [address]8973 15 Oct, 2016 Acute upper respiratory infection, unspecified J06.9 and Other viral agents as the cause of diseases classified elsewhere B97.89 [facility] [id number] [place] [address] 26672 [address]93 07 Oct, 2016 Nausea R11.0 [facility] [address] [address] 13 Aug, 2016 Polyuria R35.8 [facility] WALK IN [place] [address] [address] Aug, Acute frontal sinusitis, recurrence not specified J01.10 [facility] [id number] [place] [address] 17414- 8378 Aug, [facility] [address] [address] Aug, [facility] IN [facility] [id number] [place] [address]14 [address] Aug, Acute non-recurrent frontal sinusitis J01.10 [place] [id number] [place] [address] 37384- 4199 Aug, [place] [id number] [place] [address] 44711[address] 6722 Jul, Localized edema R60.0 ; Murmur, cardiac R01.1 and Other cardiac arrhythmia I49.8 [facility] [id number] [place] [address] 99443[address] 39[address] Jul, [facility]ALK IN [facility] [address] [address] Jun, Seasonal allergic rhinitis due to pollen J30.1 [facility] [address], [place] [address] Jun, [place] [id number] [place] [address] 10169- 9027 19 Jun, 2016 Low testosterone level in male E29.1 [facility] [place] [id number] [place] [address] 11757 [address]1148 17 Jun, 2016 Acute non-recurrent frontal sinusitis J01.10 [place] [id number] [place] [address] 54625- 8699 16 Jun, 2016 [place] [id number] [place] [address] 32246- 9656 14 Jun, 2016 [place] [id number] [place] [address] 63734- 9763 13 Jun, 2016 Polyuria R35.8 ; Chronic fatigue R53.82 and Chronic deep vein thrombosis (DVT) of popliteal vein of both lower extremities I82.533 [place] [id number] [place] [address] 95241- 1511 08 Jun, 2016 Polyuria R35.8 ; Chronic fatigue R53.82 ; Chronic deep vein thrombosis (DVT) of popliteal vein of both lower extremities I82.533 ; Primary insomnia F51.01 and Anxiety F41.9 [facility] WALK IN [place] [id number] [place] [address]902 [address]9657 Jun, Sore throat J02.9 ; Irregular heart beat I49.9 and Strep pharyngitis J02.0 [facility] [place] [id number] [place] [address] 86470 -7474 May, Upper respiratory tract infection, unspecified type J06.9 [facility] [place] [address] [id number] [place] [address] 33180 [address]3384 May, Left otitis media, unspecified chronicity, unspecified otitis media type H66.92 and Insomnia, unspecified type G47.00 [facility] [address], [place] [address] May, Left otitis media, unspecified chronicity, unspecified otitis media type H66.92 [facility] IN [facility] [address], [place] [address] 16 Mar, 2016 Acute maxillary sinusitis, recurrence not specified J01.00 [facility] IN [facility] [id number] [place] [address] 48917 -9683 23 Dec, 2015 Acute vomiting R11.10 and Acute diarrhea R19.7 [place] [address] [id number] [place] [address] 379996- 8981 Dec, [place] [address] [id number] [place] [address] 76948- 0743 Dec, [place] [address] [id number] [place] [address] 95042- 6502 Oct, [facility] [id number] [place] [address] 32580- 0168 Oct, [place] [address] [id number] [place] [address] 182749- 8575 Aug, [facility] [address] [id number] [place] [address] 32030- 9042 Aug, [place] [address] [id number] [place] [address] 167838- 6597 Aug, [facility] [address] [id number] [place] [address]5537- 6398 Aug, IMMUNIZATIONS No Known Immunizations SOCIAL HISTORY Never Assessed REASON FOR VISIT non productive cough, possible sinus infection, bilateral earache for 2 days. [email or web address] PLAN OF CARE VITAL SIGNS Height 71.5 in 2017-05-02 Weight 242.0 lbs 2017-05-02 Temperature 98.1 degrees Fahrenheit 2017-05-02 Heart Rate 80 bpm 2017-05-02 Respiratory Rate 20 2017-05-02 BMI 33.28 kg/m2 2017-05-02 Blood pressure systolic 132 mmHg 2017-05-02 Blood pressure diastolic 74 mmHg 2017-05-02 MEDICATIONS Medication Instructions Dosage Frequency Start Date End Date Duration Status Gabapentin 300 mg take 2 capsules (600 mg) by oral route 3 times per day Aug, Active Cetirizine HCl 10 mg Orally Once a day 1 tablet 24h Jun, Active Aspirin 325 MG Orally Once a day 1 tablet 24h Active Pantoprazole Sodium 40 MG Orally Once a day 1 tablet 24h Mar, 30 day(s) Active Fluticasone Propionate 50 MCG/ACT Nasally Once a day 1 spray in each nostril 24h Jun, 30 day(s) Active Lisinopril-Hydrochlorothiazide 20-25 MG Orally Once a day 1 tablet 24h Active Xanax 1 MG Orally Twice a day 1 tablet 12h Jul, 28 days Active Amoxicillin 500 mg Orally 3 times a day 1 capsule 8h May, May, 10 days Active Ambien 10 MG Orally Once a day 1 tablet at bedtime as needed 24h Mar, 28 days Active Promethazine HCl 25 MG Orally every 12 hrs 1 tablet as needed 12h Mar, Jun, 30 day(s) Active RESULTS No Results PROCEDURES Procedure Date Ordered Result Body Site [facility] VISIT ESTABLISHED PATIENT May 02, 2017 INSTRUCTIONS MEDICATIONS ADMINISTERED No Known Medications MEDICAL (GENERAL) HISTORY Type Description Date Medical History Blood clot right leg Medical History irregular heartbeat Medical History Gout Surgical History Rt Knee 2008 Surgical History heart cath 10/2016 Hospitalization History surgery Hospitalization History tonsillectomy as a child
--- OUTSIDE RECORDS SUMMARY | 2018-03-03 15:14 | XMS REPORT ---
Author Author SARTHAK HARRIS Organization [facility] Address [address] [place] [address] Care Team Providers Care Blacking Wheel Tender Name Role Phone SARTHAK HARRIS Unavailable PROBLEMS Type Condition ICD9-CM Code HUP86-ZM Code Onset Dates Condition Status SNOMED Code Problem GERD without esophagitis K21.9 Active 472805834 Problem Primary insomnia F51.01 Active 3078497 Problem Other cardiac arrhythmia I49.8 Active 50298850 Problem Anxiety F41.9 Active 36877624 Problem Chronic fatigue R53.82 Active 58592842 ALLERGIES No Information SOCIAL HISTORY Never Assessed [...]
--- OUTSIDE RECORDS SUMMARY | 2018-03-03 15:14 | XMS REPORT ---
Author Author SARTHAK HARRIS Organization [facility] Address [address] [place] [address] Care Team Providers Care Health Safety And Environment Manager Name Role Phone SARTHAK HARRIS Unavailable PROBLEMS Type Condition ICD9-CM Code QUF07-GO Code Onset Dates Condition Status SNOMED Code Problem GERD without esophagitis K21.9 Active 314985458 Problem Primary insomnia F51.01 Active 9725538 Problem Other cardiac arrhythmia I49.8 Active 47667554 Problem Anxiety F41.9 Active 53415762 Problem Chronic fatigue R53.82 Active 28417933 ALLERGIES No Information SOCIAL HISTORY Never Assessed [...]
--- OUTSIDE RECORDS SUMMARY | 2018-03-03 15:14 | XMS REPORT ---
Author Author ZELALEM HARRIS Organization [facility] Address [address] [place] [address] Care Team Providers Care Pouncer Machine Name Role Phone ZELALEM HARRIS Unavailable PROBLEMS Type Condition ICD9-CM Code HVO54-JR Code Onset Dates Condition Status SNOMED Code Problem GERD without esophagitis K21.9 Active 539679478 Problem Primary insomnia F51.01 Active 3678420 Problem Other cardiac arrhythmia I49.8 Active 93437526 Problem Anxiety F41.9 Active 67051237 Problem Chronic fatigue R53.82 Active 94366887 ALLERGIES Substance Reaction Event Type Date Status Sulfa (sulfonamide Antibiotics) Unknown Non Drug Allergy Mar, Active ENCOUNTERS Encounter Location Date Diagnosis [place] [id number] [place] [id number] [place] [address] 98487- 1354 Dec, [facility] [address] [address] 24 Nov, 2017 Cellulitis of foot, left L03.116 [place] [id number] [place] [address] 32521- 1844 14 Nov, 2017 Medicare annual wellness visit, initial Z00.00 [facility] [address] [place] [id number] [place] [address] 18851 -1063 04 Nov, 2017 Nasal congestion R09.81 and Bilateral impacted cerumen H61.23 [place] [id number] [place] [address] 84046- 6472 28 Nov, [address] [address]- [address] 13 Nov, 2017 Medicare annual wellness visit, initial Z00.00 [place] [id number] [place] [address] 89271- 2663 11 Oct, 2017 Medicare annual wellness visit, initial Z00.00 [facility] [id number] [place] [address] 22672- 8058 15 Aug, 2017 Pain in right knee M25.561 [facility] [address] [place] [id number] [place] [address] 99675- 7555 13 Aug, 2017 Primary insomnia F51.01 and Other fatigue R53.83 [place] [address] [place] [id number] [place] [address] 07615- 9718 Aug, Primary insomnia F51.01 and Other fatigue R53.83 [facility] [address] [place] [id number] [place] [address] 00356 -0012 Jul, Acute recurrent maxillary sinusitis J01.01 [place] [address] [place] [id number] [place] [address] 74573- 6282 Jul, Primary insomnia F51.01 and Other fatigue R53.83 [facility][note 3] [address] [place] [id number] [place] [address] 17733 -2404 Jun, Acute recurrent maxillary sinusitis J01.01 [place] [address] [place] [id number] [place] [address] 81215- 7411 Jun, Primary insomnia F51.01 and Other fatigue R53.83 [place] [address] [place] [id number] [place] [address] 53580- 4661 May, Pain in right knee M25.561 [place] [address] [place] [id number] [place] [address] 88900- 8565 May, Primary insomnia F51.01 and Other fatigue R53.83 [facility] [address] [place] [id number] [place] [address] 12996 -0978 May, Acute non-recurrent maxillary sinusitis J01.00 [facility] [address] [place] [id number] [place] [address] 02016 -1256 Mar, GERD without esophagitis K21.9 [facility] [address] [place] [id number] [place] [address] 66414 -5598 Mar, Pain in right knee M25.561 [facility] [address] [place] [id number] [place] [address] 90160- 3629 Mar, Other fatigue R53.83 [facility] [address] [place] [id number] [place] [address] 21491- 8396 Mar, Primary insomnia F51.01 [facility] [address] 04083- 9856 January, Other fatigue R53.83 [facility] [address] [place] [id number] [place] [address] 32185- 1218 January, Other fatigue R53.83 [facility] [address] [place] [id number] [place] [address] 16076- 6401 January, Other fatigue R53.83 [facility] [address] [place] [id number] [place] [address] 80666 -4243 Dec, Acute non-recurrent pansinusitis J01.40 [facility] [address] [place] [id number] [place] [address] 05474- 7526 Dec, Other fatigue R53.83 [facility] [address] [place] [id number] [place] [address] 15953- 9237 Nov, [facility] [address] [place] [id number] [place] [address] 93871- 3217 Nov, Other fatigue R53.83 [facility] [address] [place] [id number] [place] [address] 40385- 4644 Nov, Other fatigue R53.83 ; Other malaise R53.81 and Anxiety F41.9 [facility] [address] [place] [id number] [place] [address] 61888- 6166 Nov, Nausea R11.0 [facility] [address] [place] [id number] [place] [address] 47757- 8926 Nov, Nausea R11.0 [facility] [address] [place] [id number] [place] [address] 24138- 3552 02 Nov, 2016 Nausea R11.0 [facility] [address] 28511 -9910 15 Oct, 2016 Acute upper respiratory infection, unspecified J06.9 and Other viral agents as the cause of diseases classified elsewhere B97.89 [facility] [address] 06469 -8610 07 Oct, 2016 Nausea R11.0 [place] [address] 88996- 4633 13 Aug, 2016 Polyuria R35.8 [facility] [place] [address] 84962 -8318 Aug, Acute frontal sinusitis, recurrence not specified J01.10 [place] [address] 92329- 5935 Aug, [place] [address] 99439- 4824 Aug, [facility] [place] [address] 52764 -3958 Aug, Acute non-recurrent frontal sinusitis J01.10 [place] [address] 51666- 8376 Aug, [place] [address] 08148- 9640 Jul, Localized edema R60.0 ; Murmur, cardiac R01.1 and Other cardiac arrhythmia I49.8 [place] [address] 11249- 8032 Jul, [facility] [place] [address] 99178 -1000 Jun, Seasonal allergic rhinitis due to pollen J30.1 [place] [address] 30214- 2713 22 Jun, 2016 [place] [address] [address] 78[address] 19 Jun, 2016 Low testosterone level in male E29.1 [facility] [place] [id number] [place] [address] 92888 -3467 17 Jun, 2016 Acute non-recurrent frontal sinusitis J01.10 [place] [address] [place] [id number] [place] [address] 18099- 6417 16 Jun, 2016 [place] [address] [place] [id number] [place] [address] 90075- 1074 14 Jun, 2016 [place] [address] [place] [id number] [place] [address] 54168- 9137 13 Jun, 2016 Polyuria R35.8 ; Chronic fatigue R53.82 and Chronic deep vein thrombosis (DVT) of popliteal vein of both lower extremities I82.533 [place] [address] [place] [id number] [place] [address] 34217- 8396 08 Jun, 2016 Polyuria R35.8 ; Chronic fatigue R53.82 ; Chronic deep vein thrombosis (DVT) of popliteal vein of both lower extremities I82.533 ; Primary insomnia F51.01 and Anxiety F41.9 [facility] [address] [place] [address] 38871 -0307 03 Jun, 2016 Sore throat J02.9 ; Irregular heart beat I49.9 and Strep pharyngitis J02.0 [facility] [place] [address] [place] [address] 88442 -0661 May, Upper respiratory tract infection, unspecified type J06.9 [facility] [place] [id number] [place] [address] 26533 -9582 May, Left otitis media, unspecified chronicity, unspecified otitis media type H66.92 and Insomnia, unspecified type G47.00 [facility] [place] [id number] [place] [address] 65372 -5368 May, Left otitis media, unspecified chronicity, unspecified otitis media type H66.92 [facility] [address] [place] [address] 22806 -2303 Mar, Acute maxillary sinusitis, recurrence not specified J01.00 [facility] [address] [place] [id number] [place] [address] 91208 -6977 23 Dec, 2015 Acute vomiting R11.10 and Acute diarrhea R19.7 [facility] [address] [place] [id number] [place] [address] 33163- 3732 14 Dec, 2014 [facility] [address] [place] [id number] [place] [address] 27205- 7327 Dec, [facility] [address] [place] [id number] [place] [address] 74167- 5850 Oct, [facility] [address] [place] [id number] [place] [address] 60445- 6588 Oct, [facility] [address] [place] [id number] [place] [address] 72995- 9805 Aug, [facility] [address] [place] [id number] [place] [address] 21585- 7445 Aug, [facility] [address] [place] [id number] [place] [address] 23127- 8904 Aug, [facility] [address] [place] [id number] [place] [address] 72234- 2498 Aug, IMMUNIZATIONS No Known Immunizations SOCIAL HISTORY Never Assessed REASON FOR VISIT feels like his stomach is full of gas and he cant get it out. last BM was this am and it was normal for him. also would like the SALES ACCOUNT REPRESENTATIVE to listen to his heart. [email or web address] PLAN OF CARE VITAL SIGNS Height 71.5 in 2017-04-18 Weight 236.2 lbs 2017-04-18 Temperature 97.7 degrees Fahrenheit 2017-04-18 Heart Rate 80 bpm 2017-04-18 Respiratory Rate 20 2017-04-18 BMI 32.48 kg/m2 2017-04-18 Blood pressure systolic 136 mmHg 2017-04-18 Blood pressure diastolic 78 mmHg 2017-04-18 MEDICATIONS Medication Instructions Dosage Frequency Start Date End Date Duration Status Fluticasone Propionate 50 MCG/ACT Nasally Once a day 1 spray in each nostril 24h Jun, 30 day(s) Active Cetirizine HCl 10 mg Orally Once a day 1 tablet 24h Jun, Active Lisinopril-Hydrochlorothiazide 20-25 MG Orally Once a day 1 tablet 24h Active Gabapentin 300 mg take 2 capsules (600 mg) by oral route 3 times per day Aug, Active Aspirin 325 MG Orally Once a day 1 tablet 24h Active Ambien 10 MG Orally Once a day 1 tablet at bedtime as needed 24h Mar, 28 days Active Pantoprazole Sodium 40 MG Orally Once a day 1 tablet 24h Mar, 30 day(s) Active Xanax 1 MG Orally Twice a day 1 tablet 12h Jul, 28 days Active Promethazine HCl 25 MG Orally every 12 hrs 1 tablet as needed 12h Mar, Jun, 30 day(s) Active RESULTS No Results PROCEDURES Procedure Date Ordered Result Body Site [facility] VISIT ESTABLISHED PATIENT April 18, 2017 INSTRUCTIONS MEDICATIONS ADMINISTERED No Known Medications MEDICAL (GENERAL) HISTORY Type Description Date Medical History Blood clot right leg Medical History irregular heartbeat Medical History Gout Surgical History Rt Knee 2008 Surgical History heart cath 10/2016 Hospitalization History surgery Hospitalization History tonsillectomy as a child
--- OUTSIDE RECORDS SUMMARY | 2018-03-03 15:15 | XMS REPORT | Continuity of Care Document ---
Author Author [facility] Address Unknown Phone Unavailable Allergies Active Description Code Type Severity Reaction Onset Reported/Identified Relationship to Patient Clinical Status Yes No Known Drug Allergies [id number] Drug Allergy Unknown N/A 08/24/2008 Yes Sulfa (Sulfonamide Antibiotics) Drug Allergy N/A N/A 09/26/2014 Medications There is no data. Problems Date Dx Coded Attending Type Code Diagnosis Diagnosed By 09/26/2014 ANTONIA ANAYA APRN 462 ACUTE PHARYNGITIS 09/26/2014 ANTONIA ANAYA APRN 786.2 COUGH 10/15/2014 MARTIN PARRA, ESTEPHANIA Mackey Ot 327.23 09/06/2016 SARTHAK HARRIS Ot I49.8 OTHER SPECIFIED CARDIAC ARRHYTHMIAS 09/06/2016 SARTHAK HARRIS SANFORIZER Ot R01.1 CARDIAC MURMUR, UNSPECIFIED 09/06/2016 SARTHAK HARRIS Ot R60.0 LOCALIZED EDEMA 09/07/2016 SARTHAK HARRIS Ot I49.8 OTHER SPECIFIED CARDIAC ARRHYTHMIAS 09/07/2016 SARTHAK HARRIS SANFORIZER Ot R01.1 CARDIAC MURMUR, UNSPECIFIED 09/07/2016 SARTHAK HARRIS SANFORIZER Ot R60.0 LOCALIZED EDEMA 09/29/2016 SARTHAK HARRIS SANFORIZER Ot I49.8 OTHER SPECIFIED CARDIAC ARRHYTHMIAS 09/29/2016 SARTHAK HARRIS Ot R01.1 CARDIAC MURMUR, UNSPECIFIED 09/29/2016 SARTHAK HARRIS Ot R60.0 LOCALIZED EDEMA 10/03/2016 Feliciano HAY MD Ot I10 ESSENTIAL (PRIMARY) HYPERTENSION 10/03/2016 Feliciano HAY MD Ot I25.10 ATHSCL HEART DISEASE OF [place] CORONARY 10/03/2016 Feliciano HAY MD Ot I42.9 CARDIOMYOPATHY, UNSPECIFIED 10/03/2016 Feliciano HAY MD Ot I49.3 VENTRICULAR PREMATURE DEPOLARIZATION 10/03/2016 Feliciano HAY MD, Ot Z79.899 OTHER SKILLED NURSING (CURRENT) DRUG THERAPY 10/30/2016 Feliciano HAY MD Ot I49.3 VENTRICULAR PREMATURE DEPOLARIZATION 10/31/2016 Feliciano HAY MD Ot I49.3 VENTRICULAR PREMATURE DEPOLARIZATION 11/02/2016 Feliciano HAY MD Ot I10 ESSENTIAL (PRIMARY) HYPERTENSION 11/02/2016 Feliciano HAY MD Ot I25.10 ATHSCL HEART DISEASE OF [place] CORONARY 11/02/2016 Feliciano HAY MD Ot I42.9 CARDIOMYOPATHY, UNSPECIFIED 11/02/2016 Feliciano HAY MD Ot I49.3 VENTRICULAR PREMATURE DEPOLARIZATION 11/02/2016 Feliciano HAY MD, Ot Z79.899 OTHER AUDIT ANALYST (CURRENT) DRUG THERAPY 11/04/2016 Feliciano HAY MD Ot I10 ESSENTIAL (PRIMARY) HYPERTENSION 11/04/2016 Feliciano HAY MD Ot I25.10 ATHSCL HEART DISEASE OF [place] CORONARY 11/04/2016 Feliciano HAY MD Ot I42.9 CARDIOMYOPATHY, UNSPECIFIED 11/04/2016 Feliciano HAY MD Ot I49.3 VENTRICULAR PREMATURE DEPOLARIZATION 11/04/2016 Feliciano HAY MD Ot Z79.899 OTHER SKILLED NURSING (CURRENT) DRUG THERAPY 11/22/2016 Feliciano HAY MD Ot I49.3 VENTRICULAR PREMATURE DEPOLARIZATION 01/09/2017 TOM JENSEN DO Ot V72.84 EXAM PRE-OPERATIVE NOS 01/09/2017 MARTIN PARRA, ESTEPHANIA Mackey Ot 327.23 OBSTRUCTIVE SLEEP APNEA (ADULT) (PEDIATR 01/09/2017 SARTHAK HARRIS Ot I49.8 OTHER SPECIFIED CARDIAC ARRHYTHMIAS 01/09/2017 SARTHAK HARRIS Ot R01.1 CARDIAC MURMUR, UNSPECIFIED 01/09/2017 SARTHAK HARRIS Ot R60.0 LOCALIZED EDEMA 01/09/2017 Feliciano HAY MD Ot I49.3 VENTRICULAR PREMATURE DEPOLARIZATION 01/10/2017 Feliciano HAY MD Ot E78.5 HYPERLIPIDEMIA, UNSPECIFIED 01/10/2017 Feliciano HAY MD Ot I10 ESSENTIAL (PRIMARY) HYPERTENSION 01/10/2017 Feliciano HAY MD Ot I42.9 CARDIOMYOPATHY, UNSPECIFIED 01/10/2017 Feliciano HAY MD Ot I49.3 VENTRICULAR PREMATURE DEPOLARIZATION 01/10/2017 Feliciano HAY MD Ot R53.83 OTHER FATIGUE 01/11/2017 Feliciano HAY MD Ot E78.5 HYPERLIPIDEMIA, UNSPECIFIED 01/11/2017 Feliciano HAY MD Ot I10 ESSENTIAL (PRIMARY) HYPERTENSION 01/11/2017 Feliciano HAY MD Ot I42.9 CARDIOMYOPATHY, UNSPECIFIED 01/11/2017 Feliciano HAY MD Ot I49.3 VENTRICULAR PREMATURE DEPOLARIZATION 01/11/2017 Feliciano HAY MD Ot R53.83 OTHER FATIGUE 01/30/2017 Feliciano HAY MD Ot E78.5 HYPERLIPIDEMIA, UNSPECIFIED 01/30/2017 Feliciano HAY MD Ot I10 ESSENTIAL (PRIMARY) HYPERTENSION 01/30/2017 Feliciano HAY MD Ot I42.9 CARDIOMYOPATHY, UNSPECIFIED 01/30/2017 Feliciano HAY MD Ot I49.3 VENTRICULAR PREMATURE DEPOLARIZATION 01/30/2017 Feliciano HAY MD Ot R53.83 OTHER FATIGUE 02/15/2017 Feliciano HAY MD Ot E78.5 HYPERLIPIDEMIA, UNSPECIFIED 02/15/2017 Feliciano HAY MD Ot I10 ESSENTIAL (PRIMARY) HYPERTENSION 02/15/2017 Feliciano HAY MD Ot I42.9 CARDIOMYOPATHY, UNSPECIFIED 02/15/2017 Feliciano HAY MD Ot I49.3 VENTRICULAR PREMATURE DEPOLARIZATION 02/15/2017 Feliciano HAY MD Ot R53.83 OTHER FATIGUE 02/15/2017 TOM JENSEN DO Ot V72.84 EXAM PRE-OPERATIVE NOS 02/15/2017 MARTIN PARRA, ESTEPHANIA Mackey Ot 327.23 OBSTRUCTIVE SLEEP APNEA (ADULT) (PEDIATR 02/15/2017 SARTHAK HARRIS Ot I49.8 OTHER SPECIFIED CARDIAC ARRHYTHMIAS 02/15/2017 SARTHAK HARRIS Ot R01.1 CARDIAC MURMUR, UNSPECIFIED 02/15/2017 SARTHAK HARRIS Ot R60.0 LOCALIZED EDEMA 02/15/2017 Feliciano HAY MD Ot I49.3 VENTRICULAR PREMATURE DEPOLARIZATION 02/15/2017 Feliciano HAY MD Ot E78.5 HYPERLIPIDEMIA, UNSPECIFIED 02/15/2017 Feliciano HAY MD Ot I10 ESSENTIAL (PRIMARY) HYPERTENSION 02/15/2017 Feliciano HAY MD Ot I42.9 CARDIOMYOPATHY, UNSPECIFIED 02/15/2017 Feliciano HAY MD Ot I49.3 VENTRICULAR PREMATURE DEPOLARIZATION 02/15/2017 Feliciano HAY MD, Ot R53.83 OTHER FATIGUE 03/02/2017 TOM JENSEN DO Ot V72.84 EXAM PRE-OPERATIVE NOS 03/02/2017 MARTIN PARRA, ESTEPHANIA Mackey Ot 327.23 OBSTRUCTIVE SLEEP APNEA (ADULT) (PEDIATR 03/02/2017 SARTHAK HARRIS Ot I49.8 OTHER SPECIFIED CARDIAC ARRHYTHMIAS 03/02/2017 SARTHAK HARRIS Ot R01.1 CARDIAC MURMUR, UNSPECIFIED 03/02/2017 SARTHAK HARRIS Ot R60.0 LOCALIZED EDEMA 03/02/2017 Feliciano HAY MD Ot I49.3 VENTRICULAR PREMATURE DEPOLARIZATION 03/02/2017 Feliciano HAY MD Ot E78.5 HYPERLIPIDEMIA, UNSPECIFIED 03/02/2017 Feliciano HAY MD Ot I10 ESSENTIAL (PRIMARY) HYPERTENSION 03/02/2017 Feliciano HAY MD Ot I42.9 CARDIOMYOPATHY, UNSPECIFIED 03/02/2017 Feliciano HAY MD Ot I49.3 VENTRICULAR PREMATURE DEPOLARIZATION 03/02/2017 Feliciano HAY MD Ot R53.83 OTHER FATIGUE 03/02/2017 SARTHAK HARRIS Ot I49.8 OTHER SPECIFIED CARDIAC ARRHYTHMIAS 03/02/2017 SARTHAK HARRIS SANFORIZER Ot R01.1 CARDIAC MURMUR, UNSPECIFIED 03/02/2017 SARTHAK HARRIS SANFORIZER Ot R60.0 LOCALIZED EDEMA 03/02/2017 Feliciano HAY MD Ot E78.5 HYPERLIPIDEMIA, UNSPECIFIED 03/02/2017 SATNAM PARRA, Feliciano ERIC Ot I10 ESSENTIAL (PRIMARY) HYPERTENSION 03/02/2017 SATNAM PARRA, Feliciano ERIC Ot I42.9 CARDIOMYOPATHY, UNSPECIFIED 03/02/2017 SATNAM PARRA, Feliciano ERIC Ot I49.3 VENTRICULAR PREMATURE DEPOLARIZATION 03/02/2017 SATNAM PARRA, Feliciano ERIC Ot R53.83 OTHER FATIGUE 07/08/2017 HEYDI ALMODOVAR MD Ot S91.131A PNCTR W/O FB OF RIGHT GREAT TOE W/O GUTIERREZ 07/08/2017 HEYDI ALMODOVAR MD Ot W22.8XXA STRIKING AGAINST OR STRUCK BY OTHER OBJE 07/08/2017 HEYDI ALMODOVAR MD, Ot Z23 ENCOUNTER FOR IMMUNIZATION 07/08/2017 HEYDI ALMODOVAR MD, Ot Z79.82 AUDIT ANALYST (CURRENT) USE OF ASPIRIN 07/08/2017 HEYDI ALMODOVAR MD, Ot Z87.891 PERSONAL HISTORY OF NICOTINE DEPENDENCE 07/10/2017 HEYDI ALMODOVAR MD, Ot S91.131A PNCTR W/O FB OF RIGHT GREAT TOE W/O GUTIERREZ 07/10/2017 HEYDI ALMODOVAR MD Ot W22.8XXA STRIKING AGAINST OR STRUCK BY OTHER OBJE 07/10/2017 HEYDI ALMODOVAR MD Ot Z23 ENCOUNTER FOR IMMUNIZATION 07/10/2017 HEYDI ALMODOVAR MD, Ot Z79.82 SKILLED NURSING (CURRENT) USE OF ASPIRIN 07/10/2017 HEYDI ALMODOVAR MD, Ot Z87.891 PERSONAL HISTORY OF NICOTINE DEPENDENCE 07/12/2017 HEYDI ALMODOVAR MD, Ot S91.131A PNCTR W/O FB OF RIGHT GREAT TOE W/O GUTIERREZ 07/12/2017 HEYDI ALMODOVAR MD, Ot W22.8XXA STRIKING AGAINST OR STRUCK BY OTHER OBJE 07/12/2017 HEYDI ALMODOVAR MD Ot Z23 ENCOUNTER FOR IMMUNIZATION 07/12/2017 HEYDI ALMODOVAR MD, Ot Z79.82 SKILLED NURSING (CURRENT) USE OF ASPIRIN 07/12/2017 HEYDI ALMODOVAR MD, Ot Z87.891 PERSONAL HISTORY OF NICOTINE DEPENDENCE 07/18/2017 SATNAM PARRA, Feliciano ERIC Ot 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 07/23/2017 LOLY ANTONIO APRN Ot G47.30 SLEEP APNEA, UNSPECIFIED 07/23/2017 LOLY ANTONIO APRN Ot M79.602 PAIN IN LEFT ARM 07/23/2017 LOLY ANTONIO APRN Ot S46.211A STRAIN OF MUSC/FASC/TEND PRT BICEPS, RIG 07/23/2017 LOLY ANTONIO APRN Ot X50.0XXA OVEREXERTION FROM STRENUOUS MOVEMENT OR 07/23/2017 LOLY ANTONIO APRN Ot Z79.82 SKILLED NURSING (CURRENT) USE OF ASPIRIN 07/23/2017 LOLY ANTONIO APRN Ot Z87.891 PERSONAL HISTORY OF NICOTINE DEPENDENCE 07/26/2017 LOLY ANTONIO APRN Ot G47.30 SLEEP APNEA, UNSPECIFIED 07/26/2017 LOLY ANTONIO APRN Ot M79.602 PAIN IN LEFT ARM 07/26/2017 LOLY ANTONIO APRN Ot S46.211A STRAIN OF MUSC/FASC/TEND PRT BICEPS, RIG 07/26/2017 LOLY ANTONIO APRN Ot X50.0XXA OVEREXERTION FROM STRENUOUS MOVEMENT OR 07/26/2017 LOLY ANTONIO SCRAP DROP CRANE OPERATOR Ot Z79.82 SKILLED NURSING (CURRENT) USE OF ASPIRIN 07/26/2017 LOLY ANTONIO APRN Ot Z87.891 PERSONAL HISTORY OF NICOTINE DEPENDENCE 11/12/2017 SUGAR CASTILLO Ot G47.30 SLEEP APNEA, UNSPECIFIED 11/12/2017 SUGAR CASTILLO Ot M79.672 PAIN IN LEFT FOOT 11/12/2017 SUGAR CASTILLO Ot Z79.82 AUDIT ANALYST (CURRENT) USE OF ASPIRIN 11/12/2017 SUGAR CASTILLO Ot Z87.19 PERSONAL HISTORY OF OTHER DISEASES OF TH 11/12/2017 SUGAR CASTILLO Ot Z87.891 PERSONAL HISTORY OF NICOTINE DEPENDENCE 11/14/2017 SUGAR CASTILLO Ot G47.30 SLEEP APNEA, UNSPECIFIED 11/14/2017 SUAGR CASTILLO Ot M79.672 PAIN IN LEFT FOOT 11/14/2017 SUGAR CASTILLO Ot Z79.82 SKILLED NURSING (CURRENT) USE OF ASPIRIN 11/14/2017 SUGAR CASTILLO Ot Z87.19 PERSONAL HISTORY OF OTHER DISEASES OF TH 11/14/2017 SUGAR CASTILLO Ot Z87.891 PERSONAL HISTORY OF NICOTINE DEPENDENCE 11/14/2017 SUGAR CASTILLO Ot G47.30 SLEEP APNEA, UNSPECIFIED 11/14/2017 SUGAR CASTILLO Ot M79.672 PAIN IN LEFT FOOT 11/14/2017 SUGAR CASTILLO Ot Z79.82 AUDIT ANALYST (CURRENT) USE OF ASPIRIN 11/14/2017 SUGAR CASTILLO Ot Z87.19 PERSONAL HISTORY OF OTHER DISEASES OF TH 11/14/2017 SUGAR CASTILLO Ot Z87.891 PERSONAL HISTORY OF NICOTINE DEPENDENCE 11/18/2017 SUGAR CASTILLO Ot G47.30 SLEEP APNEA, UNSPECIFIED 11/18/2017 SUGAR CASTILLO Ot M79.672 PAIN IN LEFT FOOT 11/18/2017 SUGAR CASTILLO Ot Z79.82 AUDIT ANALYST (CURRENT) USE OF ASPIRIN 11/18/2017 PEDRO SELINASUGAR Ot Z87.19 PERSONAL HISTORY OF OTHER DISEASES OF TH 11/18/2017 SUGAR CASTILLO Ot Z87.891 PERSONAL HISTORY OF NICOTINE DEPENDENCE Procedures There is no data. Results Test Result Range CBC With Differential/Platelet - 06/13/16 09:33 WBC 9.8 x10E3/uL 3.4-10.8 RBC 5.02 x10E6/uL 4.14-5.80 Hemoglobin 16.1 g/dL 12.6-17.7 Hematocrit 45.9 % 37.5-51.0 MCV 91 fL 79-97 MCH 32.1 pg 26.6-33.0 MCHC 35.1 g/dL 31.5-35.7 RDW 14.7 % 12.3-15.4 Platelets 348 x10E3/uL 150-379 Neutrophils 59 % Lymphs 32 % Monocytes 8 % Eos 1 % Basos 0 % Neutrophils (Absolute) 5.8 x10E3/uL 1.4-7.0 Lymphs (Absolute) 3.1 x10E3/uL 0.7-3.1 Monocytes(Absolute) 0.8 x10E3/uL 0.1-0.9 Eos (Absolute) 0.1 x10E3/uL 0.0-0.4 Baso (Absolute) 0.0 x10E3/uL 0.0-0.2 Immature Granulocytes 0 % Immature Grans (Abs) 0.0 x10E3/uL 0.0-0.1 Comp. Metabolic Panel (14) - 06/13/16 09:33 Glucose, Serum 116 mg/dL 65-99 BUN 25 mg/dL 8-27 Creatinine, Serum 1.54 mg/dL 0.76-1.27 eGFR If NonAfricn Am 45 mL/min/1.73 >59 eGFR If Africn Am 52 mL/min/1.73 >59 BUN/Creatinine Ratio 16 10-22 Sodium, Serum 140 mmol/L 134-144 Potassium, Serum 4.4 mmol/L 3.5-5.2 Chloride, Serum 100 mmol/L 97-108 Carbon Dioxide, Total 21 mmol/L 18-29 Calcium, Serum 9.5 mg/dL 8.6-10.2 Protein, Total, Serum 6.9 g/dL 6.0-8.5 Albumin, Serum 3.9 g/dL 3.5-4.8 Globulin, Total 3.0 g/dL 1.5-4.5 A/G Ratio 1.3 1.1-2.5 Bilirubin, Total 0.7 mg/dL 0.0-1.2 Alkaline Phosphatase, S 76 IU/L 39-117 AST (SGOT) 27 IU/L 0-40 ALT (SGPT) 40 IU/L 0-44 Lipid Panel - 06/13/16 09:33 Cholesterol, Total 178 mg/dL 100-199 Triglycerides 169 mg/dL 0-149 HDL Cholesterol 39 mg/dL >39 VLDL Cholesterol Pankaj 34 mg/dL 5-40 LDL Cholesterol Calc 105 mg/dL 0-99 Testosterone, Serum - 06/13/16 09:33 Testosterone, Serum 269 ng/dL [phone] Comment: Comment TSH - 06/13/16 09:33 TSH 3.060 uIU/mL 0.450-4.500 Automated blood complete blood count (hemogram) panel - 10/03/16 07:18 Blood leukocytes automated count (number/volume) 7.3 10*3/uL 4.3-11.0 Blood erythrocytes automated count (number/volume) 3.66 10*6/uL 4.35-5.85 Venous blood hemoglobin measurement (mass/volume) 11.7 g/dL 13.3-17.7 Blood hematocrit (volume fraction) 35 % 40-54 Automated erythrocyte mean corpuscular volume 96 [foz_us] 80-99 Automated erythrocyte mean corpuscular hemoglobin (mass per erythrocyte) 32 pg 25-34 Automated erythrocyte mean corpuscular hemoglobin concentration measurement ( mass/volume) 33 g/dL 32-36 Automated erythrocyte distribution width ratio 14.4 % 10.0-14.5 Automated blood platelet count (count/volume) 265 10*3/uL 130-400 Automated blood platelet mean volume measurement 10.4 [foz_us] 7.4-10.4 PT panel in platelet poor plasma by coagulation assay - 10/03/16 07:18 Prothrombin time (PT) in platelet poor plasma by coagulation assay 12.9 s 12.2-14.7 INR in platelet poor plasma or blood by coagulation assay 1.0 0.8-1.4 Activated partial thromboplastin time (aPTT) in platelet poor plasma bycoagulation assay - 10/03/16 07:18 Activated partial thromboplastin time (aPTT) in platelet poor plasma bycoagulation assay 26 s 24-35 Comprehensive metabolic panel - 10/03/16 07:18 Serum or plasma sodium measurement (moles/volume) 143 mmol/L 135-145 Serum or plasma potassium measurement (moles/volume) 4.1 mmol/L 3.6-5.0 Serum or plasma chloride measurement (moles/volume) 113 mmol/L 98-107 Carbon dioxide 20 mmol/L 21-32 Serum or plasma anion gap determination (moles/volume) 10 mmol/L 5-14 Serum or plasma urea nitrogen measurement (mass/volume) 15 mg/dL 7-18 Serum or plasma creatinine measurement (mass/volume) 1.33 mg/dL 0.60-1.30 Serum or plasma urea nitrogen/creatinine mass ratio 11 NRG Serum or plasma creatinine measurement with calculation of estimated glomerular filtration rate 53 NRG Serum or plasma glucose measurement (mass/volume) 102 mg/dL 70-105 Serum or plasma calcium measurement (mass/volume) 8.8 mg/dL 8.5-10.1 Serum or plasma total bilirubin measurement (mass/volume) 0.7 mg/dL 0.1-1.0 Serum or plasma alkaline phosphatase measurement (enzymatic activity/volume) 58 U/L 40-136 Serum or plasma aspartate aminotransferase measurement (enzymatic activity/ volume) 20 U/L 5-34 Serum or plasma alanine aminotransferase measurement (enzymatic activity/volume ) 18 U/L 0-55 Serum or plasma protein measurement (mass/volume) 6.2 g/dL 6.4-8.2 Serum or plasma albumin measurement (mass/volume) 3.8 g/dL 3.2-4.5 Lipid 1996 panel - 10/03/16 07:18 Serum or plasma triglyceride measurement (mass/volume) 114 mg/dL <150 Serum or plasma cholesterol measurement (mass/volume) 123 mg/dL < 200 Serum or plasma cholesterol in HDL measurement (mass/volume) 31 mg/ dL 40-60 Cholesterol in LDL [mass/volume] in serum or plasma by direct assay 44 mg/dL 1-129 Serum or plasma cholesterol in VLDL measurement (mass/volume) 23 mg/ dL 5-40 Methicillin resistant Staphylococcus aureus (MRSA) screening culture - 07:18 MRSA SCREEN RESULT MRSA ISOLATED NRG Encounters ACCT No. Visit Date/Time Discharge Status Pt. Type Provider Facility Loc./Unit Complaint [id number] 09/26/2014 10:23:00 09/26/2014 23:59:59 CLS Outpatient ANTONIA ANAYA APRN [id number] 09/06/2012 16:21:57 RECURRING 0000 07/29/2017 18:05:14 07/29/2017 23:59:59 CLS Outpatient [id number] 06/14/2016 10:05:00 Document Registration [id number] 10/09/2014 15:58:29 ACT Document Registration [id number] 02/24/2018 15:20:00 02/24/2018 23:59:59 CLS Outpatient SARTHAK HARRIS APRN [facility] [id number] 11/12/2017 13:05:00 11/12/2017 15:44:00 DIS Emergency SUGAR CASTILLO [facility] ER LEFT ANKLE PAIN [id number] 07/23/2017 12:06:00 07/23/2017 13:30:00 DIS Emergency LOLY ANTONIO APRN [facility] ER LT BICEP PAIN [id number] 07/08/2017 14:30:00 07/08/2017 16:25:00 DIS Emergency HEYDI ALMODOVAR MD [facility] ER R FOOT LAC [id number] 06/28/2017 12:01:00 06/28/2017 23:59:59 CLS Outpatient Feliciano HAY MD [facility] CARD I50.20 [id number] 01/09/2017 09:33:00 01/09/2017 23:59:59 CLS Outpatient Feliciano HAY MD [facility] CARD CARDIOMYOPATHY [id number] 10/30/2016 11:17:00 10/30/2016 23:59:59 CLS Outpatient Feliciano HAY MD [facility] CARD PVC [id number] 10/03/2016 06:42:00 10/03/2016 16:54:00 DIS Outpatient Feliciano HAY MD [facility] CATH SOB,CHF,HTN [id number] 09/05/2016 11:36:00 09/05/2016 23:59:59 CLS Outpatient SARTHAK HARRIS [facility] CARD R60.0,R01.1 [id number] 10/09/2014 15:57:00 10/09/2014 23:59:59 CLS Outpatient MARTIN PARRA, ESTEPHANIA Mackey [facility] SLEEP SNORING, OBSERVED APNEA , EDS [id number] 07/22/2014 07:22:00 07/22/2014 23:59:59 CLS Outpatient TOM JENSEN DO [facility] PREOP HISTORY POLYPS [id number] 10/10/2013 17:47:00 10/10/2013 23:59:59 CLS Outpatient [id number] 05/12/2013 14:31:00 05/12/2013 23:59:59 CLS Outpatient [id number] 01/23/2013 18:27:00 01/23/2013 23:59:59 CLS Outpatient [id number] 03/03/2018 14:56:00 ACT Emergency HEYDI ALMODOVAR MD [facility] ER ARM RED, SWOLLEN AND HOT [id number] 01/09/2017 09:34:00 Document Registration
--- NOTE | 2018-03-03 15:41 | ED Upper Extremity ---
General Chief Complaint: Upper Extremity Stated Complaint: ARM RED, SWOLLEN AND HOT Nursing Triage Note: PT CO OF R ELBOW SWELLING AND REDNESS, BRUISING AND SWELLING NOTED FROM ELBOW TO HAND. 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 I have known him for many years. He reports that a week or 10 days ago he developed a swelling in his right elbow. This was diagnosed as bursitis and was aspirated. He thought it was going along nicely and then accidentally bumped his elbow which caused great pain and following that he noted discoloration down the dorsal forearm and the dorsum of the hand. Pain/Injury Location: right elbow Method of Injury: direct blow Allergies and Home Medications Allergies Coded Allergies: No Known Drug Allergies (Verified , 08/24/08) Home Medications Alprazolam 0.5 Mg Tablet, 0.5 MG PO BID PRN for ANXIETY, (Reported) Aspirin 325 Mg Tablet.dr, 325 MG PO DAILY, (Reported) Clindamycin HCl 300 Mg Capsule, 300 MG PO QID Prescribed by: SUGAR VASQUEZ on 11/12/17 153 Colchicine 0.6 Mg Capsule, 0.6 MG PO UD 1.2 mg po once, then take 0.6 mg po 1 hour later. Prescribed by: SUGAR VASQUEZ on 11/12/17 1535 Gabapentin 300 Mg Capsule, 300 MG PO TID PRN for PAIN, (Reported) Hydrocodone Bit/Acetaminophen 1 Each Tablet, 1 TAB PO Q6H PRN for PAIN, ( Reported) Hydrocodone Bit/Acetaminophen 1 Tab Tab, 1 TAB PO Q4H PRN for PAIN-MODERATE TO SEVERE Prescribed by: SUGAR VASQUEZ on 11/12/17 1524 Lisinopril 20 Mg Tablet, 20 MG PO DAILY, (Reported) Lovastatin 20 Mg Tablet, 20 MG PO DAILY, (Reported) Meloxicam 15 Mg Tablet, 15 MG PO DAILY Prescribed by: SUGAR VASQUEZ on 11/12/17 1535 Naproxen 500 Mg Tablet, 500 MG PO BID PRN for SWELLING, (Reported) Zolpidem Tartrate 12.5 Mg Tab.mphase, 12.5 MG PO HS PRN for SLEEP, (Reported) Patient Home Medication List Home Medication List Reviewed: Yes Constitutional: see HPI EENTM: no symptoms reported Respiratory: no symptoms reported Cardiovascular: no symptoms reported Gastrointestinal: no symptoms reported Genitourinary: no symptoms reported Musculoskeletal: no symptoms reported Skin: no symptoms reported Psychiatric/Neurological: No Symptoms Reported Past Fmzevvn-Boyjkd-Zrhimc Hx Patient Social History Alcohol Use: Denies Use Recreational Drug Use: No Type Used: Cigarettes Former Smoker, Quit: Oct 03, 1985 2nd Hand Smoke Exposure: No Recent Foreign Travel: No Contact w/Someone Who Travel: No Recent Infectious Disease Expo: No Recent Hopitalizations: No Physical Abuse: No Sexual Abuse: No Immunizations Up To Date Date of Pneumonia Vaccine: Jul 04, 2016 Date of Influenza Vaccine: Jul 10, 2016 Past Medical History Surgeries: Yes (KNEE SCOPE, HERNIA) Respiratory: No Sleep Apnea Cardiac: No Neurological: No Reproductive Disorders: No Sexually Transmitted Disease: No Genitourinary: No Gastrointestinal: No Musculoskeletal: Yes (ARTHRITIS ) Endocrine: No HEENT: No Cancer: No Psychosocial: No Nursing Suicide Risk Score: 0 Integumentary: No Blood Disorders: No Family Medical History No Pertinent Family Hx Physical Exam Vital Signs Vital Signs - First Documented 03/03/18 15:15 Temp 97.5 Pulse 67 Resp 18 B/P (MAP) 162/72 (102) Pulse Ox 94 Capillary Refill : Less Than 3 Seconds General Appearance: WD/WN, no apparent distress HEENT: normal ENT inspection Neck: full range of motion Cardiovascular: normal peripheral pulses, regular rate, rhythm, no edema, no gallop, no JVD, no murmur Respiratory: chest non-tender, lungs clear, normal breath sounds, no respiratory distress, no accessory muscle use Comments There is a modest amount of fluid at the right olecranon bursa. It is not tender to touch. The dorsum of the forearm and the back of the hand reveal a mild to moderate ecchymosis. Progress/Results/Core Measures Results/Orders Vital Signs/I&O 03/03/18 15:15 Temp 97.5 Pulse 67 Resp 18 B/P (MAP) 162/72 (102) Pulse Ox 94 Blood Pressure Mean: 102 Departure Impression Primary Impression: right olecranon bursitis Additional Impression: traumatic hemorrhage right olecranon bursa Disposition: 01 HOME, SELF-CARE Condition: Stable/Unchanged Departure-Patient Inst. Decision time for Depature: 15:40 Referrals: DEEPA NAJERA MD (PCP/Family) Primary Care Physician Add. Discharge Instructions: All discharge instructions reviewed with patient and/or family. Voiced understanding. Use an ice pack to her 3 times daily. Do not rest the elbow on any hard surface. Minimize repetitive flexion and extension. The hemorrhage in the lower forearm and hand will take days to resorb. If you see any redness or streaking up the arm return here or to your primary HEYDI ALMODOVAR MD Mar 03, 2018 15:41
[2018-03-03 16:05] VITALS: BP 162/72
== END 2018-03-03 16:04 | disposition home or self-care (01) ==
LOC: EDUNIT# 14:53 → ER 14:56
DX: M70.21 Olecranon bursitis, right elbow (principal); G47.30 Sleep apnea, unspecified; Z79.82 Long term (current) use of aspirin; Z87.891 Personal history of nicotine dependence; W22.09XA Striking against other stationary object, initial encounter
CPT/HCPCS: 99282

== ENCOUNTER → 2018-09-11 | Outpatient (CLI) | payer MEDICARE | LOC: CARD 12:06 | PROVIDERS: ATTEND Nurse Practitioner Community Health | DX: I50.22 Chronic systolic (congestive) heart failure (principal); I08.1 Rheumatic disorders of both mitral and tricuspid valves | CPT/HCPCS: 93306 ==

== ENCOUNTER → 2018-12-04 | Outpatient (CLI) | payer MEDICARE ==
--- NOTE | 2018-12-04 13:25 | Diagnostic Imaging Report ---
PROCEDURE: US right lower extremity venous. TECHNIQUE: Multiple real-time grayscale images were obtained over the right lower extremity in various projections. Additional spectral analysis and color Doppler duplex images were also obtained. INDICATION: Right lower extremity swelling. EXAMINATION: Grayscale and color Doppler evaluation of the deep veins of the right lower extremity were performed with waveform analysis. FINDINGS: Continuous venous flow is present. No intraluminal filling defect is identified. There is normal compressibility and response to augmentation. No abnormal perivascular fluid collection is identified. IMPRESSION: No ultrasound evidence of right lower extremity deep venous thrombosis. Dictated by: Dictated on workstation # [id number]
== END ==
LOC: RAD 12:32
PROVIDERS: ATTEND Nurse Practitioner Community Health
DX: R60.0 Localized edema (principal)

== ENCOUNTER → 2019-01-24 | Outpatient (CLI) | payer MEDICARE | LOC: CARD 12:27 | PROVIDERS: ATTEND Nurse Practitioner Family | DX: I48.91 Unspecified atrial fibrillation (principal) | CPT/HCPCS: 93005 ==

== ENCOUNTER 2019-03-07 08:49 | Outpatient (RCR) | payer MEDICARE ==
[2019-03-23] MEDS ORDERED: FURO20TA4 PO (14:13)
[2019-03-24] MEDS ORDERED: ZOLP10TA5 PO (10:55)
[2019-03-24] MEDS ORDERED: PROM25TA14 PO (10:57)
[2019-03-24] MEDS ORDERED: POTA10TA10 PO (11:31)
[2019-03-24] MEDS ORDERED: APIX5TAB PO (11:31)
[2019-03-24] MEDS ORDERED: ALLO100T PO (11:31)
[2019-03-24] MEDS ORDERED: METO-387 PO (11:48)
[2019-03-24] MEDS ORDERED: RANI-613 PO (12:10)
[2019-03-24] MEDS ORDERED: HYDR-3820 PO (12:58)
[2019-03-24] MEDS ORDERED: ALPR2TAB6 PO (12:58)
== END 2019-03-28 | disposition home or self-care (01) ==
LOC: CARD 08:49
PROVIDERS: ATTEND Nurse Practitioner Family
DX: I48.91 Unspecified atrial fibrillation (principal)

== ENCOUNTER 2019-03-23 05:20 | Inpatient (IN) | payer MEDICARE ==
[~2019-03-23] VITALS: Ht 180.3 cm; Wt 143.0 kg
[2019-03-23] VITALS (22 sets, daily range): BP systolic 72–127; BP diastolic 26–81
[~2019-03-23 05:20] MED LIST changes: +ETOMIDATE IV SOLN 20 MG/10 ML VIAL IV ONE; +MIDAZOLAM 5 MG/5 ML (VERSED) VIAL IV ONE; +ROCURONIUM 10 MG/ML 5 ML SYRINGE IV ONE; +SUCCINYLCHOLINE INJ 100 MG/5 ML SYR INJ ONE; +fentaNYL INJECTION 100 MCG/2 ML AMP INJ ONE
[2019-03-23] MEDS ORDERED: RT-ALBUTEROL SULF 2.5 MG/3 ML PRE-MIX VIAL ONE (05:38)
[2019-03-23] MEDS ORDERED: RT-ALBUTEROL/IPRATROPIUM 3 ML (DUONEB) VIAL ONE (05:38)
[2019-03-23] MEDS ORDERED: NOREPINEPHRINE 4 MG/4 ML (LEVOPHED) AMP IV ONE (05:44)
[2019-03-23] MEDS ORDERED: NS (IVPB) 250 ML ONE (05:44)
[2019-03-23] MEDS ORDERED: NS IV 1000 ML 1,000 ML ONE ×2 (05:44→18:08)
[2019-03-23] MEDS ORDERED: NOREPINEPHRINE 4 MG in NS (IVPB) 250 ML IV SCH (05:45)
--- NOTE | 2019-03-23 05:45 | NUR ---
pt appears severly dyspneic and can talk short sentences . resp shallow and labored. dusky lips and abd accessory nuscle use noted. 2 plus edema bilateral lower legs noted. bp machine on 3rd attempt is 76/26
--- NOTE | 2019-03-23 05:45 | NUR ---
[facility]. pt been c/o dyspnea x 1 day. ems had pt on bipap continues in er with resp therapy. on 100 percent o2. pt alert [facility] 15. denies chest and abd pain. ems relates pt has holter on and pt has a hernia. tele applied shows st pac vs a fib 128. lips dusky. dr said not much to right lung
--- NOTE | 2019-03-23 05:45 | NUR ---
someone drawing labs from [facility] iv
[2019-03-23 05:50] LABS: BASOPHILS % (AUTO) 0 % (0-10); EOSINOPHILS % (AUTO) 0 % (0-10); HEMATOCRIT 43 % (40-54); LYMPHOCYTES % (AUTO) 4 % (12-44); MEAN CORPUSCULAR HEMOGLOBIN 30 PG (25-34); MEAN CORPUSCULAR HGB CONC 32 G/DL (32-36); MEAN CORPUSCULAR VOLUME 94 FL (80-99); MEAN PLATELET VOLUME 11.5 FL (7.4-10.4); MONOCYTES % (AUTO) 4 % (0-12); NEUTROPHILS # (AUTO) 20.4 X 10^3 (1.8-7.8); NEUTROPHILS % (AUTO) 92 % (42-75); PLATELET COUNT 314 10^3/uL (130-400); RED CELL DISTRIBUTION WIDTH 18.3 % (10.0-14.5); WHITE BLOOD COUNT 22.4 10^3/uL (4.3-11.0)
[2019-03-23 05:52] LABS: ABG BASE EXCESS -14.7 MMOL/L (-2.5-2.5); ABG OXYGEN SATURATION 100 % (94-100); ABG PCO2 22 MMHG (35-45); ABG PO2 205 MMHG (79-93); ABG TCO2 11.2 MMOL/L (21.0-31.0)
[2019-03-23 05:56] LABS: INR 1.8 (0.8-1.4); PROTHROMBIN TIME PATIENT 21.9 SEC (12.2-14.7)
[2019-03-23 05:59] LABS: ALLENS TEST POSITIVE; INSPIRED O2 100% BIPAP; PATIENT TEMP 98.5; VENTILATOR YES
--- NOTE | 2019-03-23 06:00 | NUR ---
dr intubated pt. 0620 dr doing central line.
[2019-03-23 06:03] LABS: ALBUMIN 3.5 GM/DL (3.2-4.5); BILIRUBIN,TOTAL 1.9 MG/DL (0.1-1.0); CREATININE SERUM 3.04 MG/DL (0.60-1.30); POTASSIUM 4.6 MMOL/L (3.6-5.0); TOTAL PROTEIN 6.7 GM/DL (6.4-8.2)
--- NOTE | 2019-03-23 06:15 | NUR ---
dr peterson lactic dyana is 9.04 and trop is 2.33
--- NOTE | 2019-03-23 06:32 | NUR ---
bp machine is 104/77. ausc hr is 112 reg. someone did oral gt to dx 18 fr. liter bolus has [address] pac 113.p ox on vent is 89. recheck temp in ear is 100.5.pcxr completed.
[2019-03-23] MEDS ORDERED: PROPOFOL DRIP (ICU) 100 ML IV ONE ×2 (06:38→07:20)
[2019-03-23] MEDS ORDERED: NS (IVPB) 100 ML ONE (06:46)
[2019-03-23] MEDS ORDERED: VASOPRESSIN INJECTION 20 UNIT/ML VIAL ONE (06:46)
[2019-03-23 06:51] LABS: LYMPHOCYTES % (MANUAL) 3 %; MONOCYTES % (MANUAL) 5 %; NEUTROPHILS % (MANUAL) 92 %
[2019-03-23] MEDS ORDERED: NS IV 1000 ML 1,000 ML IV ONE (06:51)
--- NOTE | 2019-03-23 07:02 | NUR ---
pt to ct.
--- NOTE | 2019-03-23 07:10 | ED Respiratory ---
General Chief Complaint: Respiratory Problems Stated Complaint: SOA Nursing Triage Note: dyspnea Source: patient, EMS Exam Limitations: clinical condition History of Present Illness Date Seen by Provider: Mar 23, 2019 Time Seen by Provider: 05:31 Initial Comments Here with report of significant shortness of breath. EMS. Call for increasing shortness of breath over the last 24 hours. States that he's been coughing and not feeling well. Patient is having difficult time giving history due to the fact that he arrives on CPAP from EMS and converted to BiPAP here. Despite that, O2 saturations are still low and are registering 70s after arrival. Unsure if this is true reading as blood pressure was also noted to be 70s systolic. EMS reports they did get one episode of 80s systolic and had a normal blood pressure and the low 100 systolic after that. Patient is in extremis. Reports that he's had cough since starting Lasix about 3 months ago. Has had chills recently after being in a barbershop but was cold. Denies vomiting. There was a question of chest pain although that was not elucidated on history here. Timing/Duration: getting worse Severity: severe Prior Episodes/Possible Cause: occasional episodes Modifying Factors: Worse With Coughing; Improves With Oxygen Associated Symptoms: chest pain/soreness, cough, fever/chills, shortness of breath Allergies and Home Medications Allergies Coded Allergies: No Known Drug Allergies (Verified , 08/24/08) Home Medications Alprazolam 0.5 Mg Tablet, 0.5 MG PO BID PRN for ANXIETY, (Reported) Aspirin 325 Mg Tablet.dr, 325 MG PO DAILY, (Reported) Clindamycin HCl 300 Mg Capsule, 300 MG PO QID Prescribed by: SUGAR VASQUEZ on 11/12/17 1535 Colchicine 0.6 Mg Capsule, 0.6 MG PO UD 1.2 mg po once, then take 0.6 mg po 1 hour later. Prescribed by: SUGAR VASQUEZ on 11/12/17 1535 Gabapentin 300 Mg Capsule, 300 MG PO TID PRN for PAIN, (Reported) Hydrocodone Bit/Acetaminophen 1 Each Tablet, 1 TAB PO Q6H PRN for PAIN, (Reported) Hydrocodone Bit/Acetaminophen 1 Tab Tab, 1 TAB PO Q4H PRN for PAIN-MODERATE TO SEVERE Prescribed by: SUGAR VASQUEZ on 11/12/17 1524 Lisinopril 20 Mg Tablet, 20 MG PO DAILY, (Reported) Lovastatin 20 Mg Tablet, 20 MG PO DAILY, (Reported) Meloxicam 15 Mg Tablet, 15 MG PO DAILY Prescribed by: SUGAR VASQUEZ on 11/12/17 1535 Naproxen 500 Mg Tablet, 500 MG PO BID PRN for SWELLING, (Reported) Zolpidem Tartrate 12.5 Mg Tab.mphase, 12.5 MG PO HS PRN for SLEEP, (Reported) Patient Home Medication List Home Medication List Reviewed: Yes Review of Systems Review of Systems Constitutional: see HPI, chills; No fever; weakness EENTM: no symptoms reported Respiratory: cough; No phlegm; short of breath Cardiovascular: chest pain, edema Unable to complete review of systems due to critical condition. Past Ttbqqnu-Jupvih-Dkfzhr Hx Past Med/Social Hx: Reviewed Nursing Past Med/Soc Hx Patient Social History Alcohol Use: Denies Use Recreational Drug Use: No Smoking Status: Former Smoker Type Used: Cigarettes Former Smoker, Quit: Oct 03, 1985 2nd Hand Smoke Exposure: No Recent Foreign Travel: No Contact w/Someone Who Travel: No Recent Infectious Disease Expo: No Recent Hopitalizations: No Immunizations Up To Date Date of Pneumonia Vaccine: Jul 04, 2016 Date of Influenza Vaccine: Jul 10, 2016 Past Medical History Surgeries: Yes (KNEE SCOPE, HERNIA) Respiratory: Yes Sleep Apnea Cardiac: Yes Irregular Heartbeat Neurological: No Reproductive Disorders: No Sexually Transmitted Disease: No Genitourinary: No Gastrointestinal: No Musculoskeletal: Yes (ARTHRITIS ) Arthritis Endocrine: No HEENT: No Cancer: No Psychosocial: No Integumentary: No Blood Disorders: No Family Medical History Reviewed Nursing Family Hx No Pertinent Family Hx Physical Exam Vital Signs - First Documented 03/23/19 05:23 Temp 98.5 Pulse 128 Resp 36 B/P (MAP) 76/26 (43) Capillary Refill : Greater Than 3 Seconds Height: 5'11.00" Weight: 235lbs. 0oz. [id number]; 36.4 BMI Method:Stated General Appearance: WD/WN, no apparent distress HEENT: PERRL/EOMI, pharynx normal Neck: full range of motion, supple Respiratory: respiratory distress, decreased breath sounds (right lower lobe), accessory muscle use Cardiovascular: no murmur, tachycardia Gastrointestinal: non tender, soft, distended Extremities: normal range of motion, non-tender, pedal edema (1+ bilateral lower extremities.HEENT and 1.) Neurologic/Psychiatric: alert, other (mildly disoriented/confused but answers questions to the best of his ability given the critical nature of his illness currently. Does follow simple commands.) Skin: normal color, warm/dry Focused Exam Lactate Level 03/23/19 05:45: Lactic Acid Level 9.04*H Lactic Acid Level Laboratory Tests Test 03/23/19 05:45 Lactic Acid Level 9.04 MMOL/L (0.50-2.00) *H Procedures/Interventions Lumen: triple Central Line Procedure: betadine prep Position: internal jugular (R) Complications: none Post Position: sutured, good blood return, position confirmed w/ CXR Placed ultrasound guidance 2 sticks. Difficulty in passing wire on first pass. Ultimately after repositioning needle, wire was able to be passed. Post procedure x-ray shows central line in good position. Sutured in place and covered with dressing. Date of ETT Placement: Mar 23, 2019 Time of ETT Placement: 06:00 Intubation Method: orotracheal Tube Size: 8 Medications: Etomidate, Fentanyl, Succinylcholine, Versed Positive End Tide CO2: Yes Breath Sounds after Intubation: bilateral-equal Intubation Complications: no complications Post Intubation Xray: Yes ET tube in good position Progress/Results/Core Measures Suspected Sepsis Recent Fever Within 48 Hours: No Infection Criteria Present: None New/Unexplained Altered Menta: No Sepsis Screen: No Definite Risk SIRS Temperature:98.5 Pulse: 128 Respiratory Rate: 36 Laboratory Tests 03/23/19 05:28: White Blood Count 22.4H Blood Pressure 76 /26 Mean: 43 03/23/19 05:45: Lactic Acid Level 9.04*H Laboratory Tests 03/23/19 05:28: Creatinine 3.04H, INR Comment 1.8H, Platelet Count 314, Total Bilirubin 1.9H Results/Orders Lab Results Laboratory Tests Test 03/23/19 05:28 03/23/19 05:39 03/23/19 05:45 Range/Units White Blood Count 22.4 H 4.3-11.0 10^3/uL Red Blood Count 4.60 4.35-5.85 10^6/uL Hemoglobin 14.0 13.3-17.7 G/DL Hematocrit 43 40-54 % Mean Corpuscular Volume 94 80-99 FL Mean Corpuscular Hemoglobin 30 25-34 PG Mean Corpuscular Hemoglobin Concent 32 32-36 G/DL Red Cell Distribution Width 18.3 H 10.0-14.5 % Platelet Count 314 130-400 10^3/uL Mean Platelet Volume 11.5 H 7.4-10.4 FL Neutrophils (%) (Auto) 92 H 42-75 % Lymphocytes (%) (Auto) 4 L 12-44 % Monocytes (%) (Auto) 4 0-12 % Eosinophils (%) (Auto) 0 0-10 % Basophils (%) (Auto) 0 0-10 % Neutrophils # (Auto) 20.4 H 1.8-7.8 X 10^3 Lymphocytes # (Auto) 1.0 1.0-4.0 X 10^3 Monocytes # (Auto) 1.0 0.0-1.0 X 10^3 Eosinophils # (Auto) 0.0 0.0-0.3 10^3/uL Basophils # (Auto) 0.0 0.0-0.1 10^3/uL Neutrophils % (Manual) 92 % Lymphocytes % (Manual) 3 % Monocytes % (Manual) 5 % Prothrombin Time 21.9 H 12.2-14.7 SEC INR Comment 1.8 H 0.8-1.4 Activated Partial Thromboplast Time 39 H 24-35 SEC Sodium Level 138 135-145 MMOL/L Potassium Level 4.6 3.6-5.0 MMOL/L Chloride Level 105 98-107 MMOL/L Carbon Dioxide Level 12 L 21-32 MMOL/L Anion Gap 21 H 5-14 MMOL/L Blood Urea Nitrogen 26 H 7-18 MG/DL Creatinine 3.04 H 0.60-1.30 MG/DL Estimat Glomerular Filtration Rate 20 BUN/Creatinine Ratio 9 Glucose Level 98 70-105 MG/DL Calcium Level 9.0 8.5-10.1 MG/DL Corrected Calcium 9.4 8.5-10.1 MG/DL Total Bilirubin 1.9 H 0.1-1.0 MG/DL Aspartate Amino Transf (AST/SGOT) 68 H 5-34 U/L Alanine Aminotransferase (ALT/SGPT) 39 0-55 U/L Alkaline Phosphatase 85 40-136 U/L Troponin I 2.330 *H <0.028 NG/ML B-Type Natriuretic Peptide 70427.5 H <100.0 PG/ML Total Protein 6.7 6.4-8.2 GM/DL Albumin 3.5 3.2-4.5 GM/DL Blood Gas Puncture Site LEFT RADIAL Blood Gas Patient Temperature 98.5 Arterial Blood pH 7.30 *L 7.37-7.43 Arterial Blood Partial Pressure CO2 22 L 35-45 MMHG Arterial Blood Partial Pressure O2 205 H 79-93 MMHG Arterial Blood HCO3 11 *L 23-27 MMOL/L Arterial Blood Total CO2 11.2 L 21.0-31.0 MMOL/L Arterial Blood Oxygen Saturation 100 94-100 % Arterial Blood Base Excess -14.7 L -2.5-2.5 MMOL/L Cody Test POSITIVE Blood Gas Ventilator Setting YES Blood Gas Inspired Oxygen 100% BIPAP Lactic Acid Level 9.04 *H 0.50-2.00 MMOL/L My Orders Orders - SANJEEV MOLINA MD Arterial Blood Gas (03/23/19 05:40) Cbc With Automated Diff (03/23/19 05:43) Comprehensive Metabolic Panel (03/23/19 05:43) Blood Culture (03/23/19 05:43) Sputum Culture (03/23/19 05:43) Urinalysis (03/23/19 05:43) Urine Culture (03/23/19 05:43) Protime With Inr (03/23/19 05:43) Partial Thromboplastin Time (03/23/19 05:43) Chest 1 View, Ap/Pa Only (03/23/19 05:43) Ed Iv/Invasive Line Start (03/23/19 05:43) Ed Iv/Invasive Line Start (03/23/19 05:43) Ekg Tracing (03/23/19 05:43) Troponin I (03/23/19 05:43) Vital Signs Adult Sepsis Patie Q15M (03/23/19 05:43) O2 (03/23/19 05:43) Remove Rings In Anticipation O (03/23/19 05:43) Lactic Acid Analyzer (03/23/19 05:43) Norepinephrine (Levophed) (03/23/19 05:45) Albuterol Pre-Mix Nebs (Rt) (Proventil (03/23/19 05:38) Albuterol/Ipra Inhalation Soln (Duoneb I (03/23/19 05:38) BNP (03/23/19 05:45) Ns Iv 1000 Ml (Sodium Chloride 0.9%) (03/23/19 05:44) Ns (Ivpb) (Sodium Chloride 0.9%) (03/23/19 05:44) Norepinephrine (Levophed) (03/23/19 05:44) Manual Differential (03/23/19 05:28) Wound Culture (03/23/19 06:33) Propofol Drip (Icu) (Diprivan Drip (Icu) (03/23/19 06:38) Ct Chest Wo (03/23/19 06:48) Ed Iv/Invasive Line Start (03/23/19 06:51) Ns Iv 1000 Ml (Sodium Chloride 0.9%) (03/23/19 06:51) Vasopressin Injection (Pitressin Injecti (03/23/19 06:46) Ns (Ivpb) (Sodium Chloride 0.9% Ivpb Bag (03/23/19 06:46) Vital Signs/I&O 03/23/19 05:23 Temp 98.5 Pulse 128 Resp 36 B/P (MAP) 76/26 (43) Capillary Refill : Greater Than 3 Seconds Blood Pressure Mean: 43 Progress Note : Progress Note Seen and evaluated on arrival by EMS. Patient is in extremis. BiPAP initiated off of EMS CPAP. O2 saturations not improving with BiPAP. I did discuss with the patient about possible need for intubation for which he agreed. He clearly stated he wanted everything done at this point. 0600: Elected to emergently intubate patient due to respiratory failure and persistent hypoxia and hypotensi on. Patient will need central line. 0632: Central line placed due to emergent needs for pressor management. We have initiated the septic shock were And labs do show the patient has markedly elevated lactic acid and troponin is also noted to be elevated. Concerns for pneumonia. I have discussed the case with Dr. Woodard as patient is not responding well on the bent despite changes of tidal volume, rate and PEEP. Currently rate is 18 with tidal volume of 500 and PEEP of 10 on 100% FiO2. Dr. Woodard will come to the emergency department. 0645: I did discuss the case with Dr. Woodard at bedside. Patient is improving with respect O2 sats without further changes currently. Levophed has been initiated and continues. Currently at 0.12 mcg/kg/m. We did discuss the case with Dr. Velasco and he will see the patient in consult. We did note that he has liver failure. Patient has had 1 L normal saline bolus. Given that his oxygen saturations are improving on current vent settings we will continue fluids. Patient is difficult management with respect high volume fluid resuscitation due to multiorgan system failure including heart failure. We will judiciously apply fluids but have initiated pressors. Concerns for worsening heart failure with increasing fluids. Patient is also in renal failure. INR is elevated and he does not seem to be on anticoagulation so this would indicate liver failure. Chest x-ray is concerning for right lower lobe infiltrate. Given the presentation findings and that he has improved somewhat with current therapy, we will go ahead and get CT of the chest. 0704: I did discuss the case with Dr. Escobedo, on-call for Dr. Green. She accepts patient for admission, inpatient status with Dr. Woodard and Dr. Velasco on consult. 0730: CT complete and does show significant right lower lobe obliteration and pleural effusion with left lower lobe pneumonia. Zosyn 4.5 g IV ordered. Ferrara catheter be placed. Levophed has been increased to 0.2 mcg/kg/m. Propofol drip at 20 mcg/kg/m. Vasopressin will be initiated as indicated. Fi ndings and concerns discussed with Dr. Woodard who agrees. We reviewed CT together pending results/report. 0750: Family has been updated by Dr. Woodard and myself and we have relayed our concerns about the critical nature of this current illness and guarded condition currently. Daughter was informed she will inform the rest of the family. Patient to the ICU on vent at previous settings. I attest to focused exam at this time. Oxygen saturations have improved to 97- 98%. Blood pressure is 90s systolic with heart rate in the 120s. He did receive fentanyl 50 g IV earlier for increased heart rate. He also has received vecuronium 1 dose just prior to CT scan. ECG Initial ECG Impression Date: Mar 23, 2019 Initial ECG Impression Time: 05:40 Initial ECG Rate: 122 Initial ECG Rhythm: S.Tach Comment Sinus tachycardia with multiple PVCs. No evidence of ST elevation [place]. Underlying rhythm similar to previous of 01/24/19. Left axis deviation noted. Interpreted by me. Critical Care Note Critical Care Start Time: 05:31 Stop Time: 07:50 Total Time (minutes) 60 Departure Communication (Admissions) Time/Spoke to Admitting Phy: 07:04 Time/Spoke to Consulting Phy: 06:32 Impression Primary Impression: Bilateral pneumonia Qualified Codes: J18.1 - Lobar pneumonia, unspecified organism Additional Impressions: Shock, septic Multisystem organ failure Respiratory failure with hypoxia Qualified Codes: J96.01 - Acute respiratory failure with hypoxia Disposition: 09 ADMITTED INPATIENT Condition: Critical Admissions Decision to Admit Reason: Admit from ER (General) Decision to Admit/Date: Mar 23, 2019 Time/Decision to Admit Time: 06:32 Departure-Patient Inst. Referrals: DEEPA GREEN MD (PCP/Family) Primary Care Physician SANJEEV MOLINA MD Mar 23, 2019 07:10
[2019-03-23] MEDS ORDERED: fentaNYL INJECTION 100 MCG/2 ML AMP ONE (07:24)
--- NOTE | 2019-03-23 07:24 | NUR ---
i just called report to admit nurse ever. dr lopez while ago said mc cruz before pt goes to the floor.
[2019-03-23] MEDS ORDERED: PIPERACILLIN SODIUM/TAZOBACTAM 4.5 GM in NS (IVPB) 100 ML IV ONE (07:30)
--- NOTE | 2019-03-23 07:39 | Diagnostic Imaging Report ---
PROCEDURE: CT chest without contrast. TECHNIQUE: Multiple contiguous axial images were obtained through the chest without the use of intravenous contrast. Auto Exposure Controls were utilized during the CT exam to meet ALARA standards for radiation dose reduction. INDICATION: Dyspnea. COMPARISON: Chest radiograph from earlier the same day. FINDINGS: Lungs and airway: ET tube has tip terminating in the mid trachea. Patchy nodular consolidation in the posterior aspect of the left upper lobe has a central calcification present. Left lower lobe subtotal consolidations are also present. Relaxation atelectasis in the right lower and middle lobes. Pleura: Large simple right pleural effusion has no features of loculation. Trace left pleural effusion. Heart and mediastinum: Visualized thyroid is normal. No supraclavicular or axillary lymphadenopathy. No mediastinal, discrete hilar or juxtaphrenic lymphadenopathy. Heart is enlarged without pericardial effusion. Normal caliber thoracic aorta. Aortic valve leaflet calcifications are noted. Upper abdomen: No acute abnormality in the upper abdomen. Enteric tube has tip in the proximal stomach and sidehole just beyond the GE junction. Musculoskeletal: Degenerative changes throughout the thoracic spine. Chronic endplate irregularity with sclerosis and vacuum disc phenomenon at T4-T5 is degenerative in nature. IMPRESSION: 1. Left basilar pulmonary consolidations are suspicious for pneumonia. Advise followup PA and lateral chest radiographs in 4 weeks after appropriate medical management to ensure resolution. 2. Large right simple pleural effusion has subtotal relaxation atelectasis in the right middle and lower lobes. 3. Cardiomegaly without features of pulmonary edema. Dictated by: Dictated on workstation # [id number]
--- NOTE | 2019-03-23 07:45 | NUR ---
another nurse and i and resp therapy taking pt to admit room by cart. zosyn and levophed and ventilater continue to floor. family here short while ago and talked to her.
[2019-03-23] MEDS ORDERED: NS IV 1000 ML 1,000 ML IV SCH ×4 (08:10→18:15)
[2019-03-23] MEDS ORDERED: NS IV 1000 ML 3,197.82 ML IV ONE (08:15)
--- NOTE | 2019-03-23 08:21 | NUR ---
all this done by lots of different staff. meds given and not ordered are. 0555 ns bolus started. 0557 20 mg etomidate given. 0558 100 mg succinacholine given. 0559 100 mg succhinacholine given. 0559 pt intubated 8 ett pos color change co2. 25 at the lip. 0601 levophed drip 0.5 mics per min. . 0604 levophd inc to 0.8. 0609 versed 5 mg given. 0610 fentynyl 50 mics given. 0616 levophed inc to 0.12. 0621 versed 5 mg iv given. 0633 wound cx right leg obtained. 0640 50 rockuronium given. 0658 levophed inc to 0.2. vent setting 500 resp 18 peep 10.
[2019-03-23] MEDS ORDERED: VANCOMYCIN 1500 MG/NS 500 ML IVPB IV NR ×2 (08:30)
--- NOTE | 2019-03-23 08:33 | NUR ---
SPoke with Dr. Woodard regarding IV fluid per sepsis protocol due to pt's labs. IV fluid order received to give 500mL over 2 hours et then decrease to 150mL/hr et not to follow sepsis protocol with IV fluids et bolus
--- NOTE | 2019-03-23 08:38 | Diagnostic Imaging Report ---
EXAMINATION: Chest radiograph, portable AP view. DATE: March 23, 2019 at 0640 hours. INDICATION: 73-year-old male, respiratory distress. COMPARISON: October 03, 2016. FINDINGS: The endotracheal tube is approximately 5.5 cm above the ángela. The nasogastric tube is not well seen. There is a right internal jugular central venous line extending at least to the level of the lower SVC. There are technical limitations of the exam. There is no identified pneumothorax. There is new or increasing nonspecific right mid and lower lung zone consolidation as well as probable left basilar airspace consolidation. IMPRESSION: 1. Support lines and tubes as above. 2. Nonspecific right mid and lower lung zone opacification and probable left basilar airspace consolidation which may relate to infiltrate, effusions, and/or atelectasis. Dictated by: Dictated on workstation # [id number]
[2019-03-23] MEDS ORDERED: PROPOFOL DRIP (ICU) 100 ML IV SCH (08:45)
--- NOTE | 2019-03-23 08:48 | NUR ---
Dr. Woodard notified of urine output et repeat lactic
--- NOTE | 2019-03-23 09:00 | NUR ---
conveyor technician at bedside
[2019-03-23 09:06] LABS: ABG BASE EXCESS -11.2 MMOL/L (-2.5-2.5); ABG OXYGEN SATURATION 98 % (94-100); ABG PCO2 48 MMHG (35-45); ABG PO2 125 MMHG (79-93); ABG TCO2 17.2 MMOL/L (21.0-31.0)
[2019-03-23] MEDS: NOREPINEPHRINE 4 MG in NS (IVPB) 250 ML IV SCH ×2 (09:09→13:42)
[2019-03-23 09:12] LABS: ABG PH 7.15 (7.37-7.43)
[2019-03-23 09:13] LABS: ALLENS TEST YES-POS; INSPIRED O2 70%; PATIENT TEMP 100.3; VENTILATOR YES
--- NOTE | 2019-03-23 09:17 | NUR ---
Dr. Woodard notified of ABG result
--- NOTE | 2019-03-23 09:20 | NUR ---
Notified Dr. Woodard of echo results
--- NOTE | 2019-03-23 09:25 | NUR ---
Updated Dr. Velasco on pt et echo results. Order to stop levo et start dopamine received.
[2019-03-23] MEDS ORDERED: DOPamine DRIP 250 ML IV ONE (09:29)
[2019-03-23] MEDS ORDERED: SODIUM BICARB 8.4% 50 MEQ/50 ML VIAL IV NR (09:30)
[2019-03-23] MEDS: SODIUM BICARBONATE 8.4% VIAL 100 MEQ in 1/2 NS IV SOLUTION 1,000 ML IV SCH ×2 (09:40→16:54)
--- NOTE | 2019-03-23 09:50 | Diagnostic Imaging Report ---
EXAMINATION: Chest radiograph, portable AP view. DATE: March 23, 2019 at 0920 hours. INDICATION: 73-year-old male, endotracheal tube placement. COMPARISON: March 23, 2019 at 0640 hrs. FINDINGS: The endotracheal tube is approximately 5.4 cm above the ángela. The nasogastric tube tip overlies the proximal stomach. The right internal jugular central venous line overlies the lower SVC. Stable overall appearance of the cardiomediastinal silhouette. There is no identified pneumothorax. There is multifocal airspace consolidation in the right lung and in the left lung base with grossly unchanged appearance since comparison exam. There is likely at least a right-sided pleural effusion. IMPRESSION: 1. Support lines and tubes as above. 2. Grossly unchanged multifocal airspace consolidation in the right lung and left lung base with at least a right-sided pleural effusion. Dictated by: Dictated on workstation # [id number]
[2019-03-23] MEDS: DOPamine DRIP 250 ML IV SCH (09:54)
[2019-03-23] MEDS ORDERED: DOBUTamine DRIP 250 ML IV ONE (10:01)
[2019-03-23 10:12] LABS: BASOPHILS % (AUTO) 0 % (0-10); EOSINOPHILS % (AUTO) 0 % (0-10); HEMATOCRIT 41 % (40-54); HEMOGLOBIN 13.2 G/DL (13.3-17.7); LYMPHOCYTES # (AUTO) 1.1 X 10^3 (1.0-4.0); LYMPHOCYTES % (AUTO) 4 % (12-44); MEAN CORPUSCULAR HEMOGLOBIN 30 PG (25-34); MEAN CORPUSCULAR HGB CONC 32 G/DL (32-36); MEAN CORPUSCULAR VOLUME 94 FL (80-99); MEAN PLATELET VOLUME 11.3 FL (7.4-10.4); MONOCYTES # (AUTO) 0.7 X 10^3 (0.0-1.0); MONOCYTES % (AUTO) 3 % (0-12); NEUTROPHILS % (AUTO) 93 % (42-75); PLATELET COUNT 272 10^3/uL (130-400); RED CELL DISTRIBUTION WIDTH 18.2 % (10.0-14.5); WHITE BLOOD COUNT 25.9 10^3/uL (4.3-11.0)
[2019-03-23] MEDS: DOBUTamine DRIP 250 ML IV SCH ×2 (10:15→16:28)
[2019-03-23] MEDS ORDERED: RT-ALBUTEROL/IPRATROPIUM 3 ML (DUONEB) VIAL INH PRN (10:15)
[2019-03-23] MEDS: VASOPRESSIN INJECTION 20 UNIT in NS (IVPB) 100 ML IV SCH ×2 (10:21→16:24)
[2019-03-23 10:30] LABS: BILIRUBIN,TOTAL 1.7 MG/DL (0.1-1.0); CALCIUM 7.9 MG/DL (8.5-10.1); CREATININE SERUM 2.91 MG/DL (0.60-1.30); MAGNESIUM 1.5 MG/DL (1.8-2.4); PHOSPHORUS 5.3 MG/DL (2.3-4.7); POTASSIUM 4.6 MMOL/L (3.6-5.0); TOTAL PROTEIN 5.7 GM/DL (6.4-8.2)
[2019-03-23] MEDS ORDERED: HYDROCORTISONE 100 MG/2 ML (Solu-CORTEF) VIAL ONE (10:34)
--- NOTE | 2019-03-23 10:40 | NUR ---
Spoke with Dr. Woodard. Updated on lab results, urine output, BPs, et HR.
--- NOTE | 2019-03-23 10:46 | Consultation-Cardiology ---
HPI-Cardiology Cardiology Consultation: Date of Consultation 03/23/19 Time Seen by a Provider: 09:50 Date of Admission Attending Physician Yael Escobedo DO Admitting Physician Roya Green MD Consulting Physician TRE DIAZ MD, MA, FACP, FACC, FSCAI, CCDS Primary machinist apprentice wood: Dr Garg Attending: Dr Escobedo HPI: Chief Complaint: Reason for consultation: Ac resp failure HPI Source of history (pt on mech vent): , Dr Mehta 73 yo man who presented to ER in extremis this am: severe, rapidly progressive exertional shortness of breath. Shortness of breath and gen edema present for several days, was being treated with furosemide (Dr Green). Has had cough for several day. Had had malaise for a few days. Did not report recent chest pain. Review of Systems-Cardiology Review of Systems Constitutional: other (ROS cannot be obtained directly from the patient because he is intubated and noncommunicative. The the extent ROS could be obtained is described above) UKD-Udypvp-Luqgor Hx Patient Social History Alcohol Use: Denies Use Recreational Drug Use: No Smoking Status: Former Smoker Type Used: Cigarettes 2nd Hand Smoke Exposure: No Recent Foreign Travel: No Recent Infectious Disease Expo: No Immunizations Up To Date Date of Pneumonia Vaccine: Jul 04, 2016 Date of Influenza Vaccine: Jul 10, 2016 Past Medical History PMH As described under Assessment. Family Medical History Family Medical History: No fam h/o early CAD or SCD Allergies and Home Medications Allergies Coded Allergies: No Known Drug Allergies (Verified , 08/24/08) Home Medications Alprazolam 0.5 Mg Tablet, 0.5 MG PO BID PRN for ANXIETY, (Reported) Aspirin 325 Mg Tablet., 325 MG PO DAILY, (Reported) Clindamycin HCl 300 Mg Capsule, 300 MG PO QID Prescribed by: SUGAR VASQUEZ on 11/12/17 153 Colchicine 0.6 Mg Capsule, 0.6 MG PO UD 1.2 mg po once, then take 0.6 mg po 1 hour later. Prescribed by: SUGAR VASQUEZ on 11/12/17 153 Gabapentin 300 Mg Capsule, 300 MG PO TID PRN for PAIN, (Reported) Hydrocodone Bit/Acetaminophen 1 Each Tablet, 1 TAB PO Q6H PRN for PAIN, (Reported) Hydrocodone Bit/Acetaminophen 1 Tab Tab, 1 TAB PO Q4H PRN for PAIN-MODERATE TO SEVERE Prescribed by: SUGAR VASQUEZ on 11/12/17 1524 Lisinopril 20 Mg Tablet, 20 MG PO DAILY, (Reported) Lovastatin 20 Mg Tablet, 20 MG PO DAILY, (Reported) Meloxicam 15 Mg Tablet, 15 MG PO DAILY Prescribed by: SUGAR VASQUEZ on 11/12/17 1535 Naproxen 500 Mg Tablet, 500 MG PO BID PRN for SWELLING, (Reported) Zolpidem Tartrate 12.5 Mg Tab.mphase, 12.5 MG PO HS PRN for SLEEP, (Reported) Patient Home Medication List Home Medication List Reviewed: Yes Physical Exam-Cardiology Physical Exam Vital Signs/I&O 03/23/19 03/23/19 03/23/19 03/23/19 05:23 07:12 07:26 07:45 Temp 98.5 Pulse 128 144 130 128 Resp 36 18 24 B/P (MAP) 76/26 (43) 88/61 (70) Pulse Ox 98 98 O2 Delivery Mechanical Ventilator FiO2 70 03/23/19 03/23/19 03/23/19 03/23/19 08:00 08:12 09:00 09:11 Pulse 124 125 123 Resp 12 26 B/P (MAP) 114/68 (83) 93/67 (76) 93/67 Pulse Ox 99 100 O2 Delivery Mechanical Ventilator Mechanical Ventilator O2 Flow Rate 70.00 70.00 03/23/19 03/23/19 03/23/19 03/23/19 09:36 09:36 09:54 10:00 Pulse 128 118 113 Resp 22 25 B/P (MAP) 90/48 72/52 (59) Pulse Ox 100 100 O2 Delivery Mechanical Ventilator O2 Flow Rate 70.00 FiO2 70 03/23/19 10:15 B/P (MAP) 69/43 Capillary Refill : Greater Than 3 Seconds Constitutional: other ([facility], non-communicative) HEENT: EOMI; No xanthelasmas are seen Neck: carotid pulses are 2 + bilaterally Respiratory: No accessory muscle use; other (Fair to good air entry, but diminished at the bases) Cardiovascular: regular rate-rhythm, S1 and S2, systolic murmur (2/6 BEATRIZ over the precordium) Gastrointestinal: distended; No guarding, No rebound; audible bowel sounds Extremities: other (mild to mod bilat leg edema); No clubbing, No cyanosis Neurologic/Psychiatric: other (he is not able to cooperate with a neuro exam) Skin: No rash on exposed areas, No ulcerations on exposed areas Data Review Labs Laboratory Tests 03/23/19 05:28: White Blood Count 22.4H, Red Blood Count 4.60, Hemoglobin 14.0, Hematocrit 43, Mean Corpuscular Volume 94, Mean Corpuscular Hemoglobin 30, Mean Corpuscular Hemoglobin Concent 32, Red Cell Distribution Width 18.3H, Platelet Count 314, Mean Platelet Volume 11.5H, Neutrophils (%) (Auto) 92H, Lymphocytes (%) (Auto) 4L, Monocytes (%) (Auto) 4, Eosinophils (%) (Auto) 0, Basophils (%) (Auto) 0, Neutrophils # (Auto) 20.4H, Lymphocytes # (Auto) 1.0, Monocytes # (Auto) 1.0, Eosinophils # (Auto) 0.0, Basophils # (Auto) 0.0, Neutrophils % (Manual) 92, Lymphocytes % (Manual) 3, Monocytes % (Manual) 5, Prothrombin Time 21.9H, INR Comment 1.8H, Activated Partial Thromboplast Time 39H, Sodium Level 138, Potassium Level 4.6, Chloride Level 105, Carbon Dioxide Level 12L, Anion Gap 21H , Blood Urea Nitrogen 26H, Creatinine 3.04H, Estimat Glomerular Filtration Rate 20, BUN/Creatinine Ratio 9, Glucose Level 98, Calcium Level 9.0, Corrected Calcium 9.4, Total Bilirubin 1.9H, Aspartate Amino Transf (AST/SGOT) 68H, Alanine Aminotransferase (ALT/SGPT) 39, Alkaline Phosphatase 85, Troponin I 2.330*H, B-Type Natriuretic Peptide 35203.5H, Total Protein 6.7, Albumin 3.5, Triglycerides Level 74 03/23/19 05:39: Blood Gas Puncture Site LEFT RADIAL, Blood Gas Patient Temperature 98.5, Arterial Blood pH 7.30*L, Arterial Blood Partial Pressure CO2 22L, Arterial Blood Partial Pressure O2 205H, Arterial Blood HCO3 11*L, Arterial Blood Total CO2 11.2L, Arterial Blood Oxygen Saturation 100, Arterial Blood Base Excess - 14.7L, Cody Test POSITIVE, Blood Gas Ventilator Setting YES, Blood Gas Inspired Oxygen 100% BIPAP 03/23/19 05:45: Lactic Acid Level 9.04*H 03/23/19 07:40: Lactic Acid Level 6.33*H 03/23/19 09:00: Blood Gas Puncture Site RT RAD, Blood Gas Patient Temperature 100.3, Arterial Blood pH 7.15*L, Arterial Blood Partial Pressure CO2 48H, Arterial Blood Partial Pressure O2 125H, Arterial Blood HCO3 16*L, Arterial Blood Total CO2 17.2L, Arterial Blood Oxygen Saturation 98, Arterial Blood Base Excess -11.2L, Cody Test YES-POS, Blood Gas Ventilator Setting YES, Blood Gas Inspired Oxygen 70% 03/23/19 09:53: White Blood Count 25.9H, Red Blood Count 4.38, Hemoglobin 13.2L, Hematocrit 41, Mean Corpuscular Volume 94, Mean Corpuscular Hemoglobin 30, Mean Corpuscular Hemoglobin Concent 32, Red Cell Distribution Width 18.2H, Platelet Count 272, Mean Platelet Volume 11.3H, Neutrophils (%) (Auto) 93H, Lymphocytes (%) (Auto) 4L, Monocytes (%) (Auto) 3, Eosinophils (%) (Auto) 0, Basophils (%) (Auto) 0, Neutrophils # (Auto) 24.0H, Lymphocytes # (Auto) 1.1, Monocytes # (Auto) 0.7, Eosinophils # (Auto) 0.0, Basophils # (Auto) 0.0, Sodium Level 139, Potassium Level 4.6, Chloride Level 107, Carbon Dioxide Level 17L, Anion Gap 15H, Blood Urea Nitrogen 28H, Creatinine 2.91H, Estimat Glomerular Filtration Rate 21, BUN/Creatinine Ratio 10, Glucose Level 90, Calcium Level 7.9L, Corrected Calcium 8.7, Phosphorus Level 5.3H, Magnesium Level 1.5L, Total Bilirubin 1.7H, Aspartate Amino Transf (AST/SGOT) 182H, Alanine Aminotransferase (ALT/SGPT) 84H, Alkaline Phosphatase 73, Total Protein 5.7L, Albumin 3.0L Laboratory Tests 03/23/19 05:28 03/23/19 09:53 A/P-Cardiology Assessment/Admission Diagnosis Ac resp failure and shock, multifactorial (see below) 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 LVEF 10-15% on echo of 03/23/19; EF 35-40% on echo of 09/11/18; LVEF 45-50% on card cath of 10/13/16 Sepsis of undetermined source Ac kidney injury (WALLACE) 3 with oliguria Obesity-hypoventilation and JOLIE; non-compliant with treatment Mild CAD on card cath of Oct 2016 H/o PVCs. Questionable h/o PAF. Managed by Dr Garg. Pt not on OAC. No PAF demonstrated during this hospitalization, so far H/o hypertension H/o hyperlipidemia Discussion and Recomendations * Dopamine for bp support * Dobutamine in effort to improve CO * iv fluids and diuretics as needed/tolerated * Monitor labs closely * Prognosis guarded * I reviewed his previous records, discussed the case with Dr Woodard and with patient' TRE DIAZ MD FACP FAC CCDS Mar 23, 2019 10:46
--- NOTE | 2019-03-23 10:47 | Anesthesia-Procedure Note ---
Procedures/Interventions Procedure Start/Stop/Diagnosis Date of Procedure: Mar 23, 2019 Start Time: 10:30 Stop Time: 10:50 Arterial Line Arterial Line Catheter: 20G Type: Radial Location: Right Procedure: prepped, draped in sterile fashion, good wave-form was obtained, patient tolerated procedure well, no immediate complications, post procedure area cleaned, post procedure dressing applied MAI EASLEY CRNA Mar 23, 2019 10:47
[2019-03-23] MEDS: HYDROCORTISONE 100 MG/2 ML (Solu-CORTEF) VIAL IV SCH ×3 (11:01→23:40)
[2019-03-23] MEDS: NS IV 1000 ML 1,000 ML IV SCH ×2 (11:01→11:02)
[2019-03-23] MEDS ORDERED: MAGNESIUM 1 GM/100 ML IVPB 200 ML IV ONE ×2 (11:17→18:07)
[2019-03-23] MEDS: MAGNESIUM 1 GM/100 ML IVPB 100 ML IV SCH ×3 (11:25→18:18)
--- NOTE | 2019-03-23 11:26 | Pulmonary Consultation ---
History of Present Illness History of Present Illness Date of Consultation 03/23/19 11:20 Time Seen by Provider: 07:33 Date of Admission History of Present Illness 73YO presented via EMS secondary to worsening sob, and coughing over the last 24hrs. EMS placed pt on CPAP and then converted to BiPAP in the ED. Pt continued to decline and was intubated int the ED. I was called down to ed secondary to refacgtory hypoxemia after intubation. Pt's sp02 slowly improved after peep increased to 10. pt then became hypotensive Dr. Mehta placed central line and Levophed was added. Pt is currently sedated on vent. I am consulted for pulmonary/ICU management. Pt was started on Lasix [address] Green however his symptoms continued to worsen. Allergies and Home Medications Allergies Coded Allergies: No Known Drug Allergies (Verified , 08/24/08) Home Medications Alprazolam 0.5 Mg Tablet, 0.5 MG PO BID PRN for ANXIETY, (Reported) Aspirin 325 Mg Tablet., 325 MG PO DAILY, (Reported) Clindamycin HCl 300 Mg Capsule, 300 MG PO QID Prescribed by: SUGAR VASQUEZ on 11/12/17 1535 Colchicine 0.6 Mg Capsule, 0.6 MG PO UD 1.2 mg po once, then take 0.6 mg po 1 hour later. Prescribed by: SUGAR VASQUEZ on 11/12/17 1535 Gabapentin 300 Mg Capsule, 300 MG PO TID PRN for PAIN, (Reported) Hydrocodone Bit/Acetaminophen 1 Each Tablet, 1 TAB PO Q6H PRN for PAIN, (Reported) Hydrocodone Bit/Acetaminophen 1 Tab Tab, 1 TAB PO Q4H PRN for PAIN-MODERATE TO SEVERE Prescribed by: SUGAR VASQUEZ on 11/12/17 1524 Lisinopril 20 Mg Tablet, 20 MG PO DAILY, (Reported) Lovastatin 20 Mg Tablet, 20 MG PO DAILY, (Reported) Meloxicam 15 Mg Tablet, 15 MG PO DAILY Prescribed by: SUGAR VASQUEZ on 11/12/17 1535 Naproxen 500 Mg Tablet, 500 MG PO BID PRN for SWELLING, (Reported) Zolpidem Tartrate 12.5 Mg Tab.mphase, 12.5 MG PO HS PRN for SLEEP, (Reported) Past Efjfxka-Lwlsri-Dftjlb Hx Past Med/Social Hx: Reviewed Nursing Past Med/Soc Hx Patient Social History Alcohol Use: Denies Use Recreational Drug Use: No Smoking Status: Former Smoker Type Used: Cigarettes Former Smoker, Quit: Oct 03, 1985 2nd Hand Smoke Exposure: No Recent Foreign Travel: No Contact w/Someone Who Travel: No Recent Infectious Disease Expo: No Recent Hopitalizations: No Immunizations Up To Date Date of Pneumonia Vaccine: Jul 04, 2016 Date of Influenza Vaccine: Jul 10, 2016 Past Medical History Surgeries: Yes (KNEE SCOPE, HERNIA) Respiratory: Yes Sleep Apnea Cardiac: Yes Irregular Heartbeat Neurological: No Reproductive Disorders: No Sexually Transmitted Disease: No Genitourinary: No Gastrointestinal: No Musculoskeletal: Yes (ARTHRITIS ) Arthritis Endocrine: No HEENT: No Cancer: No Psychosocial: No Integumentary: No Blood Disorders: No Family Medical History Reviewed Nursing Family Hx No Pertinent Family Hx Review of Systems Time Seen by Provider: 11:26 Sepsis Event Evaluation Height, Weight, BMI Height: 5'11.00" Weight: 235lbs. 0oz. 106.017495yq; 36.4 BMI Method:Stated Exam Exam Vital Signs Date Time Temp Pulse Resp B/P (MAP) Pulse Ox O2 Delivery O2 Flow Rate FiO2 03/23/19 10:15 69/43 03/23/19 10:00 113 25 72/52 (59) 100 Mechanical Ventilator 70.00 03/23/19 09:54 90/48 03/23/19 09:36 118 22 100 70 03/23/19 09:36 128 03/23/19 09:11 93/67 03/23/19 09:00 123 26 93/67 (76) 100 Mechanical Ventilator 70.00 03/23/19 08:12 125 03/23/19 08:00 124 12 114/68 (83) 99 Mechanical Ventilator 70.00 03/23/19 07:45 128 24 88/61 (70) 98 Mechanical Ventilator 03/23/19 07:26 130 18 98 70 03/23/19 07:12 144 03/23/19 05:23 98.5 128 36 76/26 (43) Height & Weight Height: 5'11.00" Weight: 235lbs. 0oz. 106.919713pn; 36.4 BMI Method:Stated General Appearance: Obese, Severe Distress HEENT: PERRL/EOMI, Other (ET tube in place. pt is sedated on vent) Neck: Full Range of Motion, Supple Respiratory: Accessory Muscle Use, Decreased Breath Sounds Cardiovascular: No Edema, Tachycardia Capillary Refill: Less Than 3 Seconds Gastrointestinal: non tender, soft, distended Extremity: Non Tender, Pedal Edema Lymphatic: No Adenopathy Results Lab Laboratory Tests 03/23/19 05:28 03/23/19 09:53 Assessment/Plan Assessment/Plan Acute respiratory failure with large right pleural effusion and probable PNA -Continue vent -repeat ABG Pneumonia with sepsis -Wilcox culture -Lawrence Neumannn -IVF Severe septic/cardiogenic shock -Cont IVF -change levophed to Dopamine Cardiomyopathy - EF 10% -cardiology is following Acute renal failure -fluid challenge -If pt does not start producing urine will give 40 of lasix iV Pt is currently too unstable to transfer and would be too unstable for dialysis at this point. will give fluid challenge and continue to evaluate renal function and UO, Pt's prognosis is poor and family was updated on medical condition. will continue aggressive care at this point. - LINDA JONES DO Mar 23, 2019 11:26
[2019-03-23] MEDS: RT-ALBUTEROL/IPRATROPIUM 3 ML (DUONEB) VIAL INH SCH ×5 (11:41→21:29)
[2019-03-23] MEDS ORDERED: inSUlin ASPART (NovoLOG) 1 UNIT/0.01 ML (CHARGE PER UNIT) SQ PRN (11:45)
--- NOTE | 2019-03-23 11:49 | NUR ---
Called photo lab technician et notified Rod Rush of decreasing BP to 60s/40s. Order to stop dopamine et restart levo at this time
--- NOTE | 2019-03-23 11:49 | History & Physical-Hospitalist ---
History of Present Illness HPI/Chief Complaint Chief complaint: Multisystem organ failure History of present illness: This is a 73-year-old white male of Dr. Green who had seen the nurse practitioner at her office on Sunday and multiple times recently for lower extremity pain and swelling who presented to the ER and multisystem organ failure. Patient required intubation and aggressive treatment for multiple specialties considering the severity of his illness. His is at the bedside and daughter. Patient has bilateral pneumonia on chest x-ray and renal failure with oliguria and significant high risk for further decompensation and . told me that he became very lethargic and she was having to carry him to the bathroom in that was no longer an option due to the significant illness that he was having and all of this was delayed because they are raising their grandchildren and his has Alzheimer's of which they are managing also so a lot of psychosocial issues contributing to the issues he is having. Source: patient Exam Limitations: no limitations Date Seen 03/23/19 Time Seen by a Provider: 11:30 Attending Physician Yael Escobedo Holly A MD Referring Physician Date of Admission Mar 23, 2019 at 07:05 Home Medications & Allergies Home Medications Reviewed patient Home Medication Reconciliation performed by pharmacy medication reconciliations cardiothoracic anesthesia technician and/or nursing. Patients Allergies have been reviewed. Allergies Allergies Coded Allergies Sulfa (Sulfonamide Antibiotics) (Verified Allergy, Unknown, 03/23/19) Past Ykehghz-Vvclgw-Bkmspc Hx Past Med/Social Hx: Reviewed Nursing Past Med/Soc Hx, Reviewed and Corrections made Patient Social History Marrital Status: Employed/Student: retired Alcohol Use: Denies Use Recreational Drug Use: No Smoking Status: Former Smoker Former Smoker, Quit: Oct 03, 1985 Type Used: Cigarettes 2nd Hand Smoke Exposure: No Recent Foreign Travel: No Contact w/other who traveled: No Recent Hopitalizations: No Recent Infectious Disease Expo: No Immunizations Up To Date Date of Pneumonia Vaccine: Jul 04, 2016 Date of Influenza Vaccine: Jul 10, 2016 Past Medical History Cardiac: Irregular Heartbeat Reproductive: No Sexually Transmitted Disease: No Musculoskeletal: Arthritis History of Blood Disorders: No Family History Reviewed Nursing Family Hx No Pertinent Family Hx Review of Systems ROS-Unable to Obtain: unable to ascertain Constitutional: see HPI Physical Exam Physical Exam Vital Signs Vital Signs - First Documented 03/23/19 03/23/19 03/23/1923/19 05:23 07:26 07:45 08:00 Temp 98.5 Pulse 128 Resp 36 B/P (MAP) 76/26 (43) Pulse Ox 98 O2 Delivery Mechanical Ventilator O2 Flow Rate 70.00 FiO2 70 Capillary Refill : Less Than 3 Seconds Height, Weight, BMI Height: 5'11.00" Weight: 235lbs. 0oz. 106.532416pp; 36.4 BMI Method:Stated General Appearance: Other (intubated and sedated) Respiratory: Lungs Clear, Normal Breath Sounds Cardiovascular: Regular Rate, Rhythm Neurologic/Psychiatric: Other (intubated) Results Results/Procedures Labs Laboratory Tests 03/23/19 05:28 03/23/19 09:53 Patient resulted labs reviewed. Assessment/Plan Admission Diagnosis Assessment: Bilateral pneumonia Ventilator-dependent respiratory failure Acute renal failure Oliguria Septic shock Coagulopathy Plan: Critical care management appreciated by both cardiology and pulmonology Monitor renal function Aggressive IV fluids and pressor therapy Ventilator maintained Admission Status: Inpatient Order (span 2 midnights) Reason for Inpatient Admission: Septic shock with ventilator dependence will require 4 days Diagnosis/Problems Diagnosis/Problems (1) Respiratory failure with hypoxia Status: Acute Qualifiers: Chronicity: acute Qualified Codes: J96.01 - Acute respiratory failure with hypoxia (2) Bilateral pneumonia Status: Acute Qualifiers: Pneumonia type: due to unspecified organism Lung location: lower lobe of lung Qualified Codes: J18.1 - Lobar pneumonia, unspecified organism (3) Multisystem organ failure Status: Acute (4) Shock, septic Status: Acute YAEL ESCOBEDO DO Mar 23, 2019 11:49
[2019-03-23] MEDS ORDERED: SODIUM BICARB 8.4% 50 MEQ/50 ML VIAL IV ONE (12:15)
[2019-03-23 12:50] LABS: ABG BASE EXCESS -6.2 MMOL/L (-2.5-2.5); ABG OXYGEN SATURATION 97 % (94-100); ABG PCO2 37 MMHG (35-45); ABG PO2 79 MMHG (79-93); ABG TCO2 19.8 MMOL/L (21.0-31.0)
[2019-03-23 12:51] LABS: ABG PH 7.33 (7.37-7.43); ALLENS TEST YES-POS; INSPIRED O2 60%; PATIENT TEMP 98.3; VENTILATOR YES
--- NOTE | 2019-03-23 12:57 | NUR ---
Notified Dr. Woodard of [facility] results
[2019-03-23] MEDS ORDERED: FURO20TA4 PO (14:13)
[2019-03-23] MEDS: PIPERACILLIN/TAZO 4.5 GM/NS 100 ML IV SCH ×4 (14:36→22:30)
[2019-03-23] MEDS ORDERED: PANTOPRAZOLE 40 MG (PROTONIX) VIAL IV SCH (16:00)
[2019-03-23] MEDS ORDERED: NS (IVPB) 50 ML ONE ×5 (16:59→23:23)
[2019-03-23] MEDS: NOREPINEPHRINE 8 MG in NS (IVPB) 250 ML IV SCH (17:12)
[2019-03-23] MEDS: DEXMEDETOMIDINE INJECTION 200 MCG in NS (IVPB) 50 ML IV SCH ×5 (17:13→22:54)
--- NOTE | 2019-03-23 17:22 | Diagnostic Imaging Report ---
PATIENT HISTORY: Respiratory failure. TECHNIQUE: Frontal view of the chest. COMPARISON: 03/23/2019 at 09:20 a.m. FINDINGS: The endotracheal tube is approximately 4.3 cm from the ángela. The right jugular line tip projects over the cavoatrial junction. An enteric tube projects over the stomach. There are small bilateral pleural effusions with bibasilar airspace opacities, right greater than left. There is central vascular congestion with mild cardiomegaly. Overall aeration appears minimally improved compared to the prior exam. No pneumothorax is seen. There are degenerative changes in the spine. IMPRESSION: 1. Small bilateral pleural effusions with bibasilar and perihilar airspace opacities, may be due to edema or infection. Overall aeration appears minimally improved. Dictated by: Dictated on workstation # [id number]
[2019-03-23 17:38] LABS: ABG BASE EXCESS -5.2 MMOL/L (-2.5-2.5); ABG OXYGEN SATURATION 98 % (94-100); ABG PCO2 38 MMHG (35-45); ABG PO2 101 MMHG (79-93); ABG TCO2 20.8 MMOL/L (21.0-31.0)
[2019-03-23 17:39] LABS: ABG PH 7.34 (7.37-7.43); ALLENS TEST ART LINE; INSPIRED O2 50%; PATIENT TEMP 98.3; VENTILATOR YES
[2019-03-23 17:56] LABS: CALCIUM 7.4 MG/DL (8.5-10.1); CREATININE SERUM 2.88 MG/DL (0.60-1.30); MAGNESIUM 1.7 MG/DL (1.8-2.4); PHOSPHORUS 4.3 MG/DL (2.3-4.7); POTASSIUM 4.3 MMOL/L (3.6-5.0)
[2019-03-23] MEDS: inSUlin ASPART (NovoLOG) 1 UNIT/0.01 ML (CHARGE PER UNIT) SQ SCH ×2 (18:00→23:39)
--- NOTE | 2019-03-23 18:01 | NUR ---
Notified Dr. Woodard of labs et ABG. New orders received.
[2019-03-24] VITALS (31 sets, daily range): BP systolic 93–134; BP diastolic 50–82
[2019-03-24] MEDS: SODIUM BICARBONATE 8.4% VIAL 100 MEQ in 1/2 NS IV SOLUTION 1,000 ML IV SCH ×4 (00:08→21:20)
[2019-03-24] MEDS: DOBUTamine DRIP 250 ML IV SCH ×4 (00:08→23:46)
[2019-03-24] MEDS: VASOPRESSIN INJECTION 20 UNIT in NS (IVPB) 100 ML IV SCH ×3 (00:08→15:12)
[2019-03-24] MEDS: DEXMEDETOMIDINE INJECTION 200 MCG in NS (IVPB) 50 ML IV SCH (00:09)
[2019-03-24 00:22] LABS: BILIRUBIN,URINE NEGATIVE (NEGATIVE); CLARITY,URINE CLEAR; COLOR,URINE YELLOW; GLUCOSE, URINE (UA) NEGATIVE (NEGATIVE); KETONES,URINE NEGATIVE (NEGATIVE); LEUKOCYTE ESTERASE ,URINE 2+ (NEGATIVE); NITRITE,URINE NEGATIVE (NEGATIVE); PH,URINE 5 (5-9); PROTEIN,URINE 1+ (NEGATIVE); UROBILINOGEN,URINE NORMAL (NORMAL)
[2019-03-24 00:44] LABS: BACTERIA,URINE MODERATE /HPF; HYALINE CASTS, URINE RARE /LPF
[2019-03-24] MEDS ORDERED: fentaNYL INJECTION 100 MCG/2 ML AMP ONE (00:54)
[2019-03-24] MEDS ORDERED: fentaNYL INJECTION 100 MCG/2 ML AMP IVP PRN (01:00)
[2019-03-24] MEDS ORDERED: fentaNYL (OMNICELL DRIP KIT ONLY) 250 MCG/5 ML AMP ONE (02:05)
[2019-03-24] MEDS ORDERED: NS (IVPB) 100 ML ONE (02:06)
[2019-03-24] MEDS: DEXMEDETOMIDINE INJECTION 1,000 MCG in NS (IVPB) 250 ML IV SCH ×4 (02:26→21:19)
[2019-03-24] MEDS: fentaNYL INJECTION 1,250 MCG in NS (IVPB) 250 ML IV SCH ×2 (02:27→11:37)
[2019-03-24] MEDS: RT-ALBUTEROL/IPRATROPIUM 3 ML (DUONEB) VIAL INH SCH ×6 (02:40→21:42)
[2019-03-24 03:28] LABS: BASOPHILS % (AUTO) 0 % (0-10); EOSINOPHILS % (AUTO) 0 % (0-10); HEMATOCRIT 39 % (40-54); HEMOGLOBIN 12.7 G/DL (13.3-17.7); LYMPHOCYTES # (AUTO) 0.4 X 10^3 (1.0-4.0); LYMPHOCYTES % (AUTO) 2 % (12-44); MEAN CORPUSCULAR HEMOGLOBIN 30 PG (25-34); MEAN CORPUSCULAR HGB CONC 32 G/DL (32-36); MEAN CORPUSCULAR VOLUME 92 FL (80-99); MEAN PLATELET VOLUME 10.9 FL (7.4-10.4); MONOCYTES # (AUTO) 0.4 X 10^3 (0.0-1.0); MONOCYTES % (AUTO) 2 % (0-12); NEUTROPHILS # (AUTO) 23.7 X 10^3 (1.8-7.8); NEUTROPHILS % (AUTO) 97 % (42-75); PLATELET COUNT 213 10^3/uL (130-400); RED CELL DISTRIBUTION WIDTH 18.6 % (10.0-14.5); WHITE BLOOD COUNT 24.5 10^3/uL (4.3-11.0)
[2019-03-24 03:29] LABS: ABG BASE EXCESS -4.5 MMOL/L (-2.5-2.5); ABG OXYGEN SATURATION 98 % (94-100); ABG PCO2 37 MMHG (35-45); ABG PH 7.35 (7.37-7.43); ABG PO2 86 MMHG (79-93); ABG TCO2 21.5 MMOL/L (21.0-31.0)
[2019-03-24 03:30] LABS: ALLENS TEST ARTLINE; INSPIRED O2 40% FIO2; PATIENT TEMP 97.1; VENTILATOR YES
[2019-03-24 03:46] LABS: CALCIUM 6.7 MG/DL (8.5-10.1); CREATININE SERUM 2.79 MG/DL (0.60-1.30); MAGNESIUM 1.8 MG/DL (1.8-2.4); PHOSPHORUS 4.4 MG/DL (2.3-4.7)
[2019-03-24] MEDS ORDERED: CALCIUM GLUC. 10% 4.65 MEQ/10 ML VIAL ONE (04:34)
[2019-03-24] MEDS ORDERED: NS (IVPB) 50 ML ONE (04:35)
[2019-03-24] MEDS: inSUlin ASPART (NovoLOG) 1 UNIT/0.01 ML (CHARGE PER UNIT) SQ SCH ×4 (04:43→23:53)
[2019-03-24] MEDS ORDERED: CALCIUM GLUCONATE 10% INJ 4.65 MEQ in NS (IVPB) 50 ML IV ONE (04:45)
[2019-03-24] MEDS: POTASSIUM CL 10MEQ/50ML IVPB 50 ML IV SCH (05:09)
[2019-03-24] MEDS: NOREPINEPHRINE 8 MG in NS (IVPB) 250 ML IV SCH ×2 (05:09→15:13)
[2019-03-24] MEDS: KCL 20 MEQ TAB (K-DUR) PO SCH (05:09)
[2019-03-24] MEDS: HYDROCORTISONE 100 MG/2 ML (Solu-CORTEF) VIAL IV SCH ×4 (05:19→23:46)
[2019-03-24] MEDS: PIPERACILLIN/TAZO 4.5 GM/NS 100 ML IV SCH ×6 (05:19→21:19)
[2019-03-24] MEDS ORDERED: SODIUM BICARB 8.4% 50 MEQ/50 ML VIAL ONE (06:09)
[2019-03-24] MEDS ORDERED: FUROSEMIDE 40 MG/4 ML INJ (LASIX) ONE (06:09)
--- NOTE | 2019-03-24 06:14 | Pulmonary Progress Note ---
Subjective Time Seen by a Provider: 07:24 Subjective/Events-last exam Pt is doing better today. He is currently sedated on vent. Levophed, and do pamine is off. Dobutamine is still going. Sepsis Event Evaluation Height, Weight, BMI Height: 5'11.00" Weight: 253lbs. 5.0oz. 114.908747wl; 32.4 BMI Method:Stated Focused Exam Lactate Level 03/23/19 19:45: Lactic Acid Level 2.17*H 03/24/19 03:18: Lactic Acid Level 2.33*H 03/24/19 05:10: Lactic Acid Level 3.43*H Lactic Acid Level Laboratory Tests Test 03/24/19 03:18 03/24/19 05:10 Lactic Acid Level 2.33 MMOL/L (0.50-2.00) *H 3.43 MMOL/L (0.50-2.00) *H Exam Exam Vital Signs Date Time Temp Pulse Resp B/P (MAP) Pulse Ox O2 Delivery O2 Flow Rate FiO2 03/24/19 05:36 22 03/24/19 05:00 121 24 127/55 (79) 98 Mechanical Ventilator 40.00 03/24/19 04:00 99 Mechanical Ventilator 40.00 03/24/19 04:00 97.1 03/24/19 04:00 123 21 114/50 (71) 97 Mechanical Ventilator 40.00 03/24/19 03:00 130 29 96/54 (68) 98 Mechanical Ventilator 40.00 03/24/19 02:40 133 23 98 40 03/24/19 02:34 110/57 03/24/19 02:00 131 22 96/54 (68) 98 Mechanical Ventilator 40.00 03/24/19 01:00 137 03/24/19 01:00 134 21 110/60 (77) 98 Mechanical Ventilator 40.00 03/24/19 00:25 138 26 99 40 03/24/19 00:08 118/56 03/24/19 00:00 138 23 119/57 (77) 98 Mechanical Ventilator 40.00 03/23/19 23:50 99 Mechanical Ventilator 40.00 03/23/19 23:44 99.1 03/23/19 23:00 133 22 103/57 (72) 99 Mechanical Ventilator 40.00 03/23/19 22:00 128 20 111/59 (76) 99 Mechanical Ventilator 40.00 03/23/19 21:29 122 24 99 40 03/23/19 21:00 124 21 109/55 (73) 99 Mechanical Ventilator 40.00 03/23/19 20:00 98.2 40.00 03/23/19 20:00 124 12 111/58 (75) 99 Mechanical Ventilator 40.00 03/23/19 20:00 100 Mechanical Ventilator 40.00 03/23/19 19:00 117 03/23/19 19:00 117 24 127/57 (80) 99 Mechanical Ventilator 40.00 03/23/19 18:31 110/62 03/23/19 18:23 121 24 100 50 03/23/19 18:00 131 22 107/49 (68) 99 Mechanical Ventilator 50.00 03/23/19 17:00 125 25 126/68 (87) 98 Mechanical Ventilator 50.00 03/23/19 16:30 Mechanical Ventilator 50 03/23/19 16:28 108/55 03/23/19 16:00 123 20 116/55 (75) 98 Mechanical Ventilator 60.00 03/23/19 16:00 Mechanical Ventilator 50 03/23/19 16:00 98.2 03/23/19 15:00 130 24 104/70 (81) 98 Mechanical Ventilator 60.00 03/23/19 14:22 128 24 97 60 03/23/19 14:00 118 24 100/65 (77) 96 Mechanical Ventilator 60.00 03/23/19 13:56 106/40 03/23/19 13:00 122 22 114/79 (91) 96 Mechanical Ventilator 60.00 03/23/19 12:52 125 03/23/19 12:00 Mechanical Ventilator 60 03/23/19 12:00 98.3 03/23/19 12:00 130 24 113/66 (82) 95 Mechanical Ventilator 60.00 03/23/19 11:42 121 24 99 70 03/23/19 11:00 131 24 110/46 (67) 99 Mechanical Ventilator 70.00 03/23/19 10:15 69/43 03/23/19 10:00 113 25 72/52 (59) 100 Mechanical Ventilator 70.00 03/23/19 09:54 90/48 03/23/19 09:36 118 22 100 70 03/23/19 09:36 128 03/23/19 09:11 93/67 03/23/19 09:00 123 26 93/67 (76) 100 Mechanical Ventilator 70.00 03/23/19 08:12 125 03/23/19 08:00 100.3 03/23/19 08:00 124 12 114/68 (83) 99 Mechanical Ventilator 70.00 03/23/19 07:50 Mechanical Ventilator 70 03/23/19 07:45 128 24 88/61 (70) 98 Mechanical Ventilator 03/23/19 07:26 130 18 98 70 03/23/19 07:12 144 I & O 03/24/19 06:59 Intake Total 9075 ml Output Total 1310 ml Balance 7765 ml Height & Weight Height: 5'11.00" Weight: 253lbs. 5.0oz. 114.499298pi; 32.4 BMI Method:Stated General Appearance: Other (intubated and sedated) HEENT: PERRL/EOMI, Other (ET tube in place. pt is sedated on vent) Neck: Full Range of Motion, Supple Respiratory: Lungs Clear, Normal Breath Sounds Cardiovascular: Regular Rate, Rhythm Capillary Refill: Less Than 3 Seconds Gastrointestinal: non tender, soft, distended Extremity: Non Tender, Pedal Edema Neurologic/Psychiatric: Other (intubated) Lymphatic: No Adenopathy Results Lab Laboratory Tests 03/23/19 05:28 03/23/19 09:53 03/23/19 17:19 03/24/19 03:18 Assessment/Plan Assessment/Plan Acute respiratory failure with large right pleural effusion and probable PNA -Continue vent -Give 20mg of IV Lasix -Give albumin x 3 Q 6 hours apart Pneumonia with sepsis -Wilcox culture -Jagruti Neumannsyn -IVF Severe septic/cardiogenic shock -Cont IVF -Pt is off pressors -Dobutamine is still going Metabolic lactic acidosis -Monitor -IVF Cardiomyopathy - EF 10% -cardiology is following -Pt may need cardiac cath if renal function continues to improve Acute renal failure - improving -fluid challenge -PT is now producing urine Coagulopathy -recheck CMP , PT, PTT, INR Anemia -Monitor -Check occult stool LINDA JONES DO Mar 24, 2019 06:14
[2019-03-24] MEDS ORDERED: FUROSEMIDE 40 MG/4 ML INJ (LASIX) IVP ONE (06:15)
[2019-03-24] MEDS ORDERED: SODIUM BICARB 8.4% 50 MEQ/50 ML VIAL IV ONE (06:15)
[2019-03-24] MEDS ORDERED: ENOXAPARIN 30 MG/0.3 ML (LOVENOX) SYR SC SCH (07:30)
--- NOTE | 2019-03-24 08:10 | Diagnostic Imaging Report ---
EXAM: CHEST 1 VIEW, AP/PA ONLY INDICATION: Respiratory failure. COMPARISON: Chest radiograph 03/23/2019. FINDINGS: Low lung volumes. Cardiomegaly. Moderate right and small left pleural effusion. Diffuse interstitial airspace opacities. Right IJ CVC tip low SVC. Enteric tube tips are obscured by underpenetration. ETT tip midway between the level of the clavicles and ángela. No pneumothorax. IMPRESSION: 1. Examination limited by low lung volumes and underpenetration. 2. Moderate right and small left pleural effusions. 3. Cardiomegaly with diffuse interstitial and airspace opacities currently is partially due to atelectasis. Dictated by: Dictated on workstation # [id number]
--- NOTE | 2019-03-24 08:19 | Progress Note (SOAP) ---
Subjective Time Seen by a Provider: 08:17 Subjective/Events-last exam Patient on vent. Patient not responsive. Lactic acid the other day 9 today 3.43. White blood cell count elevated. Hypotensive. Ejection fraction of 10. Patient started urinating yesterday Focused Exam Lactate Level 03/23/19 19:45: Lactic Acid Level 2.17*H 03/24/19 03:18: Lactic Acid Level 2.33*H 03/24/19 05:10: Lactic Acid Level 3.43*H Lactic Acid Level Laboratory Tests Test 03/24/19 05:10 Lactic Acid Level 3.43 MMOL/L (0.50-2.00) *H Objective Exam Vital Signs Date Time Temp Pulse Resp B/P (MAP) Pulse Ox O2 Delivery O2 Flow Rate FiO2 03/24/19 07:26 118 26 97 40 03/24/19 07:00 120 03/24/19 06:00 120 22 128/55 (79) 98 Mechanical Ventilator 40.00 03/24/19 05:36 22 03/24/19 05:00 121 24 127/55 (79) 98 Mechanical Ventilator 40.00 03/24/19 04:00 99 Mechanical Ventilator 40.00 03/24/19 04:00 97.1 03/24/19 04:00 123 21 114/50 (71) 97 Mechanical Ventilator 40.00 03/24/19 03:00 130 29 96/54 (68) 98 Mechanical Ventilator 40.00 03/24/19 02:40 133 23 98 40 03/24/19 02:34 110/57 03/24/19 02:00 131 22 96/54 (68) 98 Mechanical Ventilator 40.00 03/24/19 01:00 137 03/24/19 01:00 134 21 110/60 (77) 98 Mechanical Ventilator 40.00 03/24/19 00:25 138 26 99 40 03/24/19 00:08 118/56 03/24/19 00:00 138 23 119/57 (77) 98 Mechanical Ventilator 40.00 03/23/19 23:50 99 Mechanical Ventilator 40.00 03/23/19 23:44 99.1 03/23/19 23:00 133 22 103/57 (72) 99 Mechanical Ventilator 40.00 03/23/19 22:00 128 20 111/59 (76) 99 Mechanical Ventilator 40.00 03/23/19 21:29 122 24 99 40 03/23/19 21:00 124 21 109/55 (73) 99 Mechanical Ventilator 40.00 03/23/19 20:00 98.2 40.00 03/23/19 20:00 124 12 111/58 (75) 99 Mechanical Ventilator 40.00 03/23/19 20:00 100 Mechanical Ventilator 40.00 03/23/19 19:00 117 03/23/19 19:00 117 24 127/57 (80) 99 Mechanical Ventilator 40.00 03/23/19 18:31 110/62 03/23/19 18:23 121 24 100 50 03/23/19 18:00 131 22 107/49 (68) 99 Mechanical Ventilator 50.00 03/23/19 17:00 125 25 126/68 (87) 98 Mechanical Ventilator 50.00 03/23/19 16:30 Mechanical Ventilator 50 03/23/19 16:28 108/55 03/23/19 16:00 123 20 116/55 (75) 98 Mechanical Ventilator 60.00 03/23/19 16:00 Mechanical Ventilator 50 03/23/19 16:00 98.2 03/23/19 15:00 130 24 104/70 (81) 98 Mechanical Ventilator 60.00 03/23/19 14:22 128 24 97 60 03/23/19 14:00 118 24 100/65 (77) 96 Mechanical Ventilator 60.00 03/23/19 13:56 106/40 03/23/19 13:00 122 22 114/79 (91) 96 Mechanical Ventilator 60.00 03/23/19 12:52 125 03/23/19 12:00 Mechanical Ventilator 60 03/23/19 12:00 98.3 03/23/19 12:00 130 24 113/66 (82) 95 Mechanical Ventilator 60.00 03/23/19 11:42 121 24 99 70 03/23/19 11:00 131 24 110/46 (67) 99 Mechanical Ventilator 70.00 03/23/19 10:15 69/43 03/23/19 10:00 113 25 72/52 (59) 100 Mechanical Ventilator 70.00 03/23/19 09:54 90/48 03/23/19 09:36 118 22 100 70 03/23/19 09:36 128 03/23/19 09:11 93/67 03/23/19 09:00 123 26 (08) 100 Mechanical Ventilator 70.00 I & O 03/24/19 07:00 Intake Total 9135 ml Output Total 1310 ml Balance 7825 ml Capillary Refill : Less Than 3 Seconds General Appearance: No Apparent Distress, WD/WN HEENT: Normal ENT Inspection Neck: Normal Inspection Respiratory: No Accessory Muscle Use, No Respiratory Distress, Other (On ventilator) Cardiovascular: Regular Rate, Rhythm Gastrointestinal: non tender, soft Results Lab Laboratory Tests 03/23/19 09:53 03/23/19 17:19 03/24/19 03:18 Laboratory Tests 03/23/19 09:00: Blood Gas Puncture Site RT RAD, Blood Gas Patient Temperature 100.3, Arterial Blood pH 7.15*L, Arterial Blood Partial Pressure CO2 48H, Arterial Blood Partial Pressure O2 125H, Arterial Blood HCO3 16*L, Arterial Blood Total CO2 17.2L, Arterial Blood Oxygen Saturation 98, Arterial Blood Base Excess -11.2L, Cody Test YES-POS, Blood Gas Ventilator Setting YES, Blood Gas Inspired Oxygen 70% 03/23/19 09:53: White Blood Count 25.9H, Red Blood Count 4.38, Hemoglobin 13.2L, Hematocrit 41, Mean Corpuscular Volume 94, Mean Corpuscular Hemoglobin 30, Mean Corpuscular Hemoglobin Concent 32, Red Cell Distribution Width 18.2H, Platelet Count 272, Mean Platelet Volume 11.3H, Neutrophils (%) (Auto) 93H, Lymphocytes (%) (Auto) 4L, Monocytes (%) (Auto) 3, Eosinophils (%) (Auto) 0, Basophils (%) (Auto) 0, Neutrophils # (Auto) 24.0H, Lymphocytes # (Auto) 1.1, Monocytes # (Auto) 0.7, Eosinophils # (Auto) 0.0, Basophils # (Auto) 0.0, Sodium Level 139, Potassium Level 4.6, Chloride Level 107, Carbon Dioxide Level 17L, Anion Gap 15H, Blood Urea Nitrogen 28H, Creatinine 2.91H, Estimat Glomerular Filtration Rate 21, BUN/Creatinine Ratio 10, Glucose Level 90, Calcium Level 7.9L, Corrected Calcium 8.7, Phosphorus Level 5.3H, Magnesium Level 1.5L, Total Bilirubin 1.7H, Aspartate Amino Transf (AST/SGOT) 182H, Alanine Aminotransferase (ALT/SGPT) 84H, Alkaline Phosphatase 73, Total Protein 5.7L, Albumin 3.0L 03/23/19 12:43: Glucometer 102 03/23/19 12:44: Blood Gas Puncture Site RT RAD, Blood Gas Patient Temperature 98.3, Arterial Blood pH 7.33*L, Arterial Blood Partial Pressure CO2 37, Arterial Blood Partial Pressure O2 79, Arterial Blood HCO3 19L, Arterial Blood Total CO2 19.8L, Arterial Blood Oxygen Saturation 97, Arterial Blood Base Excess -6.2L, Cody Test YES-POS, Blood Gas Ventilator Setting YES, Blood Gas Inspired Oxygen 60% 03/23/19 17:19: Blood Gas Puncture Site RT RAD, Blood Gas Patient Temperature 98.3, Arterial Blood pH 7.34*L, Arterial Blood Partial Pressure CO2 38, Arterial Blood Partial Pressure O2 101H, Arterial Blood HCO3 20L, Arterial Blood Total CO2 20.8L, Arterial Blood Oxygen Saturation 98, Arterial Blood Base Excess -5.2L, Cody Test ART LINE, Blood Gas Ventilator Setting YES, Blood Gas Inspired Oxygen 50%, Sodium Level 138, Potassium Level 4.3, Chloride Level 106, Carbon Dioxide Level 19L, Anion Gap 13, Blood Urea Nitrogen 30H, Creatinine 2.88H, Estimat Glomerular Filtration Rate 22, BUN/Creatinine Ratio 10, Glucose Level 100, Lactic Acid Leve l 2.69*H, Calcium Level 7.4L, Phosphorus Level 4.3, Magnesium Level 1.7L 03/23/19 17:27: Glucometer 95 03/23/19 19:45: Lactic Acid Level 2.17*H 03/23/19 23:38: Glucometer 142H 03/24/19 00:10: Urine Color YELLOW, Urine Clarity CLEAR, Urine pH 5, Urine Specific [place] 1.010L, Urine Protein 1+H, Urine Glucose (UA) NEGATIVE, Urine Ketones NEGATIVE, Urine Nitrite NEGATIVE, Urine Bilirubin NEGATIVE, Urine Urobilinogen NORMAL, Urine Leukocyte Esterase 2+H, Urine RBC (Auto) 3+H, Urine RBC 10-25H, Urine WBC 5-10H, Urine Squamous Epithelial Cells 2-5, Urine Crystals NONE, Urine Bacteria MODERATEH, Urine Casts PRESENT, Urine Hyaline Casts RARE, Urine Mucus NEGATIVE, Urine Culture Indicated YES 03/24/19 03:18: White Blood Count 24.5H, Red Blood Count 4.25L, Hemoglobin 12.7L, Hematocrit 39L , Mean Corpuscular Volume 92, Mean Corpuscular Hemoglobin 30, Mean Corpuscular Hemoglobin Concent 32, Red Cell Distribution Width 18.6H, Platelet Count 213, Mean Platelet Volume 10.9H, Neutrophils (%) (Auto) 97H, Lymphocytes (%) (Auto) 2L, Monocytes (%) (Auto) 2, Eosinophils (%) (Auto) 0, Basophils (%) (Auto) 0, N eutrophils # (Auto) 23.7H, Lymphocytes # (Auto) 0.4L, Monocytes # (Auto) 0.4, Eosinophils # (Auto) 0.0, Basophils # (Auto) 0.0, Blood Gas Puncture Site RIGHT RADIAL ARTLINE, Blood Gas Patient Temperature 97.1, Arterial Blood pH 7.35L, Arterial Blood Partial Pressure CO2 37, Arterial Blood Partial Pressure O2 86, Arterial Blood HCO3 20L, Arterial Blood Total CO2 21.5, Arterial Blood Oxygen Saturation 98, Arterial Blood Base Excess -4.5L, Cody Test ARTLINE, Blood Gas Ventilator Setting YES, Blood Gas Inspired Oxygen 40% FIO2, Sodium Level 138, Potassium Level 4.0, Chloride Level 110H, Carbon Dioxide Level 15L, Anion Gap 13, Blood Urea Nitrogen 31H, Creatinine 2.79H, Estimat Glomerular Filtration Rate 22, BUN/Creatinine Ratio 11, Glucose Level 137H, Lactic Acid Level 2.33*H, Calcium Level 6.7L, Phosphorus Level 4.4, Magnesium Level 1.8, Albumin 2.4L 03/24/19 05:10: Lactic Acid Level 3.43*H Microbiology 03/23/19 Blood Culture - Preliminary, Resulted No growth 03/23/19 MRSA Screen - Final, Complete Assessment/Plan Assessment/Plan Assess & Plan/Chief Complaint Acute respiratory failure. Pneumonia with sepsis. Acute renal failure. Cardiomyopathy ejection fraction 10 percent. Renal failure Clinical Quality Measures DVT/VTE Risk/Contraindication: Risk Factor Score Per Nursin RFS Level Per Nursing on Admit: 4+=Very High KEVEN FELIX DO Mar 24, 2019 08:19
[2019-03-24] MEDS: PANTOPRAZOLE 40 MG (PROTONIX) VIAL IV SCH (08:26)
[2019-03-24] MEDS: ALBUMIN 25% 25 GM/100 ML 100 ML IV SCH ×3 (08:26→21:19)
[2019-03-24] MEDS: VANCOMYCIN 1 GM/NS 250 ML IVPB IV SCH ×2 (08:27)
--- NOTE | 2019-03-24 09:45 | Progress Note-Cardiology ---
Cardiology SOAP Progress Note Subjective: Intubated and on mech vent. Unable to communicate Objective: I&O/Vital Signs 03/23/19 03/23/19 03/23/19 03/23/19 22:00 23:00 23:44 23:50 Temp 99.1 Pulse 128 133 Resp 20 22 B/P (MAP) 111/59 (76) 103/57 (72) Pulse Ox 99 99 99 O2 Delivery Mechanical Ventilator Mechanical Ventilator Mechanical Ventilator O2 Flow Rate 40.00 40.00 40.00 03/24/19 03/24/19 03/24/19 03/24/19 00:00 00:08 00:25 01:00 Pulse 138 138 134 Resp 23 21 B/P (MAP) 119/57 (77) 118/56 110/60 (77) Pulse Ox 98 99 98 O2 Delivery Mechanical Ventilator Mechanical Ventilator O2 Flow Rate 40.00 40.00 FiO2 40 03/24/19 03/24/19 03/24/19 03/24/19 01:00 02:00 02:34 02:40 Pulse 137 131 133 Resp 22 23 B/P (MAP) 96/54 (68) 110/57 Pulse Ox 98 98 O2 Delivery Mechanical Ventilator O2 Flow Rate 40.00 FiO2 40 03/24/19 03/24/19 03/24/19 03/24/19 03:00 04:00 04:00 04:00 Temp 97.1 Pulse 130 123 Resp 29 21 B/P (MAP) 96/54 (68) 114/50 (71) Pulse Ox 98 97 99 O2 Delivery Mechanical Ventilator Mechanical Ventilator Mechanical Ventilator O2 Flow Rate 40.00 40.00 40.00 03/24/19 03/24/19 03/24/19 03/24/19 05:00 05:36 06:00 07:00 Pulse 121 120 120 Resp 24 21 B/P (MAP) 127/55 (79) 128/55 (79) 134/59 (84) Pulse Ox 98 98 97 O2 Delivery Mechanical Ventilator Mechanical Ventilator Mechanical Ventilator O2 Flow Rate 40.00 40.00 40.00 03/24/19 03/24/19 03/24/19 03/24/19 07:00 07:26 08:00 08:33 Pulse 120 118 Resp 26 B/P (MAP) 113/63 Pulse Ox 97 98 O2 Delivery Mechanical Ventilator O2 Flow Rate 40.00 FiO2 40 03/24/19 00:00 Intake Total 4712 ml Output Total 825 ml Balance 3887 ml Weight (Pounds): 253 Weight (Ounces): 5.0 Weight (Calculated Kilograms): 114.931958 Constitutional: other [facility], non-communicative) Respiratory: No accessory muscle use; other (Fair to good air entry, but diminished at the bases) Cardiovascular: regular rate-rhythm, S1 and S2, systolic murmur (2/6 BEATRIZ over the precordium) Gastrointestional: distended; No guarding, No rebound; audible bowel sounds Extremities: other (mild to mod bilat leg edema); No clubbing, No cyanosis Neurologic/Psychiatric: other (he is not able to cooperate with a neuro exam) Skin: No rash on exposed areas, No ulcerations on exposed areas Results/Procedures: Labs Laboratory Tests 03/23/19 09:53: White Blood Count 25.9H, Red Blood Count 4.38, Hemoglobin 13.2L, Hematocrit 41, Mean Corpuscular Volume 94, Mean Corpuscular Hemoglobin 30, Mean Corpuscular Hemoglobin Concent 32, Red Cell Distribution Width 18.2H, Platelet Count 272, Mean Platelet Volume 11.3H, Neutrophils (%) (Auto) 93H, Lymphocytes (%) (Auto) 4L, Monocytes (%) (Auto) 3, Eosinophils (%) (Auto) 0, Basophils (%) (Auto) 0, Neutrophils # (Auto) 24.0H, Lymphocytes # (Auto) 1.1, Monocytes # (Auto) 0.7, Eosinophils # (Auto) 0.0, Basophils # (Auto) 0.0, Sodium Level 139, Potassium Level 4.6, Chloride Level 107, Carbon Dioxide Level 17L, Anion Gap 15H, Blood Urea Nitrogen 28H, Creatinine 2.91H, Estimat Glomerular Filtration Rate 21, BUN/Creatinine Ratio 10, Glucose Level 90, Calcium Level 7.9L, Corrected Calcium 8.7, Phosphorus Level 5.3H, Magnesium Level 1.5L, Total Bilirubin 1.7H, Aspartate Amino Transf (AST/SGOT) 182H, Alanine Aminotransferase (ALT/SGPT) 84H, Alkaline Phosphatase 73, Total Protein 5.7L, Albumin 3.0L 03/23/19 12:43: Glucometer 102 03/23/19 12:44: Blood Gas Puncture Site RT RAD, Blood Gas Patient Temperature 98.3, Arterial Blood pH 7.33*L, Arterial Blood Partial Pressure CO2 37, Arterial Blood Partial Pressure O2 79, Arterial Blood HCO3 19L, Arterial Blood Total CO2 19.8L, Arterial Blood Oxygen Saturation 97, Arterial Blood Base Excess -6.2L, Cody Test YES-POS, Blood Gas Ventilator Setting YES, Blood Gas Inspired Oxygen 60% 03/23/19 17:19: Sodium Level 138, Potassium Level 4.3, Chloride Level 106, Carbon Dioxide Level 19L, Anion Gap 13, Blood Urea Nitrogen 30H, Creatinine 2.88H, Estimat Glomerular Filtration Rate 22, BUN/Creatinine Ratio 10, Glucose Level 100, Calcium Level 7.4L, Phosphorus Level 4.3, Magnesium Level 1.7L, Blood Gas Puncture Site RT RAD, Blood Gas Patient Temperature 98.3, Arterial Blood pH 7.34*L, Arterial Blood Partial Pressure CO2 38, Arterial Blood Partial Pressure O2 101H, Arterial Blood HCO3 20L, Arterial Blood Total CO2 20.8L, Arterial Blood Oxygen Saturation 98, Arterial Blood Base Excess -5.2L, Cody Test ART LINE, Blood Gas Ventilator Setting YES, Blood Gas Inspired Oxygen 50%, Lactic Acid Level 2.69*H 03/23/19 17:27: Glucometer 95 03/23/19 19:45: Lactic Acid Level 2.17*H 03/23/19 23:38: Glucometer 142H 03/24/19 00:10: Urine Color YELLOW, Urine Clarity CLEAR, Urine pH 5, Urine Specific [place] 1.010L, Urine Protein 1+H, Urine Glucose (UA) NEGATIVE, Urine Ketones NEGATIVE, Urine Nitrite NEGATIVE, Urine Bilirubin NEGATIVE, Urine Urobilinogen NORMAL, Urine Leukocyte Esterase 2+H, Urine RBC (Auto) 3+H, Urine RBC 10-25H, Urine WBC 5-10H, Urine Squamous Epithelial Cells 2-5, Urine Crystals NONE, Urine Bacteria MODERATEH, Urine Casts PRESENT, Urine Hyaline Casts RARE, Urine Mucus NEGATIVE, Urine Culture Indicated YES 03/24/19 03:18: White Blood Count 24.5H, Red Blood Count 4.25L, Hemoglobin 12.7L, Hematocrit 39L , Mean Corpuscular Volume 92, Mean Corpuscular Hemoglobin 30, Mean Corpuscular Hemoglobin Concent 32, Red Cell Distribution Width 18.6H, Platelet Count 213, Mean Platelet Volume 10.9H, Neutrophils (%) (Auto) 97H, Lymphocytes (%) (Auto) 2L, Monocytes (%) (Auto) 2, Eosinophils (%) (Auto) 0, Basophils (%) (Auto) 0, Neutrophils # (Auto) 23.7H, Lymphocytes # (Auto) 0.4L, Monocytes # (Auto) 0.4, Eosinophils # (Auto) 0.0, Basophils # (Auto) 0.0, Blood Gas Puncture Site RIGHT RADIAL ARTLINE, Blood Gas Patient Temperature 97.1, Arterial Blood pH 7.35L, Arterial Blood Partial Pressure CO2 37, Arterial Blood Partial Pressure O2 86, Arterial Blood HCO3 20L, Arterial Blood Total CO2 21.5, Arterial Blood Oxygen Saturation 98, Arterial Blood Base Excess -4.5L, Cody Test ARTLINE, Blood Gas Ventilator Setting YES, Blood Gas Inspired Oxygen 40% FIO2, Sodium Level 138, Potassium Level 4.0, Chloride Level 110H, Carbon Dioxide Level 15L, Anion Gap 13 , Blood Urea Nitrogen 31H, Creatinine 2.79H, Estimat Glomerular Filtration Rate 22, BUN/Creatinine Ratio 11, Glucose Level 137H, Lactic Acid Level 2.33*H, Calcium Level 6.7L, Phosphorus Level 4.4, Magnesium Level 1.8, Albumin 2.4L 03/24/19 05:10: Lactic Acid Level 3.43*H Microbiology 03/23/19 Blood Culture - Preliminary, Resulted No growth 03/23/19 MRSA Screen - Final, Complete Laboratory Tests 03/23/19 05:28 03/23/19 09:53 03/23/19 17:19 03/24/19 03:18 A/P: Assessment: Ac resp failure and shock, multifactorial (see below) 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 LVEF 10-15% on echo of 03/23/19; EF 35-40% on echo of 09/11/18; LVEF 45-50% on card cath of 10/13/16 Sepsis of undetermined source Ac kidney injury (WALLACE) 3 with oliguria, improving Obesity-hypoventilation and JOLIE; non-compliant with treatment Mild CAD on card cath of Oct 2016. Elevated troponin during this admission due to Type 2 [place] (hypoxia due to ac resp failure) H/o PVCs. Questionable h/o PAF. Managed by Dr Garg. Pt not on OAC. No PAF demonstrated during this hospitalization, so far H/o hypertension and hyperlipidemia Plan: * Pressors d/c'd after bp improved * Attempt to wean off dobutamine * iv fluids and diuretics as needed/tolerated * Monitor labs closely * Prognosis guarded * I reviewed his case with Dr Woodard this am TRE DIAZ MD FACP FAC CCDS Mar 24, 2019 09:45
--- NOTE | 2019-03-24 09:46 | Physical Therapy Progress Note ---
Therapy Progress Note Patient is currently sedated and on mechanical ventilator. PT to assess patient when medically stable and able to actively participate with skilled therapy. BEN RODRIGUEZ PT Mar 24, 2019 09:45
[2019-03-24] MEDS: DOPamine DRIP 250 ML IV SCH (09:54)
--- NOTE | 2019-03-24 10:20 | NUR ---
Pastoral care visit, pt intubated, daughter at bedside, provided support and encouragement.
[2019-03-24] MEDS ORDERED: ZOLP10TA5 PO (10:55)
[2019-03-24] MEDS ORDERED: PROM25TA14 PO (10:57)
[2019-03-24 11:24] LABS: INR 2.2 (0.8-1.4); PROTHROMBIN TIME PATIENT 25.8 SEC (12.2-14.7)
[2019-03-24] MEDS ORDERED: POTA10TA10 PO (11:31)
[2019-03-24] MEDS ORDERED: ALLO100T PO (11:31)
[2019-03-24] MEDS ORDERED: APIX5TAB PO (11:31)
[2019-03-24 11:34] LABS: ALBUMIN 2.9 GM/DL (3.2-4.5); BILIRUBIN,TOTAL 1.2 MG/DL (0.1-1.0); CALCIUM 7.6 MG/DL (8.5-10.1); CREATININE SERUM 3.18 MG/DL (0.60-1.30); POTASSIUM 3.8 MMOL/L (3.6-5.0); TOTAL PROTEIN 5.1 GM/DL (6.4-8.2)
--- NOTE | 2019-03-24 11:38 | NUR ---
UNABLE TO SPEAK WITH PATIENT, COMPLIED MED LIST FROM EXT MED HISTORY (ALSO CALLED [facility] AND [facility]) WELL GOT A FAXED MED LIST FROM DR. NAJERA AND DR. HAY. [facility] FILLED : 11-13-18 MELOXICAM 15MG 1 T D #30/30DS (DID NOT INCLUDE ON MED REC, PAST DUE FOR REFILL) 01-14-19 POTASSIUM ER 10 MEQ 1 D #30 (PUT ON PRN WITH LASIX) 01-23-19 METOPROLOL SUCC 25MG 1 T D #30 02-20-19 FUROSEMIDE 20MG # 30/30 DAYS (ON DANIA'S LIST PRN) 03-04-19 ALLOPURINOL 100MG # 30/30DS 03-04-19 COLCHICINE 0.6 MG 2 TS DIRECTED NOW, THEN 1 T 1 HOUR LATER #3/1ds (FINISHED) 07-16-18 HCTZ 25MG #30 (PAST DUE NOT INCLUDED ON MED REC) 11-06-17 LISINOPRIL 20MG DAILY #30 (PAST DUE, NOT INCLUDED ON MED REC) 2016 SIMVASTATIN 10 MG 1 T D (PUT ON HOLD, NEVER PICKED UP) [facility] 03-07-19 HYDROCODONE 10/325 MG 1 T Q 6 H #60/10DS 03-07-19 XANAX 2MG 1 T BID #56/28DS 03-07-19 AMBIEN 10MG 1 T QHS #28/28DS 03-14-19 PROMETHAZINE 25MG 1 T Q 12 H #60/30DS OTC MEDICATIONS REPORTED ON DR. NAJERA'S OFFICE LIST, LEFT ON MED REC: ZANTAC 150MG 1 T PO BID ASPIRIN 325MG 1 T D ELIQUIS 5 MG 1 T BID PATIENT IS RECEIVING SAMPLES FROM DR. NAJERA. THEIR OFFICE INDICATED HE NEEDED TO BE SEEN FOR A FOLLOW UP BUT HAS NOT BEEN BACK. GABAPENTIN 300 MG WAS NEVER PRESCRIBED FROM DR. NAJERA, BUT REPORTED ON THEIR MED LIST, HAS NOT BEEN FILLED AT A RETAIL PHARMACY THAT WE CAN FIND. PT DID GO TO [place] [id number] [place], I REACHED OUT TO THEM AND THEY HAVE NOT BEEN SEEN SINCE .
[2019-03-24] MEDS ORDERED: METO-387 PO (11:48)
--- NOTE | 2019-03-24 12:00 | NUR ---
Updated Dr. Woodard with labs, urine output, et VS. New orders received.
[2019-03-24] MEDS ORDERED: RANI150T46 PO (12:10)
[2019-03-24] MEDS ORDERED: VITAMIN K 1 MG/ML ORAL SOLN 1 ML SYRINGE NG ONE (12:15)
[2019-03-24] MEDS ORDERED: LACTATED RINGERS 1,000 ML IV SCH ×2 (12:15)
[2019-03-24] MEDS ORDERED: ALPR2TAB6 PO (12:58)
[2019-03-24] MEDS ORDERED: HYDR-3820 PO (12:58)
--- NOTE | 2019-03-24 13:51 | Occ Therapy Progress Note ---
Therapy Progress Note OT order received, chart reviewed. Pt. currently on medical ventilator with sedation. Will continue to monitor and address OT skilled needs when medically stable. [id number] KERRY LACEY OT Mar 24, 2019 13:51
[2019-03-24 17:17] LABS: CALCIUM 7.7 MG/DL (8.5-10.1); CREATININE SERUM 3.08 MG/DL (0.60-1.30); MAGNESIUM 1.9 MG/DL (1.8-2.4); PHOSPHORUS 4.8 MG/DL (2.3-4.7); POTASSIUM 3.8 MMOL/L (3.6-5.0)
--- NOTE | 2019-03-24 17:34 | NUR ---
Dr. Woodard updated on labs, urine output, et VS. No new orders at this time.
[2019-03-25] VITALS (33 sets, daily range): BP systolic 109–139; BP diastolic 70–85
[2019-03-25] MEDS: VASOPRESSIN INJECTION 20 UNIT in NS (IVPB) 100 ML IV SCH ×3 (01:28→18:19)
[2019-03-25] MEDS: RT-ALBUTEROL/IPRATROPIUM 3 ML (DUONEB) VIAL INH SCH ×6 (02:40→23:30)
[2019-03-25] MEDS: DEXMEDETOMIDINE INJECTION 1,000 MCG in NS (IVPB) 250 ML IV SCH ×3 (03:15→18:48)
[2019-03-25 03:24] LABS: BASOPHILS % (AUTO) 0 % (0-10); EOSINOPHILS % (AUTO) 0 % (0-10); HEMATOCRIT 36 % (40-54); HEMOGLOBIN 11.8 G/DL (13.3-17.7); LYMPHOCYTES # (AUTO) 0.2 X 10^3 (1.0-4.0); LYMPHOCYTES % (AUTO) 1 % (12-44); MEAN CORPUSCULAR HEMOGLOBIN 30 PG (25-34); MEAN CORPUSCULAR HGB CONC 33 G/DL (32-36); MEAN CORPUSCULAR VOLUME 91 FL (80-99); MEAN PLATELET VOLUME 11.8 FL (7.4-10.4); MONOCYTES # (AUTO) 0.4 X 10^3 (0.0-1.0); MONOCYTES % (AUTO) 2 % (0-12); NEUTROPHILS # (AUTO) 21.3 X 10^3 (1.8-7.8); NEUTROPHILS % (AUTO) 97 % (42-75); PLATELET COUNT 170 10^3/uL (130-400); RED CELL DISTRIBUTION WIDTH 18.1 % (10.0-14.5); WHITE BLOOD COUNT 21.9 10^3/uL (4.3-11.0)
[2019-03-25 03:25] LABS: ABG BASE EXCESS -1.6 MMOL/L (-2.5-2.5); ABG OXYGEN SATURATION 97 % (94-100); ABG PCO2 39 MMHG (35-45); ABG PH 7.38 (7.37-7.43); ABG PO2 83 MMHG (79-93)
[2019-03-25 03:32] LABS: ALLENS TEST ARTLINE; INSPIRED O2 40% FIO2; VENTILATOR YES
[2019-03-25 03:36] LABS: INR 1.8 (0.8-1.4); PROTHROMBIN TIME PATIENT 21.7 SEC (12.2-14.7)
[2019-03-25 03:40] LABS: ALBUMIN 2.8 GM/DL (3.2-4.5); CALCIUM 6.7 MG/DL (8.5-10.1); CREATININE SERUM 2.7 MG/DL (0.60-1.30); MAGNESIUM 1.7 MG/DL (1.8-2.4); PHOSPHORUS 4.8 MG/DL (2.3-4.7); POTASSIUM 3.4 MMOL/L (3.6-5.0)
[2019-03-25] MEDS: KCL 20 MEQ TAB (K-DUR) PO SCH (04:27)
[2019-03-25] MEDS: MAGNESIUM 1 GM/100 ML IVPB 100 ML IV SCH ×3 (04:27→06:11)
[2019-03-25] MEDS: POTASSIUM CL 10MEQ/50ML IVPB 50 ML IV SCH ×4 (04:27→06:10)
[2019-03-25] MEDS: SODIUM BICARBONATE 8.4% VIAL 100 MEQ in 1/2 NS IV SOLUTION 1,000 ML IV SCH ×3 (04:27→19:38)
[2019-03-25] MEDS: NOREPINEPHRINE 8 MG in NS (IVPB) 250 ML IV SCH ×2 (04:28→18:19)
--- NOTE | 2019-03-25 04:52 | Pulmonary Progress Note ---
Subjective Time Seen by a Provider: 04:57 Subjective/Events-last exam Pt is off pressors. currently sedated on vent. Sepsis Event Evaluation Height, Weight, BMI Height: 5'11.00" Weight: 253lbs. 5.0oz. 114.430538tn; 32.4 BMI Method:Stated Focused Exam Lactate Level 03/24/19 03:18: Lactic Acid Level 2.33*H 03/24/19 05:10: Lactic Acid Level 3.43*H 03/25/19 03:15: Lactic Acid Level 1.42 Lactic Acid Level Laboratory Tests Test 03/25/19 03:15 Lactic Acid Level 1.42 MMOL/L (0.50-2.00) Exam Exam Vital Signs Date Time Temp Pulse Resp B/P (MAP) Pulse Ox O2 Delivery O2 Flow Rate FiO2 03/25/19 04:00 117 21 128/76 (93) 97 Mechanical Ventilator 35.00 03/25/19 04:00 98 Mechanical Ventilator 40.00 03/25/19 03:00 117 21 119/77 (91) 97 Mechanical Ventilator 35.00 03/25/19 02:00 114 21 120/76 (91) 97 Mechanical Ventilator 35.00 03/25/19 01:45 126/79 03/25/19 01:00 116 03/25/19 01:00 113 21 120/77 (91) 98 Mechanical Ventilator 35.00 03/25/19 00:29 Mechanical Ventilator 35.00 03/25/19 00:00 98 Mechanical Ventilator 40.00 03/25/19 00:00 116 21 118/79 (92) 99 Mechanical Ventilator 40.00 03/24/19 23:48 96.9 03/24/19 23:46 122/78 03/24/19 23:00 116 22 120/79 (93) 99 Mechanical Ventilator 40.00 03/24/19 22:00 120 21 124/82 (96) 99 Mechanical Ventilator 40.00 03/24/19 21:00 120 21 116/78 (91) 98 Mechanical Ventilator 40.00 03/24/19 20:00 120 21 112/76 (88) 98 Mechanical Ventilator 40.00 03/24/19 20:00 97.6 03/24/19 20:00 98 Mechanical Ventilator 40.00 03/24/19 19:30 120 25 99 40 6/24/19 19:00 116 03/24/19 19:00 116 21 118/74 (89) 99 Mechanical Ventilator 40.00 03/24/19 18:00 120 21 117/75 (89) 99 Mechanical Ventilator 40.00 03/24/19 17:38 118/76 03/24/19 17:00 104 21 107/75 (86) 99 Mechanical Ventilator 40.00 03/24/19 16:00 98 Mechanical Ventilator 40.00 03/24/19 16:00 104 21 118/76 (90) 99 Mechanical Ventilator 40.00 03/24/19 16:00 96.1 03/24/19 15:00 104 22 106/71 (83) 97 Mechanical Ventilator 40.00 03/24/19 14:42 102 22 99 40 03/24/19 14:00 105 21 111/71 (84) 98 Mechanical Ventilator 40.00 03/24/19 13:00 116 03/24/19 13:00 116 21 123/71 (88) 98 Mechanical Ventilator 40.00 03/24/19 12:00 98 Mechanical Ventilator 40.00 03/24/19 12:00 121 21 109/63 (78) 97 Mechanical Ventilator 40.00 03/24/19 12:00 96.3 03/24/19 11:15 121 22 98 40 03/24/19 11:00 120 21 127/61 (83) 97 Mechanical Ventilator 40.00 03/24/19 10:37 103/61 03/24/19 10:00 116 21 100/60 (73) 98 Mechanical Ventilator 40.00 03/24/19 09:00 120 21 124/65 (84) 98 Mechanical Ventilator 40.00 03/24/19 08:33 113/63 03/24/19 08:00 98 Mechanical Ventilator 40.00 03/24/19 08:00 121 21 132/58 (82) 97 Mechanical Ventilator 40.00 03/24/19 08:00 98.4 03/24/19 07:26 118 26 97 40 03/24/19 07:00 120 03/24/19 07:00 120 21 134/59 (84) 97 Mechanical Ventilator 40.00 03/24/19 06:00 120 22 128/55 (79) 98 Mechanical Ventilator 40.00 03/24/19 05:36 22 03/24/19 05:00 121 24 127/55 (79) 98 Mechanical Ventilator 40.00 I & O 03/25/19 07:00 Intake Total 8965 ml Output Total 955 ml Balance 8010 ml Height & Weight Height: 5'11.00" Weight: 253lbs. 5.0oz. 114.144618hv; 32.4 BMI Method:Stated General Appearance: No Apparent Distress, WD/WN, Other (sedated on vent) HEENT: Normal ENT Inspection Neck: Normal Inspection Respiratory: No Accessory Muscle Use, No Respiratory Distress, Other (On drea tilator) Cardiovascular: Regular Rate, Rhythm Capillary Refill: Less Than 3 Seconds Gastrointestinal: non tender, soft Extremity: Non Tender, Pedal Edema Neurologic/Psychiatric: Other (intubated) Lymphatic: No Adenopathy Results Lab Laboratory Tests 03/23/19 05:28 03/23/19 09:53 03/23/19 17:19 03/24/19 03:18 03/24/19 11:04 03/24/19 16:53 03/25/19 03:15 Assessment/Plan Assessment/Plan Acute respiratory failure with large right pleural effusion and probable PNA -Continue vent -Give 40mg of IV Lasix -Give albumin x 3 Q 6 hours apart Pneumonia with sepsis -Wilcox culture -Vanco, Zosyn -IVF Severe septic/cardiogenic shock -Cont IVF -Pt is off pressors -Dobutamine is still going Metabolic lactic acidosis -Monitor -IVF Cardiomyopathy - EF 10% -cardiology is following -Pt may need cardiac cath if renal function continues to improve Acute renal failure - improving -fluid challenge -UO over last 24 hours is 19.5cc/hr Coagulopathy -recheck CMP , PT, PTT, INR Anemia -Monitor -Check occult stool Shock liver -Monitor -Check ammonia level LINDA JONES DO Mar 25, 2019 04:52
[2019-03-25] MEDS: ALBUMIN 25% 25 GM/100 ML 100 ML IV SCH (05:12)
[2019-03-25] MEDS: HYDROCORTISONE 100 MG/2 ML (Solu-CORTEF) VIAL IV SCH ×3 (05:13→17:57)
[2019-03-25] MEDS: PIPERACILLIN/TAZO 4.5 GM/NS 100 ML IV SCH ×6 (05:13→21:18)
[2019-03-25] MEDS: inSUlin ASPART (NovoLOG) 1 UNIT/0.01 ML (CHARGE PER UNIT) SQ SCH ×3 (05:13→18:04)
--- NOTE | 2019-03-25 07:18 | Progress Note (SOAP) ---
Subjective Time Seen by a Provider: 07:15 Subjective/Events-last exam Patient on ventilator with mechanical ventilation. White blood cell count 21,500, potassium 3.4, GFR 23, magnesium 1.7, phosphorus 4.8 elevated. Patient getting constantly 15 pounds. Patient urinary output at 30 mL per hour Focused Exam Lactate Level 03/24/19 03:18: Lactic Acid Level 2.33*H 03/24/19 05:10: Lactic Acid Level 3.43*H 03/25/19 03:15: Lactic Acid Level 1.42 Objective Exam Vital Signs Date Time Temp Pulse Resp B/P (MAP) Pulse Ox O2 Delivery O2 Flow Rate FiO2 03/25/19 06:00 115 22 118/72 (87) 97 Mechanical Ventilator 35.00 03/25/19 05:00 121 23 119/71 (87) 96 Mechanical Ventilator 35.00 03/25/19 04:00 98.0 03/25/19 04:00 117 21 128/76 (93) 97 Mechanical Ventilator 35.00 03/25/19 04:00 98 Mechanical Ventilator 40.00 03/25/19 03:00 117 21 119/77 (91) 97 Mechanical Ventilator 35.00 03/25/19 02:40 116 22 97 35 03/25/19 02:00 114 21 120/76 (91) 97 Mechanical Ventilator 35.00 03/25/19 01:45 126/79 03/25/19 01:00 116 03/25/19 01:00 113 21 120/77 (91) 98 Mechanical Ventilator 35.00 03/25/19 00:29 Mechanical Ventilator 35.00 03/25/19 00:15 111 22 99 35 03/25/19 00:00 98 Mechanical Ventilator 40.00 03/25/19 00:00 116 21 118/79 (92) 99 Mechanical Ventilator 40.00 03/24/19 23:48 96.9 03/24/19 23:46 122/78 03/24/19 23:00 116 22 120/79 (93) 99 Mechanical Ventilator 40.00 03/24/19 22:00 120 21 124/82 (96) 99 Mechanical Ventilator 40.00 03/24/19 21:42 120 22 99 40 03/24/19 21:00 120 21 116/78 (91) 98 Mechanical Ventilator 40.00 03/24/19 20:00 120 21 112/76 (88) 98 Mechanical Ventilator 40.00 03/24/19 20:00 97.6 03/24/19 20:00 98 Mechanical Ventilator 40.00 03/24/19 19:30 120 25 99 40 03/24/19 19:00 116 03/24/19 19:00 116 21 118/74 (89) 99 Mechanical Ventilator 40.00 03/24/19 18:00 120 21 117/75 (89) 99 Mechanical Ventilator 40.00 03/24/19 17:38 118/76 03/24/19 17:00 104 21 107/75 (86) 99 Mechanical Ventilator 40.00 03/24/19 16:00 98 Mechanical Ventilator 40.00 03/24/19 16:00 104 21 118/76 (90) 99 Mechanical Ventilator 40.00 03/24/19 16:00 96.1 03/24/19 15:00 104 22 106/71 (83) 97 Mechanical Ventilator 40.00 03/24/19 14:42 102 22 99 40 03/24/19 14:00 105 21 111/71 (84) 98 Mechanical Ventilator 40.00 03/24/19 13:00 116 03/24/19 13:00 116 21 123/71 (88) 98 Mechanical Ventilator 40.00 03/24/19 12:00 98 Mechanical Ventilator 40.00 03/24/19 12:00 121 21 109/63 (78) 97 Mechanical Ventilator 40.00 03/24/19 12:00 96.3 03/24/19 11:15 121 22 98 40 03/24/19 11:00 120 21 127/61 (83) 97 Mechanical Ventilator 40.00 03/24/19 10:37 103/61 03/24/19 10:00 116 21 100/60 (73) 98 Mechanical Ventilator 40.00 03/24/19 09:00 120 21 124/65 (84) 98 Mechanical Ventilator 40.00 03/24/19 08:33 113/63 03/24/19 08:00 98 Mechanical Ventilator 40.00 03/24/19 08:00 121 21 132/58 (82) 97 Mechanical Ventilator 40.00 03/24/19 08:00 98.4 03/24/19 07:26 118 26 97 40 I & O 03/25/19 07:00 Intake Total 9265 ml Output Total 1125 ml Balance 8140 ml Capillary Refill : Less Than 3 Seconds General Appearance: No Apparent Distress, WD/WN Neck: Normal Inspection Respiratory: No Accessory Muscle Use, No Respiratory Distress, Decreased Breath Sounds Cardiovascular: Regular Rate, Rhythm, No Murmur Gastrointestinal: non tender, soft Results Lab Laboratory Tests 03/24/19 11:04 03/24/19 16:53 03/25/19 03:15 Laboratory Tests 03/24/19 11:04: Prothrombin Time 25.8H, INR Comment 2.2H, Activated Partial Thromboplast Time 45H, Sodium Level 140, Potassium Level 3.8, Chloride Level 105, Carbon Dioxide Level 23, Anion Gap 12, Blood Urea Nitrogen 35H, Creatinine 3.18H, Estimat Glomerular Filtration Rate 19, BUN/Creatinine Ratio 11, Glucose Level 147H, Calcium Level 7.6L, Corrected Calcium 8.5, Total Bilirubin 1.2H, Aspartate Amino Transf (AST/SGOT) 161H, Alanine Aminotransferase (ALT/SGPT) 155H, Alkaline Phosphatase 57, Total Protein 5.1L, Albumin 2.9L 03/24/19 16:53: Sodium Level 141, Potassium Level 3.8, Chloride Level 104, Carbon Dioxide Level 24, Anion Gap 13, Blood Urea Nitrogen 35H, Creatinine 3.08H, Estimat Glomerular Filtration Rate 20, BUN/Creatinine Ratio 11, Glucose Level 129H, Calcium Level 7.7L, Phosphorus Level 4.8H, Magnesium Level 1.9 03/24/19 23:50: Glucometer 120H 03/25/19 03:15: Prothrombin Time 21.7H, INR Comment 1.8H, Activated Partial Thromboplast Time 42H, Sodium Level 141, Potassium Level 3.4L, Chloride Level 108H, Carbon Dioxide Level 18L, Anion Gap 15H, Blood Urea Nitrogen 36H, Creatinine 2.70H, Estimat Glomerular Filtration Rate 23, BUN/Creatinine Ratio 13, Glucose Level 115H, Calcium Level 6.7L, Albumin 2.8L, Phosphorus Level 4.8H, Magnesium Level 1.7L, White Blood Count 21.9H, Red Blood Count 3.92L, Hemoglobin 11.8L, Hematocrit 36L , Mean Corpuscular Volume 91, Mean Corpuscular Hemoglobin 30, Mean Corpuscular Hemoglobin Concent 33, Red Cell Distribution Width 18.1H, Platelet Count 170, Mean Platelet Volume 11.8H, Neutrophils (%) (Auto) 97H, Lymphocytes (%) (Auto) 1L, Monocytes (%) (Auto) 2, Eosinophils (%) (Auto) 0, Basophils (%) (Auto) 0, Neutrophils # (Auto) 21.3H, Lymphocytes # (Auto) 0.2L, Monocytes # (Auto) 0.4, Eosinophils # (Auto) 0.0, Basophils # (Auto) 0.0, Blood Gas Puncture Site RIGHT RADIAL ARTLINE, Blood Gas Patient Temperature 98.0, Arterial Blood pH 7.38, Arterial Blood Partial Pressure CO2 39, Arterial Blood Partial Pressure O2 83, Arterial Blood HCO3 23, Arterial Blood Total CO2 24.0, Arterial Blood Oxygen Saturation 97, Arterial Blood Base Excess -1.6, Cody Test ARTLINE, Blood Gas Ventilator Setting YES, Blood Gas Inspired Oxygen 40% FIO2, Lactic Acid Level 1.42 03/25/19 05:17: Ammonia 33H Microbiology 03/23/19 Blood Culture - Preliminary, Resulted No growth 03/23/19 MRSA Screen - Final, Complete 03/24/19 Urine Culture - Final, Complete NO GROWTH 03/23/19 Gram Stain - Final, Resulted 03/23/19 Wound Culture - Preliminary, Resulted Mixed Bacterial Zina Staphylococcus aureus Streptococcus dysgalactiae Assessment/Plan Assessment/Plan Assess & Plan/Chief Complaint Acute respiratory failure. Pneumonia with sepsis. Acute renal failure. Cardiomyopathy ejection fraction 10 percent. Renal failure. . 03/25/19. Acute respiratory failure. Pneumonia with sepsis. Acute renal failure. Cardiomyopathy. Hypomagnesemia. Leukocytosis. Hypokalemia Clinical Quality Measures DVT/VTE Risk/Contraindication: Risk Factor Score Per Nursin RFS Level Per Nursing on Admit: 4+=Very High KEVEN FELIX DO Mar 25, 2019 07:18
--- NOTE | 2019-03-25 08:22 | NUR ---
NOTIFIED ROBERT PT RUNNING TEMP OF 100 DEGREES. ROBERT STATED TO WATCH PT AND NOTIFY OF TEMP 101 OR HIGHER.
[2019-03-25] MEDS: DOPamine DRIP 250 ML IV SCH (08:25)
--- NOTE | 2019-03-25 08:31 | Physical Therapy Progress Note ---
Therapy Progress Note Patient is currently sedated and on mechanical ventilator. PT will assess patient when medically stable and able to actively participate with therapy. BEN RODRIGUEZ PT Mar 25, 2019 08:31
--- NOTE | 2019-03-25 08:49 | Diagnostic Imaging Report ---
INDICATION: Mechanical ventilation.. TECHNIQUE: Single view chest at 4:05 AM. CORRELATION STUDY: 03/24/2019. FINDINGS: Motion artifact. The endotracheal tube and gastric tube are present appearing generally stable. Right IJ central line is unchanged. Heart size is enlarged. Vasculature appears slightly increased. Combination of bilateral pleural effusions along with consolidation about the mid and lower lung valdovinos also appears somewhat increased. IMPRESSION: 1. Stable appearance about the support lines and tubes. 2. Overall, there appears to be slightly increasing vascular congestion along with increasing combination of effusion along with consolidation and/or edema about the mid and lower lung valdovinos. Dictated by: Dictated on workstation # [id number]
--- NOTE | 2019-03-25 10:00 | Progress Note-Cardiology ---
Cardiology SOAP Progress Note Subjective: Intubated and sedated. Objective: I&O/Vital Signs 03/25/19 03/25/19 03/25/19 03/25/19 05:00 06:00 07:00 07:00 Pulse 121 115 119 116 Resp B/P (MAP) 119/71 (87) 118/72 (87) 115/71 (86) Pulse Ox 96 97 97 O2 Delivery Mechanical Ventilator Mechanical Ventilator Mechanical Ventilator O2 Flow Rate 35.00 35.00 35.00 03/25/19 03/25/19 03/25/19 03/25/19 07:20 08:00 08:00 08:00 Temp 100.0 Pulse 118 121 Resp 28 B/P (MAP) 119/71 (87) Pulse Ox 96 96 98 O2 Delivery Mechanical Ventilator Mechanical Ventilator O2 Flow Rate 35.00 40.00 FiO2 35 03/25/19 03/25/19 03/25/19 03/25/19 08:25 09:00 10:00 10:45 Pulse 118 123 125 125 Resp B/P (MAP) 127/72 114/73 (87) 114/72 (86) Pulse Ox 95 97 97 O2 Delivery Mechanical Ventilator Mechanical Ventilator O2 Flow Rate 35.00 35.00 FiO2 35 03/25/19 03/25/19 03/25/19 03/25/19 11:00 12:00 12:00 12:00 Temp 99.5 Pulse 124 122 Resp B/P (MAP) 125/73 (90) 118/74 (89) Pulse Ox 96 96 98 O2 Delivery Mechanical Ventilator Mechanical Ventilator Mechanical Ventilator O2 Flow Rate 35.00 35.00 40.00 03/25/19 03/25/19 03/25/19 03/25/19 12:11 13:00 13:00 14:00 Pulse 122 122 122 121 Resp 24 B/P (MAP) 130/77 (94) 126/75 (92) Pulse Ox 97 98 96 O2 Delivery Mechanical Ventilator Mechanical Ventilator O2 Flow Rate 35.00 35.00 FiO2 35 03/25/19 03/25/19 03/25/19 03/25/19 14:25 15:00 15:43 15:43 Pulse 118 123 117 126 Resp 22 B/P (MAP) 125/74 (91) 106/64 Pulse Ox 97 96 O2 Delivery Mechanical Ventilator O2 Flow Rate 35.00 FiO2 35 03/25/19 03/25/19 16:00 16:00 Pulse 117 Resp 21 B/P (MAP) 124/72 (89) Pulse Ox 96 98 O2 Delivery Mechanical Ventilator Mechanical Ventilator O2 Flow Rate 35.00 40.00 03/25/19 00:00 Intake Total 4920 ml Output Total 475 ml Balance 4445 ml Weight (Pounds): 270 Weight (Ounces): 3.0 Weight (Calculated Kilograms): 122.773973 Constitutional: other (intubated and on mech vent, non-communicative) Respiratory: No accessory muscle use; other (Fair to good air entry, but diminished at the bases) Cardiovascular: regular rate-rhythm, S1 and S2, systolic murmur (2/6 BEATRIZ over the precordium) Gastrointestional: distended; No guarding, No rebound; audible bowel sounds Extremities: other (mild to mod bilat leg edema); No clubbing, No cyanosis Neurologic/Psychiatric: other (he is not able to cooperate with a neuro exam) Skin: No rash on exposed areas, No ulcerations on exposed areas Results/Procedures: Labs Laboratory Tests 03/24/19 16:53: Sodium Level 141, Potassium Level 3.8, Chloride Level 104, Carbon Dioxide Level 24, Anion Gap 13, Blood Urea Nitrogen 35H, Creatinine 3.08H, Estimat Glomerular Filtration Rate 20, BUN/Creatinine Ratio 11, Glucose Level 129H, Calcium Level 7.7L, Phosphorus Level 4.8H, Magnesium Level 1.9 03/24/19 23:50: Glucometer 120H 03/25/19 03:15: Sodium Level 141, Potassium Level 3.4L, Chloride Level 108H, Carbon Dioxide Level 18L, Anion Gap 15H, Blood Urea Nitrogen 36H, Creatinine 2.70H, Estimat Glomerular Filtration Rate 23, BUN/Creatinine Ratio 13, Glucose Level 115H, Calcium Level 6.7L, Phosphorus Level 4.8H, Magnesium Level 1.7L, White Blood Count 21.9H, Red Blood Count 3.92L, Hemoglobin 11.8L, Hematocrit 36L, Mean Corpuscular Volume 91, Mean Corpuscular Hemoglobin 30, Mean Corpuscular Hemoglobin Concent 33, Red Cell Distribution Width 18.1H, Platelet Count 170, Mean Platelet Volume 11.8H, Neutrophils (%) (Auto) 97H, Lymphocytes (%) (Auto) 1L, Monocytes (%) (Auto) 2, Eosinophils (%) (Auto) 0, Basophils (%) (Auto) 0, Neutrophils # (Auto) 21.3H, Lymphocytes # (Auto) 0.2L, Monocytes # (Auto) 0.4, Eosinophils # (Auto) 0.0, Basophils # (Auto) 0.0, Prothrombin Time 21.7H, INR Comment 1.8H, Activated Partial Thromboplast Time 42H, Blood Gas Puncture Site RIGHT RADIAL ARTLINE, Blood Gas Patient Temperature 98.0, Arterial Blood pH 7.38, Arterial Blood Partial Pressure CO2 39, Arterial Blood Partial Pressure O2 83, Arterial Blood HCO3 23, Arterial Blood Total CO2 24.0, Arterial Blood Oxygen Saturation 97, Arterial Blood Base Excess -1.6, Cody Test ARTLINE, Blood Gas Ventilator Setting YES, Blood Gas Inspired Oxygen 40% FIO2, Lactic Acid Level 1.42, B-Type Natriuretic Peptide 3242.4H, Albumin 2.8L 03/25/19 05:17: Ammonia 33H 03/25/19 11:50: Glucometer 112H Microbiology 03/23/19 Blood Culture - Preliminary, Resulted No growth 03/23/19 MRSA Screen - Final, Complete 03/24/19 Urine Culture - Final, Complete NO GROWTH 03/23/19 Gram Stain - Final, Resulted 03/23/19 Wound Culture - Preliminary, Resulted Mixed Bacterial Zina Staphylococcus aureus Streptococcus dysgalactiae Laboratory Tests 03/23/19 17:19 03/24/19 03:18 03/24/19 11:04 03/24/19 16:53 03/25/19 03:15 Procedures NAME: SARTHAK VILLEDA [facility] REC#: [id number] PT STATUS: ADM IN : 1945 PHYSICIAN: LINDA JONES DO ADMIT DATE: 03/23/19/ICU Draft Date of Exam:03/25/19 CHEST 1 VIEW, AP/PA ONLY INDICATION: Mechanical ventilation.. TECHNIQUE: Single view chest at 4:05 AM. CORRELATION STUDY: 03/24/2019. FINDINGS: Motion artifact. The endotracheal tube and gastric tube are present appearing generally stable. Right IJ central line is unchanged. Heart size is enlarged. Vasculature appears slightly increased. Combination of bilateral pleural effusions along with consolidation about the mid and lower lung valdovinos also appears somewhat increased. IMPRESSION: 1. Stable appearance about the support lines and tubes. 2. Overall, there appears to be slightly increasing vascular congestion along with increasing combination of effusion along with consolidation and/or edema about the mid and lower lung valdovinos. 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 LVEF 10-15% on echo of 03/23/19; EF 35-40% on echo of 09/11/18; LVEF 45-50% on card cath of 10/13/16 Sepsis of undetermined source Ac kidney injury (WALLACE) 3 with oliguria, improving Obesity-hypoventilation and JOLIE; non-compliant with treatment Mild CAD on card cath of Oct 2016. Elevated troponin during this admission due to Type 2 W[place] (hypoxia due to ac resp failure) H/o PVCs. Questionable h/o PAF. Managed by Dr Garg. Pt not on OAC. No PAF demonstrated during this hospitalization, so far H/o hypertension and hyperlipidemia Plan: * Remains off pressors * Attempting to wean off dobutamine * iv fluids and diuretics as needed/tolerated - give IV lasix today * Monitor labs closely * Prognosis guarded Physician Assessment Physician Assessment Intubated and on mech vent. Unable to communicate Lungs: fair to good air entry Cor: reg Ext: no c/c; gen edema A&R * As documented in our note above that I updated (italics) and as noted below * Continue dobutamine for now * iv furosemide today * Monitor labs * Prognosis remains guarded MARYANNE ZACARIAS [employer]PER[employer] Mar 25, 2019 10:00 TRE DIAZ MD [facility] Mar 25, 2019 16:47
[2019-03-25] MEDS ORDERED: FUROSEMIDE 40 MG/4 ML INJ (LASIX) IVP NR (10:21)
[2019-03-25] MEDS: PANTOPRAZOLE 40 MG (PROTONIX) VIAL IV SCH (11:03)
[2019-03-25] MEDS: VANCOMYCIN 1 GM/NS 250 ML IVPB IV SCH ×2 (11:08)
--- NOTE | 2019-03-25 11:32 | Occ Therapy Progress Note ---
Therapy Progress Note Pt. remains on medical ventilator with sedation. Will continue to monitor and address OT skilled needs when medically stable. ALBER MORENO OT Mar 25, 2019 11:32
[2019-03-25] MEDS: DOBUTamine DRIP 250 ML IV SCH ×2 (12:56→15:43)
[2019-03-25] MEDS: fentaNYL INJECTION 1,250 MCG in NS (IVPB) 250 ML IV SCH (17:31)
--- NOTE | 2019-03-25 18:21 | NUR ---
15ML OF FENTANYL WASTED WITH HAYDEE CHRIS.
[2019-03-26] VITALS (31 sets, daily range): BP systolic 92–143; BP diastolic 57–82
[2019-03-26] MEDS: inSUlin ASPART (NovoLOG) 1 UNIT/0.01 ML (CHARGE PER UNIT) SQ SCH ×4 (00:05→18:49)
[2019-03-26] MEDS: HYDROCORTISONE 100 MG/2 ML (Solu-CORTEF) VIAL IV SCH ×4 (00:06→18:47)
[2019-03-26] MEDS: DOBUTamine DRIP 250 ML IV SCH ×3 (01:06→14:59)
[2019-03-26] MEDS: DEXMEDETOMIDINE INJECTION 1,000 MCG in NS (IVPB) 250 ML IV SCH ×4 (01:28→21:19)
[2019-03-26 03:11] LABS: BASOPHILS % (AUTO) 0 % (0-10); EOSINOPHILS % (AUTO) 0 % (0-10); HEMATOCRIT 42 % (40-54); HEMOGLOBIN 14.1 G/DL (13.3-17.7); LYMPHOCYTES # (AUTO) 0.5 X 10^3 (1.0-4.0); LYMPHOCYTES % (AUTO) 2 % (12-44); MEAN CORPUSCULAR HEMOGLOBIN 30 PG (25-34); MEAN CORPUSCULAR HGB CONC 34 G/DL (32-36); MEAN CORPUSCULAR VOLUME 89 FL (80-99); MEAN PLATELET VOLUME 11.9 FL (7.4-10.4); MONOCYTES # (AUTO) 0.5 X 10^3 (0.0-1.0); MONOCYTES % (AUTO) 2 % (0-12); NEUTROPHILS # (AUTO) 24.8 X 10^3 (1.8-7.8); NEUTROPHILS % (AUTO) 96 % (42-75); PLATELET COUNT 195 10^3/uL (130-400); RED CELL DISTRIBUTION WIDTH 18.4 % (10.0-14.5); WHITE BLOOD COUNT 25.8 10^3/uL (4.3-11.0)
[2019-03-26 03:12] LABS: ABG OXYGEN SATURATION 94 % (94-100); ABG PCO2 31 MMHG (35-45); ABG PH 7.49 (7.37-7.43); ABG PO2 62 MMHG (79-93); ABG TCO2 24.2 MMOL/L (21.0-31.0)
[2019-03-26 03:13] LABS: ALLENS TEST ARTLINE; INSPIRED O2 35% FIO2; PATIENT TEMP 96.9; VENTILATOR YES
[2019-03-26] MEDS: SODIUM BICARBONATE 8.4% VIAL 100 MEQ in 1/2 NS IV SOLUTION 1,000 ML IV SCH ×3 (03:20→17:14)
[2019-03-26] MEDS: VASOPRESSIN INJECTION 20 UNIT in NS (IVPB) 100 ML IV SCH ×3 (03:25→19:44)
[2019-03-26] MEDS: POTASSIUM CL 10MEQ/50ML IVPB 50 ML IV SCH (03:26)
[2019-03-26] MEDS: MAGNESIUM 1 GM/100 ML IVPB 100 ML IV SCH (03:26)
[2019-03-26] MEDS: KCL 20 MEQ TAB (K-DUR) PO SCH (03:26)
[2019-03-26 03:29] LABS: CALCIUM 7.8 MG/DL (8.5-10.1); CREATININE SERUM 3.67 MG/DL (0.60-1.30); MAGNESIUM 2.2 MG/DL (1.8-2.4); POTASSIUM 3.8 MMOL/L (3.6-5.0)
[2019-03-26] MEDS: RT-ALBUTEROL/IPRATROPIUM 3 ML (DUONEB) VIAL INH SCH ×6 (03:30→22:58)
[2019-03-26] MEDS: NOREPINEPHRINE 8 MG in NS (IVPB) 250 ML IV SCH ×2 (03:34→20:53)
[2019-03-26] MEDS: PIPERACILLIN/TAZO 4.5 GM/NS 100 ML IV SCH ×6 (05:04→21:19)
[2019-03-26] MEDS ORDERED: NS IV 1000 ML 1,000 ML ONE (06:25)
--- NOTE | 2019-03-26 06:25 | Pulmonary Progress Note ---
Subjective Time Seen by a Provider: 06:34 Subjective/Events-last exam Sedated on vent. Family at bedside. Sepsis Event Evaluation Height, Weight, BMI Height: 5'11.00" Weight: 291lbs. 3.0oz. 132.941897gd; 32.4 BMI Method:Stated Focused Exam Lactate Level 03/24/19 03:18: Lactic Acid Level 2.33*H 03/24/19 05:10: Lactic Acid Level 3.43*H 03/25/19 03:15: Lactic Acid Level 1.42 Exam Exam Vital Signs Date Time Temp Pulse Resp B/P (MAP) Pulse Ox O2 Delivery O2 Flow Rate FiO2 03/26/19 06:00 115 21 139/82 (101) 96 Mechanical Ventilator 35.00 03/26/19 05:00 125 21 133/68 (89) 95 Mechanical Ventilator 35.00 03/26/19 04:00 128 22 124/77 (93) 95 Mechanical Ventilator 35.00 03/26/19 04:00 94 Mechanical Ventilator 35.00 03/26/19 03:30 118 22 94 35 03/26/19 03:00 112 21 131/80 (97) 96 Mechanical Ventilator 35.00 03/26/19 02:00 106 21 125/78 (94) 96 Mechanical Ventilator 35.00 03/26/19 01:00 109 21 131/81 (98) 96 Mechanical Ventilator 35.00 03/26/19 01:00 109 03/26/19 00:00 93 Mechanical Ventilator 35.00 03/26/19 00:00 110 23 140/81 (100) 95 Mechanical Ventilator 35.00 03/25/19 23:30 112 22 96 35 03/25/19 23:00 125 23 131/79 (96) 95 Mechanical Ventilator 35.00 03/25/19 22:00 107 22 110/72 (85) 93 Mechanical Ventilator 35.00 03/25/19 22:00 99.7 03/25/19 21:00 110 18 129/79 (96) 93 Mechanical Ventilator 35.00 03/25/19 20:00 110 21 131/74 (93) 93 Mechanical Ventilator 35.00 03/25/19 20:00 94 Mechanical Ventilator 35.00 03/25/19 19:23 97.2 111 22 138/72 (94) Mechanical Ventilator 35.00 03/25/19 19:00 110 03/25/19 19:00 110 21 139/72 (94) 93 Mechanical Ventilator 35.00 03/25/19 18:15 110 22 96 35 03/25/19 18:00 116 21 139/72 (94) 95 Mechanical Ventilator 35.00 03/25/19 17:00 122 21 138/85 (102) 96 Mechanical Ventilator 35.00 03/25/19 16:00 98 Mechanical Ventilator 40.00 03/25/19 16:00 98.8 03/25/19 16:00 117 21 124/72 (89) 96 Mechanical Ventilator 35.00 03/25/19 15:43 126 106/64 03/25/19 15:43 117 03/25/19 15:00 123 22 125/74 (91) 96 Mechanical Ventilator 35.00 03/25/19 14:25 118 23 97 35 03/25/19 14:00 121 24 126/75 (92) 96 Mechanical Ventilator 35.00 03/25/19 13:00 122 21 130/77 (94) 98 Mechanical Ventilator 35.00 03/25/19 13:00 122 03/25/19 12:11 122 28 97 35 03/25/19 12:00 99.5 03/25/19 12:00 98 Mechanical Ventilator 40.00 03/25/19 12:00 122 21 118/74 (89) 96 Mechanical Ventilator 35.00 03/25/19 11:00 124 22 125/73 (90) 96 Mechanical Ventilator 35.00 03/25/19 10:45 125 25 97 35 03/25/19 10:00 125 24 114/72 (86) 97 Mechanical Ventilator 35.00 03/25/19 09:00 123 24 114/73 (87) 95 Mechanical Ventilator 35.00 03/25/19 08:25 118 127/72 03/25/19 08:00 98 Mechanical Ventilator 40.00 03/25/19 08:00 100.0 03/25/19 08:00 121 28 119/71 (87) 96 Mechanical Ventilator 35.00 03/25/19 07:20 118 27 96 35 03/25/19 07:00 116 25 115/71 (86) 97 Mechanical Ventilator 35.00 03/25/19 07:00 119 I & O 03/26/19 07:00 Intake Total 2630 ml Output Total 1175 ml Balance 1455 ml Height & Weight Height: 5'11.00" Weight: 291lbs. 3.0oz. 132.750494ge; 32.4 BMI Method:Stated General Appearance: No Apparent Distress, WD/WN HEENT: Normal ENT Inspection Neck: Normal Inspection Respiratory: No Accessory Muscle Use, No Respiratory Distress, Decreased Breath Sounds Cardiovascular: Regular Rate, Rhythm, No Murmur Capillary Refill: Less Than 3 Seconds Gastrointestinal: non tender, soft Extremity: Non Tender, Pedal Edema Neurologic/Psychiatric: Other Lymphatic: No Adenopathy Results Lab Laboratory Tests 03/24/19 11:04 03/24/19 16:53 03/25/19 03:15 03/26/19 03:00 Assessment/Plan Assessment/Plan Acute respiratory failure with large right pleural effusion and probable PNA -Continue vent -Continue TF Pneumonia with sepsis -Wilcox culture -Lawrence Neumannn -IVF Severe septic/cardiogenic shock -Cont IVF -Pt is off pressors -Dobutamine is still going Metabolic lactic acidosis -Monitor -IVF Cardiomyopathy - EF 10% -cardiology is following Acute renal failure, with volume overload, and hyperphos -Will d/w family about transferring pt for possible HD -UO was 45cc/hr over last 10hours Coagulopathy -monitor Anemia -Monitor -Check occult stool Shock liver -Monitor Obesity OHS/JOLIE -Out pt testing LINDA JONES DO Mar 26, 2019 06:25
[2019-03-26] MEDS ORDERED: NS IV 1000 ML 1,000 ML IV SCH (06:30)
[2019-03-26] MEDS: PANTOPRAZOLE 40 MG (PROTONIX) VIAL IV SCH (07:27)
--- NOTE | 2019-03-26 07:29 | Progress Note (SOAP) ---
Subjective Time Seen by a Provider: 07:26 Subjective/Events-last exam White blood cell count elevating to 25,800. GFR decreasing to 16. Urine culture no growth. Pulmonology talking about transfer for dialysis to family Focused Exam Lactate Level 03/24/19 03:18: Lactic Acid Level 2.33*H 03/24/19 05:10: Lactic Acid Level 3.43*H 03/25/19 03:15: Lactic Acid Level 1.42 Objective Exam Vital Signs Date Time Temp Pulse Resp B/P (MAP) Pulse Ox O2 Delivery O2 Flow Rate FiO2 03/26/19 07:12 121 20 97 35 03/26/19 06:38 99.7 115 21 139/82 96 Mechanical Ventilator 35.00 03/26/19 06:00 115 21 139/82 (101) 96 Mechanical Ventilator 35.00 03/26/19 05:00 125 21 133/68 (89) 95 Mechanical Ventilator 35.00 03/26/19 04:00 128 22 124/77 (93) 95 Mechanical Ventilator 35.00 03/26/19 04:00 94 Mechanical Ventilator 35.00 03/26/19 03:30 118 22 94 35 03/26/19 03:00 112 21 131/80 (97) 96 Mechanical Ventilator 35.00 03/26/19 02:00 106 21 125/78 (94) 96 Mechanical Ventilator 35.00 03/26/19 01:00 109 21 131/81 (98) 96 Mechanical Ventilator 35.00 03/26/19 01:00 109 03/26/19 00:00 93 Mechanical Ventilator 35.00 03/26/19 00:00 110 23 140/81 (100) 95 Mechanical Ventilator 35.00 03/25/19 23:30 112 22 96 35 03/25/19 23:00 125 23 131/79 (96) 95 Mechanical Ventilator 35.00 03/25/19 22:00 107 22 110/72 (85) 93 Mechanical Ventilator 35.00 03/25/19 22:00 99.7 03/25/19 21:00 110 18 129/79 (96) 93 Mechanical Ventilator 35.00 03/25/19 20:00 110 21 131/74 (93) 93 Mechanical Ventilator 35.00 03/25/19 20:00 94 Mechanical Ventilator 35.00 03/25/19 19:23 97.2 111 22 138/72 (94) Mechanical Ventilator 35.00 03/25/19 19:00 110 03/25/19 19:00 110 21 139/72 (94) 93 Mechanical Ventilator 35.00 03/25/19 18:15 110 22 96 35 03/25/19 18:00 116 21 139/72 (94) 95 Mechanical Ventilator 35.00 03/25/19 17:00 122 21 138/85 (102) 96 Mechanical Ventilator 35.00 03/25/19 16:00 98 Mechanical Ventilator 40.00 03/25/19 16:00 98.8 03/25/19 16:00 117 21 124/72 (89) 96 Mechanical Ventilator 35.00 03/25/19 15:43 126 106/64 03/25/19 15:43 117 03/25/19 15:00 123 22 125/74 (91) 96 Mechanical Ventilator 35.00 03/25/19 14:25 118 23 97 35 03/25/19 14:00 121 24 126/75 (92) 96 Mechanical Ventilator 35.00 03/25/19 13:00 122 21 130/77 (94) 98 Mechanical Ventilator 35.00 03/25/19 13:00 122 03/25/19 12:11 122 28 97 35 03/25/19 12:00 99.5 03/25/19 12:00 98 Mechanical Ventilator 40.00 03/25/19 12:00 122 21 118/74 (89) 96 Mechanical Ventilator 35.00 03/25/19 11:00 124 22 125/73 (90) 96 Mechanical Ventilator 35.00 03/25/19 10:45 125 25 97 35 03/25/19 10:00 125 24 114/72 (86) 97 Mechanical Ventilator 35.00 03/25/19 09:00 123 24 114/73 (87) 95 Mechanical Ventilator 35.00 03/25/19 08:25 118 127/72 03/25/19 08:00 98 Mechanical Ventilator 40.00 03/25/19 08:00 100.0 03/25/19 08:00 121 28 119/71 (87) 96 Mechanical Ventilator 35.00 I & O 03/26/19 07:00 Intake Total 2630 ml Output Total 1175 ml Balance 1455 ml Capillary Refill : Less Than 3 Seconds General Appearance: No Apparent Distress, Other (Ration on vent) Neck: Normal Inspection Respiratory: No Accessory Muscle Use, No Respiratory Distress Cardiovascular: Regular Rate, Rhythm Gastrointestinal: non tender, soft Results Lab Laboratory Tests 03/26/19 03:00 Laboratory Tests 03/25/19 11:50: Glucometer 112H 03/25/19 17:41: Glucometer 114H 03/26/19 00:04: Glucometer 114H 03/26/19 03:00: White Blood Count 25.8H, Red Blood Count 4.68, Hemoglobin 14.1, Hematocrit 42, Mean Corpuscular Volume 89, Mean Corpuscular Hemoglobin 30, Mean Corpuscular Hemoglobin Concent 34, Red Cell Distribution Width 18.4H, Platelet Count 195, Mean Platelet Volume 11.9H, Neutrophils (%) (Auto) 96H, Lymphocytes (%) (Auto) 2L, Monocytes (%) (Auto) 2, Eosinophils (%) (Auto) 0, Basophils (%) (Auto) 0, Neutrophils # (Auto) 24.8H, Lymphocytes # (Auto) 0.5L, Monocytes # (Auto) 0.5, Eosinophils # (Auto) 0.0, Basophils # (Auto) 0.0, Blood Gas Puncture Site RIGHT ARTLINE, Blood Gas Patient Temperature 96.9, Arterial Blood pH 7.49H, Arterial Blood Partial Pressure CO2 31L, Arterial Blood Partial Pressure O2 62L, Arterial Blood HCO3 23, Arterial Blood Total CO2 24.2, Arterial Blood Oxygen Saturation 94, Arterial Blood Base Excess 0.0, Cody Test ARTLINE, Blood Gas Ventilator Setting YES, Blood Gas Inspired Oxygen 35% FIO2, Sodium Level 141, Potassium Level 3.8, Chloride Level 103, Carbon Dioxide Level 18L, Anion Gap 20H, Blood Urea Nitrogen 55H, Creatinine 3.67#H, Estimat Glomerular Filtration Rate 16, BUN/Creatinine Ratio 15, Glucose Level 135H, Calcium Level 7.8L, Phosphorus Level 5.0H, Magnesium Level 2.2 Microbiology 03/23/19 Blood Culture - Preliminary, Resulted No growth 03/23/19 MRSA Screen - Final, Complete 03/24/19 Urine Culture - Final, Complete NO GROWTH 03/23/19 Gram Stain - Final, Resulted 03/23/19 Wound Culture - Preliminary, Resulted Mixed Bacterial Zina Staphylococcus aureus Streptococcus dysgalactiae Assessment/Plan Assessment/Plan Assess & Plan/Chief Complaint Acute respiratory failure. Pneumonia with sepsis. Acute renal failure. Cardiomyopathy ejection fraction 10 percent. Renal failure. . 03/25/19. Acute respiratory failure. Pneumonia with sepsis. Acute renal failure. Cardiomyopathy. Hypomagnesemia. Leukocytosis. Hypokalemia. . 03/26/90. Renal insufficiency getting worse. Pneumonia with sepsis. Respiratory failure. Cardiomyopathy. Leukocytosis worse. Hypokalemia. UTI culture no growth Clinical Quality Measures DVT/VTE Risk/Contraindication: Risk Factor Score Per Nursin RFS Level Per Nursing on Admit: 4+=Very High KEVEN FELIX DO Mar 26, 2019 07:29
--- NOTE | 2019-03-26 07:49 | Diagnostic Imaging Report ---
Indication: Followup ET tube placement. Comparison with 03/25/2019. Findings: ET tube and NG tube as well as right central line remain in good position. There continues to be moderate bilateral pleural effusions. There has been some decrease in infiltrates in the upper lobes. There continues to be cardiomegaly. IMPRESSION: 1. Tubes and lines remain in good position. 2. Moderate pleural effusion. 3. There is some decrease in infiltrate in the upper lobes on today's exam. Dictated by: Dictated on workstation # [id number]
[2019-03-26] MEDS ORDERED: TROUGH ORDER-PHARMACY XX ONE (08:00)
--- NOTE | 2019-03-26 08:01 | Physical Therapy Progress Note ---
Therapy Progress Note Patient still sedated and on vent. Will assess patient when they can participate in PT. LENKA GZUMAN PT Mar 26, 2019 08:00
--- NOTE | 2019-03-26 08:07 | NUR ---
pt having runs of Yelllohgeovany. Yamilet notified, Rod paged.
--- NOTE | 2019-03-26 08:09 | NUR ---
PTD VANCOMYCIN LABS: SCR 3.67 (TRENDING UP) VANC TROUGH 16.6 (0730) PLAN: CONTINUE WITH CURRENT DOSING OF VANCOMYCIN AND DO A REPEAT LEVEL ON 03/27 @ 0800 HOLDING IF GREATER THAN 20.
--- NOTE | 2019-03-26 08:12 | NUR ---
Received verbal order to stop Dobutamine r/t to runs of vtach.
[2019-03-26] MEDS: DOPamine DRIP 250 ML IV SCH (08:25)
[2019-03-26] MEDS: VANCOMYCIN 1 GM/NS 250 ML IVPB IV SCH ×2 (08:29)
--- NOTE | 2019-03-26 08:30 | NUR ---
SCR 3.67 ESTIMATED CRCL USING IDEAL BODY WEIGHT IS ~ 24, CONTINUE WITH ZOSYIN Q8HR EXTENDED INFUSION DOSING, IF SCR CONTINEUS TO WORSEN/CRCL DECLINE WILL CHANGE TO Q 12 HOUR DOSING.
--- NOTE | 2019-03-26 10:15 | Cardiology Progress Note ---
Cardiology SOAP Progress Note Subjective: Intubated and sedated. Objective: I&O/Vital Signs 03/26/19 03/26/19 03/26/19 03/26/19 02:00 03:00 03:30 04:00 Pulse 106 112 118 Resp 21 21 22 B/P (MAP) 125/78 (94) 131/80 (97) Pulse Ox 96 96 94 94 O2 Delivery Mechanical Ventilator Mechanical Ventilator Mechanical Ventilator O2 Flow Rate 35.00 35.00 35.00 FiO2 35 03/26/19 03/26/19 03/26/19 03/26/19 04:00 05:00 06:00 06:38 Temp 99.7 Pulse 128 125 115 115 Resp 22 21 B/P (MAP) 124/77 (93) 133/68 (89) 139/82 (101) 139/82 Pulse Ox 95 95 96 96 O2 Delivery Mechanical Ventilator Mechanical Ventilator Mechanical Ventilator Mechanical Ventilator O2 Flow Rate 35.00 35.00 35.00 35.00 03/26/19 03/26/19 03/26/19 03/26/19 06:39 07:00 07:12 07:54 Temp 99.4 Pulse 121 121 121 137 Resp 19 20 20 B/P (MAP) 143/79 (100) 114/77 Pulse Ox 95 97 96 O2 Delivery Mechanical Ventilator Mechanical Ventilator O2 Flow Rate 35.00 35.00 FiO2 35 03/26/19 03/26/19 03/26/19 03/26/19 08:00 08:00 08:00 09:00 Temp 99.4 Pulse 109 96 Resp 18 21 B/P (MAP) 128/78 (95) 103/61 (75) Pulse Ox 96 94 96 O2 Delivery Mechanical Ventilator Mechanical Ventilator Mechanical Ventilator O2 Flow Rate 35.00 35.00 35.00 03/26/19 03/26/19 10:00 11:06 Pulse 93 98 Resp 19 19 B/P (MAP) 108/68 (81) Pulse Ox 96 93 O2 Delivery Mechanical Ventilator O2 Flow Rate 35.00 FiO2 35 03/26/19 00:00 Intake Total 1260 ml Output Total 800 ml Balance 460 ml Weight (Pounds): 291 Weight (Ounces): 3.0 Weight (Calculated Kilograms): 132.939519 Constitutional: other (intubated and on mech vent, non-communicative) Respiratory: No accessory muscle use; other (Fair to good air entry, but diminished at the bases) Cardiovascular: regular rate-rhythm, S1 and S2, systolic murmur (2/6 BEATRIZ over the precordium) Gastrointestional: distended; No guarding, No rebound; audible bowel sounds Extremities: other (mild to mod bilat leg edema); No clubbing, No cyanosis Neurologic/Psychiatric: other (he is not able to cooperate with a neuro exam) Skin: No rash on exposed areas, No ulcerations on exposed areas Results/Procedures: Labs Laboratory Tests 03/25/19 17:41: Glucometer 114H 03/26/19 00:04: Glucometer 114H 03/26/19 03:00: White Blood Count 25.8H, Red Blood Count 4.68, Hemoglobin 14.1, Hematocrit 42, Mean Corpuscular Volume 89, Mean Corpuscular Hemoglobin 30, Mean Corpuscular Hemoglobin Concent 34, Red Cell Distribution Width 18.4H, Platelet Count 195, Mean Platelet Volume 11.9H, Neutrophils (%) (Auto) 96H, Lymphocytes (%) (Auto) 2L, Monocytes (%) (Auto) 2, Eosinophils (%) (Auto) 0, Basophils (%) (Auto) 0, Neutrophils # (Auto) 24.8H, Lymphocytes # (Auto) 0.5L, Monocytes # (Auto) 0.5, Eosinophils # (Auto) 0.0, Basophils # (Auto) 0.0, Blood Gas Puncture Site RIGHT ARTLINE, Blood Gas Patient Temperature 96.9, Arterial Blood pH 7.49H, Arterial Blood Partial Pressure CO2 31L, Arterial Blood Partial Pressure O2 62L, Arterial Blood HCO3 23, Arterial Blood Total CO2 24.2, Arterial Blood Oxygen Saturation 94, Arterial Blood Base Excess 0.0, Cody Test ARTLINE, Blood Gas Ventilator Setting YES, Blood Gas Inspired Oxygen 35% FIO2, Sodium Level 141, Potassium Level 3.8, Chloride Level 103, Carbon Dioxide Level 18L, Anion Gap 20H, Blood Urea Nitrogen 55H, Creatinine 3.67#H, Estimat Glomerular Filtration Rate 16, BUN/Creatinine Ratio 15, Glucose Level 135H, Calcium Level 7.8L, Phosphorus Level 5.0H, Magnesium Level 2.2 03/26/19 07:30: Vancomycin Level Trough 16.6 Microbiology 03/23/19 Blood Culture - Preliminary, Resulted No growth 03/23/19 MRSA Screen - Final, Complete 03/24/19 Urine Culture - Final, Complete NO GROWTH 03/23/19 Gram Stain - Final, Resulted 03/23/19 Wound Culture - Preliminary, Resulted Mixed Bacterial Zina Staphylococcus aureus Streptococcus dysgalactiae A/P: Assessment/Dx: Ac resp failure and shock 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 LVEF 10-15% on echo of 03/23/19; EF 35-40% on echo of 09/11/18; LVEF 45-50% on card cath of 10/13/16 Sepsis of undetermined source Ac kidney injury (WALLACE) 3 with oliguria, worsening. Creatinine today 3.0 + Obesity-hypoventilation and JOLIE; non-compliant with treatment Mild CAD on card cath of Oct 2016. Elevated troponin during this admission due to Type 2 VT (hypoxia due to ac resp failure) H/o PVCs. Questionable h/o PAF. Episode of narrow complex and wide complex tachycardia overnight - likely AF with RVR. H/o hypertension and hyperlipidemia Plan: Plan: * Dobutamine discontinued due to Atrial and Ventricular ectopy and tachycardia. No further SVT/WCT. Normal Electrolytes. * iv fluids and diuretics as needed/tolerated * worsening renal function - may require CRRT or dialysis. * Prognosis guarded Thank you for your consultation. Please call me if you have any questions. Gavino Garg MD, FACP, FACC, FSCAI, FHRS, CCDS Interventional Cardiology Cardiac Electrophysiology Vascular Medicine and Endovascular Interventions Focused Exam Lactate Level 03/24/19 03:18: Lactic Acid Level 2.33*H 03/24/19 05:10: Lactic Acid Level 3.43*H 03/25/19 03:15: Lactic Acid Level 1.42 Feliciano GARG MD Mar 26, 2019 10:15
--- NOTE | 2019-03-26 11:11 | Occ Therapy Progress Note ---
Therapy Progress Note Pt. remains on medical ventilator with sedation. pt is not appropriate for OT services at this time. OT will require new orders when medically stable/ appropriate. d/c OT orders at this time. ALBER MORENO OT Mar 26, 2019 11:11
--- NOTE | 2019-03-26 14:54 | Pulmonary Progress Note ---
Standard Progress Note Progress Notes Time Seen by Provider: 13:00 talked to daughter and extensively about patients current condition and plan of care. 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 After a long discussion they have decided to make him a no code however continue current supportive measures and see what his kidney function is tomorrow. Assessment & Plan Acute respiratory failure with large right pleural effusion and probable PNA -Continue vent -Continue TF Pneumonia with sepsis -Wilcox culture -Vanco, Zosyn -IVF Severe septic/cardiogenic shock -Cont IVF -Pt is off pressors -Dobutamine is still going Metabolic lactic acidosis -Monitor -IVF Cardiomyopathy - EF 10% -cardiology is following Acute renal failure, with volume overload, and hyperphos -Will d/w family about transferring pt for possible HD -UO was 45cc/hr over last 10hours Coagulopathy -monitor Anemia -Monitor -Check occult stool Shock liver -Monitor Obesity OHS/JOLIE -Out pt testing Critical Care: Critically Ill Patient Time spent with patient (mins): 60 Focused Exam Lactate Level 03/24/19 03:18: Lactic Acid Level 2.33*H 03/24/19 05:10: Lactic Acid Level 3.43*H 03/25/19 03:15: Lactic Acid Level 1.42 LINDA JONES DO Mar 26, 2019 14:54
[2019-03-26] MEDS: fentaNYL INJECTION 1,250 MCG in NS (IVPB) 250 ML IV SCH (18:39)
[2019-03-27] VITALS (33 sets, daily range): BP systolic 96–127; BP diastolic 55–86
[2019-03-27] MEDS: fentaNYL INJECTION 1,250 MCG in NS (IVPB) 250 ML IV SCH (00:14)
[2019-03-27] MEDS: DOBUTamine DRIP 250 ML IV SCH ×3 (00:36→14:12)
[2019-03-27] MEDS: SODIUM BICARBONATE 8.4% VIAL 100 MEQ in 1/2 NS IV SOLUTION 1,000 ML IV SCH ×4 (00:37→22:23)
[2019-03-27] MEDS: inSUlin ASPART (NovoLOG) 1 UNIT/0.01 ML (CHARGE PER UNIT) SQ SCH ×4 (00:39→17:59)
[2019-03-27] MEDS: HYDROCORTISONE 100 MG/2 ML (Solu-CORTEF) VIAL IV SCH ×4 (00:51→17:59)
[2019-03-27] MEDS: RT-ALBUTEROL/IPRATROPIUM 3 ML (DUONEB) VIAL INH SCH ×6 (02:42→21:48)
[2019-03-27] MEDS: KCL 20 MEQ TAB (K-DUR) PO SCH (03:23)
[2019-03-27] MEDS: MAGNESIUM 1 GM/100 ML IVPB 100 ML IV SCH (03:23)
[2019-03-27] MEDS: VASOPRESSIN INJECTION 20 UNIT in NS (IVPB) 100 ML IV SCH ×3 (03:23→19:36)
[2019-03-27] MEDS: POTASSIUM CL 10MEQ/50ML IVPB 50 ML IV SCH (03:23)
[2019-03-27 03:24] LABS: ABG BASE EXCESS 3.4 MMOL/L (-2.5-2.5); ABG OXYGEN SATURATION 91 % (94-100); ABG PCO2 41 MMHG (35-45); ABG PH 7.44 (7.37-7.43); ABG PO2 61 MMHG (79-93); ABG TCO2 28.5 MMOL/L (21.0-31.0)
[2019-03-27 03:27] LABS: ALLENS TEST ART LINE; INSPIRED O2 35%; PATIENT TEMP 98.6; VENTILATOR YES
[2019-03-27 03:27] LABS: BASOPHILS % (AUTO) 0 % (0-10); EOSINOPHILS % (AUTO) 0 % (0-10); HEMATOCRIT 41 % (40-54); HEMOGLOBIN 13.5 G/DL (13.3-17.7); LYMPHOCYTES # (AUTO) 0.5 X 10^3 (1.0-4.0); LYMPHOCYTES % (AUTO) 2 % (12-44); MEAN CORPUSCULAR HEMOGLOBIN 30 PG (25-34); MEAN CORPUSCULAR HGB CONC 33 G/DL (32-36); MEAN CORPUSCULAR VOLUME 90 FL (80-99); MONOCYTES # (AUTO) 0.4 X 10^3 (0.0-1.0); MONOCYTES % (AUTO) 2 % (0-12); NEUTROPHILS # (AUTO) 20.8 X 10^3 (1.8-7.8); NEUTROPHILS % (AUTO) 96 % (42-75); PLATELET COUNT 137 10^3/uL (130-400); WHITE BLOOD COUNT 21.8 10^3/uL (4.3-11.0)
[2019-03-27 03:50] LABS: CALCIUM 7.5 MG/DL (8.5-10.1); CREATININE SERUM 3.67 MG/DL (0.60-1.30); MAGNESIUM 2.1 MG/DL (1.8-2.4); PHOSPHORUS 5.6 MG/DL (2.3-4.7); POTASSIUM 3.9 MMOL/L (3.6-5.0)
[2019-03-27] MEDS: DEXMEDETOMIDINE INJECTION 1,000 MCG in NS (IVPB) 250 ML IV SCH ×3 (04:26→17:36)
[2019-03-27] MEDS: PIPERACILLIN/TAZO 4.5 GM/NS 100 ML IV SCH ×6 (05:06→22:24)
--- NOTE | 2019-03-27 06:48 | Pulmonary Progress Note ---
Subjective Time Seen by a Provider: 06:44 Subjective/Events-last exam Sedated on vent Sepsis Event Evaluation Height, Weight, BMI Height: 5'11.00" Weight: 293lbs. 3.0oz. 132.698458ke; 32.4 BMI Method:Stated Focused Exam Lactate Level 03/25/19 03:15: Lactic Acid Level 1.42 Exam Exam Vital Signs Date Time Temp Pulse Resp B/P (MAP) Pulse Ox O2 Delivery O2 Flow Rate FiO2 03/27/19 06:10 98 18 93 35 03/27/19 06:00 88 17 105/61 (76) 92 Mechanical Ventilator 35.00 03/27/19 05:00 92 18 96/62 (73) 92 Mechanical Ventilator 35.00 03/27/19 04:00 93 Mechanical Ventilator 35.00 03/27/19 04:00 94 20 104/63 (77) 91 Mechanical Ventilator 35.00 03/27/19 04:00 98.8 03/27/19 03:00 103 21 108/58 (75) 91 Mechanical Ventilator 35.00 03/27/19 02:42 95 20 90 35 03/27/19 02:00 93 18 98/58 (71) 91 Mechanical Ventilator 35.00 03/27/19 01:00 94 17 103/60 (74) 91 Mechanical Ventilator 35.00 03/27/19 01:00 94 03/27/19 00:15 97.3 93 19 93/60 92 Mechanical Ventilator 35.00 03/27/19 00:00 103 18 103/58 (73) 91 Mechanical Ventilator 35.00 03/27/19 00:00 93 Mechanical Ventilator 35.00 03/26/19 23:00 96 18 107/58 (74) 90 Mechanical Ventilator 35.00 03/26/19 22:58 97 19 90 35 03/26/19 22:00 93 19 93/60 (71) 92 Mechanical Ventilator 35.00 03/26/19 21:00 93 24 98/58 (71) 93 Mechanical Ventilator 35.00 03/26/19 20:00 93 Mechanical Ventilator 35.00 03/26/19 20:00 96 18 100/57 (71) 92 Mechanical Ventilator 35.00 03/26/19 19:43 97.3 96 17 92/60 (71) 91 Mechanical Ventilator 35.00 03/26/19 19:23 85 25 94 35 03/26/19 19:00 97 03/26/19 19:00 84 17 109/63 (78) 94 Mechanical Ventilator 35.00 03/26/19 18:00 87 17 105/64 (78) 95 Mechanical Ventilator 35.00 03/26/19 17:00 90 18 111/64 (80) 94 Mechanical Ventilator 35.00 03/26/19 16:00 92 17 117/66 (83) 94 Mechanical Ventilator 35.00 03/26/19 16:00 94 Mechanical Ventilator 35.00 03/26/19 15:00 93 20 101/67 (78) 94 Mechanical Ventilator 35.00 03/26/19 14:54 93 19 94 35 03/26/19 14:00 95 15 120/65 (83) 94 Mechanical Ventilator 35.00 03/26/19 13:00 96 22 116/62 (80) 93 Mechanical Ventilator 35.00 03/26/19 12:31 101 03/26/19 12:00 93 24 98/58 (71) 91 Mechanical Ventilator 35.00 03/26/19 12:00 94 Mechanical Ventilator 35.00 03/26/19 11:06 98 19 93 35 03/26/19 11:00 93 18 111/63 (79) 96 Mechanical Ventilator 35.00 03/26/19 10:00 93 19 108/68 (81) 96 Mechanical Ventilator 35.00 03/26/19 09:00 96 21 103/61 (75) 96 Mechanical Ventilator 35.00 03/26/19 08:00 94 Mechanical Ventilator 35.00 03/26/19 08:00 99.4 03/26/19 08:00 109 18 128/78 (95) 96 Mechanical Ventilator 35.00 03/26/19 07:54 99.4 137 20 114/77 96 Mechanical Ventilator 35.00 03/26/19 07:12 121 20 97 35 03/26/19 07:00 121 19 143/79 (100) 95 Mechanical Ventilator 35.00 I & O 03/27/19 07:00 Intake Total 2700 ml Output Total 1275 ml Balance 1425 ml Height & Weight Height: 5'11.00" Weight: 293lbs. 3.0oz. 132.210459je; 32.4 BMI Method:Stated General Appearance: No Apparent Distress, Other (Ration on vent) HEENT: Normal ENT Inspection Neck: Normal Inspection Respiratory: No Accessory Muscle Use, No Respiratory Distress Cardiovascular: Regular Rate, Rhythm Capillary Refill: Less Than 3 Seconds Gastrointestinal: non tender, soft Extremity: Non Tender, Pedal Edema Neurologic/Psychiatric: Other Lymphatic: No Adenopathy Results Lab Laboratory Tests 03/26/19 03:00 03/27/19 03:00 Assessment/Plan Assessment/Plan Acute respiratory failure with large right pleural effusion and probable PNA -Continue vent -Continue TF -Possible comfort care only today Pneumonia with sepsis -Wilcox culture -Mary Neumann -IVF Severe septic/cardiogenic shock -Cont IVF -Pt is off pressors Metabolic lactic acidosis -Monitor -IVF Cardiomyopathy - EF 10% -cardiology is following Acute renal failure, with volume overload, and hyperphos -Family does not want HD -UO was 45cc/hr over last 10hours Coagulopathy -monitor Anemia -Monitor -Check occult stool Shock liver -Monitor Obesity OHS/JOLIE -Out pt testing LINDA JONES DO Mar 27, 2019 06:48
[2019-03-27] MEDS ORDERED: LORazepam INJ 2 MG/ML (ATIVAN) VIAL IV PRN (07:00)
[2019-03-27] MEDS: PANTOPRAZOLE 40 MG (PROTONIX) VIAL IV SCH (07:38)
[2019-03-27] MEDS ORDERED: TROUGH ORDER-PHARMACY XX ONE (08:00)
--- NOTE | 2019-03-27 08:04 | Physical Therapy Progress Note ---
Therapy Progress Note Patient is currently sedated and on ventilator. PT will assess patient when medically stable and able to actively participate with therapy. EBN RODRIGUEZ PT Mar 27, 2019 08:04
[2019-03-27 08:17] LABS: VANCOMYCIN,TROUGH 18.8 UG/ML (10.0-20.0)
--- NOTE | 2019-03-27 09:14 | Cardiology Progress Note ---
Cardiology SOAP Progress Note Subjective: Intubated/ventilated. Objective: I&O/Vital Signs 03/27/19 03/27/19 03/27/19 03/27/19 05:00 06:00 06:10 07:00 Pulse 92 88 98 96 Resp 18 17 18 32 B/P (MAP) 96/62 (73) 105/61 (76) 97/58 (71) Pulse Ox 92 92 93 91 O2 Delivery Mechanical Ventilator Mechanical Ventilator Mechanical Ventilator O2 Flow Rate 35.00 35.00 35.00 FiO2 35 03/27/19 03/27/19 03/27/19 03/27/19 07:07 08:00 08:00 08:00 Temp 98.7 Pulse 98 95 Resp 35 B/P (MAP) 96/61 (73) Pulse Ox 93 93 O2 Delivery Mechanical Ventilator Mechanical Ventilator O2 Flow Rate 35.00 35.00 03/27/19 03/27/19 03/27/19 03/27/19 09:00 09:11 10:00 10:24 Pulse 93 93 95 92 Resp 36 18 36 18 B/P (MAP) 107/64 (78) 105/60 (75) Pulse Ox 93 92 92 92 O2 Delivery Mechanical Ventilator Mechanical Ventilator O2 Flow Rate 35.00 35.00 FiO2 35 35 03/27/19 03/27/19 03/27/19 03/27/19 11:00 11:00 12:00 12:00 Temp 97.5 97.9 Pulse 93 90 88 Resp 30 30 35 B/P (MAP) 110/63 (79) 116/64 114/63 (80) Pulse Ox 92 92 93 O2 Delivery Mechanical Ventilator Mechanical Ventilator Mechanical Ventilator O2 Flow Rate 35.00 35.00 35.00 03/27/19 03/27/19 03/27/19 03/27/19 12:00 13:00 13:09 14:00 Pulse 87 89 80 Resp 28 13 B/P (MAP) 109/69 (82) 113/78 (90) Pulse Ox 93 92 87 O2 Delivery Mechanical Ventilator Mechanical Ventilator Mechanical Ventilator O2 Flow Rate 35.00 35.00 35.00 03/27/19 03/27/19 03/27/19 14:20 14:26 16:19 Pulse 93 82 Resp 18 18 B/P (MAP) Pulse Ox 97 98 O2 Delivery Mechanical Ventilator O2 Flow Rate 30.00 FiO2 35 30 03/27/19 00:00 Intake Total 250 ml Output Total 700 ml Balance -450 ml Weight (Pounds): 293 Weight (Ounces): 3.0 Weight (Calculated Kilograms): 132.194901 Constitutional: other [facility] non-communicative) Respiratory: No accessory muscle use; other (Fair to good air entry, but diminished at the bases) Cardiovascular: regular rate-rhythm, S1 and S2, systolic murmur (2/6 BEATRIZ over the precordium) Gastrointestional: distended; No guarding, No rebound; audible bowel sounds Extremities: other (mild to mod bilat leg edema); No clubbing, No cyanosis Neurologic/Psychiatric: other (he is not able to cooperate with a neuro exam) Skin: No rash on exposed areas, No ulcerations on exposed areas Results/Procedures: Labs Laboratory Tests 03/26/19 18:49: Glucometer 146H 03/27/19 00:39: Glucometer 131H 03/27/19 03:00: White Blood Count 21.8H, Red Blood Count 4.54, Hemoglobin 13.5, Hematocrit 41, Mean Corpuscular Volume 90, Mean Corpuscular Hemoglobin 30, Mean Corpuscular Hemoglobin Concent 33, Red Cell Distribution Width 18.0H, Platelet Count 137, Mean Platelet Volume 12.0H, Neutrophils (%) (Auto) 96H, Lymphocytes (%) (Auto) 2L, Monocytes (%) (Auto) 2, Eosinophils (%) (Auto) 0, Basophils (%) (Auto) 0, Neutrophils # (Auto) 20.8H, Lymphocytes # (Auto) 0.5L, Monocytes # (Auto) 0.4, Eosinophils # (Auto) 0.0, Basophils # (Auto) 0.0, Sodium Level 142, Potassium Level 3.9, Chloride Level 103, Carbon Dioxide Level 22, Anion Gap 17H, Blood Urea Nitrogen 66H, Creatinine 3.67H, Estimat Glomerular Filtration Rate 16, BUN/Creatinine Ratio 18, Glucose Level 135H, Calcium Level 7.5L, Phosphorus Level 5.6H, Magnesium Level 2.1 03/27/19 03:15: Blood Gas Puncture Site PAUL, Blood Gas Patient Temperature 98.6, Arterial Blood pH 7.44H, Arterial Blood Partial Pressure CO2 41, Arterial Blood Partial Pressure O2 61L, Arterial Blood HCO3 27, Arterial Blood Total CO2 28.5, Arterial Blood Oxygen Saturation 91L, Arterial Blood Base Excess 3.4H, Cody Test ART LINE, Blood Gas Ventilator Setting YES, Blood Gas Inspired Oxygen 35% 03/27/19 07:45: Triglycerides Level 568H, Vancomycin Level Trough 18.8 03/27/19 11:47: Glucometer 118H Microbiology 03/23/19 Blood Culture - Preliminary, Resulted No growth 03/23/19 MRSA Screen - Final, Complete 03/24/19 Urine Culture - Final, Complete NO GROWTH 03/23/19 Gram Stain - Final, Complete 03/23/19 Wound Culture - Final, Complete Mixed Bacterial Zina Staphylococcus aureus Streptococcus dysgalactiae A/P: Assessment/Dx: Ac resp failure and shock 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 LVEF 10-15% on echo of 03/23/19; EF 35-40% on echo of 09/11/18; LVEF 45-50% on card cath of 10/13/16 Sepsis of undetermined source Ac kidney injury (WALLACE) 3 with oliguria, worsening. Creatinine today 3.0 +. However patient is making urine. Obesity-hypoventilation and JOLIE; non-compliant with treatment Mild CAD on card cath of Oct 2016. Elevated troponin during this admission due to Type 2 RI (hypoxia due to ac resp failure) H/o PVCs. Questionable h/o PAF. Episode of narrow complex and wide complex tachycardia overnight - likely AF with RVR. H/o hypertension and hyperlipidemia Plan: Plan: * Dobutamine discontinued due to Atrial and Ventricular ectopy and tachycardia. No further SVT/WCT. Normal Electrolytes. * iv fluids and diuretics as needed/tolerated * worsening renal function. * Prognosis guarded Thank you for your consultation. Please call me if you have any questions. Gavino Garg MD, FACP, FACC, FSCAI, FHRS, CCDS Interventional Cardiology Cardiac Electrophysiology Vascular Medicine and Endovascular Interventions Focused Exam Lactate Level 03/25/19 03:15: Lactic Acid Level 1.42 Feliciano GARG MD Mar 27, 2019 9:14 am
[2019-03-27] MEDS: DOPamine DRIP 250 ML IV SCH (09:47)
[2019-03-27] MEDS: NOREPINEPHRINE 8 MG in NS (IVPB) 250 ML IV SCH ×2 (09:47→19:36)
[2019-03-27] MEDS: VANCOMYCIN 1 GM/NS 250 ML IVPB IV SCH ×2 (09:53)
--- NOTE | 2019-03-27 11:10 | Diagnostic Imaging Report ---
INDICATION: Respiratory distress. COMPARISON: Compared 03/26/2019. FINDINGS: ET tube stable in mid trachea. OG catheter in the stomach. A right IJ in the lower SVC. Bilateral pleural effusions, cardiomegaly and perihilar infiltrates or edema unchanged. No pneumothorax. IMPRESSION: Support apparatus and bilateral pleural parenchymal opacity showed no convincing change. Dictated by: Dictated on workstation # [id number]
--- NOTE | 2019-03-27 15:20 | NUR ---
Received call from pt spouse stating "Just found out today that if I don't keep Bill alive until the first I will not have any money. I won't receive ERS or his other benefits." business services manager notified of call. Dr. Woodard notified of call.
[2019-03-28] VITALS (18 sets, daily range): BP systolic 80–121; BP diastolic 45–86
[2019-03-28] MEDS: DOBUTamine DRIP 250 ML IV SCH ×2 (00:03→05:15)
[2019-03-28] MEDS: HYDROCORTISONE 100 MG/2 ML (Solu-CORTEF) VIAL IV SCH ×3 (00:04→11:30)
[2019-03-28] MEDS: DEXMEDETOMIDINE INJECTION 1,000 MCG in NS (IVPB) 250 ML IV SCH (00:04)
[2019-03-28] MEDS: inSUlin ASPART (NovoLOG) 1 UNIT/0.01 ML (CHARGE PER UNIT) SQ SCH ×3 (00:08→11:38)
[2019-03-28] MEDS: RT-ALBUTEROL/IPRATROPIUM 3 ML (DUONEB) VIAL INH SCH ×3 (01:36→11:10)
[2019-03-28 02:51] LABS: ABG BASE EXCESS 5.3 MMOL/L (-2.5-2.5); ABG OXYGEN SATURATION 86 % (94-100); ABG PCO2 41 MMHG (35-45); ABG PH 7.47 (7.37-7.43); ABG PO2 53 MMHG (79-93); ABG TCO2 30.3 MMOL/L (21.0-31.0); ALLENS TEST YES-POS
[2019-03-28 02:52] LABS: BASOPHILS % (AUTO) 0 % (0-10); EOSINOPHILS % (AUTO) 0 % (0-10); HEMATOCRIT 43 % (40-54); LYMPHOCYTES # (AUTO) 0.5 X 10^3 (1.0-4.0); LYMPHOCYTES % (AUTO) 3 % (12-44); MEAN CORPUSCULAR HEMOGLOBIN 29 PG (25-34); MEAN CORPUSCULAR HGB CONC 33 G/DL (32-36); MEAN CORPUSCULAR VOLUME 90 FL (80-99); MEAN PLATELET VOLUME 12.1 FL (7.4-10.4); MONOCYTES # (AUTO) 0.6 X 10^3 (0.0-1.0); MONOCYTES % (AUTO) 3 % (0-12); NEUTROPHILS # (AUTO) 18.6 X 10^3 (1.8-7.8); NEUTROPHILS % (AUTO) 95 % (42-75); PLATELET COUNT 166 10^3/uL (130-400); RED CELL DISTRIBUTION WIDTH 18.4 % (10.0-14.5); WHITE BLOOD COUNT 19.7 10^3/uL (4.3-11.0)
[2019-03-28 02:52] LABS: INSPIRED O2 30%; PATIENT TEMP 98.8; VENTILATOR YES
[2019-03-28] MEDS: fentaNYL INJECTION 1,250 MCG in NS (IVPB) 250 ML IV SCH (02:54)
[2019-03-28 03:12] LABS: CALCIUM 7.4 MG/DL (8.5-10.1); CREATININE SERUM 3.5 MG/DL (0.60-1.30); MAGNESIUM 1.9 MG/DL (1.8-2.4); PHOSPHORUS 5.9 MG/DL (2.3-4.7); POTASSIUM 3.8 MMOL/L (3.6-5.0)
[2019-03-28] MEDS: MAGNESIUM 1 GM/100 ML IVPB 100 ML IV SCH (03:47)
[2019-03-28] MEDS: VASOPRESSIN INJECTION 20 UNIT in NS (IVPB) 100 ML IV SCH (03:47)
[2019-03-28] MEDS: POTASSIUM CL 10MEQ/50ML IVPB 50 ML IV SCH (03:47)
[2019-03-28] MEDS: KCL 20 MEQ TAB (K-DUR) PO SCH (03:47)
[2019-03-28] MEDS: PIPERACILLIN/TAZO 4.5 GM/NS 100 ML IV SCH ×2 (05:21)
--- NOTE | 2019-03-28 05:54 | Pulmonary Progress Note ---
Subjective Time Seen by a Provider: 06:43 Subjective/Events-last exam Sedated on vent Sepsis Event Evaluation Height, Weight, BMI Height: 5'11.00" Weight: 293lbs. 3.0oz. 132.887531xn; 32.4 BMI Method:Stated Exam Exam Vital Signs Date Time Temp Pulse Resp B/P (MAP) Pulse Ox O2 Delivery O2 Flow Rate FiO2 03/28/19 05:00 91 18 99/60 (73) 96 Mechanical Ventilator 30.00 03/28/19 04:00 89 18 102/57 (72) 96 Mechanical Ventilator 30.00 03/28/19 04:00 93 Mechanical Ventilator 30.00 03/28/19 03:50 84 18 74 30 03/28/19 03:00 84 17 93/52 (66) 94 Mechanical Ventilator 30.00 03/28/19 02:00 96.3 78 17 107/66 95 Mechanical Ventilator 30.00 03/28/19 02:00 78 17 107/66 (80) 95 Mechanical Ventilator 30.00 03/28/19 01:36 86 18 95 30 03/28/19 01:00 78 18 116/60 (78) 95 Mechanical Ventilator 30.00 03/28/19 01:00 85 03/28/19 00:00 82 17 105/70 (82) 96 Mechanical Ventilator 30.00 03/28/19 00:00 94 Mechanical Ventilator 30.00 03/27/19 23:00 85 18 120/61 (80) 95 Mechanical Ventilator 30.00 03/27/19 22:00 83 20 114/68 (83) 94 Mechanical Ventilator 30.00 03/27/19 21:47 86 18 96 30 03/27/19 21:00 89 18 116/68 (84) 96 Mechanical Ventilator 30.00 03/27/19 20:00 94 Mechanical Ventilator 30.00 03/27/19 20:00 84 17 116/73 (87) 97 Mechanical Ventilator 30.00 03/27/19 19:34 96.3 80 18 108/66 (80) 96 Mechanical Ventilator 30.00 03/27/19 19:03 121/61 03/27/19 19:00 85 18 125/73 (90) 97 Mechanical Ventilator 30.00 03/27/19 18:53 82 18 85 30 03/27/19 18:41 87 03/27/19 18:00 85 17 117/70 (86) 97 Mechanical Ventilator 30.00 03/27/19 17:00 90 17 125/63 (83) 96 Mechanical Ventilator 30.00 03/27/19 16:19 82 18 98 30 03/27/19 16:00 85 18 110/71 (84) 98 Mechanical Ventilator 30.00 03/27/19 16:00 93 Mechanical Ventilator 35.00 03/27/19 15:00 87 17 103/63 (76) 98 Mechanical Ventilator 30.00 03/27/19 14:26 Mechanical Ventilator 30.00 03/27/19 14:20 93 18 97 35 03/27/19 14:00 80 13 113/78 (90) 87 Mechanical Ventilator 35.00 03/27/19 13:09 89 03/27/19 13:00 87 28 109/69 (82) 92 Mechanical Ventilator 35.00 03/27/19 12:00 93 Mechanical Ventilator 35.00 03/27/19 12:00 88 35 114/63 (80) 93 Mechanical Ventilator 35.00 03/27/19 12:00 97.9 03/27/19 11:00 97.5 90 30 116/64 92 Mechanical Ventilator 35.00 03/27/19 11:00 93 30 110/63 (79) 92 Mechanical Ventilator 35.00 03/27/19 10:24 92 18 92 35 03/27/19 10:00 95 36 105/60 (75) 92 Mechanical Ventilator 35.00 03/27/19 09:11 93 18 92 35 03/27/19 09:00 93 36 107/64 (78) 93 Mechanical Ventilator 35.00 03/27/19 08:00 98.7 03/27/19 08:00 93 Mechanical Ventilator 35.00 03/27/19 08:00 95 35 96/61 (73) 93 Mechanical Ventilator 35.00 03/27/19 07:07 98 03/27/19 07:00 96 32 97/58 (71) 91 Mechanical Ventilator 35.00 03/27/19 06:10 98 18 93 35 03/27/19 06:00 88 17 105/61 (76) 92 Mechanical Ventilator 35.00 I & O 03/28/19 07:00 Intake Total 3040 ml Output Total 1225 ml Balance 1815 ml Height & Weight Height: 5'11.00" Weight: 293lbs. 3.0oz. [id number]; 32.4 BMI Method:Stated General Appearance: No Apparent Distress, Other (sedated on vent) HEENT: Normal ENT Inspection Neck: Normal Inspection Respiratory: No Accessory Muscle Use, No Respiratory Distress Cardiovascular: Regular Rate, Rhythm Capillary Refill: Less Than 3 Seconds Gastrointestinal: non tender, soft Extremity: Non Tender, Pedal Edema Neurologic/Psychiatric: Other Lymphatic: No Adenopathy Results Lab Laboratory Tests 03/27/19 03:00 03/28/19 02:40 Assessment/Plan Assessment/Plan Acute respiratory failure with large right pleural effusion and probable PNA -Continue vent -Family was planning on making pt comfort care yesterday however then stated yesterday "He can not until Sunday or I will not get my money". Pt is still a DNR. Family still does not want to transfer for HD. Family has stated multiple times he would not want HD or web project manager life support. Family appears drugged and it is at times impossible to hold conversation with them because they will just fall asleep mid sentence. Pneumonia with sepsis -Wilcox culture -VancoJagrutisyn -IVF Metabolic lactic acidosis- resolved -Monitor -IVF - d/c bicarb gtt and change to NS at 150 Cardiomyopathy - EF 10% -cardiology is following Acute renal failure, with volume overload, and hyperphos -Family does not want HD Coagulopathy -monitor Anemia -Monitor -Check occult stool Shock liver -Monitor Obesity OHS/JOLIE -Out pt testing LINDA JONES DO Mar 28, 2019 05:54
[2019-03-28] MEDS ORDERED: NS IV 1000 ML 1,000 ML ONE ×2 (05:55→14:18)
[2019-03-28] MEDS ORDERED: NS IV 1000 ML 1,000 ML IV SCH (06:00)
--- NOTE | 2019-03-28 06:54 | Diagnostic Imaging Report ---
Indication: Respiratory failure Portable chest 3:34 AM There is an ET tube projecting over the trachea. There is an NG tube in place. Right IJ central tip projects over the SVC. There are dense alveolar infiltrates in both lungs and possibly effusions. Impression: Severe diffuse alveolar infiltrates in both lungs unchanged from previous day. Dictated by: Dictated on workstation # [id number]
--- NOTE | 2019-03-28 07:49 | Physical Therapy Progress Note ---
Therapy Progress Note Due to patient status and Poor prognosis, PT will discontinue monitoring status and will require new orders. BEN RODRIGUEZ PT Mar 28, 2019 07:48
[2019-03-28] MEDS: PANTOPRAZOLE 40 MG (PROTONIX) VIAL IV SCH (08:41)
[2019-03-28] MEDS: VANCOMYCIN 1 GM/NS 250 ML IVPB IV SCH ×2 (08:41)
--- NOTE | 2019-03-28 08:44 | Cardiology Progress Note ---
Cardiology SOAP Progress Note Subjective: intubated/sedated. Objective: I&O/Vital Signs 03/28/19 03/28/19 03/28/19 03/28/19 03:50 04:00 04:00 05:00 Pulse 84 89 91 Resp 18 18 18 B/P (MAP) 102/57 (72) 99/60 (73) Pulse Ox 74 93 96 96 O2 Delivery Mechanical Ventilator Mechanical Ventilator Mechanical Ventilator O2 Flow Rate 30.00 30.00 30.00 FiO2 30 03/28/19 03/28/19 03/28/19 03/28/19 06:00 06:41 07:00 07:06 Pulse 80 80 84 83 Resp 18 18 18 B/P (MAP) 102/63 (76) 101/56 (71) Pulse Ox 96 95 93 O2 Delivery Mechanical Ventilator Mechanical Ventilator O2 Flow Rate 30.00 30.00 FiO2 25 03/28/19 03/28/19 03/28/19 03/28/19 08:00 08:10 08:45 09:00 Pulse 84 90 99 Resp 23 21 20 B/P (MAP) 99/55 (70) 107/53 (71) Pulse Ox 92 93 93 91 O2 Delivery Mechanical Ventilator Mechanical Ventilator Mechanical Ventilator O2 Flow Rate 30.00 30.00 30.00 FiO2 25 03/28/19 03/28/19 03/28/19 03/28/19 09:21 10:15 11:10 11:44 Temp 101.2 98.6 98.6 Pulse 98 98 Resp 32 32 B/P (MAP) 118/77 Pulse Ox 94 94 O2 Delivery Mechanical Ventilator O2 Flow Rate 30.00 FiO2 25 03/28/19 12:00 Pulse Ox 93 O2 Delivery Mechanical Ventilator O2 Flow Rate 30.00 03/28/19 00:00 Intake Total 1200 ml Output Total 675 ml Balance 525 ml Weight (Pounds): 315 Weight (Ounces): 3.0 Weight (Calculated Kilograms): 142.476231 Constitutional: other (intubated and on mech vent, non-communicative) Respiratory: No accessory muscle use; other (Fair to good air entry, but diminished at the bases) Cardiovascular: regular rate-rhythm, S1 and S2, systolic murmur (2/6 BEATRIZ over the precordium) Gastrointestional: distended; No guarding, No rebound; audible bowel sounds Extremities: other (mild to mod bilat leg edema); No clubbing, No cyanosis Neurologic/Psychiatric: other (he is not able to cooperate with a neuro exam) Skin: No rash on exposed areas, No ulcerations on exposed areas Results/Procedures: Labs Laboratory Tests 03/27/19 17:58: Glucometer 145H 03/28/19 00:07: Glucometer 121H 03/28/19 02:40: White Blood Count 19.7H, Red Blood Count 4.76, Hemoglobin 14.0, Hematocrit 43, Mean Corpuscular Volume 90, Mean Corpuscular Hemoglobin 29, Mean Corpuscular Hemoglobin Concent 33, Red Cell Distribution Width 18.4H, Platelet Count 166, Me an Platelet Volume 12.1H, Neutrophils (%) (Auto) 95H, Lymphocytes (%) (Auto) 3L, Monocytes (%) (Auto) 3, Eosinophils (%) (Auto) 0, Basophils (%) (Auto) 0, Neutrophils # (Auto) 18.6H, Lymphocytes # (Auto) 0.5L, Monocytes # (Auto) 0.6, Eosinophils # (Auto) 0.0, Basophils # (Auto) 0.0, Sodium Level 143, Potassium Level 3.8, Chloride Level 102, Carbon Dioxide Level 25, Anion Gap 16H, Blood Urea Nitrogen 76H, Creatinine 3.50H, Estimat Glomerular Filtration Rate 17, BUN/Creatinine Ratio 22, Glucose Level 146H, Calcium Level 7.4L, Phosphorus Level 5.9H, Magnesium Level 1.9 03/28/19 02:45: Blood Gas Puncture Site RIGHT RADIAL, Blood Gas Patient Temperature 98.8, Arterial Blood pH 7.47H, Arterial Blood Partial Pressure CO2 41, Arterial Blood Partial Pressure O2 53L, Arterial Blood HCO3 29H, Arterial Blood Total CO2 30.3, Arterial Blood Oxygen Saturation 86L, Arterial Blood Base Excess 5.3H, Cody Test YES-POS, Blood Gas Ventilator Setting YES, Blood Gas Inspired Oxygen 30% 03/28/19 11:38: Glucometer 123H Microbiology 03/23/19 Blood Culture - Preliminary, Resulted No growth 03/23/19 MRSA Screen - Final, Complete 03/24/19 Urine Culture - Final, Complete NO GROWTH 03/23/19 Gram Stain - Final, Complete 03/23/19 Wound Culture - Final, Complete Mixed Bacterial Zina Staphylococcus aureus Streptococcus dysgalactiae A/P: Assessment/Dx: Ac resp failure and shock 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 LVEF 10-15% on echo of 03/23/19; EF 35-40% on echo of 09/11/18; LVEF 45-50% on card cath of 10/13/16 Sepsis of undetermined source Ac kidney injury (WALLACE) 3 with oliguria, worsening. Creatinine today 3.0 +. However patient is making urine. Obesity-hypoventilation and JOLIE; non-compliant with treatment Mild CAD on card cath of Oct 2016. Elevated troponin during this admission due to Type 2 PR (hypoxia due to ac resp failure) H/o PVCs. Questionable h/o PAF. Episode of narrow complex and wide complex tachycardia overnight - likely AF with RVR. H/o hypertension and hyperlipidemia Plan: Plan: * Dobutamine discontinued 2 days ago due to Atrial and Ventricular ectopy and tachycardia. No further SVT/WCT. Normal Electrolytes. * iv fluids and diuretics as needed/tolerated * worsening renal function. * Prognosis guarded Thank you for your consultation. Please call me if you have any questions. Gavino Garg MD, FACP, FACC, FSCAI, FHRS, CCDS Interventional Cardiology Cardiac Electrophysiology Vascular Medicine and Endovascular Interventions Feliciano GARG MD Mar 28, 2019 08:44
[2019-03-28] MEDS ORDERED: ACETAMINOPHEN 650 MG SUPP (TYLENOL) ONE (09:07)
[2019-03-28] MEDS ORDERED: ACETAMINOPHEN 650 MG SUPP (TYLENOL) PR PRN ×2 (09:15→12:30)
--- NOTE | 2019-03-28 09:43 | Progress Note ---
Subjective Date Seen by a Provider: Mar 27, 2019 Time Seen by a Provider: 08:10 Subjective/Events-last exam PT IS SEDATED AND INTUBATED, UNABLE TO COMMUNICATE. PER STAFF, DR. JONES HAS DISCUSSED COMFORT CARE WITH THE FAMILY AND THEY ARE GOING TO READDRESS THIS CONVERSATION TODAY SINCE HIS RENAL FUNCTION HAS NOT IMPROVED AND THEY DO NOT WANT HIM TRANSFERRED OR ON DIALYSIS. Review of Systems General: Other (INTUBATED) Pulmonary: Other Genitourinary: Other (SULLIVAN IN PLACE) Neurological: Other UNABLE TO OBTAIN - PT IS INTUBATED Objective Exam Last Set of Vital Signs Vital Signs Date Time Temp Pulse Resp B/P (MAP) Pulse Ox O2 Delivery O2 Flow Rate FiO2 03/28/19 09:21 101.2 03/28/19 09:00 99 20 107/53 (71) 91 Mechanical Ventilator 30.00 03/28/19 08:10 25 Capillary Refill : Less Than 3 Seconds I&O Intake and Output 03/28/19 00:00 Intake Total 4750 ml Output Total 1275 ml Balance 3475 ml Intake Oral 0 ml IV Total 4750 ml Output Urine Total 1275 ml General: Other (SEDATED ON VENT) Lungs: Other (RHONCHI) Heart: Regular Rate Abdomen: Other (EDEMATOUS ABDOMEN) Extremities: Other (EDEMA OF HANDS/LEGS, ABDOMEN) Psych/Mental Status: Other (SEDATED AND INTUBATED) Results Lab Laboratory Tests 03/27/19 11:47: Glucometer 118H 03/27/19 17:58: Glucometer 145H 03/28/19 00:07: Glucometer 121H 03/28/19 02:40: White Blood Count 19.7H, Red Blood Count 4.76, Hemoglobin 14.0, Hematocrit 43, Mean Corpuscular Volume 90, Mean Corpuscular Hemoglobin 29, Mean Corpuscular Hemoglobin Concent 33, Red Cell Distribution Width 18.4H, Platelet Count 166, Mean Platelet Volume 12.1H, Neutrophils (%) (Auto) 95H, Lymphocytes (%) (Auto) 3L, Monocytes (%) (Auto) 3, Eosinophils (%) (Auto) 0, Basophils (%) (Auto) 0, Neutrophils # (Auto) 18.6H, Lymphocytes # (Auto) 0.5L, Monocytes # (Auto) 0.6, Eosinophils # (Auto) 0.0, Basophils # (Auto) 0.0, Sodium Level 143, Potassium Level 3.8, Chloride Level 102, Carbon Dioxide Level 25, Anion Gap 16H, Blood Urea Nitrogen 76H, Creatinine 3.50H, Estimat Glomerular Filtration Rate 17, BUN/Creatinine Ratio 22, Glucose Level 146H, Calcium Level 7.4L, Phosphorus Level 5.9H, Magnesium Level 1.9 03/28/19 02:45: Blood Gas Puncture Site RIGHT RADIAL, Blood Gas Patient Temperature 98.8, Arterial Blood pH 7.47H, Arterial Blood Partial Pressure CO2 41, Arterial Blood Partial Pressure O2 53L, Arterial Blood HCO3 29H, Arterial Blood Total CO2 30.3, Arterial Blood Oxygen Saturation 86L, Arterial Blood Base Excess 5.3H, Cody Test YES-POS, Blood Gas Ventilator Setting YES, Blood Gas Inspired Oxygen 30% Microbiology 03/23/19 Blood Culture - Preliminary, Resulted No growth 03/23/19 MRSA Screen - Final, Complete 03/24/19 Urine Culture - Final, Complete NO GROWTH 03/23/19 Gram Stain - Final, Complete 03/23/19 Wound Culture - Final, Complete Mixed Bacterial Zina Staphylococcus aureus Streptococcus dysgalactiae Assessment/Plan Assessment/Plan Assess & Plan/Chief Complaint PNEUMONIA WITH SEPSIS ACUTE RESPIRATORY FAILURE DUE TO PNEUMONIA AND PLEURAL EFFUSION METABOLIC LACTIC ACIDOSIS ACUTE ON CHRONIC CONGESTIVE HEART FAILURE CARDIOMYOPATHY ACUTE RENAL FAILURE ANEMIA HEPATIC SHOCK DUE TO HYPOTENSION AND SEPSIS ANASARCA ACUTE RESPIRATORY FAILURE DUE TO PNEUMONIA AND PLEURAL EFFUSION - PNEUMONIA WITH SEPSIS - -PT ON ANTIBIOTIC REGIMEN PER DR. JONES - ZOSYN AND VANCOMYCIN - PT STILL SEDATED AND INTUBATED - DEFER TO DR. JONES METABOLIC LACTIC ACIDOSIS - DEFER TO DR. JONES ACUTE ON CHRONIC CONGESTIVE HEART FAILURE WITH CARDIOMYOPATHY - EJECTION FRACTION HAS DECREASED FROM 30-40% DOWN TO 10% IN THE PAST 6 MONTHS. - AT THIS POINT WE ARE ONLY PARTICIPATING IN SUPPORTIVE CARE, WILL MONITOR SYMPTOMS AND GENTLY HYDRATE ACUTE RENAL FAILURE - UNFORTUNATELY, THE FAMILY HAS DECIDED THAT THEY DO NOT WANT DIALYSIS - AT THIS POINT, WE ARE WAITING ON GETTING A DECISION FROM THE FAMILY TO COMFORT CARE OR MORE AGGRESSIVE MEASURES. - RENAL FUNCTION CONTINUES TO BE POOR ANEMIA - STABILIZED HEPATIC SHOCK DUE TO HYPOTENSION AND SEPSIS - IMPROVED ANASARCA - MULTIFACTORIAL - SUPPORTIVE CARE ONLY AT THIS POINT IN TIME - FURTHER TREATMENT WILL DEPEND ON FAMILY DECISION FOR COMFORT CARE VERSUS MORE AGGRESSIVE MEASURES. Clinical Quality Measures DVT/VTE Risk/Contraindication: Risk Factor Score Per Nursin RFS Level Per Nursing on Admit: 4+=Very High DEEPA NAJERA MD Mar 28, 2019 09:43
--- NOTE | 2019-03-28 09:53 | Progress Note ---
Subjective Date Seen by a Provider: Mar 28, 2019 Time Seen by a Provider: 09:45 Subjective/Events-last exam PT IS A 73 Y/O MALE WHO IS WELL KNOWN TO ME FROM CLINIC. HE IS INTUBATED AND SEDATED ON THE VENTILATOR FOR MECHANICAL LIFE SUPPORT. HIS DAUGHTER - DECEMBER - IS IN THE ROOM TODAY AND SHE REPORTS THAT HER MOM HAS TOLD HER THAT SHE DOES NOT WANT BILL TO BE EXTUBATED BECAUSE SHE IS WAITING UNTIL AFTER March SO THAT THEY CAN GET HIS KPERS CHECK FROM THE STATE. ILANA STATED THAT SHE WAS UPSET BECAUSE SHE DOES NOT WANT TO SEE HER DAD SUFFERING. SHE REPORTS THAT HE HAS TOLD HER THAT HE DID NOT WANT TO BE KEPT ALIVE BY MACHINE. SHE IS UPSET WITH HER MOM'S INABILITY TO BE AT THE HOSPITAL TO PARTICIPATE IN MAKING THE DECISION TO LET HER DAD GO AND NO LONGER SUFFER. Review of Systems General: Other (PT INTUBATED) Pulmonary: Other (PT INTUBATED) Neurological: Other (PT INTUBATED) UNABLE TO OBTAIN - PT IS INTUBATED Objective Exam Last Set of Vital Signs Vital Signs Date Time Temp Pulse Resp B/P (MAP) Pulse Ox O2 Delivery O2 Flow Rate FiO2 03/28/19 09:21 101.2 03/28/19 09:00 99 20 107/53 (71) 91 Mechanical Ventilator 30.00 03/28/19 08:10 25 Capillary Refill : Less Than 3 Seconds I&O Intake and Output 03/28/19 00:00 Intake Total 4750 ml Output Total 1275 ml Balance 3475 ml Intake Oral 0 ml IV Total 4750 ml Output Urine Total 1275 ml General: Other (SEDATED ON VENT) Lungs: Other (RHONCHI) Heart: Regular Rate Abdomen: Other (EDEMATOUS ABDOMEN) Extremities: Other (EDEMA OF HANDS/LEGS, ABDOMEN) Psych/Mental Status: Other (SEDATED AND INTUBATED) Results Lab Laboratory Tests 03/27/19 11:47: Glucometer 118H 03/27/19 17:58: Glucometer 145H 03/28/19 00:07: Glucometer 121H 03/28/19 02:40: White Blood Count 19.7H, Red Blood Count 4.76, Hemoglobin 14.0, Hematocrit 43, Mean Corpuscular Volume 90, Mean Corpuscular Hemoglobin 29, Mean Corpuscular Hemoglobin Concent 33, Red Cell Distribution Width 18.4H, Platelet Count 166, Mean Platelet Volume 12.1H, Neutrophils (%) (Auto) 95H, Lymphocytes (%) (Auto) 3L, Monocytes (%) (Auto) 3, Eosinophils (%) (Auto) 0, Basophils (%) (Auto) 0, Neutrophils # (Auto) 18.6H, Lymphocytes # (Auto) 0.5L, Monocytes # (Auto) 0.6, Eosinophils # (Auto) 0.0, Basophils # (Auto) 0.0, Sodium Level 143, Potassium Level 3.8, Chloride Level 102, Carbon Dioxide Level 25, Anion Gap 16H, Blood Urea Nitrogen 76H, Creatinine 3.50H, Estimat Glomerular Filtration Rate 17, BUN/Creatinine Ratio 22, Glucose Level 146H, Calcium Level 7.4L, Phosphorus Level 5.9H, Magnesium Level 1.9 03/28/19 02:45: Blood Gas Puncture Site RIGHT RADIAL, Blood Gas Patient Temperature 98.8, Arterial Blood pH 7.47H, Arterial Blood Partial Pressure CO2 41, Arterial Blood Partial Pressure O2 53L, Arterial Blood HCO3 29H, Arterial Blood Total CO2 30.3, Arterial Blood Oxygen Saturation 86L, Arterial Blood Base Excess 5.3H, Cody Test YES-POS, Blood Gas Ventilator Setting YES, Blood Gas Inspired Oxygen 30% Microbiology 03/23/19 Blood Culture - Preliminary, Resulted No growth 03/23/19 MRSA Screen - Final, Complete 03/24/19 Urine Culture - Final, Complete NO GROWTH 03/23/19 Gram Stain - Final, Complete 03/23/19 Wound Culture - Final, Complete Mixed Bacterial Zina Staphylococcus aureus Streptococcus dysgalactiae Assessment/Plan Assessment/Plan Assess & Plan/Chief Complaint PNEUMONIA WITH SEPSIS ACUTE RESPIRATORY FAILURE DUE TO PNEUMONIA AND PLEURAL EFFUSION METABOLIC LACTIC ACIDOSIS ACUTE ON CHRONIC CONGESTIVE HEART FAILURE CARDIOMYOPATHY ACUTE RENAL FAILURE ANEMIA HEPATIC SHOCK DUE TO HYPOTENSION AND SEPSIS ANASARCA ACUTE RESPIRATORY FAILURE DUE TO PNEUMONIA AND PLEURAL EFFUSION - PNEUMONIA WITH SEPSIS - ACUTE ON CHRONIC CONGESTIVE HEART FAILURE WITH CARDIOMYOPATHY - EJECTION FRACTION HAS DECREASED FROM 30-40% DOWN TO 10% IN THE PAST 6 MONTHS. - AT THIS POINT WE ARE ONLY PARTICIPATING IN SUPPORTIVE CARE ACUTE RENAL FAILURE - THE FAMILY HAS DECIDED THAT THEY DO NOT WANT DIALYSIS HEPATIC SHOCK DUE TO HYPOTENSION AND SEPSIS - IMPROVED ANASARCA - MULTIFACTORIAL - SUPPORTIVE CARE ONLY AT THIS POINT IN TIME THE PATIENT HAS MULTIFACTORIAL SYSTEMIC FAILURE - DOCUMENTED ABOVE, THE PATIENT HAS SEPSIS WITH PNEUMONIA, CARDIOMYOPATHY WITH HEART FAILURE, RENAL FAILURE, RESPIRATORY FAILURE. I HAVE CONTACTED DR. JONES AND THE ETHICS COMMITTEE ABOUT THE ABOVE HEALTH ISSUES COUPLED WITH THE INABILITY OF HIS TO MAKE A DECISION ABOUT EITHER TRYING TO PURSUE MORE AGGRESSIVE CARE (WHICH SHE HAS DECLINED) OR MAKING BILL COMFORT CARE (WHICH SHE DECLINED TO DO UNTIL AFTER SHE OBTAINED HIS KPERS CHECK ON 03/31/19). AFTER A PROLONGED CONVERSATION WITH THE ETHICS COMMITTEE AND WITH HIS SON PASQUALE AND HIS DTR ILANA, WE HAVE DECIDED THAT TO NOT MAKE A DECISION BY HIS IS, IN ESSENCE, MAKING A DECISION TO DO NOTHING. HIS MEDICAL PHYSICIAN AND WITH DISCUSSION WITH DR. JONES, WE HAVE DOCUMENTED HIS GRAVE ILLNESS AND HAVE RECOMMENDED THAT HE IS TO BE EXTUBATED AND PLACED ON COMFORT CARE IN THE HOSPITAL. HIS DAUGHTER AND SON UNDERSTAND THIS RECOMMENDATION AND ILANA IS GOING TO STAY IN THE HOSPITAL DURING THIS PROCESS. PASQUALE IS AT HOME WITH BENEDICTO AND HE HAS HER PHONE, HE STATES THAT "SHE IS IN NO STATE" TO COME TO THE HOSPITAL. HE REPORTED THAT SHE HAD TAKEN A LOT OF MEDICATION TO TRY TO HELP HER SELF SLEEP LAST NIGHT AND THEN SHE TOOK A XANAX THIS MORNING FOR A HEADACHE AND SHE "WAS NOT MAKING SENSE" THIS AFTERNOON WHEN HE WENT OVER TO HER HOUSE TO CHECK ON HER. WITH HER INABILITY TO PARTICIPATE IN THE CONVERSATION, BENEDICTO WAS NOT ENGAGED BY MYSELF. HOWEVER, HER DTR ILANA DID TELL BENEDICTO BY PHONE ABOUT MY CONVERSATION THIS MORNING WITH ILANA AND BENEDICTO'S RESPONSE, PER ILANA'S REPORT WAS "BUT DID YOU TELL HER ABOUT THE KPERS CHECK?". I HAVE INDICATED TO ILANA AND PASQUALE THAT TO KEEP MATTHEW ALIVE AND SUFFERING FOR THREE MORE DAYS IS ETHICALLY NOT ACCEPTABLE AND FROM A MEDICAL STANDPOINT, EXTUBATION IS THE BEST OPTION FOR COMFORT FOR MATTHEW. WE ARE EXTUBATING MATTHEW THIS AFTERNOON. Clinical Quality Measures DVT/VTE Risk/Contraindication: Risk Factor Score Per Nursin RFS Level Per Nursing on Admit: 4+=Very High DEEPA NAJERA MD Mar 28, 2019 09:53
[2019-03-28] MEDS ORDERED: cefTRIAXone 1,000 MG/SWFI 10 ML IV PUSH IV SCH ×2 (11:00)
--- NOTE | 2019-03-28 11:00 | NUR ---
Ethical consult requested by Dr. Green: Present were Dr. Green, Nicolette Argueta, Jess New, Karla Vargas, Ced Crwoell, Mamadou Mehta, Tan Javier, Kimmie Darnell and Nils Andrade by phone, facilitated by Sherman Law. Reason for Consult: Pt is unresponsive and intubated with acute renal failure and heart failure. Pt is a DNR and appropriate for comfort care. Pt has a history of non-compliance leading up to this time. His daughter Radha and son Marty have been actively involved and available for decision-making and advocating for the pt's best interest. They both report the pt shared with them wishes to not be kept alive on machines. Pt's , Maryjo, has not been accessible for communication in person or over the phone, however requested through her children that the doctor wait until March 31 to extubate the patient so she can receive his next payment from [employer]. Rdaha has said she does not want to see her dad suffer, and believes he would not want to live in his current condition. Treatment options: Two possible options are (1) transfer to [facility] for dialysis, though this may not be possible. Pt is an unlikely candidate. (2) Comfort Care which would include prompt extubating. (3) Keep pt intubated, as requested by pt's . Ethics Consult Recommendation: Dr. Green will attempt calling . Explain that only the first two options are in the patient's best interest, and that the first is highly unlikely though can be explored. Also share this discussion with the adult children and have chaplains continue involvement. If the insists upon option 3, this committee supports the informed recommendation of the physicians involved, Dr. Green, Dr. Woodard, and cardiology.
[2019-03-28] MEDS ORDERED: PROMETHAZINE INJ 25 MG/ML (PHENERGAN) AMP IVP PRN (12:30)
[2019-03-28] MEDS ORDERED: ARTIFICAL TEARS 0.4 ML UNIT DOSE (REFRESH PLUS) OU PRN (12:30)
[2019-03-28] MEDS ORDERED: ONDANSETRON 4 MG/2 ML (SDV) Z0FRAN IVP PRN (12:30)
[2019-03-28] MEDS ORDERED: LORazepam INJ 2 MG/ML (ATIVAN) VIAL IVP PRN (12:30)
[2019-03-28] MEDS ORDERED: fentaNYL INJECTION 100 MCG/2 ML AMP IVP NR (12:30)
[2019-03-28] MEDS ORDERED: SALIVA STIMULANT MOUTH SPRAY (BIOTENE) 1.5 OZ MM PRN (12:30)
[2019-03-28] MEDS ORDERED: GLYCOPYRROLATE 0.2 MG/ML (ROBINUL) 2 ML VIAL IV PRN (12:30)
[2019-03-28] MEDS ORDERED: BISACODYL 10 MG SUPP (DULCOLAX) PR PRN (12:30)
[2019-03-28] MEDS ORDERED: LORazepam INJ 2 MG/ML (ATIVAN) VIAL IVP NR (12:30)
[2019-03-28] MEDS: morphine INJ 4 MG/ML 1 ML (VIAL/SYRINGE) IVP PRN ×2 (12:36→13:53)
[2019-03-28] MEDS ORDERED: fentaNYL INJECTION 100 MCG/2 ML AMP ONE (12:49)
--- NOTE | 2019-03-28 13:45 | NUR ---
1230 DR NAJERA CALLED WITH ORDERS TO EXTUBATE PT AND MAKE PT COMFORT CARE. RT NOTIFIED, AT 1240 PT EXTUBATED, MORPHINE GIVEN PRIOR TO EXTUBATION. DAUGHTER AND PASTORAL CARE IN ROOM ALONG WITH PALLIATIVE CARE RN SANTIAGO.
[2019-03-28] MEDS ORDERED: morphine PCA 100 MG/100 ML BAG IV PRN (14:15)
--- NOTE | 2019-03-28 14:49 | NUR ---
Palliative Care RN responded to ICU at the request of Tonia HUBBARD. Concern is that is here who cares cares for young children and now who is taking care of them. December, patients daughter came out into the álvarez and I asked her if the children were in a safe place. She assured this RN that they were and she has no concerns for their welfare.
--- NOTE | 2019-03-28 14:52 | NUR ---
Pt extubated; daughter Maryjo and and 's at bedside. Pt became alert and said he did not want to . Pt repeated this statement. This bone grinder shared the occurrence with Dr. Green for follow up assessment and reassurance for pt and his family. The pt continues to decline and is unresponsive. This bone grinder offered support at the bedside, acknowledged pt's fears, and offered words of support and kindness to pt. During Dr. Green's visit with the daughter and 's family, the pt's and son arrived. Upon seeing the doctor, the pt's requested medication for herself. Dr. Green redirected the 's attention back to the pt. At the bedside, Dr. Green educated the pt's about his terminal condition after which the asked if he could be kept alive until March 31 so she could receive his next paycheck from [facility]. Dr. Green explained that this would be unethical as he is a DNR, and it would only prolong his suffering without offering any benefit. The pt is on comfort care. Chaplain Stauffer present with family and pt at this time.
--- NOTE | 2019-03-28 15:55 | Discharge Summary ---
Diagnosis/Chief Complaint Date of Admission Mar 23, 2019 at 07:05 Date of Discharge 03/28/19 Discharge Date: Mar 28, 2019 Discharge Time: 17:50 Admission Diagnosis Admission Diagnosis PNEUMONIA WITH SEPSIS ACUTE RESPIRATORY FAILURE DUE TO PNEUMONIA AND PLEURAL EFFUSION METABOLIC LACTIC ACIDOSIS ACUTE ON CHRONIC CONGESTIVE HEART FAILURE CARDIOMYOPATHY ACUTE RENAL FAILURE ANEMIA HEPATIC SHOCK DUE TO HYPOTENSION AND SEPSIS ANASARCA Discharge Diagnosis PNEUMONIA WITH SEPSIS ACUTE RESPIRATORY FAILURE DUE TO PNEUMONIA AND PLEURAL EFFUSION METABOLIC LACTIC ACIDOSIS ACUTE ON CHRONIC CONGESTIVE HEART FAILURE CARDIOMYOPATHY ACUTE RENAL FAILURE ANEMIA HEPATIC SHOCK DUE TO HYPOTENSION AND SEPSIS ANASARCA Reason Hospital Visit Multisystem organ failure History of present illness: This is a 73-year-old white male of Dr. Green who had seen the nurse practitioner at her office on Sunday and multiple times recently for lower extremity pain and swelling who presented to the ER and multisystem organ failure. Patient required intubation and aggressive treatment for multiple specialties considering the severity of his illness. His is at the bedside and daughter. Patient has bilateral pneumonia on chest x-ray and renal failure with oliguria and significant high risk for further decompensation and . told me that he became very lethargic and she was having to carry him to the bathroom in that was no longer an option due to the significant illness that he was having and all of this was delayed because they are raising their grandchildren and his has Alzheimer's of which they are managing also so a lot of psychosocial issues contributing to the issues he is having. Discharge Summary Consultations DR JONES CARDIOLOGY Discharge Physical Examination Allergies: Coded Allergies: Sulfa (Sulfonamide Antibiotics) (Verified Allergy, Unknown, 03/23/19) Vitals & I&Os Vital Signs Date Time Temp Pulse Resp B/P (MAP) Pulse Ox O2 Delivery O2 Flow Rate FiO2 03/28/19 12:00 93 Mechanical Ventilator 30.00 03/28/19 11:44 98.6 98 32 118/77 03/28/19 11:10 25 General Appearance: Other () Psych/Mental Status: Other () Hospital Course Was the Problem List Reviewed?: Yes PNEUMONIA WITH SEPSIS ACUTE RESPIRATORY FAILURE DUE TO PNEUMONIA AND PLEURAL EFFUSION METABOLIC LACTIC ACIDOSIS ACUTE ON CHRONIC CONGESTIVE HEART FAILURE CARDIOMYOPATHY ACUTE RENAL FAILURE ANEMIA HEPATIC SHOCK DUE TO HYPOTENSION AND SEPSIS ANASARCA ACUTE RESPIRATORY FAILURE DUE TO PNEUMONIA AND PLEURAL EFFUSION - PNEUMONIA WITH SEPSIS - ACUTE ON CHRONIC CONGESTIVE HEART FAILURE WITH CARDIOMYOPATHY - EJECTION FRACTION HAS DECREASED FROM 30-40% DOWN TO 10% IN THE PAST 6 MONTHS. - AT THIS POINT WE ARE ONLY PARTICIPATING IN SUPPORTIVE CARE ACUTE RENAL FAILURE - THE FAMILY HAS DECIDED THAT THEY DO NOT WANT DIALYSIS HEPATIC SHOCK DUE TO HYPOTENSION AND SEPSIS - IMPROVED ANASARCA - MULTIFACTORIAL - SUPPORTIVE CARE ONLY AT THIS POINT IN TIME THE PATIENT HAS MULTIFACTORIAL SYSTEMIC FAILURE - DOCUMENTED ABOVE, THE PATIENT HAS SEPSIS WITH PNEUMONIA, CARDIOMYOPATHY WITH HEART FAILURE, RENAL FAILURE, RESPIRATORY FAILURE. I HAVE CONTACTED DR. JONES AND THE ETHICS COMMITTEE ABOUT THE ABOVE HEALTH ISSUES COUPLED WITH THE INABILITY OF HIS TO MAKE A DECISION ABOUT EITHER TRYING TO PURSUE MORE AGGRESSIVE CARE (WHICH SHE HAS DECLINED) OR MAKING BILL COMFORT CARE (WHICH SHE DECLINED TO DO UNTIL AFTER SHE OBTAINED HIS KPERS CHECK ON 03/31/19). AFTER A PROLONGED CONVERSATION WITH THE ETHICS COMMITTEE AND WITH HIS SON PASQUALE AND HIS DTR GEORGE WE HAVE DECIDED THAT TO NOT MAKE A DECISION BY HIS IS, IN ESSENCE, MAKING A DECISION TO DO NOTHING. HIS MEDICAL PHYSICIAN AND WITH DISCUSSION WITH DR. JONES, WE HAVE DOCUMENTED HIS GRAVE ILLNESS AND HAVE RECOMMENDED THAT HE IS TO BE EXTUBATED AND PLACED ON COMFORT CARE IN THE HOSPITAL. HIS DAUGHTER AND SON UNDERSTAND THIS RECOMMENDATION AND GEORGE IS GOING TO STAY IN THE HOSPITAL DURING THIS PROCESS. PASQUALE IS AT HOME WITH BENEDICTO AND HE HAS HER PHONE, HE STATES THAT "SHE IS IN NO STATE" TO COME TO THE HOSPITAL. HE REPORTED THAT SHE HAD TAKEN A LOT OF MEDICATION TO TRY TO HELP HER SELF SLEEP LAST NIGHT AND THEN SHE TOOK A XANAX THIS MORNING FOR A HEADACHE AND SHE "WAS NOT MAKING SENSE" THIS AFTERNOON WHEN HE WENT OVER TO HER HOUSE TO CHECK ON HER. WITH HER INABILITY TO PARTICIPATE IN THE CONVERSATION, BENEDICTO WAS NOT ENGAGED BY MYSELF. HOWEVER, HER DTR ILANA DID TELL BENEDICTO BY PHONE ABOUT MY CONVERSATION THIS MORNING WITH GEORGE AND BENEDICTO'S RESPONSE, PER DECEMBER'S REPORT WAS "BUT DID YOU TELL HER ABOUT THE KPERS CHECK?". I HAVE INDICATED TO GEORGE AND PASQUALE THAT TO KEEP MATTHEW ALIVE AND SUFFERING FOR THREE MORE DAYS IS ETHICALLY NOT ACCEPTABLE AND FROM A MEDICAL STANDPOINT, EXTUBATION IS THE BEST OPTION FOR COMFORT FOR MATTHEW. WE ARE EXTUBATING MATTHEW THIS AFTERNOON. PT THIS AFTERNOON I TALKED TO BENEDICTO AT THE HOSPITAL AFTER MATTHEW'S EXTUBATION Pending Labs Laboratory Tests 03/28/19 11:38: Glucometer 123 Discharge Instructions to patient/family Please see electronic discharge instructions given to patient. Discharge Medications Reviewed and agree with Discharge Medication list on patient's Discharge Instruction sheet Clinical Quality Measures DVT/VTE Risk/Contraindication: Risk Factor Score Per Nursin RFS Level Per Nursing on Admit: 4+=Very High DEEPA GREEN MD Mar 28, 2019 15:55
--- NOTE | 2019-03-28 17:37 | NUR ---
1537 PT , NO APICAL PULSE CONFIRMED BY THIS RN AND James DE DIOS RN. AND DAUGHTER AT BEDSIDE, ALONG WITH PASTORAL CARE. 15[address] TRANSPLANT [address] JONES NOTIFIED.
--- NOTE | 2019-03-28 18:47 | NUR ---
PT LEFT VIA [facility] ACCOMPANIED BY [facility] STAFF. ALL PERSONAL BELONGINGS WITH PT'S FAMILY.
[2019-03-29] MEDS ORDERED: TROUGH ORDER-PHARMACY XX ONE (07:00)
== END 2019-03-28 15:37 | disposition expired | DRG 870 ==
LOC: EDUNIT# 05:20 → ER 05:22 → EEVIPCON 07:05 → ICU 07:05
PROVIDERS: ADMIT Internal Medicine; ATTEND Internal Medicine
PROC: 5A1955Z Respiratory Ventilation, Greater than 96 Consecutive Hours (ICD-10-PCS; principal; 2019-03-23)
PROC: 0BH17EZ Insertion of Endotracheal Airway into Trachea, Via Natural or Artificial Opening (ICD-10-PCS; 2019-03-23)
DX: A41.9 Sepsis, unspecified organism (principal); R65.21 Severe sepsis with septic shock; J96.01 Acute respiratory failure with hypoxia; R57.0 Cardiogenic shock; J18.9 Pneumonia, unspecified organism; I50.23 Acute on chronic systolic (congestive) heart failure; N17.9 Acute kidney failure, unspecified; Z66 Do not resuscitate; Z51.5 Encounter for palliative care; I21.A1 Myocardial infarction type 2; K72.00 Acute and subacute hepatic failure without coma; E87.2 Acidosis; I42.0 Dilated cardiomyopathy; E66.2 Morbid (severe) obesity with alveolar hypoventilation; Z68.41 Body mass index [BMI] 40.0-44.9, adult; I25.10 Atherosclerotic heart disease of native coronary artery without angina pectoris; E78.5 Hyperlipidemia, unspecified; I10 Essential (primary) hypertension; D64.9 Anemia, unspecified; E83.42 Hypomagnesemia; E87.6 Hypokalemia; I49.3 Ventricular premature depolarization; Z91.19 Patient's noncompliance with other medical treatment and regimen; Z87.891 Personal history of nicotine dependence
CPT/HCPCS: 31500; 36415; 36556; 51702; 71045; 71250; 80048; 80053; 80202; 81000; 82040; 82140; 82805; 82962; 83605; 83735; 83880; 84100; 84478; 84484; 85007; 85025; 85027; 85610; 85730; 87040; 87070; 87077; 87081; 87088; 87185; 87186; 87205; 93005; 93306; 94002; 94003; 94640; 94799; 96374; 96375; 99291